=== PATIENT | male | born 1950 | race Caucasian/White ===

== ENCOUNTER 2023-03-28 18:27 | Outpatient (RCR) | payer MEDICARE, SELFPAY | END 2023-04-21 23:59 | disposition home or self-care (01) | LOC: MM 18:27 | PROVIDERS: PCP Internal Medicine; Visit Provider Internal Medicine | DX: Z51.81 Encounter for therapeutic drug level monitoring (principal); Z79.01 Long term (current) use of anticoagulants; I48.91 Unspecified atrial fibrillation | CPT/HCPCS: 85610; G0463 ==

== ENCOUNTER 2023-04-27 10:02 | Outpatient (RCR) | payer MEDICARE, SELFPAY | END 2023-05-22 17:08 | disposition home or self-care (01) | LOC: MM 10:02 | PROVIDERS: PCP Internal Medicine; Visit Provider Internal Medicine | DX: Z51.81 Encounter for therapeutic drug level monitoring (principal); Z79.01 Long term (current) use of anticoagulants; I48.91 Unspecified atrial fibrillation | CPT/HCPCS: 85610; G0463 ==

== ENCOUNTER 2023-05-23 09:38 | Outpatient (RCR) | payer MEDICARE, SELFPAY | END 2023-06-22 17:42 | disposition home or self-care (01) | LOC: MM 09:38 | PROVIDERS: PCP Internal Medicine; Visit Provider Internal Medicine | DX: Z51.81 Encounter for therapeutic drug level monitoring (principal); Z79.01 Long term (current) use of anticoagulants; I48.91 Unspecified atrial fibrillation ==

== ENCOUNTER 2023-06-06 15:46 | Outpatient (OUT) | payer MEDICARE, SELFPAY ==
--- NOTE | 2023-06-06 | XR_ITS ---
The [address] [address] Patient Name: OJAO JULIEN MRN: [id number] date: 1950 Sex: M Assigned Patient Location: [facility] Current Patient Location: [facility] Accession/Order Number: [id number] Exam Date: 06/06/2023 11:19 Report Date: 06/06/2023 15:38 At the request of: ELISE MAS Procedure: XR foot CURT min 3V EXAM: XR foot CURT min 3V 06/06/2023 TECHNIQUE: Frontal, oblique, and lateral views of each foot for a total of 7 images were obtained. HISTORY: BILATERAL FOOT PAIN COMPARISON: None. 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 Similar hallux valgus deformity noted bilaterally with mild/moderate arthritic changes involving first MTP joints bilaterally. Subcentimeter bone island at the base of the right fifth metatarsal is noted. Remote trauma seen about the distal right tibia-fibula syndesmotic region suggested with moderate arthritic changes at the tibiotalar more so than talonavicular articulation noted. There are mild similar arthritic changes at the left talonavicular articulation. Small bilateral calcaneal enthesophytes are noted. No acute fracture or dislocation noted. XR/XR foot CURT min 3V IMPRESSION: 1. Mild hallux valgus deformities bilaterally with moderate arthritic changes at the first MTP articulations bilaterally noted. There are mild symmetric arthritic changes about the talonavicular articulations bilaterally noted. 2. Remote trauma about the distal tibiofibular syndesmosis on the right with moderate arthritic changes involving the right tibiotalar articulation. 3. No acute fracture or dislocation involving either foot. 4. Small bilateral calcaneal enthesophytes are noted. Electronically authenticated by: AMERICO BAL Date: 06/06/2023 15:38
--- NOTE | 2023-06-06 | XR_ITS ---
The [address] [address] Patient Name: JOAO JULIEN MRN: [id number] date: 1950 Sex: M Assigned Patient Location: [facility] Current Patient Location: [facility] Accession/Order Number: [id number] Exam Date: 06/06/2023 11:05 Report Date: 06/06/2023 13:57 At the request of: ELISE MAS Procedure: XR ankle RT min 3V EXAM: XR ankle RT min 3V, 06/06/2023. COMPARISON STUDY: None. TECHNIQUE: Frontal, oblique and lateral views for 3 views were obtained. HISTORY: RIGHT ANKLE PAIN. FINDINGS/IMPRESSION: 1. Old healed fracture deformity associated with the distal fibula. 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 2. 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 3. No acute fracture or dislocation. 4. Small plantar calcaneal enthesophyte is noted. Electronically authenticated by: AMERICO BAL Date: 06/06/2023 13:57
== END 2023-06-06 15:47 | disposition home or self-care (01) ==
LOC: RAD 15:46
PROVIDERS: PCP Internal Medicine; Visit Provider Podiatrist Foot & Ankle Surgery
DX: M25.571 Pain in right ankle and joints of right foot (principal); M79.672 Pain in left foot
CPT/HCPCS: 73610; 73630

== ENCOUNTER 2023-06-23 09:05 | Outpatient (RCR) | payer MEDICARE, SELFPAY | END 2023-07-21 17:01 | disposition home or self-care (01) | LOC: MM 09:05 | PROVIDERS: PCP Internal Medicine; Visit Provider Internal Medicine | DX: Z51.81 Encounter for therapeutic drug level monitoring (principal); Z79.01 Long term (current) use of anticoagulants; I48.91 Unspecified atrial fibrillation | CPT/HCPCS: 85610; G0463 ==

== ENCOUNTER 2023-07-24 02:07 | Outpatient (RCR) | payer MEDICARE, SELFPAY | END 2023-08-22 17:29 | disposition home or self-care (01) | LOC: MM 02:07 | PROVIDERS: PCP Family Medicine; Visit Provider Internal Medicine | DX: Z51.81 Encounter for therapeutic drug level monitoring (principal); Z79.01 Long term (current) use of anticoagulants; I48.91 Unspecified atrial fibrillation | CPT/HCPCS: 85610; G0463 ==

== ENCOUNTER 2023-08-23 00:28 | Outpatient (RCR) | payer MEDICARE, SELFPAY | END 2023-09-21 16:42 | disposition home or self-care (01) | LOC: MM 00:28 | PROVIDERS: PCP Family Medicine; Visit Provider Internal Medicine | DX: Z51.81 Encounter for therapeutic drug level monitoring (principal); Z79.01 Long term (current) use of anticoagulants; I48.91 Unspecified atrial fibrillation | CPT/HCPCS: 85610; G0463 ==

== ENCOUNTER 2023-09-22 09:29 | Outpatient (RCR) | payer MEDICARE, SELFPAY | END 2023-10-20 15:11 | disposition home or self-care (01) | LOC: MM 09:29 | PROVIDERS: PCP Family Medicine; Visit Provider Internal Medicine | DX: Z51.81 Encounter for therapeutic drug level monitoring (principal); Z79.01 Long term (current) use of anticoagulants; I48.91 Unspecified atrial fibrillation ==

== ENCOUNTER 2023-10-23 02:11 | Outpatient (RCR) | payer MEDICARE, SELFPAY | END 2023-11-22 16:57 | disposition home or self-care (01) | LOC: MM 02:11 | PROVIDERS: PCP Family Medicine; Visit Provider Internal Medicine | DX: Z51.81 Encounter for therapeutic drug level monitoring (principal); Z79.01 Long term (current) use of anticoagulants; I48.0 Paroxysmal atrial fibrillation | CPT/HCPCS: 85610; G0463 ==

== ENCOUNTER 2023-11-23 00:49 | Outpatient (RCR) | payer MEDICARE, SELFPAY | END 2023-12-21 17:35 | disposition home or self-care (01) | LOC: MM 00:49 | PROVIDERS: PCP Family Medicine; Visit Provider Internal Medicine | DX: Z51.81 Encounter for therapeutic drug level monitoring (principal); Z79.01 Long term (current) use of anticoagulants; I48.0 Paroxysmal atrial fibrillation | CPT/HCPCS: 85610; G0463 ==

== ENCOUNTER 2023-12-22 01:27 | Outpatient (RCR) | payer MEDICARE, SELFPAY | END 2024-01-19 13:56 | disposition home or self-care (01) | LOC: MM 01:27 | PROVIDERS: PCP Family Medicine; Visit Provider Internal Medicine | DX: Z51.81 Encounter for therapeutic drug level monitoring (principal); Z79.01 Long term (current) use of anticoagulants; I48.0 Paroxysmal atrial fibrillation ==

== ENCOUNTER 2024-01-22 00:14 | Outpatient (RCR) | payer MEDICARE, SELFPAY | END 2024-02-20 17:56 | disposition home or self-care (01) | LOC: MM 00:14 | PROVIDERS: PCP Family Medicine; Visit Provider Internal Medicine | DX: Z51.81 Encounter for therapeutic drug level monitoring (principal); Z79.01 Long term (current) use of anticoagulants; I48.0 Paroxysmal atrial fibrillation | CPT/HCPCS: 85610; G0463 ==

== ENCOUNTER 2024-01-23 08:07 | Outpatient (OUT) | payer MEDICARE, SELFPAY ==
--- OUTSIDE RECORDS SUMMARY | 2024-01-23 08:10 | XMS_ITS | CCD ---
Author Organization [facility] Care Team Providers Care Management Trainer Name Role Phone PHYSICIAN, DEFAULT Unavailable Unavailable PHYSICIAN, DEFAULT Unavailable Unavailable CHRISTI DENT Primary Care Physician Christi Dent Unavailable Unavailable Unavailable MD Tyrone Walters Attending Provider MD Christi Dent Primary Care Provider MD Tyrone Walters Referring Provider [phone] Dr. Ta Silva Attending Mary Dent, Dr. Christi Bird Primary Care Brandyv Christi Leal Primary Care Unavailable Walters, Tyrone Admitting Unavailable Walters, Tyrone Referring Unavailable Walters, Tyrone Attending Unavailable Christi Dent Primary Care Unavailable Walters, Hansen Admitting Unavailable Walters, Tyrone Attending Unavailable Filipe, Dr. Christi Bird Primary Care Unav dilipable Ta Silva Attending Unavailable Ta Silva Referring Unavailable Oc, Ms. Johnna Franco Referring Sarah Renae, Ms. Johnna Franco Attending Sarah Dent, Dr. Christi Bird Primary Care Catrachita Dent, Dr. Christi Bird Primary Care Unav ailTyrone Boyd Attending Unavailable Oc, Ms. Johnna Franco Referring Sarah Renae, Ms. Johnna Franco Attending Sarah Dent, Dr. Christi Bird Primary Care Catrachita Renae, Ms. Johnna Franco Referring Sarah Renae, Ms. Johnna Franco Attending Sarah Dent, Dr. Christi Bird Primary Care Unav ailstacie Dent, Dr. Christi Bird Primary Care Unav ailable Renae, Ms. Johnna Gordonsoledad Franco Referring Sarah Renae, Ms. Johnna Huntd Attending Sarah Dent, Dr. Christi Bird Primary Care Unav ailable Ricardo, Ta Attending Unavailable Ricardo, Ta Referring Unavailable Dent, Dr. Christi Bird Primary Care Unav ailable Ricardo, Ta Attending Unavailable Ricardo, Ta Referring Unavailable FAWWAD, VARGHESE H Attending Unavailable FAWWAD, VARGHESE H Admitting Unavailable DENT, DR CHRISTI Garcia Primary Care Unavailable FAWWAD, VARGHESE H Attending Unavailable FAWWAD, VARGHESE H Admitting Unavailable DENT, DR CHRISTI Garcia Primary Care Unavailable FAWWAD, VARGHESE H Attending Unavailable FAWWAD, VARGHESE H Admitting Unavailable DENT, DR CHRISTI Garcia Primary Care Unavailable FAWWAD, VARGHESE H Attending Unavailable FAWWAD, VARGHESE H Admitting Unavailable DENT, DR CHRISTI Garcia Primary Care Unavailable FAWWAD, VARGHESE H Attending Unavailable FAWWAD, VARGHESE H Admitting Unavailable DENT, DR CHRISTI Garcia Primary Care Unavailable FAWWAD, VARGHESE H Attending Unavailable FAWWAD, VARGHESE H Admitting Unavailable DENT, DR CHRISTI Garcia Primary Care Unavailable FAWWAD, VARGHESE H Attending Unavailable FAWWAD, VARGHESE H Admitting Unavailable DENT, DR CHRISTI Garcia Primary Care Unavailable FAWWAD, VARGHESE H Attending Unavailable FAWWAD, VARGHESE H Admitting Unavailable DENT, DR CHRISTI Garcia Primary Care Unavailable REINIER ., DR WRIGHT Consulting Unavailable RICARDO, DR TA Michel Attending Unavailabl jose DENT, DR CHRISTI Garcia Primary Care Unavailable RICARDO, DR TA Michel Admitting Unavailaudrey e RICARDO, DR TA Michel Consulting Unavailabl e REINIER ., DR WRIGHT Consulting Unavailable FORTE ., DR WRIGHT Attending Unavailable FORTE ., DR WRIGHT Admitting Unavailable DENT, DR CHRISTI Garcia Primary Care Unavailable REQUEST, NONE LISTED Consulting Unavaila ble REQUEST, DR DOE LISTED Attending Unavaila ble FIILPE, DR CHRISTI Garcia Primary Care Unavailable REQUEST, NONE LISTED Admitting Unavaila ble JOSE ., MONSE Attending Unavailable JOSE ., MONSE Admitting Unavailable DENT, CHRSITI E Primary Care Unavailable BRENDON NORIEGA Consulting Unavailaudrey e SHAIKH Joseluis MCNAMARA Attending Unavailable SHAIKH Joseluis MCNAMARA Admitting Unavailable DR CHRISTI DENT Primary Care Unavailable SHAIKH Joseluis MCNAMARA Attending Unavailable SHAIKH MCNAMARA H Admitting Unavailable DR CHRISTI DENT Primary Care Unavailable SHAIKH Joesluis MCNAMARA Attending Unavailable SHAIKH Joseluis MCNAMARA Admitting Unavailable DR CHRISTI DENT Primary Care Unavailable Christi Dent Kyle FORTE Attending Unavailable Kyle FORTE Attending Unavailable Allergies Allergy Classification Reported Allergen(s) Allergy Type Date of Onset Reaction(s) Facility (18 sources) Sulfamethoxazole; Translations: [sulfamethoxazole ] Drug Allergy [facility] (1 source) Sulfonamides (Antibiotic) Drug allergy (disorder) 2 [facility] (1 source) Sulfonamides (Antibiotic) Drug allergy (disorder) 5 [facility] (5 sources) Lisinopril Drug Allergy Unknown [facility] Other (5 sources) Sulfacetamide Drug Allergy pt doesn't remember [facility] Other Medications Current Medications Medication Drug Class(es) Dates Sig (Normalized) Sig (Original) Albuterol (6 sources) beta2-Adrenergic Agonist Start: 08-08-2019 Ventolin Ventolin Start Date: 08/08/19 Status: Ordered bisoprolol fumarate 10 mg / hydroCHLOROthiazide 6.25 mg oral tablet (1 source) Thiazide Diuretic, beta-Adrenergic Finesse Start: 10-26-2015 bisoprolol-hydrochlorothiazi de 10 mg-6.25 mg Tab Oral, Daily, Refill(s) 0 Start Date: 10/26/15 Status: Ordered clobetasol propionate 0.5 mg/ml topical cream (4 sources) Corticosteroid Clobetasol Propi danae 0.05 % 1 application Externally Twice a day for 10 days Active Clobetasol Propi danae 0.05 % 1 application Externally Twice a day for 10 days Active cloNIDine hydrochloride 0.2 mg oral tablet (19 sources) Central alpha-2 Adrenergic Agonist Start: 09-06-2022 take 0.2 mg by mouth twice daily Clonidine Hcl Active 0.2 MG PO Twice daily September 06, 2022 12:00am Start: 10-26-2015 cloNIDine 0.1 mg tab Oral, BID, Refills(s) 0 Start Date: 10/26/15 Status: Ordered diclofenac sodium 0.01 mg/mg topical gel (5 sources) Nonsteroidal Anti-inflammatory Drug GoodSense Arthritis Pain 1 % APPLY 1-2 GRAM TO THE AFFECTED AREA(S) FOUR TIMES DAILY FOR 90 DAYS for 90 Active Voltaren 1 % martínez ly 1-2 grams to affected area Externally up to four times daily for 90 days Active flecainide acetate 50 mg oral tablet (20 sources) Antiarrhythmic Start: 08-25-2022 flecainide 50 mg Tab Refills(s) 0 Start Date: 02/03/23 Status: Ordered hydroCHLOROthiazide 12.5 mg oral tablet (20 sources) Thiazide Diuretic Start: 09-06-2022 take 12.5 mg by mouth once daily Hydrochlorothiazide Active 12.5 MG PO Daily September 06, 2022 12:00am Start: 01-25-2021 take 1 mg by mouth o nce daily hydrochlorothiazide 12.5 mg Cap mg cap(s), Oral, Daily, Refills(s) 0 Start Date: 01/25/21 Status: Ordered latanoprost 0.05 mg/ml ophthalmic solution (12 sources) Prostaglandin Analog Latanoprost 0.005 % 1 drop once at HS Active Latanoprost 0.00 5 % 1 drop once at HS Active Latanoprost SOLN as directed Quantity: 0 Refills: 0 Ordered: 13-Sep-2022 DO Active latanoprost Opth 0.005% Chika (1 source) Start: 10-26-2015 latanoprost Op th 0.005% Chika 1 drop(s), OPTH, Once a day (at bedtime), 2.5 mL, Refill(s) 0 Start Date: 10/26/15 Status: Ordered losartan potassium 50 mg oral tablet (9 sources) Angiotensin 2 Receptor Finesse Start: 08-08-2019 take 50 mg by mouth once daily Losartan Active 50 MG PO Daily September 06, 2022 12:00am Mometasone (20 sources) Corticosteroid Start: 08-08-2019 Asmanex Inhalation Start Date: 08/08/19 Status: Ordered take 2 puff(s) by inhalation twi ce daily Asmanex HFA 100 MCG/ACT 2 puffs Inhalation Twice a day for 90 days Active take 1 puff(s) by in halation once daily in the evening Asmanex (120 Metered Doses) 220 MCG/ACT Inhalation Aerosol Powder Breath Activated INHALE 1 PUFF DAILY IN THE EVENING. Quantity: 0 Refills: 0 Ordered: 11-Aug-2022 DO Active Mometasone (Asmanex Twisthaler) 220 mcg/ actuation (120) Aerosol Powdr Breath Activated (1 source) Start: 09-06-2022 Mometasone (Asmanex Twisthaler) 220 mcg/ actuation (120) Aerosol Powdr Breath Activated Active 1 INH INHALATION Daily September 06, 2022 12:00am IN THE EVENING montelukast 10 mg oral tablet (20 sources) Leukotriene Receptor Antagonist Start: 09-06-2022 take 1 tablet by mouth at bedtime Montelukast (Singulair) 10 mg Tablet Active 10 MG PO Bedtime September 06, 2022 12:00am Start: 08-08-2019 Singulair Edwin y Start Date: 08/08/19 Status: Ordered pantoprazole 20 mg delayed release oral tablet (20 sources) Proton Pump Inhibitor Start: 09-06-2022 take 1 tablet by mouth once daily Pantoprazole (Protonix) 20 mg Tablet,Delayed Release (Dr/Ec) Active 20 MG PO Daily September 06, 2022 12:00am Start: 08-08-2019 Protonix Oral, Daily Start Date: 08/08/19 Status: Ordered polyethylene glycol 3350 87042 mg powder for oral solution (20 sources) Osmotic Laxative Start: 09-06-2022 Polyethylene Glycol 3350 (Miralax) 17 gram/dose Powder Active 17 GM PO Daily September 06, 2022 12:00am MiraLax Active simvastatin 20 mg oral tablet (20 sources) HMG-CoA Reductase Inhibitor Start: 10-26-2015 take 20 mg by mouth at bedtime Simvastatin Active 20 MG PO Bedtime September 06, 2022 12:00am Aldactone (13 sources) Aldosterone Antagonist Start: 02-03-2023 Aldactone Oral, Refills(s) 0 Start Date: 02/03/23 Status: Ordered Start: 09-13-2022 take 1 tablet by dominick th once daily Spironolactone 25 MG Oral Tablet TAKE 1 TABLET DAILY. Quantity: 90 Refills: 3 Ordered: 08-Nov-2022 Johnna Gutierrez Start : 13-Sep-2022 Active Start: 09-13-2022 take 0.5 tablet by m outh once daily Spironolactone 25 MG Oral Tablet TAKE 0.5 TABLET Daily Quantity: 15 Refills: 0 Ordered: 12-Oct-2022 Johnna Gutierrez Start : 13-Sep-2022 Active timolol 2.5 mg/ml ophthalmic solution (14 sources) beta-Adrenergic Finesse Start: 10-26-2015 timolo l hemihydrate ophthalmic 0.25% solution Eye-Both, Daily, Refill(s) 0 Start Date: 10/26/15 Status: Ordered Start: 10-26-2015 timolol hemihy drate ophthalmic 0.25% solution Eye-Both, Daily, Refill(s) 0 Start Date: 10/26/15 Status: Ordered Timolol Maleate SOLN as directed Quantity: 0 Refills: 0 Ordered: 13-Sep-2022 DO Active Warfarin (20 sources) Vitamin K Antagonist Start: 08-19-2019 Coumadin Oral, Daily, Refills(s) 0 Start Date: 08/19/19 Status: Ordered take 1 tablet by mouth two times weekly Coumadin 2.5 2.5 MG 1 tablet Orally Two times a Week Active Coumadin TABS TA KE 1 TABLET DAILY DIRECTED. [facility] monitors coumadin Quantity: 0 Refills: 0 Ordered: 11-Aug-2022 DO Active Completed/Discontinued Medications Medication Drug Class(es) Dates Sig (Normalized) Sig (Original) dilTIAZem hydrochloride 60 mg oral tablet (20 sources) Calcium Channel Finesse Start: 11-28-2022 take 1 tablet by mouth once daily dilTIAZem HCl - 60 MG Oral Tablet Take 1 tablet daily Quantity: 90 Refills: 3 Ordered: 28-Nov-2022 Johnna Gutierrez Start : 28-Nov-2022 Active dose decreased Start: 09-06-2022 take 1 tablet by mouth once da erum Diltiazem Hcl Active 135 MG PO Daily September 06, 2022 12:00am TABLETS 1 1/2 DAILY Start: 08-11-2022 take 1 tablet by mouth once da erum dilTIAZem HCl - 90 MG Oral Tablet Take 1 tablet daily Quantity: 90 Refills: 3 Ordered: 12-Oct-2022 Salvador Renae ESPERANZAJohnna Start : 11-Aug-2022 Active Start: 08-11-2022 take 1.5 tablets by mouth once daily dilTIAZem HCl - 90 MG Oral Tablet TAKE 1.5 TABLET Daily Quantity: 135 Refills: 3 Ordered: 11-Aug-2022 Ta Silva DO Start : 11-Aug-2022 Active Start: 10-26-2015 diltiazem 90 m g Tab Oral, Daily, Refills(s) 0 Start Date: 10/26/15 Status: Ordered valsartan 160 mg oral tablet (13 sources) Angiotensin 2 Receptor Finesse Start: 09-09-2022 take 1 tablet by mouth once daily Valsartan 160 MG Oral Tablet TAKE 1 TABLET DAILY FOR BLOOD PRESSURE. Quantity: 90 Refills: 3 Ordered: 09-Sep-2022 Ta Silva DO Start : 09-Sep-2022 Active new start Problems Active Problems Problem Classification Problem Date Documented Da te Episodic/Chronic Allergic reactions (2 sources) Irritant contact dermatitis due to drugs in contact with skin Episodic Calculus of urinary tract (4 sources) Kidney stone; Translations: [Calculus of kidney] Onset: 2 Episodic Cancer of prostate (2 sources) Carcinoma of prostate 01-28-2022 Chronic Cancer of prostate (9 sources) Personal history of malignant neoplasm of prostate; Translations: [History of malignant neoplasm of prostate] Onset: 2 Episodic Cardiac dysrhythmias (20 sources) Paroxysmal atrial fibrillation; Translations: [Atrial fibrillation] Onset: 2 Chronic Disorders of lipid metabolism (18 sources) Hyperlipidemia; Translations: [Mixed hyperlipidemia] Onset: 2 08-08-2019 Chronic Essential hypertension (20 sources) Hypertensive disorder; Translations: [Essential hypertension] Onset: 2 08-08-2019 Chronic Genitourinary symptoms and ill-defined conditions (6 sources) Microscopic hematuria; Translations: [Other microscopic hematuria] Onset: 2 Episodic Glaucoma (2 sources) Glaucoma 08-08-2019 Chronic Inflammatory conditions of male genital organs (2 sources) Epididymitis 08-08-2019 Episodic Other aftercare (15 sources) Drug therapy finding; Translations: [Long-term (current) use of other medications] Episodic Other aftercare (5 sources) Encounter for therapeutic drug level monitoring; Translations: [ENC THERAPEUTC DRUG LEVL MONITORING] Onset: 3 Episodic Other aftercare (1 source) senior living (current) use of anticoagulants; Translations: [COURT STENOGRAPHER CURRNT USE ANTICOAGULANTS] Onset: 3 Episodic Other and ill-defined heart disease (15 sources) Left ventricular hypertrophy; Translations: [Cardiomegaly] Chronic Other diseases of bladder and urethra (2 sources) Urethral stricture 08-19-2019 Episodic Other endocrine disorders (2 sources) Disorder of adrenal gland; Translations: [Other specified disorders of adrenal gland] Onset: 2 Chronic Other endocrine disorders (2 sources) Mass of right adrenal gland 01-25-2021 Chronic Other gastrointestinal disorders (2 sources) History of gastrointestinal bleed 08-08-2019 Episodic Other nervous system disorders (5 sources) Chronic pain; Translations: [Other chronic pain] Chronic Other non-traumatic joint disorders (1 source) Pain in left ankle and joints of left foot Episodic Other nutritional; endocrine; and metabolic disorders (5 sources) Hypercalcemia; Translations: [Hypercalcemia] Chronic Other nutritional; endocrine; and metabolic disorders (20 sources) Overweight in adulthood with body mass index of 25 or more but less than 30; Translations: [Overweight] Episodic Other screening for suspected conditions (not mental disorders or infectious disease) (18 sources) Raised prostate specific antigen; Translations: [Patient encounter status] Onset: 2 08-08-2019 Episodic Other skin disorders (1 source) Corns and callosities Episodic Unclassified (2 sources) Drug therapy finding 05-25-2020 Unclassified (1 source) Encounter for preprocedural laboratory examination; Translations: [Encounter for preprocedural laboratory examination] Onset: 2 Unclassified (1 source) Asymptomatic microscopic hematuria 02-02-2023 Past or Other Problems Problem Classification Problem Date Documented Da te Episodic/Chronic Other aftercare (1 source) Other prison (current) drug therapy; Translations: [OTH COURT STENOGRAPHER CURRENT DRUG THERAPY] Onset: 09-13-2022 Episodic Residual codes; unclassified (1 source) Acquired absence of other genital organ(s); Translations: [ACQUIRED ABSENCE OTH GENITAL ORGANS] Onset: 09-13-2022 Episodic Screening and history of mental health and substance abuse codes (17 sources) Ex-smoker; Translations: [Personal history of tobacco use] Onset: 09-08-2022 Episodic Results Test Name Value Interpretation Reference Range Facility Reminderson 01-11-2024 Reminders - From: Iris Lu To: RADHA Forte; Sent: 02/03/2023 08:26:24 EDT Show up: 11/23/2023 08:26:00 EST Subject: renal US Due Date/Time: 12/09/2024 08:26:00 EST Reminder Message Please Remember to: Call pt to schedule renal US prior to January 2024 appt, adrenal mass PATIENT RELATED REMINDER:_ ( ) Call Patient ( ) Ask Patient to ( ) Call Relative ( ) Schedule Patient ( ) Follow up on Results ( ) Other: PROVIDER RELATED REMINDER:_ ( ) Historical Records Administrator ( ) Call Pharmacy ( ) Call Lab ( ) Other: Special Instructions:_ Comments:_ LM on VM letting pt know order was faxed to [facility]. They will call pt to schedule. ZIA is scheduled @ [facility] 01/23/24. Follow to review results 02/05/24. [facility] Lab Reportson 02-06-2023 Lab Reports [id number]:[id number] [facility] Ambulatory Visit Summaryon 0 02-03-2023 Ambulatory Visit Summary JOAO BOGGS :1950 Visit Date:02/03/2023 Ambulatory Visit Instructions Your Diagnosis Personal history of prostate cancer Asymptomatic microscopic hematuria Kidney stone Mass of right adrenal gland Tests Performed Urnls Dip Stick Auto w/o Microscopy POC 46115 Your Care Team Attending Physician - REINIER VAUGHAN, Kyle Valadez Primary Care Physician - FILIPE VAUGHAN, CHRISTI This Is Your Medications List Contact prescribing physician if questions or concerns clonidine (cloNIDine 0.1 mg tab) flecainide (flecainide 50 mg Tab) hydrochlorothiazide (hydrochlorothiazide 12.5 mg Cap) pantoprazole (Protonix) spironolactone (Aldactone) timolol ophthalmic (timolol hemihydrate ophthalmic 0.25% solution) Procedures Performed Cystoscopy (09/04/2018), Repair of wound of abdominal wall (11/17/2015), Radical prostatectomy (11/04/2015), Transrectal biopsy of prostate using ultrasound guidance (08/25/2015), Cataracts, Cystourethroscopy with dilation of urethral stricture, EB - External beam radiotherapy, Nasal polyps......, Tonsillectomy. Discharge Vitals Height 167 cm Height 66 in Weight 74.3 kg Weight 163.46 lb BMI 26.64 What to do next Scheduled Follow-Up Appointments Monday 9:15 AM EDT With: REINIER VAUGHAN, Kyle Valadez Where: [facility] Patient Educationon 02-04-20 Patient Education Oncology Prostate Cancer The prostate is a walnut-sized gland that is involved in the production of semen. It is located below a man's bladder, in front of the rectum. Prostate cancer is the abnormal growth of cells in the prostate gland. What are the causes? The exact cause of this condition is not known. What increases the risk? This condition is more likely to develop in men who: ? Are older than age 65. ? Are -[place]is[place]. ? Are obese. ? Have a family history of prostate cancer. ? Have a family history of breast cancer. What are the signs or symptoms? Symptoms of this condition include: ? A need to urinate often. ? Weak or interrupted flow of urine. ? Trouble starting or stopping urination. ? Inability to urinate. ? Pain or burning during urination. ? Painful ejaculation. ? Blood in urine or semen. ? Persistent pain or discomfort in the lower back, lower abdomen, hips, or upper thighs. ? Trouble getting an erection. ? Trouble emptying the bladder all the way. How is this diagnosed? This condition can be diagnosed with: ? A digital rectal exam. For this exam, a health care provider inserts a gloved finger into the rectum to feel the prostate gland. ? A blood test called a prostate-specific antigen (PSA) test. ? An imaging test called transrectal ultrasonography. ? A procedure in which a sample of tissue is taken from the prostate and examined under a microscope (prostate biopsy). Once the condition is diagnosed, tests will be done to determine how far the cancer has spread. This is called staging the cancer. Staging may involve imaging tests, such as: ? A bone scan. ? A CT scan. ? A PET scan. ? An MRI. The stages of prostate cancer are as follows: ? Stage I. At this stage, the cancer is found in the prostate only. The cancer is not visible on imaging tests and it is usually found by accident, such as during a prostate surgery. ? Stage II. At this stage, the cancer is more advanced than it is in stage I, but the cancer has not spread outside the prostate. ? Stage III. At this stage, the cancer has spread beyond the outer layer of the prostate to nearby tissues. The cancer may be found in the seminal vesicles, which are near the bladder and the prostate. ? Stage IV. At this stage, the cancer has spread other parts of the body, such as the lymph nodes, bones, bladder, rectum, liver, or lungs. How is this treated? Treatment for this condition depends on several factors, including the stage of the cancer, your age, personal preferences, and your overall health. Talk with your health care provider about treatment options that are recommended for you. Common treatments include: ? Observation for early stage prostate cancer (active surveillance). This involves having exams, blood tests, and in some cases, more biopsies. For some men, this is the only treatment needed. ? Surgery. Types of surgeries include: ? Open surgery. In this surgery, a larger incision is made to remove the prostate. ? A laparoscopic prostatectomy. This is a surgery to remove the prostate and lymph nodes through several, small incisions. It is often referred to as a minimally invasive surgery. ? A robotic prostatectomy. This is a surgery to remove the prostate and lymph nodes with the help of a robotic arm that is controlled by a computer. ? Orchiectomy. This is a surgery to remove the testicles. ? Cryosurgery. This is a surgery to freeze and destroy cancer cells. ? Radiation treatment. Types of radiation treatment include: ? External beam radiation. This type aims beams of radiation from outside the body at the prostate to destroy cancerous cells. ? Brachytherapy. This type uses radioactive needles, seeds, wires, or tubes that are implanted into the prostate gland. Like external beam radiation, brachytherapy destroys cancerous cells. An advantage is that this type of radiation limits the damage to surrounding tissue and has fewer side effects. ? High-intensity, focused ultrasonography. This treatment destroys cancer cells by delivering high-energy ultrasound waves to the cancerous cells. ? Chemotherapy medicines. This treatment kills cancer cells or stops them from multiplying. ? Hormone treatment. This treatment involves taking medicines that act on one of the male hormones (testosterone): ? By stopping your body from producing testosterone. ? By blocking testosterone from reaching cancer cells. Follow these instructions at home: ? Take [id number] and prescription medicines only as told by your health care provider. ? Maintain a healthy diet. ? Get plenty of sleep. ? Consider joining a support group for men who have prostate cancer. Meeting with a support group may help you learn to cope with the stress of having cancer. ? Keep all follow-up visits as told by your health care provider. This is important. ? If you have to go to the hospital, notify your cancer specialis (more content not included)... [facility] Urology Office/Clinic Noteon 02-03-2023 Urology Office/Clinic Note Chief Complaint 1yr PSA HPI Staff 1yr PSA due to Hx of Prostate Cancer. S/P Prostatectomy done 10/2015 & EBRT 01/2017. Additional DX: Microscopic Hematuria, Kidney Stone & Mass on Rt Adrenal Gland. Pt was to get Renal US done for today's appt, per previous EMR messages, pt has refused Renal US. *No Urology Medications. PSA done 01/27/23- <0.13 Denies flank pain. Denies any urinary complaints. No concerns at this time. History of Present Illness Tests Reviewed: Reviewed UA. I have reviewed and verified the staff HPI to be accurate for this encounter. I have reviewed the previous health record information and history for this patient from Dr. Forte There have been no associated fever, chills, flank pain, or blood in the urine. Denies any urinary infections since last encounter. Review of Systems PHQ Score Initial Depression Screen Score: 0 ROS - Provider Constitutional: denies weight loss, denies hot flashes. Eyes: denies eye problems. Gastrointestinal: denies nausea, denies vomiting. Cardiovascular: denies chest pain or angina. Integumentary: no dryness Musculoskeletal: denies musculoskeletal symptoms. ENMT: denies otolaryngeal symptoms. Respiratory: no shortness of breath. Heme/Lymph: denies easy bleeding tendency, denies easy bruising tendency. Psychiatric: no confusion, no anxiety. Genitourinary: denies dysuria, denies hematuria, denies discharge, denies urinary frequency, denies urinary hesitancy, denies nocturia, denies incontinence, denies genital sores, denies decreased libido, and denies erectile dysfunction. Physical Exam Vitals & Measurements HT: 66 in HT: 167 cm WT: 74.3 kg WT: 163.46 lb BMI: 26.64 General Appearance: alert, no distress, well nourished, well developed male. Flank Pain: none. Bladder: nonpalpable. Assessment/Plan Patient is here today for appointment with his . 1. Personal history of prostate cancer (Z85.46: Personal history of malignant neoplasm of prostate) S/P Prostatectomy done 10/2015 & EBRT 01/2017. PSA done 01/27/23- <0.13. Previous PSA was done 02/24/22 0.05. Patient is voiding well, denies any leaking. Will continue to monitor. 2. Asymptomatic microscopic hematuria (R31.21: Asymptomatic microscopic hematuria) UA done today shows Small blood. Chronic. Last Cystoscopy was done 09/04/2018. 3. Kidney stone (N20.0: Calculus of kidney) Patient denies any stone issues at this time. Will continue to monitor. No recent imaging. 4. Mass of right adrenal gland (E27.8: Other specified disorders of adrenal gland) Patient refused renal US testing prior to this appt. Prior Ct imaging 07/15/21 showed stable right adrenal nodules, 1.6cm and 1.3 cm. Patient states the adrenal masses have not changed in all the years and does not want any further testing for it. Patient also does not want testing due to his age. It was discussed with them, it can change, but will not know without testing. Patient states he will get renal US next year prior to appt. All questions and concerns were discussed with patient and . Patient to call the office if he encounters any issues prior to next appt. Patient acknowledges understanding. I have reviewed the previous health history and record for this patient with Dr. Forte. Follow-up With When Contact Information Kyle FORTE MD, URL In 1 year [facility] [address], [place] [address]- [phone] Additional Instructions: 1 year fu with PSA Patient Education Prostate Cancer I, Iris Lu, personally scribed for Dr. Forte on 02/03/2023 08:23:23. . Documentation recorded by the scribdoris garcia, accurately reflects the services(s) I performed and decisions made by me. Authenticated by Dr. Forte on 02/03/2023 08:26:58. Problem List/Past Medical History Ongoing Anticoagulated Asymptomatic microscopic hematuria Kidney stone Mass of right adrenal gland Microscopic hematuria Nocturia Personal history of prostate cancer Urethral stricture Historical Elevated PSA Epididymitis Glaucoma H/O: GIT bleed Hyperlipidemia Hypertension Prostate cancer Procedure/Surgical History Cystoscopy (09/04/2018), Repair of wound of abdominal wall (11/17/2015), Radical prostatectomy (11/04/2015), Transrectal biopsy of prostate using ultrasound guidance (08/25/2015), Cataracts, Cystourethroscopy with dilation of urethral stricture, EB - External beam radiotherapy, Nasal polyps......, Tonsillectomy. Medications Aldactone, Oral cloNIDine 0.1 mg tab, Oral, BID flecainide 50 mg Tab hydrochlorothiazide 12.5 mg Cap, Oral, Daily Protonix, Oral, Daily timolol hemihydrate ophthalmic 0.25% solution, Eye-Both, Daily Allergies sulfamethoxazole Social History Alcohol - No Risk, 10/22/2015 Tobacco - Denies Tobacco Use, 10/22/2015 Former smoker, quit more than 30 days ago Tobacco Use:. Cigarettes, 02/03/2023 Family History (more content not included)... Normal [facility] Comment on above: Result Comment: Elec tronically Signed By: Kyle FORTE MD\.br\Date and Time Signed: 02/03/23 08:27 EDT\.br\Electronically Co-Signed By: Iris Lu\.br\Date and Time Co-Signed: 02/03/23 08:23 EDT Office Visit (Cardiology)on 01-04-2023 Follow-up visit Diagnoses/Problems Assessed Essential hypertension (401.9) (I10) Paroxysmal atrial fibrillation (427.31) (I48.0) Overweight with body mass index (BMI) of 25 to 25.9 in adult (278.02,V85.21) (E66.3,Z68.25) Orders Overweight with body mass index (BMI) of 25 to 25.9 in adult Healthy Weight Tips; Status:Complete; Done: 04Jan2023 Patient Instructions Please bring all medicines, vitamins, and herbal supplements with you when you come to the office. Prescriptions will not be filled unless you are compliant with your follow up appointments or have a follow up appointment scheduled as per instruction of your physician. Refills should be requested at the time of your visit. PLAN: Through informed decision making process incorporating patients unique circumstances, the following treatment plan will be initiated: 1. Prescription drug management of cardiovascular medication for efficacy, adherence to treatment, side effect assessment and polypharmacy. Current treatment clinically warranted and to continue without modifications. 2. Return for follow-up; in the interim, contact the office if new symptoms arise. Dr. Silva as scheduled Chief Complaint 1 month f/u: 'doing fine' JOAO BOGGS is being seen for a 6-8 week follow-up of atrial fibrillation and hypertension. Patient presents to the office ambulatory with steady gait. Is accompanied by his . Last evaluated in clinic by myself October 2022. At that time we simply adjusted timing of antihypertensives. With dosing of valsartan at 11 AM he has noted significant improvement in his blood pressure throughout the day. Home recordings have been reviewed and remains optimal. Heart rates continue in the 40s but he is asymptomatic without dizziness, lightheadedness or fatigability. Declines need for Holter monitor at this time. Otherwise he continues to exercise on a daily basis without any type of complaints. There have been no recurrent palpitations, EKG in office sinus bradycardia. Tolerating anticoagulation without reported bleeding diatheses. Overall patient is pleased with current state of cardiovascular health. At this time there are no indications for additional cardiovascular testing or need for medication changes. History of Present Illness The patient states he has been generally doing well since the last visit. Comorbid Illnesses: hypertension and hyperlipidemia. Symptoms: denies chest pain at rest, denies exertional chest pain, denies dyspnea, denies fatigue, denies exercise intolerance, denies palpitations, denies edema, denies dizziness and denies orthostatic dizziness. Associated symptoms: no syncope. His symptoms do not limit his activities. Disease Monitoring: Surgical History Problems History of Cardiac catheterization History of Cataract surgery History of Colonoscopy History of Esophagogastroduodenoscopy History of Prostate surgery Current Meds Medication NameInstruction Asmanex (120 Metered Doses) 220 MCG/ACT Inhalation Aerosol Powder Breath ActivatedINHALE 1 PUFF DAILY IN THE EVENING. cloNIDine HCl - 0.2 MG Oral TabletTAKE 1 TABLET TWICE DAILY. Coumadin TABSTAKE 1 TABLET DAILY DIRECTED. [facility] monitors coumadin dilTIAZem HCl - 60 MG Oral TabletTake 1 tablet daily Flecainide Acetate 50 MG Oral TabletTAKE 1 TABLET TWICE DAILY. hydroCHLOROthiazide 12.5 MG Oral TabletTAKE 1 TABLET DAILY. Latanoprost SOLNas directed MiraLax 17 GM Oral Packet Protonix 20 MG Oral Tablet Delayed ReleaseTAKE 1 TABLET DAILY. Simvastatin 20 MG Oral TabletTAKE 1 TABLET AT BEDTIME. Singulair 10 MG Oral TabletTAKE 1 TABLET AT BEDTIME. Spironolactone 25 MG Oral TabletTAKE 1 TABLET DAILY. Timolol Maleate SOLNas directed Valsartan 160 MG Oral TabletTAKE 1 TABLET DAILY FOR BLOOD PRESSURE. Allergies Medication sulfa Recorded By: Heydi Blas; 12/14/2021 2:52:41 PM intolerance Social History Problems Caffeine use (V49.89) (Z78.9) Former smoker (V15.82) (Z87.891) No illicit drug use Social alcohol use (V49.89) (Z78.9) Review of Systems Constitutional: not feeling tired. Cardiovascular: no chest pain, no palpitations and no lower extremity edema. Respiratory: no shortness of breath during exertion, no orthopnea and no PND. Vitals Vital Signs Printed in Appendix #1 below. EKG done in office today Physical Exam Constitutional: alert and in no acute distress. Neck: neck is supple, symmetric, trachea midline, no masses . Pulmonary: no increased work of breathing or signs of respiratory distress and lungs clear to auscultation. Cardiovascular: JVP was normal, regular rhythm, normal S1 and S2, no murmurs and no edema . Abdomen: abdomen non-tender, no masses . Skin: skin warm and dry, normal skin turgor . Psychiatric oriented to person, place and time and normal mood and affect . Signatures Johnna Renae MSN, RECORDS TECHNICIAN-LABORATORY TECHNICAL SPECIALIST, PMHNP-BC [facility] [place] Please excuse any errors in grammar or trans (more content not included)... Normal [facility] Tobacco Screening.on 023 Fall risk assessment a) No falls within the last year -[facility] gray 250 DO Work Phone: Tobacco use status CP b) No -[facility] 250 DO Work Phone: Office Visit (Cardiology)on 11-08-2022 Follow-up visit Diagnoses/Problems Assessed Essential hypertension (401.9) (I10) Overweight with body mass index (BMI) of 25 to 25.9 in adult (278.02,V85.21) (E66.3,Z68.25) Orders Essential hypertension Renew: Spironolactone 25 MG Oral Tablet; TAKE 1 TABLET DAILY Overweight with body mass index (BMI) of 25 to 25.9 in adult Healthy Weight Tips; Status:Complete; Done: 08Nov2022 Paroxysmal atrial fibrillation Renew: Flecainide Acetate 50 MG Oral Tablet; TAKE 1 TABLET TWICE DAILY Patient Instructions Please bring all medicines, vitamins, and herbal supplements with you when you come to the office. Prescriptions will not be filled unless you are compliant with your follow up appointments or have a follow up appointment scheduled as per instruction of your physician. Refills should be requested at the time of your visit. PLAN: Through informed decision making process incorporating patients unique circumstances, the following treatment plan will be initiated: 1. Prescription drug management of cardiovascular medication for efficacy, adherence to treatment, side effect assessment and polypharmacy. Current treatment clinically warranted and to continue with following modifications: - Increase spironolactone 25g daily - Please take Valsartan at noon 2. Check BP in afternoon and call me next week with results. 3. Return for follow-up; in the interim, contact the office if new symptoms arise. 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 Patient presents to the office ambulatory with steady gait, is accompanied by his . Last evaluated in clinic by myself September 2022. At that time, he had asymptomatic hypotension after morning medication. continued to report elevated blood pressures around 3 PM, presents today to evaluate afternoon blood pressure. This morning's medication included clonidine, spironolactone, hydrochlorothiazide and valsartan. Blood pressure in the office is consistent with home machine. Patient is asymptomatic with elevated blood pressure. No caffeine, alcohol, energy drinks, hizn-eyd-gqycbct medications. At this time, patient does not exhibit adequate 24-hour blood pressure control. He has baseline bradycardia. Will try to dose valsartan at noon. will follow blood pressure at 4 PM over the next week and update me. History of Present Illness The patient presents for follow-up of essential hypertension. The patient states he has been doing well with his blood pressure control since the last visit. Symptoms: denies impaired vision, denies dyspnea, denies chest pain, denies intermittent leg claudication and denies lower extremity edema. Associated symptoms include no headache. Home monitoring: The patient checks his blood pressure regularly. Blood pressure control has been poor. Medications: the patient is adherent with his medication regimen. He denies medication side effects. Surgical History Problems History of Cardiac catheterization History of Cataract surgery History of Colonoscopy History of Esophagogastroduodenoscopy History of Prostate surgery Current Meds Medication NameInstruction Asmanex (120 Metered Doses) 220 MCG/ACT Inhalation Aerosol Powder Breath ActivatedINHALE 1 PUFF DAILY IN THE EVENING. cloNIDine HCl - 0.2 MG Oral TabletTAKE 1 TABLET TWICE DAILY. Coumadin TABSTAKE 1 TABLET DAILY DIRECTED. [facility] monitors coumadin dilTIAZem HCl - 90 MG Oral TabletTake 1 tablet daily Flecainide Acetate 50 MG Oral TabletTAKE 1 TABLET TWICE DAILY. hydroCHLOROthiazide 12.5 MG Oral TabletTAKE 1 TABLET DAILY. Latanoprost SOLNas directed MiraLax 17 GM Oral Packet Protonix 20 MG Oral Tablet Delayed ReleaseTAKE 1 TABLET DAILY. Simvastatin 20 MG Oral TabletTAKE 1 TABLET AT BEDTIME. Singulair 10 MG Oral TabletTAKE 1 TABLET AT BEDTIME. Spironolactone 25 MG Oral TabletTAKE 0.5 TABLET Daily Timolol Maleate SOLNas directed Valsartan 160 MG Oral TabletTAKE 1 TABLET DAILY FOR BLOOD PRESSURE. Allergies Medication sulfa Recorded By: Heydi Blas; 12/14/2021 2:52:41 PM intolerance Social History Problems Caffeine use (V49.89) (Z78.9) Former smoker (V15.82) (Z87.891) No illicit drug use Social alcohol use (V49.89) (Z78.9) Review of Systems Constitutional: not feeling tired. Cardiovascular: no chest pain, no palpitations and no lower extremity edema. Respiratory: no shortness of breath during exertion, no orthopnea and no PND. Vitals Vital Signs Recorded: 08Nov2022 02:34PM Heart Rate48, L Radial Fjhrgdry642, LUE, Sitting Wbhtfiauf273, LUE, Sitting Height5 ft 7 in Xuvxoj613 lb BMI Nrjvqfigkq04.06 kg/m2 BSA Calculated1.84 Tobacco Useb) No PHQ-2 #1. Over the last 2 weeks have you felt down, depressed or hopeless? (If yes, answer PHQ-9 below)No PHQ-2 #2. Over the last 2 weeks have you felt little interest or pleasu (more content not included)... Normal [place] Tobacco Screening.on 023 Adult depression screening assessment No for; [facility] DO Work Phone: Fall risk assessment a) No falls within the last year [facility] 250 DO Work Phone: Tobacco use status CP b) [facility] 250 DO Work Phone: Office Visit (Cardiology)on 10-12-2022 Follow-up visit Diagnoses/Problems Assessed Essential hypertension (401.9) (I10) Overweight with body mass index (BMI) of 25 to 25.9 in adult (278.02,V85.21) (E66.3,Z68.25) Orders Essential hypertension Changed: From Spironolactone 25 MG Oral Tablet TAKE 1 TABLET DAILY To Spironolactone 25 MG Oral Tablet TAKE 0.5 TABLET Daily Overweight with body mass index (BMI) of 25 to 25.9 in adult Healthy Weight Tips; Status:Complete; Done: 12Oct2022 Paroxysmal atrial fibrillation Changed: From dilTIAZem HCl - 90 MG Oral Tablet TAKE 1.5 TABLET Daily To dilTIAZem HCl - 90 MG Oral Tablet Take 1 tablet daily Patient Instructions Please bring all medicines, vitamins, and herbal supplements with you when you come to the office. Prescriptions will not be filled unless you are compliant with your follow up appointments or have a follow up appointment scheduled as per instruction of your physician. Refills should be requested at the time of your visit. PLAN: Through informed decision making process incorporating patients unique circumstances, the following treatment plan will be initiated: 1. Prescription drug management of cardiovascular medication for efficacy, adherence to treatment, side effect assessment and polypharmacy. Current treatment clinically warranted and to continue with following modifications: - Reduce diltiazem 90 mg once daily - Reduce spironolactone 1/2 tablet daily 2. Return for follow-up; in the interim, contact the office if new symptoms arise. 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 Chief Complaint Blood pressure f/u and medication change JOAO BOGGS is being seen for a 2-3 week week follow-up of hypertension. Patient presents to the office today ambulatory with steady gait, is accompanied by his . Last evaluated by myself 4 weeks ago. At that time spironolactone was added to medical regimen. He completed lab work at [place] and will need to obtain. Has been compliant without voiced side effects. He had morning medications at 6 AM. Morning meds include spironolactone, clonidine, hydrochlorothiazide and valsartan. Bilateral blood pressures on my check 96/50. Patient is completely asymptomatic denied any type of dizziness lightheadedness, no postural orthostatic hypotension. Their home recordings continue to show labile blood pressures. Mostly becomes elevated in the early afternoon. He is utilizing a wrist cuff, occasionally will check with a manual cuff. Diltiazem increased August 11, 2022 due to PAF. Since that time home heart rates are recorded 47-60. EKG in office today sinus bradycardia at 40. reports that prior to increase of diltiazem heart rates were always 50-70. Reports being on clonidine 0.2 mg twice daily for very long time . He denies any dizziness lightheadedness, no dyspnea on exertion. They have obtained a [employer] mobile device with no documented atrial fibrillation. Overall, he reports feeling really good and is actually pleased with response to spironolactone. Remain concerned regarding accuracy of home blood pressure cuff. He was last in the office with blood pressure 184/110 at 12:37 PM (this is consistent with her concerns of elevated afternoon blood pressure). For now: Will decrease diltiazem to 90 mg daily due to bradycardia Will reduce spironolactone 12.5 mg daily I will have him come back to the office with appointment scheduled at 3 PM and they will bring their wrist machine so that I can verify accuracy. Will obtain labs from [facility] History of Present Illness The patient presents for follow-up of essential hypertension. The patient states he has been doing well with his blood pressure control since the last visit. Symptoms: denies impaired vision, denies dyspnea, denies chest pain, denies intermittent leg claudication and denies lower extremity edema. Associated symptoms include no headache. Home monitoring: The patient checks his blood pressure regularly. Blood pressure control has been poor. Medications: the patient is adherent with his medication regimen. He denies medication side effects. Surgical History Problems History of Cardiac catheterization History of Cataract surgery History of Colonoscopy History of Esophagogastroduodenoscopy History of Prostate surgery Current Meds Medication NameInstruction Asmanex (120 Metered Doses) 220 MCG/ACT Inhalation Aerosol Powder Breath ActivatedINHALE 1 PUFF DAILY IN THE EVENING. cloNIDine HCl - 0.2 MG Oral TabletTAKE 1 TABLET TWICE DAILY. Coumadin TABSTAKE 1 TABLET DAILY DIRECTED. [facility] monitors coumadin dilTIAZem HCl - 90 MG Oral TabletTAKE 1.5 TABLET Daily Flecainide Acetate 50 MG Oral TabletTAKE 1 TABLET TWICE DAILY. hydroCHLOROthiazide 12.5 MG Oral TabletTAKE 1 TABLET DAILY. Latanoprost SOLNas directed MiraLax 17 GM Oral Packet Protonix 20 MG Oral Tablet Delayed ReleaseTAKE 1 TABLET DAILY. Simvastatin 20 MG Oral TabletTAKE 1 TABLET AT BEDTIME. Sin (more content not included)... Normal [place] Tobacco Screening.on 022 Fall risk assessment a) No falls within the last year [facility] 250 DO Work Phone: Tobacco use status CP b) No [facility] 250 DO Work Phone: DOUGLAS - TSHon 10-04-2022 TSH 2.003 uIU/mL Normal 0.358-3.74 0 [facility] Comment on above: Performed By: #### D ATTSH #### [facility] [address] [place] [address] Dr. Farida Braun TSH RANGE SEE BELOW Normal [facility] Comment on above: Result Comment: <0.3 4 UIU/ml HYPERTHYROID 0.34-5.60 UIU/ml EUTHYROID >5.60 UIU/ml HYPOTHYROID Performed By: #### D ATTSH #### [facility] [address] [place] [address] Dr. Farida Braun PROF CHEM 8 (BAS METB)on Anion gap [Moles/Vol] 7.5 mmol/L Normal [facility] Comment on above: Performed By: #### B MP #### [facility] [address] [place] [address] Dr. Farida Braun Calcium [Mass/Vol] 9.3 mg/dL Normal 8.5-10.1 [facility] Comment on above: Performed By: #### B MP #### [facility] [address] [place] [address] Dr. Farida Braun Chloride [Moles/Vol] 101 mmol/L Normal 98-107 [facility] Comment on above: Performed By: #### B MP #### [facility] [address] [place] [address] Dr. Farida Braun CO2 [Moles/Vol] 35.1 mmol/L Critically high 21.0-32.0 [facility] Comment on above: Performed By: #### B MP #### [facility] [address] [place] [address] Dr. Farida Braun Creatinine [Mass/Vol] 1.13 mg/dL Normal 0.70-1.30 [facility] Comment on above: Performed By: #### B MP #### [facility] [address] [place] [address] Dr. Farida Braun EGFR-AF TAIWANESE >60 Normal >=60 [facility] Comment on above: Performed By: #### B MP #### [facility] [address] [place] [address] Dr. Farida Braun EGFR-NON AF TAIWANESE >60 Normal >=60 [facility] Comment on above: Performed By: #### B MP #### [facility] [address] [address] [address] Farida Braun Glucose [Mass/Vol] 111 mg/dL Critically high 74-106 T [facility] Comment on above: Performed By: #### B MP #### [facility] [address] [address] [address] Farida Braun Potassium [Moles/Vol] 4.6 mmol/L Normal 3.5-5.1 [facility] Comment on above: Performed By: #### B MP #### [facility] [address] [address] [address] Farida Braun Sodium [Moles/Vol] 139 mmol/L Normal 136-145 [facility] Comment on above: Performed By: #### B MP #### [facility] [address] [address] [address] Farida Braun Urea nitrogen [Mass/Vol] 24.0 mg/dL Critically high 7.0-18.0 [facility] Comment on above: Performed By: #### B MP #### [facility] [address] [address] [address] Farida Braun Urea nitrogen/Creatinine [Mass ratio] 21.2 mg/mg Normal [facility] Comment on above: Performed By: #### B MP #### [facility] [address] [address] [address] Farida Braun Office Visit (Cardiology)on 09-13-2022 Follow-up visit Diagnoses/Problems Assessed Essential hypertension (401.9) (I10) Overweight with body mass index (BMI) of 26 to 26.9 in adult (278.02,V85.22) (E66.3,Z68.26) Orders Essential hypertension Start: Spironolactone 25 MG Oral Tablet; TAKE 1 TABLET DAILY Basic Metabolic Panel; Status:Active; Requested for:20Sep2022; Overweight with body mass index (BMI) of 26 to 26.9 in adult Healthy Weight Tips; Status:Complete; Done: 13Sep2022 Patient Instructions Please bring all medicines, vitamins, and herbal supplements with you when you come to the office. Prescriptions will not be filled unless you are compliant with your follow up appointments or have a follow up appointment scheduled as per instruction of your physician. Refills should be requested at the time of your visit. PLAN: Through informed decision making process incorporating patients unique circumstances, the following treatment plan will be initiated: 1. Prescription drug management of cardiovascular medication for efficacy, adherence to treatment, side effect assessment and polypharmacy. Current treatment clinically warranted and to continue with following modifications: - Add spironolactone 25mg daily 2. If top number of blood pressure is > 180 then take an extra clonidine 3. Chem6 in one week 4. Return for follow-up; in the interim, contact the office if new symptoms arise. PHLEBOTOMY INSTRUCTOR in one week [facility] plus pharmacy Chief Complaint HTN management: 'blood pressure has been high' JOAO BOGGS is being seen for a 1 month follow-up of hypertension. Patient presents to the office ambulatory with steady gait, is accompanied by . Last evaluated in clinic Dr. Silva July 2022. At that time, patient was noted to have atrial fibrillation and dose of diltiazem was increased. August 2022 initiated on flecainide 50 mg twice daily with uneventful September 06, 2022 cardioversion with pentecostal of normal sinus rhythm. Patient had called into the office reporting elevated blood pressure. In the afternoon systolic blood pressure greater than 180s. Was seen in local emergency department on September 08, 2022 Cozaar was changed to valsartan at that time. He has been compliant with changes for 4 days. Morning medications: Clonidine, hydrochlorothiazide, valsartan Bedtime medications: Clonidine, diltiazem By 2 PM systolic blood pressure consistently 160-180. They have both the wrist and manual cuff. 2 cups of caffeine daily, no alcohol intake. No jdsj-yrb-bqmyegk medications. No prior sleep apnea testing. EKG in office today is maintaining normal sinus rhythm and he reportedly feels better with pentecostal of normal sinus rhythm. Has a little more energy. He does not have prescription coverage. Most recent potassium 3.9. Otherwise, there is no evidence of unstable angina or decompensated heart failure. History of Present Illness The patient presents for follow-up of essential hypertension. The patient states he has been doing poorly with his blood pressure control since the last visit. Symptoms: denies impaired vision, denies dyspnea, denies chest pain, denies intermittent leg claudication and denies lower extremity edema. Associated symptoms include no headache. Home monitoring: The patient checks his blood pressure regularly. Blood pressure control has been poor. Medications: the patient is adherent with his medication regimen. He denies medication side effects. Surgical History Problems History of Cardiac catheterization History of Cataract surgery History of Colonoscopy History of Esophagogastroduodenoscopy History of Prostate surgery Current Meds Medication NameInstruction Asmanex (120 Metered Doses) 220 MCG/ACT Inhalation Aerosol Powder Breath ActivatedINHALE 1 PUFF DAILY IN THE EVENING. cloNIDine HCl - 0.2 MG Oral TabletTAKE 1 TABLET TWICE DAILY. Coumadin TABSTAKE 1 TABLET DAILY DIRECTED. [facility] monitors coumadin dilTIAZem HCl - 90 MG Oral TabletTAKE 1.5 TABLET Daily Flecainide Acetate 50 MG Oral TabletTAKE 1 TABLET TWICE DAILY. hydroCHLOROthiazide 12.5 MG Oral TabletTAKE 1 TABLET DAILY. Latanoprost SOLNas directed MiraLax 17 GM Oral Packet Protonix 20 MG Oral Tablet Delayed ReleaseTAKE 1 TABLET DAILY. Simvastatin 20 MG Oral TabletTAKE 1 TABLET AT BEDTIME. Singulair 10 MG Oral TabletTAKE 1 TABLET AT BEDTIME. Timolol Maleate SOLNas directed Valsartan 160 MG Oral TabletTAKE 1 TABLET DAILY FOR BLOOD PRESSURE. Allergies Medication sulfa Recorded By: Heydi Blas; 12/14/2021 2:52:41 PM intolerance Social History Problems Caffeine use (V49.89) (Z78.9) Former smoker (V15.82) (Z87.891) No illicit drug use Social alcohol use (V49.89) (Z78.9) Review of Systems Constitutional: not feeling tired. Cardiovascular: no chest pain, no palpitations and no lower extremity edema. Respiratory: no shortness of breath during exertion, no orthopnea and no PND. Vitals Vital Signs Recorded: 13Sep2022 12:37PM (more content not included)... Normal [facility] Tobacco Screening.on 022 Fall risk assessment a) No falls within the last year [facility] 250 DO Work Phone: Tobacco use status CP b) No [facility] 250 DO Work Phone: Tobacco Screening. Yes [facility] 250 DO Work Phone: CBC AUTO DIFFon 09-09-2022 BASO # 0.1 103/ul Normal 0.0-0.1 [facility] Comment on above: Performed By: #### C BC #### [facility] [address] [address] [address] Farida Braun Basophils/100 WBC (Bld) 0.7 % Normal 0.2-2.0 [facility] Comment on above: Performed By: #### C BC #### [facility] [address] [place] [address] Dr. Farida Braun EO # 0.0 103/ul Normal 0.0-0.7 [facility] Comment on above: Performed By: #### C BC #### [facility] [address] [place] [address] Dr. Farida Braun Eosinophils/100 WBC (Bld) 0.1 % Critically low 0.9-7.0 [facility] Comment on above: Performed By: #### C BC #### [facility] [address] [place] [address] Dr. Farida Braun Erythrocyte distribution width (RBC) [Ratio] 14.5 % Normal 11.0-15.0 [facility] Comment on above: Performed By: #### C BC #### [facility] [address] [place] [address] Dr. Farida Braun Hematocrit (Bld) [Volume fraction] 42.5 % Normal 42.0-54.0 [facility] Comment on above: Performed By: #### C BC #### [facility] [address] [place] [address] Dr. Farida Braun Hemoglobin (Bld) [Mass/Vol] 13.9 g/dL Critically low 14.0-18.0 [facility] Comment on above: Performed By: #### C BC #### [facility] [address] [place] [address] Dr. Farida Braun IG # 0.01 10e3/ul Normal 0.00-0.03 [facility] Comment on above: Performed By: #### C BC #### [facility] [address] [place] [address] Dr. Farida Braun IG % 0.1 % Normal 0.0-0.5 [facility] Comment on above: Performed By: #### C BC #### [facility] [address] [place] [address] Dr. Farida Braun LYMPH # 1.3 103/ul Normal 1.2-3.8 [facility] Comment on above: Performed By: #### C BC #### [facility] [address] [place] [address] Dr. Farida Braun Lymphocytes/100 WBC (Bld) 18.0 % Critically low 20.5-60.0 [facility] Comment on above: Performed By: #### C BC #### [facility] [address] [place] [address] Dr. Farida Braun MANUAL DIFF REQ NO Normal [facility] Comment on above: Performed By: #### C BC #### [facility] [address] [place] [address] Dr. Farida Braun MCH (RBC) [Entitic mass] 29.0 pg Normal 25.9-34.0 [facility] Comment on above: Performed By: #### C BC #### [facility] [address] [place] [address] Dr. Farida Braun MCHC (RBC) [Mass/Vol] 32.7 g/dL Normal 29.9-35.2 [facility] Comment on above: Performed By: #### C BC #### [facility] [address] [place] [address] Dr. Farida Braun MCV (RBC) [Entitic vol] 88.5 fL Normal 80.0-94.0 [facility] Comment on above: Performed By: #### C BC #### [facility] [address] [place] [address] Dr. Farida Braun MONO # 0.9 103/ul Critically high 0.3-0.8 [facility] Comment on above: Performed By: #### C BC #### [facility] [address] [place] [address] Dr. Farida Braun Monocytes/100 WBC (Bld) 12.1 % Critically high 1.7-12.0 [facility] Comment on above: Performed By: #### C BC #### [facility] [address] [place] [address] Dr. Farida Braun NEUT # 5.0 103/ul Normal 1.4-6.5 [facility] Comment on above: Performed By: #### C BC #### [facility] [address] [place] [address] Dr. Farida Braun Neutrophils/100 WBC (Bld) 69.0 % Normal 43.0-75.0 [facility] Comment on above: Performed By: #### C BC #### [facility] [address] [place] [address] Dr. Farida Braun Platelet mean volume (Bld) [Entitic vol] 11.7 fL Normal 9.5-13.5 [facility] Comment on above: Performed By: #### C BC #### [facility] [address] [place] [address] Dr. Farida Braun PLT 206 103/ul Normal 150-450 [facility] Comment on above: Performed By: #### C BC #### [facility] [address] [place] [address] Dr. Farida Braun RBC 4.80 106/ul Normal 4.70-6.10 [facility] Comment on above: Performed By: #### C BC #### [facility] [address] [place] [address] Dr. Farida Braun WBC 7.2 103/ul Normal 4.0-11.0 [facility] Comment on above: Performed By: #### C BC #### [facility] [address] [place] [address] Dr. Farida Braun PROF CHEM 8 (BAS METB)on Anion gap [Moles/Vol] 5.2 mmol/L Normal [facility] Comment on above: Performed By: #### B MP #### [facility] [address] [place] [address] Dr. Farida Braun Calcium [Mass/Vol] 9.6 mg/dL Normal 8.5-10.1 [facility] Comment on above: Performed By: #### B MP #### [facility] [address] [place] [address] Dr. Farida Braun Chloride [Moles/Vol] 101 mmol/L Normal 98-107 [facility] Comment on above: Performed By: #### B MP #### [facility] [address] [place] [address] Dr. Farida Braun CO2 [Moles/Vol] 34.6 mmol/L Critically high 21.0-32.0 [facility] Comment on above: Performed By: #### B MP #### [facility] [address] [place] [address] Dr. Farida Braun Creatinine [Mass/Vol] 0.98 mg/dL Normal 0.70-1.30 [facility] Comment on above: Performed By: #### B MP #### [facility] [address] [place] [address] Dr. Farida Braun EGFR-AF TAIWANESE >60 Normal >=60 [facility] Comment on above: Performed By: #### B MP #### [facility] [address] [place] [address] Dr. Farida Braun EGFR-NON AF TAIWANESE >60 Normal >=60 [facility] Comment on above: Performed By: #### B MP #### [facility] [address] [place] [address] Dr. Farida Braun Glucose [Mass/Vol] 90 mg/dL Normal 74-106 [facility] Comment on above: Performed By: #### B MP #### [facility] [address] [place] [address] Dr. Farida Braun Potassium [Moles/Vol] 3.8 mmol/L Normal 3.5-5.1 [facility] Comment on above: Performed By: #### B MP #### [facility] [address] [place] [address] Dr. Farida Braun Sodium [Moles/Vol] 137 mmol/L Normal 136-145 [facility] Comment on above: Performed By: #### B MP #### [facility] [address] [place], [place] [address] Dr. Farida Braun Urea nitrogen [Mass/Vol] 17.0 mg/dL Normal 7.0-18.0 [facility] Comment on above: Performed By: #### B MP #### [facility] [address] [place], [place] [address] Dr. Farida Braun Urea nitrogen/Creatinine [Mass ratio] 17.3 mg/mg Normal [facility] Comment on above: Performed By: #### B MP #### [facility] [address] [place], [place] [address] Dr. Farida Braun Falls Screening (Age 18+)on 09-08-2022 Fall risk assessment a) No falls within the last year [facility] gray 250 DO Work Phone: Fall risk assessment a) No falls within the last year [facility] gray 250 DO Work Phone: VASC LAB Abdominal Aorta/Rasheeda ac/IVC Ultraon 09-08-2022 [facility] Abdominal Aorta/Iliac/IVC Ultra [address], [address] [place] [address] Vascular Lab Report Abdominal Aorta Iliac Ultrasound/IVC Ultrasound Patient Name: JOAO Cote Physician: [id number] Tyrone Walters MD, [facility] Study Date: 09/08/2022 Referring Physician: TA SILVA MRN/PID: [id number] PCP: Christi Dent Accession/Order#: [id number] CC Report to: Date of : 1950 Technologist: Vilma Cottrell RD, [facility] Gender: M Technologist 2: Admission Status: Outpatient Location Performed: [facility] Diagnosis/ICD: O04-Rikauxhnd primary hypertension; Z13.6-Encounter for screening for cardiovascular disorders (AAA) Indication: Former Smoker, Overweight, Paroxysmal Atrial Fibrillation-s/p Cardioversion 09/06/2022 Procedure/CPT: 05102 Duplex Aorta/IVC/Iliac/Bypass Graft-04151 CONCLUSIONS: Aorta/Common Iliac Arteries/IVC: No evidence of abdominal aortic aneurysm. Imaging AND Doppler Findings: AORTA AP Lateral PSV Proximal 2.15 cm 2.33 cm 158.0 cm/s Mid 2.13 cm 2.07 cm 47.0 cm/s Distal 2.27 cm 1.86 cm 52.0 cm/s RIGHT AP Lateral PSV NELIA Proximal 1.02 cm 1.20 cm 73.00 cm/s LEFT AP Lateral PSV NELIA Proximal 1.24 cm 1.10 cm 108.00 cm/s [id number] Tyrone Walters MD, [facility] Final Normal [facility] VAS LAB Abdominal Aorta/Rasheeda ac/IVC Ultrasoundon 09-08-2022 VAS LAB Abdominal Aorta/Iliac/IVC Ultrasound Please click on the link to view the study images Normal [facility] 250 DO Work Phone: [facility] Abdominal Aorta[facility]Iliac/[facility]C [facility] Work Phone: ECG 12 lead ECGon 09-06-2022 ECG 12 lead ECG [facility] [place] [address] Electrocardiograph Report Signed Patient: Joao Boggs MR#: [id number] : 1950 Acct:[id number] Age/Sex: 72 / M ADM Date: 09/06/22 Loc: Room: Type: [facility] Attending Dr: Tyrone Walters MD Ordering Provider: Tyrone Walters MD, [facility] Date of Service: 09/06/22 ECG/ECG 12 lead ECG: Pre-cardioversion rhythm assessment Copies to: Test Reason : Blood Pressure : 198/119 mmHG Vent. Rate : 085 BPM Atrial Rate : 085 BPM P-R Int : 220 ms QRS Dur : 138 ms QT Int : 400 ms P-R-T Axes : 055 074 268 degrees QTc Int : 476 ms Sinus rhythm with 1st degree AV block with premature atrial complexes Possible Left atrial enlargement Right bundle branch block Marked T wave abnormality, consider inferolateral ischemia Abnormal ECG When compared with ECG of 06-SEP-2022 14:59, (Unconfirmed) premature atrial complexes are now present Confirmed by THIAGO BROWN DO ([id number]) on 09/09/2022 12:48:45 PM Referred By: Tyrone Walters Electronically Signed By:THIAGO BROWN DO Transcribed By: JEROD Signed By Thiago Brown DO 09/09 1248 [facility] ECG post procedureon 022 ECG post procedure [facility] [place] [address] Electrocardiograph Report Signed Patient: Joao Boggs MR#: [id number] : 1950 Acct:[id number] Age/Sex: 72 / M ADM Date: 09/06/22 Loc: Room: Type: [facility] Attending Dr: Tyrone Walters MD Ordering Provider: Tyrone Walters MD, [facility] Date of Service: 09/06/22/ ECG/ECG post procedure: Rhythm change post cardioversion Copies to: Test Reason : Blood Pressure : / mmHG Vent. Rate : 078 BPM Atrial Rate : 069 BPM P-R Int : 000 ms QRS Dur : 142 ms QT Int : 438 ms P-R-T Axes : 000 075 264 degrees QTc Int : 499 ms Atrial fibrillation Right bundle branch block Marked T wave abnormality, consider inferolateral ischemia Abnormal ECG When compared with ECG of 06-SEP-2022 12:48, (Unconfirmed) No significant change was found Confirmed by THIAGO BROWN DO ([id number]) on 09/08/2022 2:34:57 PM Referred By: Tyrone Walters Electronically Signed By:THIAGO BROWN DO Transcribed By: JEROD Signed By Thiago Brown DO 09/08 1435 [facility] Laboratory - Coagulationon 1 11-06-2021 INR Coag (Bld) [Relative time] 2.4 {INR} [facility] 250 DO Work Phone: No Panel Informationon 09-06 2.4\S\2.4 Normal [facility] 250 DO Work Phone: Comment on above: INR Therapeutic Rang e A) Pre- and Peroperative OAT started two weeks before surgery. NOT HIP SURGERY: 1.5 - 2.5 HIP SURGERY: 2 - 3 B) Primary and secondary prevention of venous THROMBOSIS: 2 - 3 C) Active venous thrombosis, pulmonary embolism and prevention of recurrent venous thrombosis: 2 - 3 D) Prevention of arterial thromboembolism including patients with mechanical heart valves: 3 - 4.5PERFORMED BY:[address] [place], [place] [id number] MEDICAL DIRECTORRODOLFO SCHWARTZ M.D. 27.1\S\27.1 above high threshold 9.0-12.9 -[facility] gray 250 DO Work Phone: 16.1\S\16.1 above high threshold 6.0-15.0 [facility] 250 DO Work Phone: Comment on above: PERFORMED BY:[address] [address] [place], [place] [id number] MEDICAL DIRECTORRODOLFO SCHWARTZ M.D. 29.8\S\29.8 Normal 22.0-30.0 [facility] Work Phone: 97\S\97 Normal 95-114 [facility] Work Phone: 3.9\S\3.9 Normal 3.5-5.1 [facility] gray 250 DO Work Phone: 139\S\139 Normal 136-146 [facility] Work Phone: Platelet poor plasma interna tional normalized ratio (INR) by coagulation assay (relatOrdered By: Tyrone Walters on 09-06-2022 INR Coag (PPP) [Relative time] 2.4 {INR} Normal [facility] Comment on above: INR Therapeutic Rang e A) Pre- and Peroperative OAT started two weeks before surgery. NOT HIP SURGERY: 1.5 - 2.5 HIP SURGERY: 2 - 3B) Primary and secondary prevention of venous THROMBOSIS: 2 - 3C) Active venous thrombosis, pulmonary embolismand prevention of recurrent venous thrombosis: 2 - 3D) Prevention of arterial thromboembolismincluding patients with mechanical heart valves: 3 - 4.5 Result Comment: INR Therapeutic Range A) Pre- and Peroperative OAT started two weeks before surgery. NOT HIP SURGERY: 1.5 - 2.5 HIP SURGERY: 2 - 3 B) Primary and secondary prevention of venous THROMBOSIS: 2 - 3 C) Active venous thrombosis, pulmonary embolism and prevention of recurrent venous thrombosis: 2 - 3 D) Prevention of arterial thromboembolism including patients with mechanical heart valves: 3 - 4.5 PERFORMED BY: [place] [address] PATHOLOGIST SHOELACE TIPPING MACHINE OPERATOR RODOLFO SCHWARTZ M.D. Performed By: #### P TLESLI #### [facility] [address] [place] [address] Prothrombin Time INROrdered By: Tyrone Walters on 09-06-2022 PT Coag (PPP) [Time] 27.1 s High 9.0-12.9 [facility] Comment on above: Performed By: #### P TLESLI #### [facility] [address] [place] [address] Serum or plasma anion gap de terminationOrdered By: Tyrone Walters on 09-06-2022 Anion gap [Moles/Vol] 16.1 mmol/L High 6.0-15.0 [facility] Comment on above: Result Comment: PERF ORMED BY: [place] [address] PATHOLOGIST SHOELACE TIPPING MACHINE OPERATOR RODOLFO SCHWARTZ M.D. Performed By: #### P T, LYTES #### [facility] [address] [place] [address] Serum or plasma chloride michelle surement (moles/volume)Ordered By: Tyrone Walters on 09-06-2022 Chloride [Moles/Vol] 97 mmol/L Normal 95-114 [facility] Comment on above: Performed By: #### P T, LYTES #### [facility] [address] Serum or plasma potassium me asurement (moles/volume)Ordered By: Tyrone Walters on 09-06-2022 Potassium [Moles/Vol] 3.9 mmol/L Normal 3.5-5.1 [facility] Comment on above: Performed By: #### P T, LESLI #### [facility] [address] [place] [address] Serum or plasma sodium measu rement (moles/volume)Ordered By: Tyrone Walters on 09-06-2022 Sodium [Moles/Vol] 139 mmol/L Normal 136-146 [facility] Comment on above: Performed By: #### P T, LESLI #### [address] Serum or plasma total carbon dioxide measurement (moles/volume)Ordered By: Tyrone Walters on 09-06-2022 CO2 [Moles/Vol] 29.8 mmol/L Normal 22.0-30.0 [facility] Comment on above: Performed By: #### P T, LESLI #### [address] COVID-19 Antigenon 2 COVID-19 Antigen Healthcare Worker?: N Reference Range: Negative Negative results, from patients with symptom onset beyond five days, should be treated as presumptive and confirmation with a molecular assay, if necessary, for patient management, may be performed. Negative results do not rule out COVID-19 and should not be used as the sole basis for treatment or patient management decisions, including infection control decisions. Negative results should be considered in the context of a patient's recent exposures, history and the presence of clinical signs and symptoms consistent with COVID-19. The Juliet SARS Antigen COLT does not differentiate between SARS-CoV and SARS-CoV-2. This test was developed and its performance characteristic determined by [employer] and validated at [facility]. This test has not been FDA cleared or approved. This test has been authorized by FDA under an Emergency Use Authorization (EUA). This test has been validated in accordance with the FDA's Guidance Document (Policy for Diagnostics Testing in Laboratories Certified to Perform High Complexity Testing under CLIA prior to Emergency Use Authorization for Coronavirus Disease-2019 during the Public Health Emergency) issued on January 23, 2020. This test is only authorized for the duration of time the declaration that circumstances exist justifying the authorization of the emergency use of in vitro diagnostic tests for detection of SARS-CoV-2 virus and/or diagnosis of COVID-19 infection under section 564(b)(1) of the Act, 21 U.S.C. 360bbb-3(b)(1), unless the authorization is terminated or revoked sooner. SARS-CoV+SARS-CoV-2 (COVID-19) Ag [Presence] in Respiratory specimen by Rapid immunoassay Negative for SARS Antigen by COLT PERFORMED BY: [facility] [address] [id number] PATHOLOGIST SHOELACE TIPPING MACHINE OPERATOR RODOLFO SCHWARTZ M.D. Normal [facility] Comment on above: Performed By: #### C OVID-19 JULIET, SOFIANEG #### [address] COVID-19 SOFIAOrdered By: Gilson Walters on 09-02-2022 SARS-CoV+SARS-CoV-2 (COVID-19) Ag IA.rapid Ql (Resp) Negative Negative [facility] Comment on above: This is a duplicate Juliet SARS Antigen (COLT) result to be used for statistical tracking purpose only. Laboratory - Microbiology an d Antimicrobial susceptibilityon 09-02-2022 SARS-CoV-2 (COVID-19) RNA ROBB+probe Ql (Unsp spec) -[facility] 250 DO Work Phone: No Panel Informationon 09-02 Negative Normal Negative [facility] 250 DO Work Phone: Comment on above: This is a duplicate Juliet SARS Antigen (COLT) result to be used for statistical tracking purpose only.PERFORMED BY:[facility] [place], [place] [id number] MEDICAL DIRECTORRODOLFO SCHWARTZ M.D. No Panel InformationOrdered By: Tyrone Walters on 09-02-2022 SARS Antigen (LFIA) [facility] Juliet Ag Negativeon 09-02-20 Juliet Ag Negative Negative Normal Negative [facility] Comment on above: Result Comment: This is a duplicate Juliet SARS Antigen (COLT) result to be used for statistical tracking purpose only. PERFORMED BY: [facility] [address] [place] [address] PATHOLOGIST SHOELACE TIPPING MACHINE OPERATOR RODOLFO SCHWARTZ M.D. Performed By: #### C OVID-19 JULIET, SOFIANEG #### [facility] [address] Office Visit (Cardiology)on 08-11-2022 Follow-up visit Diagnoses/Problems Assessed Paroxysmal atrial fibrillation (427.31) (I48.0) Essential hypertension (401.9) (I10) High risk medication use (V58.69) (Z79.899) Former smoker (V15.82) (Z87.891) Overweight with body mass index (BMI) of 26 to 26.9 in adult (278.02,V85.22) (E66.3,Z68.26) Screening for AAA (abdominal aortic aneurysm) (V81.2) (Z13.6) Orders Essential hypertension, SocHx: Former smoker, Overweight with body mass index (BMI) of 26 to 26.9 in adult, Screening for AAA (abdominal aortic aneurysm) [facility] Abdominal Aorta/Iliac/IVC Ultrasound; Status:Hold For - Scheduling,Retrospective Authorization; Requested for:11Aug2022; Overweight with body mass index (BMI) of 26 to 26.9 in adult Healthy Weight Tips; Status:Complete - Retrospective Authorization; Done: 11Aug2022 Paroxysmal atrial fibrillation Start: dilTIAZem HCl - 90 MG Oral Tablet; TAKE 1.5 TABLET Daily SocHx: Former smoker Tobacco Use Screening; Status:Complete; Done: 11Aug2022 Tobacco Use Screening; Status:Complete; Done: 11Aug2022 Unlinked Stop: dilTIAZem HCl - 90 MG Oral Tablet Patient Instructions Please bring all medicines, vitamins, and herbal supplements with you when you come to the office. Prescriptions will not be filled unless you are compliant with your follow up appointments or have a follow up appointment scheduled as per instruction of your physician. Refills should be requested at the time of your visit. Nurse Practitioner follow up in 1 year will prep pt for DCC- Instructed to have INR completed weekly Chief Complaint JOAO BOGGS is being seen for an annual follow-up of. 72-year-old gentleman returns for follow-up and doing very well. He is treated for paroxysmal atrial fibrillation, hypertension and remains on warfarin therapy with no bleeding or thromboembolic events. Heart rate is irregular today and ECG confirms atrial fibrillation at a rate of 87 with right bundle branch configuration and T wave inversions in the inferolateral leads. Patient has a history of paroxysmal A. fib dating back to 2019 as noted on Holter monitoring, with the initiation of warfarin at that time. Previous heart catheterization performed at outside hospital by another chemical economist revealed more minimal coronary disease in 2016 Risk benefits alternatives and informed decision-making process performed with the patient and his extensively this morning in regards to treatment for atrial fibrillation including options of rate control, rhythm control with antiarrhythmic therapy versus atrial fibrillation. At this juncture his left atrial size is recently measured at 3.3 cm. He is not on no antiarrhythmic at this juncture. We will increase his diltiazem, schedule him for elective cardioversion with Dr. Walters at which point he can recommend whether he proceed with antiarrhythmic therapy or consideration for ablative therapy. Surgical History Problems History of Cardiac catheterization History of Cataract surgery History of Colonoscopy History of Esophagogastroduodenoscopy History of Prostate surgery Current Meds Medication NameInstruction Asmanex (120 Metered Doses) 220 MCG/ACT Inhalation Aerosol Powder Breath ActivatedINHALE 1 PUFF DAILY IN THE EVENING. cloNIDine HCl - 0.2 MG Oral TabletTAKE 1 TABLET TWICE DAILY. Coumadin TABSTAKE 1 TABLET DAILY DIRECTED. [facility] monitors coumadin dilTIAZem HCl - 90 MG Oral Tablet1 daily at bedtime hydroCHLOROthiazide 12.5 MG Oral TabletTAKE 1 TABLET DAILY. Losartan Potassium 50 MG Oral TabletTAKE 1 TABLET BY MOUTH EVERY DAY MiraLax 17 GM Oral Packet Protonix 20 MG Oral Tablet Delayed ReleaseTAKE 1 TABLET DAILY. Simvastatin 20 MG Oral TabletTAKE 1 TABLET AT BEDTIME. Singulair 10 MG Oral TabletTAKE 1 TABLET AT BEDTIME. Allergies Medication sulfa Recorded By: Heydi Blas; 12/14/2021 2:52:41 PM intolerance Social History Problems Caffeine use (V49.89) (Z78.9) Former smoker (V15.82) (Z87.891) No illicit drug use Social alcohol use (V49.89) (Z78.9) Vitals Vital Signs Recorded: 11Aug2022 10:00AM Heart Rate87, Apical Osjtkasd228, LUE, Sitting Jzkvqjvxj31, LUE, Sitting Height5 ft 6 in Sdyhjz583 lb 6 oz BMI Xndrwcfurz78.05 kg/m2 BSA Calculated1.83 Tobacco Useb) No PHQ-2 #1. Over the last 2 weeks have you felt down, depressed or hopeless? (If yes, answer PHQ-9 below)No PHQ-2 #2. Over the last 2 weeks have you felt little interest or pleasure in doing things? (If yes, answer PHQ-9 below)No Falls Screening (Age 18+)a) No falls within the last year EKG done in office today. Physical Exam Constitutional: alert and in no acute distress. Neck: neck is supple, symmetric, trachea midline, no masses and no thyromegaly . Pulmonary: no increased work of breathing or signs of respiratory distress and lungs clear to auscultation. Cardiovascular: carotid pulses 2+ bilaterally with no bruit , JVP was normal, no thrills , regular rhythm, normal S1 and S2, n (more content not included)... Normal [place] Tobacco Screening.on 022 Adult depression screening assessment No [facility] 250 DO Work Phone: Fall risk assessment a) No falls within the last year [facility] 250 DO Work Phone: Tobacco use status [facility] b) No [facility] 250 DO Work Phone: Vital Signs Date Time Vital Sign Value Performing Clinician Facility 08-04-2023 09:30-0400 Body height 162.56 cm Christi Dent Other [facility] Other 08-04-2023 09:30-0400 Body mass index (BMI) [Ratio] 26.91 kg/m2 Christi Dent Other [facility] Other 08-04-2023 09:30-0400 Body weight 71.12 kg Christi Dent Other [facility] Other 08-04-2023 09:30-0400 Diastolic blood pressure 93 mm[Hg] Christi Dent Other [facility] Other 08-04-2023 09:30-0400 Systolic blood pressure 147 mm[Hg] Christi Dent Other [facility] Other 01-04-2023 09:15-0400 Diastolic blood pressure 72 mm[Hg] Christi Dent Work Phone: [facility] [employer] 250 DO Work Phone: 01-04-2023 09:15-0400 Systolic blood pressure 124 mm[Hg] Christi Dent Work Phone: for; [place] [facility] [employer] 250 DO Work Phone: 01-04-2023 09:10-0400 Heart rate 39 /min Christi Dent Work Phone: for; [place] [employer] 250 DO Work Phone: 01-04-2023 09:06-0400 Body height 170.18 cm Christi Dent Work Phone: for; [place] [employer] 250 DO Work Phone: 01-04-2023 09:06-0400 Body mass index (BMI) [Ratio] 25.22 kg/m2 Christi Dent Work Phone: for; [place] [employer] 250 DO Work Phone: 01-04-2023 09:06-0400 Body surface area Derived from formula 1.84 m2 Christi Dent Work Phone[facility] [employer] 250 DO Work Phone: 01-04-2023 09:06-0400 Body weight 73.03 kg Christi Dent Work Phone: [facility] 250 DO Work Phone: 11-08-2022 14:34-0500 Body height 170.18 cm Christi Dent Work Phone: [facility] 250 DO Work Phone: 11-08-2022 14:34-0500 Body mass index (BMI) [Ratio] 25.06 kg/m2 Christi Dent Work Phone: [facility] 250 DO Work Phone: 11-08-2022 14:34-0500 Body surface area Derived from formula 1.84 m2 Christi Dent Work Phone: [facility] 250 DO Work Phone: 11-08-2022 14:34-0500 Body weight 72.58 kg Christi Dent Work Phone: [facility] 250 DO Work Phone: 11-08-2022 14:34-0500 Diastolic blood pressure 100 mm[Hg] Christi Dent Work Phone: [facility] 250 DO Work Phone: 11-08-2022 14:34-0500 Heart rate 48 /min Christi Dent Work Phone: [facility] 250 DO Work Phone: 11-08-2022 14:34-0500 Systolic blood pressure 170 mm[Hg] Christi Dent Work Phone: [facility] 250 DO Work Phone: 10-12-2022 08:08-0500 Body height 170.18 cm Christi Dent Work Phone: [facility] 250 DO Work Phone: 10-12-2022 08:08-0500 Body mass index (BMI) [Ratio] 25.06 kg/m2 Christi Dent Work Phone: [facility] 250 DO Work Phone: 10-12-2022 08:08-0500 Body surface area Derived from formula 1.84 m2 Christi Dent Work Phone: [facility] 250 DO Work Phone: 10-12-2022 08:08-0500 Body weight 72.58 kg Christi Dent Work Phone: [facility] 250 DO Work Phone: 10-12-2022 08:08-0500 Diastolic blood pressure 70 mm[Hg] Christi Dent Work Phone: [facility] 250 DO Work Phone: 10-12-2022 08:08-0500 Heart rate 40 /min Christi Dent Work Phone: [facility] 250 DO Work Phone: 10-12-2022 08:08-0500 Systolic blood pressure 98 mm[Hg] Christi Dent Work Phone: [facility] 250 DO Work Phone: 09-13-2022 12:37-0500 Body height 167.64 cm Christi Dent Work Phone: [facility] 250 DO Work Phone: 09-13-2022 12:37-0500 Body mass index (BMI) [Ratio] 26.47 kg/m2 Christi Dent Work Phone: [facility] 250 DO Work Phone: 09-13-2022 12:37-0500 Body surface area Derived from formula 1.84 m2 Christi Dent Work Phone: [facility] 250 DO Work Phone: 09-13-2022 12:37-0500 Body weight 74.39 kg Christi Dent Work Phone: [facility] 250 DO Work Phone: 09-13-2022 12:37-0500 Diastolic blood pressure 110 mm[Hg] Christi Dent Work Phone: [facility] 250 DO Work Phone: 09-13-2022 12:37-0500 Heart rate 63 /min Christi Dent Work Phone: [facility] 250 DO Work Phone: 09-13-2022 12:37-0500 Systolic blood pressure 184 mm[Hg] Christi Dent Work Phone: [facility] 250 DO Work Phone: 09-08-2022 13:12-0500 Body height 167.64 cm Christi Dent Work Phone: [facility] 250 DO Work Phone: 09-08-2022 13:12-0500 Body mass index (BMI) [Ratio] 25.82 kg/m2 Christi Dent Work Phone: [facility] 250 DO Work Phone: 09-08-2022 13:12-0500 Body surface area Derived from formula 1.82 m2 Christi Dent Work Phone: [facility] 250 DO Work Phone: 09-08-2022 13:12-0500 Body weight 72.58 kg Christi Dent Work Phone: [facility] 250 DO Work Phone: 09-08-2022 13:12-0500 Diastolic blood pressure 102 mm[Hg] Christi Dent Work Phone: [facility] 250 DO Work Phone: 09-08-2022 13:12-0500 Heart rate 53 /min Christi Dent Work Phone: [facility] 250 DO Work Phone: 09-08-2022 13:12-0500 Systolic blood pressure 160 mm[Hg] Christi Dent Work Phone: [facility] 250 DO Work Phone: 09-08-2022 08:14-0500 Body height 167.64 cm Christi Dent Work Phone: [facility] 250 DO Work Phone: 09-08-2022 08:14-0500 Body mass index (BMI) [Ratio] 25.82 kg/m2 Christi Dent Work Phone: [facility] 250 DO Work Phone: 09-08-2022 08:14-0500 Body surface area Derived from formula 1.82 m2 Christi Dent Work Phone: [facility] 250 DO Work Phone: 09-08-2022 08:14-0500 Body weight 72.58 kg Christi Dent Work Phone: [facility] 250 DO Work Phone: 09-08-2022 08:14-0500 Diastolic blood pressure 102 mm[Hg] Christi Dent Work Phone: [facility] 250 DO Work Phone: 09-08-2022 08:14-0500 Heart rate 53 /min Christi Dent Work Phone: [facility] 250 DO Work Phone: 09-08-2022 08:14-0500 Systolic blood pressure 160 mm[Hg] Christi Dent Work Phone: [facility] 250 DO Work Phone: 09-08-2022 08:13-0500 Body height 167.64 cm Christi Dent Work Phone: [facility] 250 DO Work Phone: 09-08-2022 08:13-0500 Body mass index (BMI) [Ratio] 25.82 kg/m2 Christi Dent Work Phone: [facility] 250 DO Work Phone: 09-08-2022 08:13-0500 Body surface area Derived from formula 1.82 m2 Christi Dent Work Phone: [facility] 250 DO Work Phone: 09-08-2022 08:13-0500 Body weight 72.58 kg Christi Dent Work Phone: [facility] 250 DO Work Phone: 09-08-2022 08:13-0500 Diastolic blood pressure 100 mm[Hg] Christi Dent Work Phone: [facility] 250 DO Work Phone: 09-08-2022 08:13-0500 Heart rate 53 /min Christi Dent Work Phone: [facility] 250 DO Work Phone: 09-08-2022 08:13-0500 Systolic blood pressure 146 mm[Hg] Christi Dent Work Phone: [facility] 250 DO Work Phone: 09-06-2022 16:40-0500 Inhaled oxygen concentration 100 % MD Christi Dent Work Phone: [facility] 09-06-2022 16:40-0500 Inhaled oxygen flow rate 2 L/min MD Christi Dent Work Phone: [facility] 09-06-2022 16:40-0500 SaO2% (BldA) [Mass fraction] 99 % MD Christi Dent Work Phone: [facility] 09-06-2022 11:52-0500 Body height 167.64 cm MD Christi Dent Work Phone: [facility] 09-06-2022 11:52-0500 Body weight 72 kg MD Christi Dent Work Phone: [facility] 08-11-2022 10:00-0400 Body height 167.64 cm Christi Dent Work Phone: [facility] 250 DO Work Phone: 08-11-2022 10:00-0400 Body mass index (BMI) [Ratio] 26.05 kg/m2 Christi Dent Work Phone: [facility] 250 DO Work Phone: 08-11-2022 10:00-0400 Body surface area Derived from formula 1.83 m2 Christi Dent Work Phone: [facility] 250 DO Work Phone: 08-11-2022 10:00-0400 Body weight 73.2 kg Christi Dent Work Phone: [facility] 250 DO Work Phone: 08-11-2022 10:00-0400 Diastolic blood pressure 90 mm[Hg] Christi Dent Work Phone: [facility] 250 DO Work Phone: 08-11-2022 10:00-0400 Heart rate 87 /min Christi Dent Work Phone: [facility] 250 DO Work Phone: 08-11-2022 10:00-0400 Systolic blood pressure 138 mm[Hg] Christi Dent Work Phone: [facility] 250 DO Work Phone: 01-28-2022 08:04-0400 Blood Pressure Location Kyle FORTE [facility] 01-28-2022 08:04-0400 Diastolic blood pressure 103 mm[Hg] Kyle FORTE [facility] 01-28-2022 08:04-0400 Heart rate 73 /min Kyle FORTE [facility] 01-28-2022 08:04-0400 Respiratory rate 16 /min Kyle FORTE [facility] 01-28-2022 08:04-0400 Systolic blood pressure 146 mm[Hg] Kyle FORTE [facility] Encounters Encounter Date Encounter Type Care Provider Facility Start: 02-05-2024 ambulatory Kyle Loftoni ty:RADHA Samaniego Start: 10-27-2023 End: 10-27-2023 ambulatory Christi Dent Other [facility] [employer] Other Start: 10-27-2023 Telephone encounter Christi Dent [facility] Start: 10-11-2023 End: 10-11-2023 ambulatory Christi Dent Other [facility] [employer] Other Start: 10-11-2023 Telephone encounter Christi Dent [facility] Start: 08-14-2023 End: 08-14-2023 ambulatory Christi Dent Other [facility] Other Start: 08-14-2023 Telephone encounter Christi Filipe [facility] Start: 08-04-2023 End: 08-04-2023 ambulatory Christi Filipe Other [facility] Other Start: 08-04-2023 Office outpatient visit 15 minutes Christi Filipe [facility] Start: 07-04-2023 End: 07-04-2023 ambulatory Christi Filipe Other [facility] Other Start: 07-04-2023 Telephone encounter Christi Filipe [facility] Start: 02-20-2023 End: 03-22-2023 ambulatory SHAIKH Joseluis MCNAMARA Facility: Start: 02-03-2023 End: 02-04-2023 ambulatory Kyle FORTE Facility:[facility] Start: 02-03-2023 End: 02-03-2023 Patient encounter procedure Kyle FORTE [facility] Start: 01-27-2023 End: 01-28-[address] KYLE FORTE . Facility: Start: 01-23-2023 End: 02-17-2023 ambulatory SHAIKH Joseluis JUNIORD Facility: Start: 01-04-2023 Office outpatient visit 15 minutes Christi Dent Work Phone: [facility] 250 DO Work Phone: Start: 01-04-2023 Patient encounter procedure Christi Dent Work Phone: [facility] 250 DO Work Phone: Start: 01-04-2023 ambulatory Ms. Johnna Renae Facility: Start: 12-21-2022 End: 01-20-2023 ambulatory VARGHESE H FAWWAD Facility:[facility] Start: 11-28-2022 Patient encounter procedure Christi Dent Work Phone: [facility] 250 DO Work Phone: Start: 11-23-2022 End: 12-21-2022 ambulatory SHAIKH Joseluis MCNAMARA Facility:[facility] Start: 11-08-2022 Office outpatient visit 10 minutes Christi Dent Work Phone: [facility] 600 DO Work Phone: Start: 11-08-2022 Patient encounter procedure Christi Dent Work Phone: [facility] 250 DO Work Phone: Start: 11-08-2022 ambulatory Ms. Johnna Mabry Franco Oc Facility: Start: 10-24-2022 End: 11-23-2022 ambulatory VARGHESEJoseluis JUNIORChino Facility:[facility]1 Start: 10-12-2022 Office outpatient visit 10 minutes Christi Dent Work Phone: [facility] 250 DO Work Phone: Start: 10-12-2022 ambulatory Ms. Johnna Renae Facility: Start: 10-04-2022 End: 10-05-[address] NADER COBOS Facility: Start: 09-22-2022 End: 10-23-2022 ambulatory VARGHESE H ASHLEIGHSoFLAVIA Facility:[facility]1 Start: 09-20-2022 End: 09-21-[address] KYLE FORTE . Facility:[facility] Start: 09-13-2022 FU, Provider: Johnna Gomes, Status: Pen, Time: 12:30 PM Christi Dent Work Phone: [facility] 250 DO Work Phone: Start: 09-13-2022 Office outpatient visit 15 minutes Christi Dent Work Phone: [facility] 250 DO Work Phone: Start: 09-13-[address] Christi Dent Facility: Start: 09-12-2022 Chart Update Christi Dent Work Phone: [facility] 250 DO Work Phone: Start: 09-09-2022 End: 09-09-2022 ambulatory MONSE GARCIA . Facility:[facility] Start: 09-08-2022 Office outpatient visit 5 minutes Christi Dent Work Phone: [facility] 250 DO Work Phone: Start: 09-08-2022 AORTA, Provider: IOANA [facility] ULTRASOUND 01,[id number], Status: Pen, Time: 7:45 AM Christi Dent Work Phone: [facility] 250 DO Work Phone: Start: 09-08-[address] Ta bustos Ricardo Facility:[id number] Start: 09-07-2022 Chart Update Christi Dent Work Phone: [facility] 250 DO Work Phone: Start: 09-06-[address] Christi Dent Facility:[id number] Start: 09-06-2022 End: 09-07-2022 ambulatory Christi Dent Facility:[facility] Start: 09-06-2022 End: 09-06-2022 Admission to same day surgery center MD Christi Dent Work Phone: [facility] Start: 09-06-2022 End: 09-06-2022 ambulatory MD Christi Dent Work Phone: [facility] Work Phone: Start: 09-02-2022 Chart Update Christi Dent Work Phone: [facility] 250 DO Work Phone: Start: 09-02-2022 End: 09-02-2022 ambulatory Christi Dent Facility:[facility] Start: 09-02-2022 End: 09-02-2022 ambulatory MD Christi Dent Work Phone: [facility] Work Phone: Start: 09-02-2022 End: 09-02-2022 Patient encounter procedure MD Christi Dent Work Phone: [facility] Start: 08-25-2022 Telephone encounter Christi barajas Work Phone: [facility] 600 DO Work Phone: Start: 08-23-2022 End: 09-21-2022 ambulatory VARGHESE H FAWWAD Facility:[facility]1 Start: 08-11-2022 Office outpatient visit 25 minutes Christi Dent Work Phone: [facility] 250 DO Work Phone: Start: 08-11-[address] Christi Dent Facility:[id number] Start: 07-24-2022 End: 08-22-2022 ambulatory VARGHESE H FAWWAD Facility:[facility]1 Start: 06-23-2022 End: 07-23-2022 ambulatory VARGHESE H FAWWAD Facility:[facility]1 Start: 05-23-2022 End: 06-22-2022 ambulatory VARGHESE H FAWWAD Facility:[facility]1 Start: 04-22-2022 End: 05-20-2022 ambulatory VARGHESE H FAWWAD Facility:[facility]1 Start: 01-28-2022 End: 01-28-2022 Patient encounter procedure Kyle FORTE [facility] Start: 07-13-2017 End: 07-14-2017 Ambulatory DEFAULT PHYSICIAN Facility:[facility] Procedures Date Procedure Procedure Detail Performing Clinician Start: 01-27-2023 PSA screening SHAIKH NAIMA Comment on above: Performed By: #### PSAD #### [facility] [address] [place] [address] Dr. Farida Braun Start: 09-04-2018 Cystoscopy Kyle FORTE Start: 11-17-2015 Repair of wound of abdominal wall René FORTE Start: 11-04-2015 Radical prostatectomy Kyle FORTE Start: 08-25-2015 Transrectal biopsy of prostate using ultrasound guidance Kyle FORTE Bilateral cataracts (disorder) Kyle FORTE Cardiac catheterization Jered Dent Work Phone: Cataract surgery Christi mann Work Phone: Colonoscopy Christi Dent Work Phone: Cystourethroscopy wi dilation of urethral stricture Kyle FORTE Comment on above: 02/04/2016, 04/20/2016, 01/25/2017 Esophagogastroduodenoscopy M shay Dent Work Phone: Nasal polyp (disorder) Susana FORTE Procedure on prostate Christi Dent Work Phone: SARS Antigen (LFIA) MD Rosy Dent Work Phone: Teleradiotherapy procedure P lucía FORTE Comment on above: 01/2017 Tonsillectomy Kyle FORTE Plan of Treatment Date Care Activity Detail Author Start: 07-25-2023 FUV, Provider: Ta Silva, Status: Pen, Time: 9:50 AM FUV, Provider: Ta Silva, Status: Pen, [facility]: [facility] [facility] Work [facility]: Start: 01-04-2023 FUV, Provider: Johnna Gomes, Status: Pen, Time: 9:00 AM FUV, Provider: Johnna Gomes, Status: Pen, Time: 9:[address] [facility] Work Phone: Start: 11-08-2022 FUV, Provider: Johnna Gomes, Status: Pen, Time: 2:30 PM FUV, Provider: Johnna Gomes, Status: Pen, Time: 2:30 PM [facility] 250 DO Work Phone: Start: 10-12-2022 FUV, Provider: Johnna Gomes, Status: Pen, Time: 8:00 AM FUV, Provider: Johnna Gomes, Status: Pen, Time: 8:[address] [facility] Work Phone: Start: 09-08-2022 AORTA, Provider: [facility] ULTRASOUND 01,[id number], Status: Pen, Time: 7:45 AM AORTA, Provider: [facility]TRAS[facility] 01,[id number], Status: Pen, Time: 7:45 AM [facility] 250 DO Work Phone: Start: 09-06-2022 [facility] Start: 09-06-2022 SURGNONUH, Provider: Tyrone Walters, Status: Pen, Time: 2:00 PM SURGNONUH, Provider: Tyrone Walters, Status: Pen, Time: 2:[address] [facility] Work Phone: [facility] referral [facility] Work Phone: Immunizations Immunization Date Immunization Notes Care Provider Ashleigh bro 08-04-2023 influenza, high dose seasonal, preservative-free Christi Dent Other [facility] [employer] Other 08-23-2022 Pfizer COVID-19 Vac Bivalent 30 MCG/0.3ML Intramuscular Suspension Christi E Dent Work Phone: [facility] 250 DO Work Phone: 07-31-2022 influenza, injectabl e, quadrivalent, preservative free Christi E Filipe Work Phone: [facility] 250 DO Work Phone: 07-15-2022 influenza, seasonal, injectable Christi E Dent Work Phone: [facility] 250 DO Work Phone: Comment on above: Series: 03-04-2022 Comirnaty 30 MCG/0.3 ML Intramuscular Suspension Christi Dent Work Phone: [facility] 250 DO Work Phone: 08-09-2021 Pfizer-BioNTech COVID-19 Vacc 30 MCG/0.3ML Intramuscular Suspension Christi Dent Work Phone: [facility] 250 DO Work Phone: 08-04-2021 influenza, injectabl e, quadrivalent, preservative free Christi Dent Work Phone: [place] [address] DO Work Phone: 12-15-2020 Pfizer-BioNTech COVID-19 Vacc 30 MCG/0.3ML Intramuscular Suspension Christi Dent Work Phone: [place] [address] DO Work Phone: 12-13-2020 SARS-CoV-2 (COVID-19 ) mRNA-1273 vaccine Kyle FORTE [facility] 11-24-2020 Pfizer-BioNTech COVID-19 Vacc 30 MCG/0.3ML Intramuscular Suspension Christi Dent Work Phone: [place] [address] DO Work Phone: 06-23-2020 influenza, high dose seasonal, preservative-free Christi Dent Work Phone: [place] [address] DO Work Phone: 06-19-2020 influenza virus vaccine, unspecified formulation Kyle FORTE [facility] 07-23-2019 influenza virus vaccine, unspecified formulation Christi Garcia Filipe Work Phone: [place] [address] DO Work Phone: 08-11-2018 influenza, high dose seasonal, preservative-free Christi Garcia Dent Work Phone: [place] [address] DO Work Phone: 07-23-2018 pneumococcal polysaccharide vaccine, 23 valent Christi Dent Work Phone: [place] [address] DO Work Phone: 04-08-2015 pneumococcal polysaccharide vaccine, 23 valent Christi Dent Work Phone: [place] [address] DO Work Phone: 10-23-2014 tetanus immune globulin Jered Garcia Filipe Work Phone: [place] [address] DO Work Phone: 10-23-2013 pneumococcal conjuga te vaccine, 13 valent Christi Dent Work Phone: [place] [address] DO Work Phone: Payers Date Payer Category Payer Medicare [id number] 1960 Medicare [id number] 1960 Self-pay 1950 Unknown [id number] 1949 Unknown [id number] . [id number] 1950 Unknown [id number] . [id number] 1949 Unknown [id number] 2. [id number] 1949 Unknown [id number] 2.16. [id number] 1949 Unknown [id number] 2.16. [id number] 1949 Unknown [id number] 2.16. [id number] 1950 Unknown [id number] 2.16. 840.1.420878.3.579.2.356 1950 Unknown [id number] 2.16. 840.1.422897.3.579.2.356 1950 Unknown [id number] 2.16.84 0.1.513105.3.579.2.593 1950 Unknown [id number] 2.16.84 0.1.020125.3.579.2.593 1949 Unknown [id number] 2.16.84 0.1.407459.3.579.2.593 1949 Unknown [id number] 2.16.84 0.1.548009.3.579.2.593 1949 Unknown [id number] 2.16.84 0.1.711046.3.579.2.593 1949 Unknown [id number] 2.16.84 0.1.157052.3.579.2.593 1949 Unknown [id number] 2.16.84 0.1.914501.3.579.2.593 1949 Unknown [id number] 2.16.84 0.1.280900.3.579.2.593 1949 Unknown [id number] 2.16.84 0.1.800610.3.579.2.593 1949 Unknown [id number] 2.16.84 0.1.023698.3.579.2.593 1949 Unknown [id number] 2.16.84 0.1.820514.3.579.2.593 1949 Unknown [id number] 2.16.84 0.1.888954.3.579.2.593 1949 Unknown [id number] 2.16.84 0.1.799540.3.579.2.593 1949 Unknown [id number] 2.16.84 0.1.592861.3.579.2.593 1949 Unknown [id number] 2.16.8 40.1.370789.3.579.2.727 1950 Unknown [id number] 2.16.8 40.1.501666.3.579.2.727 Unknown Unknown [id number] 2.16.8 40.1.919888.3.579.2.531 Unknown [id number] 2.16.8 40.1.242800.3.579.2.531 Unknown [id number] 2.16.84 0.1.506299.3.579.2.593 Social History Date Type Detail Facility Start: 01-28-2022 End: 02-03-2023 Tobacco smoking status Ex-smoker (finding) [facility] Sex Assigned At Male [facility] No illicit drug use No illicit drug use [place] [id number] DO Work Phone: Start: 1950 Sex Assigned At Male F [facility] Functional Status Date Assessment Result Facility 02-03-2023 Functional Status N/A [facility] Clinical Notes 01-28-2022 to 10-11-2023 Note Date & Type Note Facility 10-11-2023 Evaluation note Encounter Date Diagnosis Assessment Notes Sep, Irritant contact dermatitis due to drug in contact with skin (ICD-10 - L24.4) [facility] Other 10-13-2023 Evaluation note* Encounter Date Diagnosis Assessment Notes Treatment Notes Treatment Clinical Notes Jul, Foot callus (ICD-10 - L84) Pt allergic to sulfa able to prescribe urea cream. Continue daily moisture cream. Continue careful filing skin. Overall improved since recent antibiotics Jul, Irritant contact dermatitis due to drug in contact with skin (ICD-10 - L24.4) Discussed this may be helpful for itching he is experiencing. We will call patient in 2 weeks for an update on his condition. [facility] Other 09-12-2023 Evaluation note* Encounter Date Diagnosis Assessment Notes Treatment Notes Treatment Clinical Notes Jun, Pain in left ankle and joints of left foot (ICD-10 - M25.572) [facility] Other 04-14-2023 Hospital Discharge instructions Patient Education 02/03/2023 07:51:00 Prostate Cancer Prostate Cancer The prostate is a walnut-sized gland that is involved in the production of semen. It is located below a man's bladder, in front of the rectum. Prostate cancer is the abnormal growth of cells in the prostate gland. What are the causes? The exact cause of this condition is not known. What increases the risk? This condition is more likely to develop in men who: Are older than age 65. Are -Wallisian. Are obese. Have a family history of prostate cancer. Have a family history of breast cancer. What are the signs or symptoms? Symptoms of this condition include: A need to urinate often. Weak or interrupted flow of urine. Trouble starting or stopping urination. Inability to urinate. Pain or burning during urination. Painful ejaculation. Blood in urine or semen. Persistent pain or discomfort in the lower back, lower abdomen, hips, or upper thighs. Trouble getting an erection. Trouble emptying the bladder all the way. How is this diagnosed? This condition can be diagnosed with: A digital rectal exam. For this exam, a health care provider inserts a gloved finger into the rectum to feel the prostate gland. A blood test called a prostate-specific antigen (PSA) test. An imaging test called transrectal ultrasonography. A procedure in which a sample of tissue is taken from the prostate and examined under a microscope (prostate biopsy). Once the condition is diagnosed, tests will be done to determine how far the cancer has spread. This is called staging the cancer. Staging may involve imaging tests, such as: A bone scan. A CT scan. A PET scan. An MRI. The stages of prostate cancer are as follows: Stage I. At this stage, the cancer is found in the prostate only. The cancer is not visible on imaging tests and it is usually found by accident, such as during a prostate surgery. Stage II. At this stage, the cancer is more advanced than it is in stage I, but the cancer has not spread outside the prostate. Stage III. At this stage, the cancer has spread beyond the outer layer of the prostate to nearby tissues. The cancer may be found in the seminal vesicles, which are near the bladder and the prostate. Stage IV. At this stage, the cancer has spread other parts of the body, such as the lymph nodes, bones, bladder, rectum, liver, or lungs. How is this treated? Treatment for this condition depends on several factors, including the stage of the cancer, your age, personal preferences, and your overall health. Talk with your health care provider about treatment options that are recommended for you. Common treatments include: Observation for early stage prostate cancer (active surveillance). This involves having exams, blood tests, and in some cases, more biopsies. For some men, this is the only treatment needed. Surgery. Types of surgeries include: ?Open surgery. In this surgery, a larger incision is made to remove the prostate. ?A laparoscopic prostatectomy. This is a surgery to remove the prostate and lymph nodes through several, small incisions. It is often referred to as a minimally invasive surgery. ?A robotic prostatectomy. This is a surgery to remove the prostate and lymph nodes with the help ofa robotic arm that is controlled by a computer. ?Orchiectomy. This is a surgery to remove the testicles. ?Cryosurgery. This is a surgery to freeze and destroy cancer cells. Radiation treatment. Types of radiation treatment include: ?External beam radiation. This type aims beams of radiation from outside the body at the prostate to destroy cancerous cells. ?Brachytherapy. This type uses radioactive needles, seeds, wires, or tubes that are implanted into the prostate gland. Like external beam radiation, brachytherapy destroys cancerous cells. An advantage is that this type of radiation limits the damage to surrounding tissue and has fewer side effects. High-intensity, focused ultrasonography. This treatment destroys cancer cells by delivering high-energy ultrasound waves to the cancerous cells. Chemotherapy medicines. This treatment kills cancer cells or stops them from multiplying. Hormone treatment. This treatment involves taking medicines that act on one of the male hormones (testosterone): ?By stopping your body from producing testosterone. ?By blocking testosterone from reaching cancer cells. Follow these instructions at home: Take qssl-ffi-juqbdrm and prescription medicines only as told by your health care provider. Maintain a healthy diet. Get plenty of sleep. Consider joining a support group for men who have prostate cancer. Meeting with a support group mayhelp you learn to cope with the stress of having cancer. Keep all follow-up visits as told by your health care provider. This is important. If you have to go to the hospital, notify your cancer specialist (oncologist). Treatment for prostate cancer may affect sexual function. Continue to have intimate moments with your partner. This may include touching, holding, hugging, and caressing. Contact a health care provider if: You have trouble urinating. You have blood in your urine. You have pain in your hips, back, or chest. Get help right away if: You have weakness or numbness in your legs. You cannot control urination or your bowel movements (incontinence). You have trouble breathing. You have sudden chest pain. You have chills or a fever. Summary The prostate is a walnut-sized gland that is involved in the production of semen. It is located below a man's bladder, in front of the rectum. Prostate cancer is the abnormal growth of cells in the prostate gland. Treatment for this condition depends on several factors, including the stage of the cancer, your age, personal preferences, and your overall health. Talk with your health care provider about treatment options that are recommended for you. Consider joining a support group for men who have prostate cancer. Meeting with a support group mayhelp you learn to cope with the stress of having cancer. This information is not intended to replace advice given to you by your health care provider. Make sure you discuss any questions you have with your health care provider. Document Released: 10/09/2006 Document Revised: 09/21/2018 Document Reviewed: 06/19/2017 [employer] Patient Education 2020 [employer]. Follow Up Care 01/28/2022 08:42:30 With:REINIER VAUGHAN, Kyle Valadez, URL Address: [facility] [address], [place] [phone] When:Within 1 Year(s) Comments:1 year fu with PSA [facility] 11-15-2022 Procedure [facility]04-08-2022 Hospital Discharge instructions Patient Education 01/28/2022 08:32:38 Kidney Stones Kidney Stones Kidney stones are solid, rock-like deposits that form inside of the kidneys. The kidneys are a pairof organs that make urine. A kidney stone may form in a kidney and move into other parts of the urinary tract, including the tubes that connect the kidneys to the bladder (ureters), the bladder, and the tube that carries urine out of the body (urethra). As the stone moves through these areas, it can cause intense pain and block the flow of urine. Kidney stones are created when high levels of certain minerals are found in the urine. The stones are usually passed out of the body through urination, but in some cases, medical treatment may be needed to remove them. What are the causes? Kidney stones may be caused by: A condition in which certain glands produce too much parathyroid hormone (primary hyperparathyroidism), which causes too much calcium buildup in the blood. A buildup of uric acid crystals in the bladder (hyperuricosuria). Uric acid is a chemical that the body produces when you eat certain foods. It usually exits the body in the urine. Narrowing (stricture) of one or both of the ureters. A kidney blockage that is present at (congenital obstruction). Past surgery on the kidney or the ureters, such as gastric bypass surgery. What increases the risk? The following factors may make you more likely to develop this condition: Having had a kidney stone in the past. Having a family history of kidney stones. Not drinking enough water. Eating a diet that is high in protein, salt (sodium), or sugar. Being overweight or obese. What are the signs or symptoms? Symptoms of a kidney stone may include: Pain in the side of the abdomen, right below the ribs (flank pain). Pain usually spreads (radiates)to the groin. Needing to urinate frequently or urgently. Painful urination. Blood in the urine (hematuria). Nausea. Vomiting. Fever and chills. How is this diagnosed? This condition may be diagnosed based on: Your symptoms and medical history. A physical exam. Blood tests. Urine tests. These may be done before and after the stone passes out of your body through urination. Imaging tests, such as a CT scan, abdominal X-ray, or ultrasound. A procedure to examine the inside of the bladder (cystoscopy). How is this treated? Treatment for kidney stones depends on the size, location, and makeup of the stones. Kidney stones will often pass out of the body through urination. You may need to: Increase your fluid intake to help pass the stone. In some cases, you may be given fluids through an IV and may need to be monitored at the hospital. Take medicine for pain. Make changes in your diet to help prevent kidney stones from coming back. Sometimes, medical procedures are needed to remove a kidney stone. This may involve: A procedure to break up kidney stones using: ?A focused beam of light (laser therapy). ?Shock waves (extracorporeal shock wave lithotripsy). Surgery to remove kidney stones. This may be needed if you have severe pain or have stones that block your urinary tract. Follow these instructions at home: Medicines Take ndnv-lzj-udzbhdm and prescription medicines only as told by your health care provider. Ask your health care provider if the medicine prescribed to you requires you to avoid driving or using heavy machinery. Eating and drinking Drink enough fluid to keep your urine pale yellow. You may be instructed to drink at least 8 10 glasses of water each day. This will help you pass the kidney stone. If directed, change your diet. This may include: ?Limiting how much sodium you eat. ?Eating more fruits and vegetables. ?Limiting how much animal protein such as red meat, poultry, fish, and eggs you eat. Follow instructions from your health care provider about eating or drinking restrictions. General instructions Collect urine samples as told by your health care provider. You may need to collect a urine sample: ?24 hours after you pass the stone. ?8 12 weeks after passing the kidney stone, and every 6 12 months after that. Strain your urine every time you urinate, for as long as directed. Use the strainer that your health care provider recommends. Do not throw out the kidney stone after passing it. Keep the stone so it can be tested by your health care provider. Testing the makeup of your kidney stone may help prevent you from getting kidney stones in the future. Keep all follow-up visits as told by your health care provider. This is important. You may need follow-up X-rays or ultrasounds to make sure that your stone has passed. How is this prevented? To prevent another kidney stone: Drink enough fluid to keep your urine pale yellow. This is the best way to prevent kidney stones. Eat a healthy diet and follow recommendations from your health care provider about foods to avoid. You may be instructed to eat a low-protein diet. Recommendations vary depending on the type of kidney stone that you have. Maintain a healthy weight. Where to find more information National Kidney Foundation (NKF): www.kidney.org U[employer] Care Foundation (UCF): www.urologyhealth.org Contact a health care provider if: You have pain that gets worse or does not get better with medicine. Get help right away if: You have a fever or chills. You develop severe pain. You develop new abdominal pain. You faint. You are unable to urinate. Summary Kidney stones are solid, rock-like deposits that form inside of the kidneys. Kidney stones can cause nausea, vomiting, blood in the urine, abdominal pain, and the urge to urinate frequently. Treatment for kidney stones depends on the size, location, and makeup of the stones. Kidney stones will often pass out of the body through urination. Kidney stones can be prevented by drinking enough fluids, eating a healthy diet, and maintaining a healthy weight. This information is not intended to replace advice given to you by your health care provider. Make sure you discuss any questions you have with your health care provider. Document Released: 10/09/2006 Document Revised: 02/25/2020 Document Reviewed: 02/25/2020 [employer] Patient Education 2020 [employer]. Follow Up Care 07/30/2021 08:35:42 With:Kyle FORTE MD, URL Address: [address] [place] [id number] [phone] When:01/28/2023 Comments:w/PSA.Will get Renal US in 6m. Our office will call pt with the results. [facility] evaluation + Plan note Future Appointments Appointment Date:02/03/2023 08:00:00 AM Scheduled Provider:Kyle FORTE MD Location:[facility] Appointment Type:URO Office Visit Diagnostic Tests Pending * PSA Total 01/28/22 [facility] evaluation + Plan note Future Appointments Appointment Date:02/05/2024 09:15:00 AM Scheduled Provider:Kyle FORTE MD Location:[facility] Appointment Type:URO Office Visit Diagnostic Tests Pending * PSA Total 02/03/23 [facility] evalfzasit noteNo assessment information available [facility] Work Phone: Evaluation noteNo InformationNort Smalldeals Other History general Narrative - Reported* Type Description Date Medical History HTN Medical History Hyperlipdemia Medical History Hx of GI bleed Medical History Glaucoma Medical History constipation Medical History Asthma Medical History Hx of prostate cancer Medical History Hypercalcemia Medical History Afib Surgical History prostatectomy Surgical History tonsillectomy Surgical History EGD Surgical History Colonoscopy Surgical History Nasal polyps Hospitalization History GI Bleed Hospitalization History See above [facility] Other History of Present illness Narrative* The patient presents for follow-up of essential hypertension. The patient states he has been doing poorly with his blood pressure control since the last visit. * Symptoms: denies impaired vision, denies dyspnea, denies chest pain, denies intermittent leg claudication and denies lower extremity edema. Associated symptoms include no headache. * Home monitoring: The patient checks his blood pressure regularly. Blood pressure control has been poor. * Medications: the patient is adherent with his medication regimen. He denies medication side effects. [facility] 250 DO Work Phone: History of Present illness Narrative* The patient presents for follow-up of essential hypertension. The patient states he has been doing well with his blood pressure control since the last visit. * Symptoms: denies impaired vision, denies dyspnea, denies chest pain, denies intermittent leg claudication and denies lower extremity edema. Associated symptoms include no headache. * Home monitoring: The patient checks his blood pressure regularly. Blood pressure control has been poor. * Medications: the patient is adherent with his medication regimen. He denies medication side effects. [facility] 250 DO Work Phone: History of Present illness Narrative* The patient presents for follow-up of essential hypertension. The patient states he has been doing well with his blood pressure control since the last visit. * Symptoms: denies impaired vision, denies dyspnea, denies chest pain, denies intermittent leg claudication and denies lower extremity edema. Associated symptoms include no headache. * Home monitoring: The patient checks his blood pressure regularly. Blood pressure control has been poor. * Medications: the patient is adherent with his medication regimen. He denies medication side effects. -[facility] 250 DO Work Phone: History of Present illness Narrative* The patient presents for follow-up of essential hypertension. The patient states he has been doing well with his blood pressure control since the last visit. * Symptoms: denies impaired vision, denies dyspnea, denies chest pain, denies intermittent leg claudication and denies lower extremity edema. Associated symptoms include no headache. * Home monitoring: The patient checks his blood pressure regularly. Blood pressure control has been poor. * Medications: the patient is adherent with his medication regimen. He denies medication side effects. [facility] 600 DO Work Phone: History of Present illness Narrative* The patient states he has been generally doing well since the last visit. Comorbid Illnesses: hypertension and hyperlipidemia. * Symptoms: denies chest pain at rest, denies exertional chest pain, denies dyspnea, denies fatigue, denies exercise intolerance, denies palpitations, denies edema, denies dizziness and denies orthostatic dizziness. * Associated symptoms: no syncope. * His symptoms do not limit his activities. * Disease Monitoring: [facility] 250 DO Work Phone: history of Present illness Narrative* The patient states he has been generally doing well since the last visit. Comorbid Illnesses: hypertension and hyperlipidemia. * Symptoms: denies chest pain at rest, denies exertional chest pain, denies dyspnea, denies fatigue, denies exercise intolerance, denies palpitations, denies edema, denies dizziness and denies orthostatic dizziness. * Associated symptoms: no syncope. * His symptoms do not limit his activities. * Disease Monitoring: [facility] 250 DO Work Phone: Hospital course Narrative No data available for this section [facility] progress note No data available for this section [facility] Family History No Family History Records FoundUnknown Family Member Name Dates Details Liver damage: Father Status:Active Unknown Family Member Name Dates Details Liver damage: Father Status:Active Unknown Family Member Name Dates Details Liver damage: Father Status:Active Unknown Family Member Name Dates Details Liver damage: Father Status:Active Unknown Family Member Name Dates Details Liver damage: Father Status:Active Unknown Family Member Name Dates Details Liver damage: Father Status:Active Unknown Family Member Name Dates Details Liver damage: Father Status:Active Unknown Family Member Name Dates Details Liver damage: Father Status:Active Unknown Family Member Name Dates Details Liver damage: Father Status:Active Unknown Family Member Name Dates Details Liver damage: Father Status:Active Unknown Family Member Name Dates Details Liver damage: Father Status:Active Unknown Family Member Name Dates Details Liver damage: Father Status:Active Unknown Family Member Name Dates Details Liver damage: Father Status:Active Unknown Family Member Name Dates Details Liver damage: Father Status:Active Unknown Family Member Name Dates Details Liver damage: Father Status:Active Advance Directives No Advanced Directives Records Found Advance Directive Response Recorded Date/ Time Advance Directives No August 31, 2022 3:58pm Chief Complaint * JOAO BOGGS is being seen for an annual follow-up of. * 72-year-old gentleman returns for follow-up and doing very well. He is treated for paroxysmal atrial fibrillation, hypertension and remains on warfarin therapy with no bleeding or thromboembolic events. * Heart rate is irregular today and ECG confirms atrial fibrillation at a rate of 87 with right bundle branch configuration and T wave inversions in the inferolateral leads. Patient has a history of paroxysmal A. fib dating back to 2019 as noted on Holter monitoring, with the initiation of warfarin at that time. Previous heart catheterization performed at outside hospital by another chemical economist revealed more minimal coronary disease in 2016 * Risk benefits alternatives and informed decision-making process performed with the patient and his extensively this morning in regards to treatment for atrial fibrillation including options of rate control, rhythm control with antiarrhythmic therapy versus atrial fibrillation. * At this juncture his left atrial size is recently measured at 3.3 cm. He is not on no antiarrhythmic at this juncture. We will increase his diltiazem, schedule him for elective cardioversion with at which point he can recommend whether he proceed with antiarrhythmic therapy or consideration for ablative therapy. * JOAO BOGGS is being seen for an annual follow-up of. * 72-year-old gentleman returns for follow-up and doing very well. He is treated for paroxysmal atrial fibrillation, hypertension and remains on warfarin therapy with no bleeding or thromboembolic events. * Heart rate is irregular today and ECG confirms atrial fibrillation at a rate of 87 with right bundle branch configuration and T wave inversions in the inferolateral leads. Patient has a history of paroxysmal A. fib dating back to 2019 as noted on Holter monitoring, with the initiation of warfarin at that time. Previous heart catheterization performed at outside hospital by another chemical economist revealed more minimal coronary disease in 2016 * Risk benefits alternatives and informed decision-making process performed with the patient and his extensively this morning in regards to treatment for atrial fibrillation including options of rate control, rhythm control with antiarrhythmic therapy versus atrial fibrillation. * At this juncture his left atrial size is recently measured at 3.3 cm. He is not on no antiarrhythmic at this juncture. We will increase his diltiazem, schedule him for elective cardioversion with at which point he can recommend whether he proceed with antiarrhythmic therapy or consideration for ablative therapy. * Patient was in echo lab for an US of aortic. Vilma said that patient has complaints of high bloodpressure. said that after cardioversion on last afternoon during hospital stary BP ws quite high 187/108 average. When taken at home a couple hours after AM or PM pills it's 109-69, HR58 to 142-88 HR 71. On 09/07/22 at 1500 hrs BP 180/102 HR 62 regular. His medicine isn't covering te length of time between when he takes pills at 0700 and 1900. She wants to know what can be changed? Or, taken more frequently? Even PRN. She can do BP whenever you suggest. Losartan and HCTZ taken in AM Clonidine and Diltiazem taken in PM. * Patient has no complaints of shortness of breath, dizziness, JENNINGS, CP, palpitations or fatigue. Patient states he did take his medication this morning before US. Vilma said she believed patient was in A-Fib. Due to pulse being 48 on palpation an EKG was done which was reviewed by Freeman Mitchell RN prior to patient discharge. * To Dr. Ta Silva, DO * JOAO BOGGS is being seen for an annual follow-up of. * 72-year-old gentleman returns for follow-up and doing very well. He is treated for paroxysmal atrial fibrillation, hypertension and remains on warfarin therapy with no bleeding or thromboembolic events. * Heart rate is irregular today and ECG confirms atrial fibrillation at a rate of 87 with right bundle branch configuration and T wave inversions in the inferolateral leads. Patient has a history of paroxysmal A. fib dating back to 2019 as noted on Holter monitoring, with the initiation of warfarin at that time. Previous heart catheterization performed at outside hospital by another chemical economist revealed more minimal coronary disease in 2016 * Risk benefits alternatives and informed decision-making process performed with the patient and his extensively this morning in regards to treatment for atrial fibrillation including options of rate control, rhythm control with antiarrhythmic therapy versus atrial fibrillation. * At this juncture his left atrial size is recently measured at 3.3 cm. He is not on no antiarrhythmic at this juncture. We will increase his diltiazem, schedule him for elective cardioversion with at which point he can recommend whether he proceed with antiarrhythmic therapy or consideration for ablative therapy. * HTN management: 'blood pressure has been high' * JOAO BOGGS is being seen for a 1 month follow-up of hypertension. * Patient presents to the office ambulatory with steady gait, is accompanied by . * Last evaluated in clinic Dr. Silva July 2022. At that time, patient was noted to have atrial fibrillation and dose of diltiazem was increased. August 2022 initiated on flecainide 50 mg twice daily with uneventful September 06, 2022 cardioversion with pentecostal of normal sinus rhythm. * Patient had called into the office reporting elevated blood pressure. In the afternoon systolic blood pressure greater than 180s. Was seen in local emergency department on September 08, 2022 Cozaar was changed to valsartan at that time. He has been compliant with changes for 4 days. * Morning medications: Clonidine, hydrochlorothiazide, valsartan * Bedtime medications: Clonidine, diltiazem * By 2 PM systolic blood pressure consistently 160-180. They have both the wrist and manual cuff. * 2 cups of caffeine daily, no alcohol intake. No [id number] medications. No prior sleep apnea testing. * EKG in office today is maintaining normal sinus rhythm and he reportedly feels better with pentecostal of normal sinus rhythm. Has a little more energy. * He does not have prescription coverage. * Most recent potassium 3.9. * Otherwise, there is no evidence of unstable angina or decompensated heart failure. * Blood pressure f/u and medication change * JOAO BOGGS is being seen for a 2-3 week week follow-up of hypertension. * Patient presents to the office today ambulatory with steady gait, is accompanied by his . * Last evaluated by myself 4 weeks ago. At that time spironolactone was added to medical regimen. He completed lab work at [place] and will need to obtain. Has been compliant without voiced side effects. * He had morning medications at 6 AM. Morning meds include spironolactone, clonidine, hydrochlorothiazide and valsartan. Bilateral blood pressures on my check 96/50. Patient is completely asymptomatic denied any type of dizziness lightheadedness, no postural orthostatic hypotension. * Their home recordings continue to show labile blood pressures. Mostly becomes elevated in the earlyafternoon. He is utilizing a wrist cuff, occasionally will check with a manual cuff. * Diltiazem increased August 11, 2022 due to PAF. Since that time home heart rates are recorded 47-60. EKG in office today sinus bradycardia at 40. reports that prior to increase of diltiazem heart rates were always 50-70. Reports being on clonidine 0.2 mg twice daily for very long time . He denies any dizziness lightheadedness, no dyspnea on exertion. * They have obtained a [employer] mobile device with no documented atrial fibrillation. * Overall, he reports feeling really good and is actually pleased with response to spironolactone. * Remain concerned regarding accuracy of home blood pressure cuff. He was last in the office with blood pressure 184/110 at 12:37 PM (this is consistent with her concerns of elevated afternoon blood pressure). * For now: * Will decrease diltiazem to 90 mg daily due to bradycardia * Will reduce spironolactone 12.5 mg daily * I will have him come back to the office with appointment scheduled at 3 PM and they will bring their wrist machine so that I can verify accuracy. * Will obtain labs from [facility] * Blood pressure management: 'continues to increase in the afternoon' * JOAO BOGGS is being seen for a 3 week follow-up of hypertension. * Blood pressure management: 'continues to increase in the afternoon' * JOAO BOGGS is being seen for a 3 week follow-up of hypertension. * Patient presents to the office ambulatory with steady gait, is accompanied by his . * Last evaluated in clinic by myself September 2022. At that time, he had asymptomatic hypotension after morning medication. continued to report elevated blood pressures around 3 PM, presents todayto evaluate afternoon blood pressure. * This morning's medication included clonidine, spironolactone, hydrochlorothiazide and valsartan. * Blood pressure in the office is consistent with home machine. * Patient is asymptomatic with elevated blood pressure. * No caffeine, alcohol, energy drinks, [id number] medications. * At this time, patient does not exhibit adequate 24-hour blood pressure control. He has baseline bradycardia. * Will try to dose valsartan at noon. will follow blood pressure at 4 PM over the next week and update me. * 1 month f/u: 'doing fine' * JOAO BOGGS is being seen for a 6-8 week follow-up of atrial fibrillation and hypertension. * 1 month f/u: 'doing fine' * JOAO BOGGS is being seen for a 6-8 week follow-up of atrial fibrillation and hypertension. * Patient presents to the office ambulatory with steady gait. Is accompanied by his . Last evaluated in clinic by myself October 2022. At that time we simply adjusted timing of antihypertensives. With dosing of valsartan at 11 AM he has noted significant improvement in his blood pressure throughout the day. Home recordings have been reviewed and remains optimal. Heart rates continue in the 40s but he is asymptomatic without dizziness, lightheadedness or fatigability. Declines need for Holter monitor at this time. Otherwise he continues to exercise on a daily basis without any type of complaints. * There have been no recurrent palpitations, EKG in office sinus bradycardia. Tolerating anticoagulation without reported bleeding diatheses. * Overall patient is pleased with current state of cardiovascular health. At this time there are no indications for additional cardiovascular testing or need for medication changes. Chief Complaint and Reason for Visit Chief Complaint Pre Op Testing for C ardioversion Chief Complaint Pre Op Testing for C ardioversion Afib Additional Source Comments (unrecognized sect ion and content) No Status Records FoundNo Status Records FoundNo Status Records FoundNo Status Records FoundNo Status Records FoundNo Status Records FoundNo Status Records Found INFORMATION SOURCE (unrecogn ized section and content) DATE CREATED AUTHOR 04/18/2018 [facility] DATE CREATED AUTHOR AUTHOR'S ORGANIZ ATION 09/10/2022 [facility] DATE CREATED AUTHOR AUTHOR'S ORGANIZ ATION 11/26/2022 [facility] DATE CREATED AUTHOR AUTHOR'S ORGANIZ ATION 01/05/2023 [facility] DATE CREATED AUTHOR AUTHOR'S ORGANIZ ATION 01/08/2023 [employer] DATE CREATED AUTHOR AUTHOR'S ORGANIZ ATION 03/31/2023 [facility] DATE CREATED AUTHOR AUTHOR'S ORGANIZ ATION 01/12/2024 [facility] Care Teams (unrecognized sec tion and content) Team Status: Inactive Member Role Status Dates Tyrone Walters MD Attending Provider Active Christi Dent MD Primary Care Provider Active Team Status: Active Member Role Status Dates Christi Dent MD Primary Care Provider Active Team Status: Inactive Member Role Status Dates Tyrone Walters MD Attending Provider, Referring Prov ider Active Christi Dent MD Primary Care Provider Active Goals (unrecognized section and content) Goals may be documented in a n alternate section REASON FOR VISIT (unrecogniz ed section and content) foot infectionrefillfollowup FEET ISSUES - SKIN PROBLEMS FOR RECORDS PERTAINING TO PATIENTS WHO ARE OR HAVE BEEN ENROLLED IN A CHEMICAL DEPENDENCY/SUBSTANCEABUSE PROGRAM, SOME INFORMATION MAY BE OMITTED. This clinical summary was aggregated from multiple sources. Caution should be exercised in using it in the provision of clinical care. This summary normalizes information from multiple sources, and as a consequence, information in this document may materially change the coding, format and clinical context of patient data. In addition, data may be omitted in some cases. CLINICAL DECISIONS SHOULD BE BASED ON THE PRIMARY CLINICAL RECORDS. [facility] [employer] [facility]. provides no warranty or guarantee of the accuracy or completeness of information in this document.
[2024-01-23 09:50] LABS: Prostate Specific Antigen Dx <0.13 ng/mL (<=4.00)
== END 2024-01-23 08:08 | disposition home or self-care (01) ==
LOC: LAB 08:07
PROVIDERS: PCP Family Medicine; Visit Provider Urology
DX: N20.0 Calculus of kidney (principal); Z85.46 Personal history of malignant neoplasm of prostate; R31.21 Asymptomatic microscopic hematuria; E27.8 Other specified disorders of adrenal gland
CPT/HCPCS: 36415; 84153

== ENCOUNTER 2024-01-23 08:30 | Outpatient (OUT) | payer MEDICARE, SELFPAY ==
--- NOTE | 2024-01-23 08:35 | US_ITS ---
The [address] [address] Patient Name: JOAO JULIEN MRN: [id number] date: 1950 Sex: M Assigned Patient Location: Current Patient Location: Accession/Order Number: [id number] Exam Date: 01/23/2024 08:36 Report Date: 01/24/2024 07:41 At the request of: KYLE HILLS Procedure: US renal BI EXAMINATION: US renal BI HISTORY: mass of adrenal gland E27.8 ; right adrenal gland mass COMPARISON: CT abdomen pelvis 07/15/2021, ultrasound kidneys 05/11/2020 TECHNIQUE: Ultrasound examination was performed of the kidneys and urinary bladder. FINDINGS: RIGHT KIDNEY: Contain several benign-appearing cysts, largest is 2.4 cm. No evidence of pelvocaliectasis, mass, or calculi. Normal renal cortical parenchymal echogenicity. Color Doppler demonstrates blood flow within the kidney. (Stable small cyst incidentally seen within right lobe of liver.) Kidney: 9.2 x 5.7 x 4.9 cm LEFT KIDNEY: No evidence of pelvocaliectasis, mass, or calculi. Normal renal cortical parenchymal echogenicity. Color Doppler demonstrates blood flow within the kidney. Kidney: 9.3 x 4.5 x 5.3 cm BLADDER: No visible wall thickening, mass, or calculi. US/US renal BI IMPRESSION: 1. Right adrenal gland could not be seen on today's study. Consider following the right adrenal gland nodules via CT abdomen. Alternatively CT abdomen with and without IV contrast using adrenal gland protocol could be performed for further evaluation of the right adrenal gland nodules. 2. Benign-appearing right renal cysts. Otherwise unremarkable kidneys. Electronically authenticated by: KATERIN SCHMID Date: 01/24/2024 07:41
--- OUTSIDE RECORDS SUMMARY | 2024-01-23 08:50 | XMS_ITS | CCD ---
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 Ta Silva Attending Mary Dent, Dr. [...] Dr. Christi Bird Primary Care Unav ailable Rneae, Ms. Johnna Gordonsoledad Franco Referring Sarah Renae, [...] Attending Unavailable FAWWAD, VARGHESE H Admitting Unavailable DNET, DR CHRISTI Garcia Primary Care Unavailable FAWWAD, [...] REQUEST, DR DOE LISTED Attending Unavaila ble FILIPE, DR CHRISTI Garcia Primary Care Unavailable REQUEST, NONE LISTED Admitting Unavaila ble JOSE ., MONSE Attending Unavailable JOSE ., MONSE Admitting Unavailable DENT, CHRISTI E Primary Care Unavailable BRENDON NORIEGA Consulting Unavailaudrey e SHAIKH Joseluis MCNAMARA Attending Unavailable SHAIKH Joseluis MCNAMARA Admitting Unavailable DR CHRISTI DENT Primary Care Unavailable SHAIKH Joseluis MCNAMARA Attending Unavailable SHAIKH MCNAMARA H Admitting Unavailable DR CHRISTI DENT Primary Care Unavailable SHAIKH Joseluis MCNAMARA Attending Unavailable SHAIKH Joseluis MCNAMARA Admitting Unavailable DR CHRISTI DENT Primary Care Unavailable Christi Dent Kyle FORTE Attending Unavailable Kyle FORTE Attending Unavailable Allergies Allergy Classification Reported Allergen(s) Allergy Type Date of Onset Reaction(s) Facility (18 sources) Sulfamethoxazole; Translations: [sulfamethoxazole ] Drug Allergy [facility] (1 source) Sulfonamides (Antibiotic) Drug allergy (disorder) 2 [facility] Repository (1 source) Sulfonamides (Antibiotic) Drug allergy (disorder) 5 [facility] Repository (5 sources) Lisinopril Drug Allergy Unknown [facility] Other (5 sources) Sulfacetamide Drug Allergy pt doesn't remember [facility] Other Medications Current Medications Medication Drug Class(es) [...] Date: 08/08/19 Status: Ordered polyethylene glycol 3350 63009 mg powder for oral solution (20 sources) [...] TABS TA KE 1 TABLET DAILY DIRECTED. [facility] monitors coumadin Quantity: 0 Refills: 0 Ordered: [...] Onset: 3 Episodic Other aftercare (1 source) prison (current) use of anticoagulants; Translations: [WHEEL MOLDER CURRNT USE ANTICOAGULANTS] Onset: 3 Episodic Other [...] te Episodic/Chronic Other aftercare (1 source) Other care home (current) drug therapy; Translations: [OTH WHEEL MOLDER CURRENT DRUG THERAPY] Onset: 09-13-2022 Episodic Residual [...] ) Other: PROVIDER RELATED REMINDER:_ ( ) Environmental Studies Department Chair ( ) Call Pharmacy ( ) Call Lab ( ) Other: Special Instructions:_ Comments:_ LM on VM letting pt know order was faxed to [facility]. They will call pt to schedule. ZIA is scheduled @ [facility] 01/23/24. Follow to review results 02/05/24. Normal [facility] Lab Reportson 02-06-2023 Lab Reports [id number]:127 Normal [facility] [place] [facility] Ambulatory Visit Summaryon 0 02-03-2023 Ambulatory Visit Summary JOAO BOGGS :1950 Visit Date:02/03/2023 Ambulatory Visit Instructions Your Diagnosis Personal history of prostate cancer Asymptomatic microscopic hematuria Kidney stone Mass of right adrenal gland Tests Performed Urnls Dip Stick Auto w/o Microscopy POC 58214 Your Care Team Attending Physician - REINIER [...] VAUGHAN, Kyle Valadez Where: [facility] Patient Educationon 02-04-20 Patient Education Oncology Prostate [...] Are older than age 65. ? Are -Malagasy. ? Are obese. ? Have a family [...] Follow these instructions at home: ? Take kfha-eqa-amhrapd and prescription medicines only as told by [...] cancer specialis (more content not included)... Normal [facility] Urology Office/Clinic Noteon 02-03-2023 Urology [...] Urology [address], [place] [address]- [phone] Additional Instructions: 1 year fu with PSA [...] Family History (more content not included)... Normal [facility] Comment on above: Result Comment: [...] DAILY. Coumadin TABSTAKE 1 TABLET DAILY DIRECTED. [facility] monitors coumadin dilTIAZem HCl - 60 MG [...] and affect . Signatures Johnna Renae MSN, SPINNING MACHINE TENDER-SCHOOL BUS DRIVER/TEACHER ASSISTANT, PMHNP-BC [facility] Support Your App - Ioana Please excuse any errors in grammar or trans (more content not included)... Normal [employer] Tobacco Screening.on 023 Fall risk assessment a) No falls within the last year -[facility] gray 250 DO Work Phone: Tobacco use status CP b) No -[facility] gray 250 DO Work Phone: Office Visit [...] contact the office if new symptoms arise. 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 No caffeine, alcohol, energy drinks, uder-krb-jmavhmm medications. At this time, patient does not [...] DAILY. Coumadin TABSTAKE 1 TABLET DAILY DIRECTED. [facility] monitors coumadin dilTIAZem HCl - 90 MG [...] Recorded: 08Nov2022 02:34PM Heart Rate48, L Radial Lhfyusxn381, LUE, Sitting Dmctipohz195, LUE, Sitting Height5 ft 7 in Jegrol434 lb BMI Hqiatkbnrm08.06 kg/m2 BSA Calculated1.84 Tobacco Useb) No PHQ-2 #1. Over the last 2 weeks have you felt down, depressed or hopeless? (If yes, answer PHQ-9 below)No PHQ-2 #2. Over the last 2 weeks have you felt little interest or pleasu (more content not included)... Normal [employer] Tobacco Screening.on 023 Adult depression screening assessment [facility] 250 DO Work Phone: Fall risk assessment a) No falls within the last year [facility] [employer] 250 DO Work Phone: Tobacco use status CP b) No [facility] [employer] e[employer]aching 250 DO Work Phone: Office Visit (Cardiology)on [...] contact the office if new symptoms arise. 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 He completed lab work at [facility] and will need to obtain. Has been [...] dyspnea on exertion. They have obtained a [employer] mobile device with no documented atrial fibrillation. [...] can verify accuracy. Will obtain labs from [facility] History of Present Illness The patient [...] DAILY. Coumadin TABSTAKE 1 TABLET DAILY DIRECTED. [facility] monitors coumadin dilTIAZem HCl - 90 MG Oral TabletTAKE 1.5 TABLET Daily Flecainide Acetate 50 MG Oral TabletTAKE 1 TABLET TWICE DAILY. hydroCHLOROthiazide 12.5 MG Oral TabletTAKE 1 TABLET DAILY. Latanoprost SOLNas directed MiraLax 17 GM Oral Packet Protonix 20 MG Oral Tablet Delayed ReleaseTAKE 1 TABLET DAILY. Simvastatin 20 MG Oral TabletTAKE 1 TABLET AT BEDTIME. Sin (more content not included)... Normal [employer] Tobacco Screening.on 022 Fall risk assessment a) No falls within the last year [facility] gray 250 DO Work Phone: Tobacco use status CP b) No [facility] gray 250 DO Work Phone: DOUGLAS - TSHon 10-04-2022 TSH 2.003 uIU/mL Normal 0.358-3.74 0 [facility] Comment on above: Performed By: #### D ATTSH #### [facility] [address] [place] [address] Dr. Farida Braun TSH RANGE SEE BELOW Normal [facility] Comment on above: Result Comment: <0.3 4 UIU/ml HYPERTHYROID 0.34-5.60 UIU/ml EUTHYROID >5.60 UIU/ml HYPOTHYROID Performed By: #### D ATTSH #### [facility] [address] [place] [address] Dr. Farida Braun PROF CHEM 8 (BAS METB)on Anion gap [Moles/Vol] 7.5 mmol/L Normal [facility] Comment on above: Performed By: #### B MP #### [facility] [address] [place] [address] Dr. Farida Braun Calcium [Mass/Vol] 9.3 mg/dL Normal 8.5-10.1 [facility] Comment on above: Performed By: #### B MP #### [facility] [address] [place] [address] Dr. Farida Braun Chloride [Moles/Vol] 101 mmol/L Normal 98-107 [facility] Comment on above: Performed By: #### B MP #### [facility] [address] [place] [address] Dr. Farida Braun CO2 [Moles/Vol] 35.1 mmol/L Critically high 21.0-32.0 [facility] Comment on above: Performed By: #### B MP #### [facility] [address] [place] [address] Dr. Farida Braun Creatinine [Mass/Vol] 1.13 mg/dL Normal 0.70-1.30 [facility] Comment on above: Performed By: #### B MP #### [facility] [address] [place] [address] Dr. Farida Braun EGFR-AF MONTENEGRIN >60 Normal >=60 [facility] Comment on above: Performed By: #### B MP #### [facility] [address] [place] [address] Dr. Farida Braun EGFR-NON AF MONTENEGRIN >60 Normal >=60 [facility] Comment on above: Performed By: #### B MP #### [facility] [address] [address] [address] Farida Braun Glucose [Mass/Vol] 111 mg/dL Critically high 74-106 T [facility] Comment on above: Performed By: #### B MP #### [facility] [address] [address] [address] Farida Braun Potassium [Moles/Vol] 4.6 mmol/L Normal 3.5-5.1 [facility] Comment on above: Performed By: #### B MP #### [facility] [address] [address] [address] Farida Braun Sodium [Moles/Vol] 139 mmol/L Normal 136-145 [facility] Comment on above: Performed By: #### B MP #### [facility] [address] [address] [address] Farida Braun Urea nitrogen [Mass/Vol] 24.0 mg/dL Critically high 7.0-18.0 [facility] Comment on above: Performed By: #### B MP #### [facility] [address] [address] [address] Farida Braun Urea nitrogen/Creatinine [Mass ratio] 21.2 mg/mg Normal [facility] Comment on above: Performed By: #### B MP #### [facility] [address] [address] [address] Farida Braun Office Visit (Cardiology)on 09-13-2022 [...] contact the office if new symptoms arise. 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 Patient had called [...] of caffeine daily, no alcohol intake. No mtsq-egd-vhbpckz medications. No prior sleep apnea testing. EKG in office today is maintaining normal sinus rhythm and he reportedly feels better with anabaptist of normal sinus rhythm. Has a little [...] DAILY. Coumadin TABSTAKE 1 TABLET DAILY DIRECTED. [facility] monitors coumadin dilTIAZem HCl - 90 MG [...] 13Sep2022 12:37PM (more content not included)... Normal [employer] Tobacco Screening.on 022 Fall risk assessment a) No falls within the last year [facility] [employer] 250 DO Work Phone: Tobacco use status CP b) No [facility] [employer] 250 DO Work Phone: Tobacco Screening. Yes [facility] [employer] 250 DO Work Phone: CBC AUTO DIFFon 09-09-2022 BASO # 0.1 103/ul Normal 0.0-0.1 [facility] Comment on above: Performed By: #### C BC #### [facility] [address] [address] [address] Farida Braun Basophils/100 WBC (Bld) 0.7 % Normal 0.2-2.0 [facility] Comment on above: Performed By: #### C BC #### [facility] [address] [place] [address] Dr. Farida Braun EO # 0.0 103/ul Normal 0.0-0.7 [facility] Comment on above: Performed By: #### C BC #### [facility] [address] [place] [address] Dr. Farida Braun Eosinophils/100 WBC (Bld) 0.1 % Critically low 0.9-7.0 [facility] Comment on above: Performed By: #### C BC #### [facility] [address] [place] [address] Dr. Farida Braun Erythrocyte distribution width (RBC) [Ratio] 14.5 % Normal 11.0-15.0 [facility] Comment on above: Performed By: #### C BC #### [facility] [address] [place] [address] Dr. Farida Braun Hematocrit (Bld) [Volume fraction] 42.5 % Normal 42.0-54.0 [facility] Comment on above: Performed By: #### C BC #### [facility] [address] [place] [address] Dr. Farida Braun Hemoglobin (Bld) [Mass/Vol] 13.9 g/dL Critically low 14.0-18.0 [facility] Comment on above: Performed By: #### C BC #### [facility] [address] [place] [address] Dr. Farida Braun IG # 0.01 10e3/ul Normal 0.00-0.03 [facility] Comment on above: Performed By: #### C BC #### [facility] [address] [place] [address] Dr. Farida Braun IG % 0.1 % Normal 0.0-0.5 [facility] Comment on above: Performed By: #### C BC #### [facility] [address] [place] [address] Dr. Farida Braun LYMPH # 1.3 103/ul Normal 1.2-3.8 [facility] Comment on above: Performed By: #### C BC #### [facility] [address] [place] [address] Dr. Farida Braun Lymphocytes/100 WBC (Bld) 18.0 % Critically low 20.5-60.0 [facility] Comment on above: Performed By: #### C BC #### [facility] [address] [place] [address] Dr. Farida Braun MANUAL DIFF REQ NO Normal [facility] Comment on above: Performed By: #### C BC #### [facility] [address] [place] [address] Dr. Farida Braun MCH (RBC) [Entitic mass] 29.0 pg Normal 25.9-34.0 [facility] Comment on above: Performed By: #### C BC #### [facility] [address] [place] [address] Dr. Farida Barun MCHC (RBC) [Mass/Vol] 32.7 g/dL Normal 29.9-35.2 [facility] Comment on above: Performed By: #### C BC #### [facility] [address] [place] [address] Dr. Farida Braun MCV (RBC) [Entitic vol] 88.5 fL Normal 80.0-94.0 [facility] Comment on above: Performed By: #### C BC #### [facility] [address] [place] [address] Dr. Farida Braun MONO # 0.9 103/ul Critically high 0.3-0.8 [facility] Comment on above: Performed By: #### C BC #### [facility] [address] [place] [address] Dr. Farida Braun Monocytes/100 WBC (Bld) 12.1 % Critically high 1.7-12.0 [facility] Comment on above: Performed By: #### C BC #### [facility] [address] [place] [address] Dr. Farida Braun NEUT # 5.0 103/ul Normal 1.4-6.5 [facility] Comment on above: Performed By: #### C BC #### [facility] [address] [place] [address] Dr. Farida Braun Neutrophils/100 WBC (Bld) 69.0 % Normal 43.0-75.0 [facility] Comment on above: Performed By: #### C BC #### [facility] [address] [place] [address] Dr. Farida Braun Platelet mean volume (Bld) [Entitic vol] 11.7 fL Normal 9.5-13.5 [facility] Comment on above: Performed By: #### C BC #### [facility] [address] [place] [address] Dr. Farida Braun PLT 206 103/ul Normal 150-450 [facility] Comment on above: Performed By: #### C BC #### [facility] [address] [place] [address] Dr. Farida Braun RBC 4.80 106/ul Normal 4.70-6.10 [facility] Comment on above: Performed By: #### C BC #### [facility] [address] [place] [address] Dr. Farida Braun WBC 7.2 103/ul Normal 4.0-11.0 [facility] Comment on above: Performed By: #### C BC #### [facility] [address] [place] [address] Dr. Farida Braun PROF CHEM 8 (BAS METB)on Anion gap [Moles/Vol] 5.2 mmol/L Normal [facility] Comment on above: Performed By: #### B MP #### [facility] [address] [place] [address] Dr. Farida Braun Calcium [Mass/Vol] 9.6 mg/dL Normal 8.5-10.1 [facility] Comment on above: Performed By: #### B MP #### [facility] [address] [place] [address] Dr. Farida Braun Chloride [Moles/Vol] 101 mmol/L Normal 98-107 [facility] Comment on above: Performed By: #### B MP #### [facility] [address] [place] [address] Dr. Farida Braun CO2 [Moles/Vol] 34.6 mmol/L Critically high 21.0-32.0 [facility] Comment on above: Performed By: #### B MP #### [facility] [address] [place] [address] Dr. Farida Braun Creatinine [Mass/Vol] 0.98 mg/dL Normal 0.70-1.30 [facility] Comment on above: Performed By: #### B MP #### [facility] [address] [place] [address] Dr. Farida Braun EGFR-AF MONTENEGRIN >60 Normal >=60 [facility] Comment on above: Performed By: #### B MP #### [facility] [address] [place] [address] Dr. Farida Braun EGFR-NON AF MONTENEGRIN >60 Normal >=60 [facility] Comment on above: Performed By: #### B MP #### [facility] [address] [place] [address] Dr. Farida Braun Glucose [Mass/Vol] 90 mg/dL Normal 74-106 [facility] Comment on above: Performed By: #### B MP #### [facility] [address] [place] [address] Dr. Farida Braun Potassium [Moles/Vol] 3.8 mmol/L Normal 3.5-5.1 [facility] Comment on above: Performed By: #### B MP #### [facility] [address] [place] [address] Dr. Farida Braun Sodium [Moles/Vol] 137 mmol/L Normal 136-145 [facility] Comment on above: Performed By: #### B MP #### [facility] [address], [place] [address] Dr. Farida Braun Urea nitrogen [Mass/Vol] 17.0 mg/dL Normal 7.0-18.0 [facility] Comment on above: Performed By: #### B MP #### [facility] [address], [place] [address] Dr. Farida Braun Urea nitrogen/Creatinine [Mass ratio] 17.3 mg/mg Normal [facility] Comment on above: Performed By: #### B MP #### [facility] [address], [place] [address] Dr. Farida Braun Falls Screening (Age 18+)on 09-08-2022 Fall risk assessment a) No falls within the last year [facility] gray 250 DO Work Phone: Fall risk assessment a) No falls within the last year [facility] gray 250 DO Work Phone: VASC LAB Abdominal Aorta/Rasheeda ac/IVC Ultraon 09-08-2022 VASC LAB Abdominal Aorta/Iliac/IVC Ultra [address], [address] [place] [address] Vascular Lab Report Abdominal Aorta Iliac Ultrasound/IVC Ultrasound Patient Name: JOAO Cote Physician: [id number] Tyrone Walters MD, [facility] Study Date: 09/08/2022 Referring Physician: TA SILVA MRN/PID: [id number] PCP: Christi Dent Accession/Order#: [id number] CC Report to: Date of : 1950 Technologist: Vilma Cottrell RD, [facility] Gender: M Technologist 2: Admission Status: Outpatient Location Performed: [facility] Diagnosis/ICD: P24-Phcfnalgt primary hypertension; Z13.6-Encounter for screening for cardiovascular disorders (AAA) Indication: Former Smoker, Overweight, Paroxysmal Atrial Fibrillation-s/p Cardioversion 09/06/2022 Procedure/CPT: 70099 Duplex Aorta/IVC/Iliac/Bypass Graft-71633 CONCLUSIONS: Aorta/Common Iliac Arteries/IVC: No evidence of abdominal aortic aneurysm. Imaging AND Doppler Findings: AORTA AP Lateral PSV Proximal 2.15 cm 2.33 cm 158.0 cm/s Mid 2.13 cm 2.07 cm 47.0 cm/s Distal 2.27 cm 1.86 cm 52.0 cm/s RIGHT AP Lateral PSV NELIA Proximal 1.02 cm 1.20 cm 73.00 cm/s LEFT AP Lateral PSV NELIA Proximal 1.24 cm 1.10 cm 108.00 cm/s 19459 Tyrone Walters MD, [facility] Final Normal [facility] VAS LAB Abdominal Aorta/Rasheeda ac/IVC Ultrasoundon 09-08-2022 VAS LAB Abdominal Aorta/Iliac/IVC Ultrasound Please click on the link to view the study images Normal [facility] gray 250 DO Work Phone: [facility] Abdominal Aorta[facility]Iliac/[facility] Work Phone: ECG 12 lead ECGon 09-06-2022 ECG 12 lead ECG [facility] [place] [place] [address] Electrocardiograph Report Signed Patient: Joao Boggs MR#: [id number] : 1950 Acct:[id number] Age/Sex: 72 / M ADM Date: 09/06/22 Loc: Room: Type: [facility] Attending Dr: Tyrone Walters MD Ordering Provider: Tyrone Walters MD, [facility] Date of Service: 09/06/22 ECG/ECG 12 [...] Signed By Thiago Brown DO 09/09 1248 [facility] ECG post procedureon 022 ECG post procedure [facility] [place] [address] Electrocardiograph Report Signed Patient: Joao Boggs MR#: [id number] : 1950 Acct:[id number] Age/Sex: 72 / M ADM Date: 09/06/22 Loc: Room: Type: [facility] Attending Dr: Tyrone Walters MD Ordering Provider: Tyrone Walters MD, [facility] Date of Service: 09/06/22/ ECG/ECG post [...] Signed By Thiago Brown DO 09/08 1435 [facility] Laboratory - Coagulationon 1 11-06-2021 INR Coag (Bld) [Relative time] 2.4 {INR} [facility] [employer] 250 DO Work Phone: No Panel Informationon 09-06 2.4\S\2.4 Normal [facility] [employer] 250 DO Work Phone: Comment on above: [...] with mechanical heart valves: 3 - 4.5PERFORMED BY:[address] [place], [place] [phone] MEDICAL DIRECTORRODOLFO SCHWARTZ M.D. 27.1\S\27.1 above high threshold 9.0-12.9 -[facility] gray 250 DO Work Phone: 16.1\S\16.1 above high threshold 6.0-15.0 [facility] 250 DO Work Phone: Comment on above: PERFORMED BY:[address] [address] [address] [place], [place] [phone] MEDICAL DIRECTORRODOLFO SCHWARTZ M.D. 29.8\S\29.8 Normal 22.0-30.0 [facility] 250 DO Work Phone: [phone] 97\S\97 Normal 95-114 [facility] 250 DO Work Phone: 3.9\S\3.9 Normal 3.5-5.1 [facility] gray 250 DO Work Phone: [phone] 139\S\139 Normal 136-146 [facility] 250 DO Work Phone: Platelet poor plasma interna tional normalized ratio (INR) by coagulation assay (relatOrdered By: Tyrone Walters on 09-06-2022 INR Coag (PPP) [Relative time] 2.4 {INR} Normal [facility] Comment on above: INR Therapeutic Rang e [...] heart valves: 3 - 4.5 PERFORMED BY: [place] [address] PATHOLOGIST PLATE EMBOSSER RODOLFO SCHWARTZ M.D. Performed By: #### P TLESLI #### [facility] [address] [place] [address] Prothrombin Time INROrdered By: Tyrone Walters on 09-06-2022 PT Coag (PPP) [Time] 27.1 s High 9.0-12.9 [facility] Comment on above: Performed By: #### P TLESLI #### [facility] [address] [place] [address] Serum or plasma anion gap de terminationOrdered By: Tyrone Walters on 09-06-2022 Anion gap [Moles/Vol] 16.1 mmol/L High 6.0-15.0 [facility] Comment on above: Result Comment: PERF ORMED BY: [place] [address] PATHOLOGIST PLATE EMBOSSER RODOLFO SCHWARTZ M.D. Performed By: #### P T, LYTES #### [facility] [address] [place] [address] Serum or plasma chloride michelle surement (moles/volume)Ordered By: Tyrone Walters on 09-06-2022 Chloride [Moles/Vol] 97 mmol/L Normal 95-114 [facility] Comment on above: Performed By: #### P T, LYTES #### [facility] [address] Serum or plasma potassium me asurement (moles/volume)Ordered By: Tyrone Walters on 09-06-2022 Potassium [Moles/Vol] 3.9 mmol/L Normal 3.5-5.1 [facility] Comment on above: Performed By: #### P T, LESLI #### [facility] [address] [place] [address] Serum or plasma sodium measu rement (moles/volume)Ordered By: Tyrone Walters on 09-06-2022 Sodium [Moles/Vol] 139 mmol/L Normal 136-146 [facility] Comment on above: Performed By: #### P T, LESLI #### [address] Serum or plasma total carbon dioxide measurement (moles/volume)Ordered By: Tyrone Walters on 09-06-2022 CO2 [Moles/Vol] 29.8 mmol/L Normal 22.0-30.0 [facility] Comment on above: Performed By: #### P T, LESLI #### [address] COVID-19 Antigenon 2 COVID-19 Antigen Healthcare [...] developed and its performance characteristic determined by [employer] and validated at [facility]. This test has not been FDA cleared [...] for SARS Antigen by COLT PERFORMED BY: [facility] [address] [place] [id number] PATHOLOGIST PLATE EMBOSSER RODOLFO SCHWARTZ M.D. Normal [facility] Comment on above: Performed By: #### C OVID-19 JULIET, SOFIANEG #### [address] COVID-19 SOFIAOrdered By: Gilson Walters on 09-02-2022 SARS-CoV+SARS-CoV-2 (COVID-19) Ag IA.rapid Ql (Resp) Negative Negative [facility] Comment on above: This is a duplicate Juliet SARS Antigen (COLT) result to be used for statistical tracking purpose only. Laboratory - Microbiology an d Antimicrobial susceptibilityon 09-02-2022 SARS-CoV-2 (COVID-19) RNA ROBB+probe Ql (Unsp spec) -[facility] 250 DO Work Phone: No Panel Informationon 09-02 Negative Normal Negative [facility] 250 DO Work Phone: Comment on above: This is a duplicate Juliet SARS Antigen (COLT) result to be used for statistical tracking purpose only.PERFORMED BY:[facility] [place], [place] [id number] MEDICAL DIRECTORRODOLFO SCHWARTZ M.D. No Panel InformationOrdered By: Tyrone Walters on 09-02-2022 SARS Antigen (LFIA) [facility] Juliet Ag Negativeon 09-02-20 Juliet Ag Negative Negative Normal Negative [facility] Comment on above: Result Comment: This is a duplicate Juliet SARS Antigen (COLT) result to be used for statistical tracking purpose only. PERFORMED BY: [facility] [address] [place] [address] PATHOLOGIST PLATE EMBOSSER RODOLFO SCHWARTZ M.D. Performed By: #### C OVID-19 JULIET, SOFIANEG #### [facility] [address] Office Visit (Cardiology)on 08-11-2022 Follow-up visit [...] catheterization performed at outside hospital by another personal development coach revealed more minimal coronary disease in 2016 [...] DAILY. Coumadin TABSTAKE 1 TABLET DAILY DIRECTED. [facility] monitors coumadin dilTIAZem HCl - 90 MG [...] Signs Recorded: 11Aug2022 10:00AM Heart Rate87, Apical Wjozfsan270, LUE, Sitting Zzvollcbt89, LUE, Sitting Height5 ft 6 in Urimof660 lb 6 oz BMI Oajqicuvfz88.05 kg/m2 BSA Calculated1.83 Tobacco Useb) No PHQ-2 [...] S2, n (more content not included)... Normal [employer] Tobacco Screening.on 022 Adult depression screening assessment No [facility] [employer] 250 DO Work Phone: Fall risk assessment a) No falls within the last year [facility] Adayanay 250 DO Work Phone: Tobacco use status [facility] b) No [facility] 250 DO Work Phone: Vital Signs Date Time Vital Sign Value Performing Clinician Facility 08-04-2023 09:30-0400 Body height 162.56 cm Christi Dent Other [facility] Other 08-04-2023 09:30-0400 Body mass index (BMI) [Ratio] 26.91 kg/m2 Christi Dent Other [facility] Other 08-04-2023 09:30-0400 Body weight 71.12 kg Christi Dent Other [facility] Other 08-04-2023 09:30-0400 Diastolic blood pressure 93 mm[Hg] Christi Dent Other [facility] Other 08-04-2023 09:30-0400 Systolic blood pressure 147 mm[Hg] Christi Dent Other [facility] Other 01-04-2023 09:15-0400 Diastolic blood pressure 72 mm[Hg] Christi Dent Work Phone: [place] [facility] 250 DO Work Phone: 01-04-2023 09:15-0400 Systolic blood pressure 124 mm[Hg] Christi Dent Work Phone: [facility] [facility] 250 DO Work Phone: 01-04-2023 09:10-0400 Heart rate 39 /min Christi Dent Work Phone: [facility] [facility] 250 DO Work Phone: 01-04-2023 09:06-0400 Body height 170.18 cm Christi Dent Work Phone: [place] [facility] 250 DO Work Phone: 01-04-2023 09:06-0400 Body mass index (BMI) [Ratio] 25.22 kg/m2 Christi Dent Work Phone: [place] [facility] 250 DO Work Phone: 01-04-2023 09:06-0400 Body surface area Derived from formula 1.84 m2 Christi Dent [facility] 250 DO Work Phone: 01-04-2023 09:06-0400 Body weight 73.03 kg Christi Dent Work Phone: [facility] 250 DO Work Phone: 11-08-2022 14:34-0500 Body height 170.18 cm Christi Dent Work Phone: [facility] 250 DO Work Phone: 11-08-2022 14:34-0500 Body mass index (BMI) [Ratio] 25.06 kg/m2 Christi Dent Work Phone: [facility] 250 DO Work Phone: 11-08-2022 14:34-0500 Body surface area Derived from formula 1.84 m2 Christi Dent Work Phone: [facility] 250 DO Work Phone: 11-08-2022 14:34-0500 Body weight 72.58 kg Christi Dent Work Phone: [facility] 250 DO Work Phone: 11-08-2022 14:34-0500 Diastolic blood pressure 100 mm[Hg] Christi Dent Work Phone: [facility] 250 DO Work Phone: 11-08-2022 14:34-0500 Heart rate 48 /min Christi Dent Work Phone: [facility] 250 DO Work Phone: 11-08-2022 14:34-0500 Systolic blood pressure 170 mm[Hg] Christi Dent Work Phone: [facility] 250 DO Work Phone: 10-12-2022 08:08-0500 Body height 170.18 cm Christi Dent Work Phone: [facility] 250 DO Work Phone: 10-12-2022 08:08-0500 Body mass index (BMI) [Ratio] 25.06 kg/m2 Christi Dent Work Phone: [facility] 250 DO Work Phone: 10-12-2022 08:08-0500 Body surface area Derived from formula 1.84 m2 Christi Dent Work Phone: [facility] 250 DO Work Phone: 10-12-2022 08:08-0500 Body weight 72.58 kg Christi Dent Work Phone: [facility] 250 DO Work Phone: 10-12-2022 08:08-0500 Diastolic blood pressure 70 mm[Hg] Christi Dent Work Phone: [facility] 250 DO Work Phone: 10-12-2022 08:08-0500 Heart rate 40 /min Christi Dent Work Phone: [facility] 250 DO Work Phone: 10-12-2022 08:08-0500 Systolic blood pressure 98 mm[Hg] Christi Dent Work Phone: [facility] 250 DO Work Phone: 09-13-2022 12:37-0500 Body height 167.64 cm Christi Dent Work Phone: [facility] 250 DO Work Phone: 09-13-2022 12:37-0500 Body mass index (BMI) [Ratio] 26.47 kg/m2 Christi Dent Work Phone: [facility] 250 DO Work Phone: 09-13-2022 12:37-0500 Body surface area Derived from formula 1.84 m2 Christi Dent Work Phone: [facility] 250 DO Work Phone: 09-13-2022 12:37-0500 Body weight 74.39 kg Christi Dent Work Phone: [facility] 250 DO Work Phone: 09-13-2022 12:37-0500 Diastolic blood pressure 110 mm[Hg] Christi Dent Work Phone: [facility] 250 DO Work Phone: 09-13-2022 12:37-0500 Heart rate 63 /min Christi Dent Work Phone: [facility] 250 DO Work Phone: 09-13-2022 12:37-0500 Systolic blood pressure 184 mm[Hg] Christi Dent Work Phone: [facility] 250 DO Work Phone: 09-08-2022 13:12-0500 Body height 167.64 cm Christi Dent Work Phone: [facility] 250 DO Work Phone: 09-08-2022 13:12-0500 Body mass index (BMI) [Ratio] 25.82 kg/m2 Christi Dent Work Phone: [facility] 250 DO Work Phone: 09-08-2022 13:12-0500 Body surface area Derived from formula 1.82 m2 Christi Dent Work Phone: [facility] 250 DO Work Phone: 09-08-2022 13:12-0500 Body weight 72.58 kg Christi Dent Work Phone: [facility] 250 DO Work Phone: 09-08-2022 13:12-0500 Diastolic blood pressure 102 mm[Hg] Christi Dent Work Phone: [facility] 250 DO Work Phone: 09-08-2022 13:12-0500 Heart rate 53 /min Christi Dent Work Phone: [facility] 250 DO Work Phone: 09-08-2022 13:12-0500 Systolic blood pressure 160 mm[Hg] Christi Dent Work Phone: [facility] 250 DO Work Phone: 09-08-2022 08:14-0500 Body height 167.64 cm Christi Dent Work Phone: [facility] 250 DO Work Phone: 09-08-2022 08:14-0500 Body mass index (BMI) [Ratio] 25.82 kg/m2 Christi Dent Work Phone: [facility] 250 DO Work Phone: 09-08-2022 08:14-0500 Body surface area Derived from formula 1.82 m2 Christi Dent Work Phone: [facility] 250 DO Work Phone: 09-08-2022 08:14-0500 Body weight 72.58 kg Christi Dent Work Phone: [facility] 250 DO Work Phone: 09-08-2022 08:14-0500 Diastolic blood pressure 102 mm[Hg] Christi Dent Work Phone: [facility] 250 DO Work Phone: 09-08-2022 08:14-0500 Heart rate 53 /min Christi Dent Work Phone: [facility] 250 DO Work Phone: 09-08-2022 08:14-0500 Systolic blood pressure 160 mm[Hg] Christi Dent Work Phone: [facility] 250 DO Work Phone: 09-08-2022 08:13-0500 Body height 167.64 cm Christi Dent Work Phone: [facility] 250 DO Work Phone: 09-08-2022 08:13-0500 Body mass index (BMI) [Ratio] 25.82 kg/m2 Christi Dent Work Phone: [facility] 250 DO Work Phone: 09-08-2022 08:13-0500 Body surface area Derived from formula 1.82 m2 Christi Dent Work Phone: [facility] 250 DO Work Phone: 09-08-2022 08:13-0500 Body weight 72.58 kg Christi Dent Work Phone: [facility] 250 DO Work Phone: 09-08-2022 08:13-0500 Diastolic blood pressure 100 mm[Hg] Christi Dent Work Phone: [facility] 250 DO Work Phone: 09-08-2022 08:13-0500 Heart rate 53 /min Christi Dent Work Phone: [facility] 250 DO Work Phone: 09-08-2022 08:13-0500 Systolic blood pressure 146 mm[Hg] Christi Dent Work Phone: [facility] 250 DO Work Phone: 09-06-2022 16:40-0500 Inhaled oxygen concentration 100 % MD Christi Dent Work Phone: [facility] 09-06-2022 16:40-0500 Inhaled oxygen flow rate 2 L/min MD Christi Dent Work Phone: [facility] 09-06-2022 16:40-0500 SaO2% (BldA) [Mass fraction] 99 % MD Christi Dent Work Phone: [facility] 09-06-2022 11:52-0500 Body height 167.64 cm MD Christi Dent Work Phone: [facility] 09-06-2022 11:52-0500 Body weight 72 kg MD Christi Dent Work Phone: [facility] 08-11-2022 10:00-0400 Body height 167.64 cm Christi Dent Work Phone: [facility] 250 DO Work Phone: 08-11-2022 10:00-0400 Body mass index (BMI) [Ratio] 26.05 kg/m2 Christi Dent Work Phone: [facility] 250 DO Work Phone: 08-11-2022 10:00-0400 Body surface area Derived from formula 1.83 m2 Christi Dent Work Phone: [facility] 250 DO Work Phone: 08-11-2022 10:00-0400 Body weight 73.2 kg Christi Dent Work Phone: [facility] 250 DO Work Phone: 08-11-2022 10:00-0400 Diastolic blood pressure 90 mm[Hg] Christi Dent Work Phone: [facility] 250 DO Work Phone: 08-11-2022 10:00-0400 Heart rate 87 /min Christi Dent Work Phone: [facility] 250 DO Work Phone: 08-11-2022 10:00-0400 Systolic blood pressure 138 mm[Hg] Christi Dent Work Phone: [facility] 250 DO Work Phone: 01-28-2022 08:04-0400 Blood Pressure Location [facility] 01-28-2022 08:04-0400 Diastolic blood pressure 103 mm[Hg] Kyle FORTE [facility] 01-28-2022 08:04-0400 Heart rate 73 /min Kyle FORTE [facility] 01-28-2022 08:04-0400 Respiratory rate 16 /min Kyle FORTE [facility] 01-28-2022 08:04-0400 Systolic blood pressure 146 mm[Hg] Kyle FORTE [facility] En[facility] Encounter Date Encounter Type Care Provider Facility Start: 02-05-2024 ambulatory Kyle Loftoni ty:RADHA Samaniego Start: 10-27-2023 End: 10-27-2023 ambulatory Christi Dent Other [facility] [employer] Other Start: 10-27-2023 Telephone encounter Christi Dent [facility] Start: 10-11-2023 End: 10-11-2023 ambulatory Christi Dent Other [facility] [employer] Other Start: 10-11-2023 Telephone encounter Christi Dent [facility] Start: 08-14-2023 End: 08-14-2023 ambulatory Christi Dent Other [facility] Other Start: 08-14-2023 Telephone encounter Christi Filipe [facility] Start: 08-04-2023 End: 08-04-2023 ambulatory Christi Filipe Other [facility] Other Start: 08-04-2023 Office outpatient visit 15 minutes Christi Filipe [facility] Start: 07-04-2023 End: 07-04-2023 ambulatory Christi Filipe Other [facility] Other Start: 07-04-2023 Telephone encounter Christi Filipe [facility] Start: 02-20-2023 End: 03-22-2023 ambulatory SHAIKH Joseluis MCNAMARA Facility: Start: 02-03-2023 End: 02-04-2023 ambulatory Kyle FORTE Facility:[facility] Start: 02-03-2023 End: 02-03-2023 Patient encounter procedure Kyle FORTE [facility] Start: 01-27-2023 End: 01-28-[address] KYLE FORTE . Facility: Start: 01-23-2023 End: 02-17-2023 ambulatory SHAIKH Joseluis JUNIORD Facility: Start: 01-04-2023 Office outpatient visit 15 minutes Christi Dent Work Phone: [facility] 250 DO Work Phone: Start: 01-04-2023 Patient encounter procedure Christi Dent Work Phone: [facility] 250 DO Work Phone: Start: 01-04-2023 ambulatory Ms. Johnna Renae Facility: Start: 12-21-2022 End: 01-20-2023 ambulatory VARGHESE H FAWWAD Facility:H1 Start: 11-28-2022 Patient encounter procedure Christi Dent Work Phone: [facility] 250 DO Work Phone: Start: 11-23-2022 End: 12-21-2022 ambulatory SHAIKH Joseluis MCNAMARA Facility:[facility]1 Start: 11-08-2022 Office outpatient visit 10 minutes Christi Dent Work Phone: [facility] 600 DO Work Phone: Start: 11-08-2022 Patient encounter procedure Christi Dent Work Phone: [facility] 250 DO Work Phone: Start: 11-08-2022 ambulatory Ms. Johnna Mabry Franco Oc Facility: Start: 10-24-2022 End: 11-23-2022 ambulatory VARGHESEJoseluis JUNIORChino Facility:[facility]1 Start: 10-12-2022 Office outpatient visit 10 minutes Christi Dent Work Phone: [facility] 250 DO Work Phone: Start: 10-12-2022 ambulatory Ms. Johnna Renae Facility: Start: 10-04-2022 End: 10-05-[address] NADER COBOS Facility: Start: 09-22-2022 End: 10-23-2022 ambulatory VARGHESE H ASHLEIGHSoFLAVIA Facility:H1 Start: 09-20-2022 End: 09-21-[address] KYLE FORTE . Facility:[facility]1 Start: 09-13-2022 FU, Provider: Johnna Gomes, Status: Pen, Time: 12:30 PM Christi Dent Work Phone: [facility] 250 DO Work Phone: Start: 09-13-2022 Office outpatient visit 15 minutes Christi Dent Work Phone: [facility] 250 DO Work Phone: Start: 09-13-[address] Christi Dent Facility: Start: 09-12-2022 Chart Update Christi Dent Work Phone: [facility] 250 DO Work Phone: Start: 09-09-2022 End: 09-09-2022 ambulatory MONSE GARCIA . Facility:[facility]1 Start: 09-08-2022 Office outpatient visit 5 minutes Christi Dent Work Phone: [facility] 250 DO Work Phone: Start: 09-08-2022 AORTA, Provider[facility],[id number], Status: Pen, Time: 7:45 AM Christi Dent Work Phone: [facility] 250 DO Work Phone: Start: 09-08-[address] Ta bustos Ricardo Facility:[id number] Start: 09-07-2022 Chart Update Christi Dent Work Phone: [facility] 250 DO Work Phone: Start: 09-06-[address] Christi Dent Facility:[id number] Start: 09-06-2022 End: 09-07-2022 ambulatory Christi Dent Facility:[facility] Start: 09-06-2022 End: 09-06-2022 Admission to same day surgery center MD Christi Dent Work Phone: [facility] Start: 09-06-2022 End: 09-06-2022 ambulatory MD Christi Dent Work Phone: [facility] Work Phone: Start: 09-02-2022 Chart Update Christi Dent Work Phone: [facility] 250 DO Work Phone: Start: 09-02-2022 End: 09-02-2022 ambulatory Christi Dent Facility:[facility] Start: 09-02-2022 End: 09-02-2022 ambulatory MD Christi Dent Work Phone: [facility] Work Phone: Start: 09-02-2022 End: 09-02-2022 Patient encounter procedure MD Christi Dent Work Phone: [facility] Start: 08-25-2022 Telephone encounter Christi barajas Work Phone: [facility] 600 DO Work Phone: Start: 08-23-2022 End: 09-21-2022 ambulatory VARGHESE H FAWWAD Facility:H1 Start: 08-11-2022 Office outpatient visit 25 minutes Christi Dent Work Phone: [facility] 250 DO Work Phone: Start: 08-11-[address] Christi Dent Facility:[id number] Start: 07-24-2022 End: 08-22-2022 ambulatory VARGHESE H FAWWAD Facility:H1 Start: 06-23-2022 End: 07-23-2022 ambulatory VARGHESE H FAWWAD Facility:H1 Start: 05-23-2022 End: 06-22-2022 ambulatory VARGHESE H FAWWAD Facility:H1 Start: 04-22-2022 End: 05-20-2022 ambulatory VARGHESE H FAWWAD Facility:H1 Start: 01-28-2022 End: 01-28-2022 Patient encounter procedure Kyle FORTE [facility] Start: 07-13-2017 End: 07-14-2017 Ambulatory DEFAULT PHYSICIAN Facility:[facility] Procedures Date Procedure Procedure Detail Performing Clinician Start: 01-27-2023 PSA screening SHAIKH NAIMA Comment on above: Performed By: #### PSAD #### [facility] [address] [place] [address] Dr. Farida Braun Start: 09-04-2018 Cystoscopy Kyle [...] Ta Silva, Status: Pen, Time: 9:50 [facility]: Start: 01-04-2023 FUV, Provider: Johnna Gomes, Status: Pen, Time: 9:00 AM FUV, Provider: Johnna Gomes, Status: Pen, Time: 9:00 AM [facility] Work [facility]: Start: 11-08-2022 FUV, Provider: Johnna Gomes, Status: Pen, Time: 2:30 PM FUV, Provider: Johnna Gomes, Status: Pen, Time: 2:[address] [facility] 250 DO Work Phone: Start: 10-12-2022 FUV, Provider: Johnna Gomes, Status: Pen, Time: 8:00 AM FUV, Provider: Johnna Gomes, Status: Pen, Time: 8:00 AM [facility] Work [facility]: Start: 09-08-2022 AORTA, Provider: IOANA [facility] ULTRASOUND 01,[id number], Status: Pen, Time: 7:45 AM AORTA, Provider: IOANA [facility] ULTRASOUND 01,[id number], Status: Pen, Time: 7:[address] [facility] 250 DO Work Phone: Start: 09-06-2022 [facility] Start: 09-06-2022 SURGNONUH, Provider: Tyrone Walters, Status: Pen, Time: 2:00 PM SURGNONUH, Provider: Tyrone Walters, Status: Pen, Time: 2:00 PM [facility] Work Phone: Patient referral [facility] Work Phone: Immunizations Immunization Date Immunization Notes Care Provider Ashleigh bro 08-04-2023 influenza, high dose seasonal, preservative-free Christi Dent Other [facility] [employer] Other 08-23-2022 Pfizer COVID-19 Vac Bivalent 30 MCG/0.3ML Intramuscular Suspension Christi E Dent Work Phone: [facility] 250 DO Work Phone: 07-31-2022 influenza, injectabl e, quadrivalent, preservative free Christi E Filipe Work Phone: [facility] 250 DO Work Phone: 07-15-2022 influenza, seasonal, injectable Christi E Dent Work Phone: [facility] 250 DO Work Phone: Comment on above: Series: 03-04-2022 Comirnaty 30 MCG/0.3 ML Intramuscular Suspension Christi Dent Work Phone: [facility] 250 DO Work Phone: 08-09-2021 Pfizer-BioNTech COVID-19 Vacc 30 MCG/0.3ML Intramuscular Suspension Christi Dent Work Phone: [facility] 250 DO Work Phone: 08-04-2021 influenza, injectabl e, quadrivalent, preservative free Christi Dent Work Phone: [place] [address] DO Work Phone: 12-15-2020 Pfizer-BioNTech COVID-19 Vacc 30 MCG/0.3ML Intramuscular Suspension Christi Dent Work Phone: [place] [address] DO Work Phone: 12-13-2020 SARS-CoV-2 (COVID-19 ) mRNA-1273 vaccine Kyle FORTE [facility] 11-24-2020 Pfizer-BioNTech COVID-19 Vacc 30 MCG/0.3ML Intramuscular Suspension Christi Dent Work Phone: [place] [address] DO Work Phone: 06-23-2020 influenza, high dose seasonal, preservative-free Christi Dent Work Phone: [place] [address] DO Work Phone: 06-19-2020 influenza virus vaccine, unspecified formulation Kyle FORTE [facility] 07-23-2019 influenza virus vaccine, unspecified formulation Christi Garcia Filipe Work Phone: [place] [address] DO Work Phone: 08-11-2018 influenza, high dose seasonal, preservative-free Christi Garcia Dent Work Phone: [place] [address] DO Work Phone: 07-23-2018 pneumococcal polysaccharide vaccine, 23 valent Christi Dent Work Phone: [place] [address] DO Work Phone: 04-08-2015 pneumococcal polysaccharide vaccine, 23 valent Christi Dent Work Phone: [place] [address] DO Work Phone: 10-23-2014 tetanus immune globulin Jered Garcia Filipe Work Phone: [place] [address] DO Work Phone: 10-23-2013 pneumococcal conjuga te vaccine, 13 valent Christi Dent Work Phone: [place] [address] DO Work Phone: Payers Date Payer Category Payer Medicare [id number] 1960 Medicare [id number] 1960 Self-pay 1950 Unknown [id number] 1950 Unknown [id number] . 840.1.658526.3.579.2.356 1949 Unknown [id number] . 840.1.095326.3.579.2.356 1949 Unknown [id number] 2. 840.1.586879.3.579.2.356 1949 Unknown [id number] 2.16. 840.1.643566.3.579.2.356 1949 Unknown [id number] 2.16. 840.1.623816.3.579.2.356 1949 Unknown [id number] 2.16. 840.1.249623.3.579.2.356 1949 Unknown [id number] 2.16. 840.1.843418.3.579.2.356 1949 Unknown [id number] 2.16. 840.1.171063.3.579.2.356 1949 Unknown [id number] 2.16.84 0.1.471477.3.579.2.593 1949 Unknown [id number] 2.16.84 0.1.625194.3.579.2.593 1949 Unknown [id number] 2.16.84 0.1.692594.3.579.2.593 1949 Unknown [id number] 2.16.84 0.1.980171.3.579.2.593 1949 Unknown [id number] 2.16.84 0.1.021406.3.579.2.593 1949 Unknown [id number] 2.16.84 0.1.615125.3.579.2.593 1949 Unknown [id number] 2.16.84 0.1.433387.3.579.2.593 1949 Unknown [id number] 2.16.84 0.1.268291.3.579.2.593 1949 Unknown [id number] 2.16.84 0.1.654056.3.579.2.593 1949 Unknown [id number] 2.16.84 0.1.619761.3.579.2.593 1949 Unknown [id number] 2.16.84 0.1.005348.3.579.2.593 1949 Unknown [id number] 2.16.84 0.1.027796.3.579.2.593 1949 Unknown [id number] 2.16.84 0.1.577332.3.579.2.593 1949 Unknown [id number] 2.16.84 0.1.845461.3.579.2.593 1949 Unknown [id number] 2.16.8 40.1.755035.3.579.2.727 1949 Unknown [id number] 2.16.8 40.1.218826.3.579.2.727 Unknown Unknown [id number] 2.16.8 40.1.518437.3.579.2.531 Unknown [id number] 2.16.8 40.1.000735.3.579.2.531 Unknown [id number] 2.16.84 0.1.763162.3.579.2.593 Social History Date Type Detail Facility Start: 01-28-2022 End: 02-03-2023 Tobacco smoking status Ex-smoker (finding) [facility] Sex Assigned At Male [facility] No illicit drug use No illicit drug use [place] [id number] DO Work Phone: Start: 1950 Sex Assigned At Male F [facility] Functional Status Date Assessment Result Facility 02-03-2023 Functional Status N/A [facility] Clinical Notes 01-28-2022 to 10-11-2023 Note Date & Type Note Facility 10-11-2023 Evaluation note Encounter Date Diagnosis Assessment Notes Sep, Irritant contact dermatitis due to drug in contact with skin (ICD-10 - L24.4) [facility] 10-13-2023 Evaluation note* Encounter Date Diagnosis [...] weeks for an update on his condition. [facility] Other 09-12-2023 Evaluation note* Encounter Date Diagnosis Assessment Notes Treatment Notes Treatment Clinical Notes Jun, Pain in left ankle and joints of left foot (ICD-10 - M25.572) [facility] Other 04-14-2023 Hospital Discharge instructions Patient Education [...] who: Are older than age 65. Are -Malagasy. Are obese. Have a family history of [...] cells. Follow these instructions at home: Take zgwu-qun-ilpmpgh and prescription medicines only as told by [...] 10/09/2006 Document Revised: 09/21/2018 Document Reviewed: 06/19/2017 [employer] Patient Education 2020 [employer]. Follow Up Care 01/28/2022 08:42:30 With:REINIER VAUGHAN, Kyle Valadez, URL Address: [facility] [address], [place] [phone]- [phone] When:Within 1 Year(s) Comments:1 year fu with PSA [facility] 11-15-2022 Procedure [facility]04-08-2022 Hospital Discharge instructions Patient Education 01/28/2022 08:32:38 [...] Follow these instructions at home: Medicines Take oyak-jjc-oywdrov and prescription medicines only as told by [...] 10/09/2006 Document Revised: 02/25/2020 Document Reviewed: 02/25/2020 Ever[employer] Patient Education 2020 [employer]. Follow Up Care 07/30/2021 08:35:42 With:Kyle FORTE MD, URL Address: [address] [place] [phone] When:01/28/2023 Comments:w/PSA.Will get Renal US in 6m. Our office will call pt with the results. [facility] evaluation + Plan note Future Appointments Appointment Date:02/03/2023 08:00:00 AM Scheduled Provider:Kyle FORTE MD Location:[facility] Appointment Type:URO Office Visit Diagnostic Tests Pending * PSA Total 01/28/22 [facility] evaluation + Plan note Future Appointments Appointment Date:02/05/2024 09:15:00 AM Scheduled Provider:Kyle FORTE MD Location:[facility] Appointment Type:URO Office Visit Diagnostic Tests Pending * PSA Total 02/03/23 [facility] evalmuowlo noteNo assessment information available [facility] Work Phone: Evaluation noteNo InformationNort [email or web address] Other History general Narrative - Reported* Type [...] History GI Bleed Hospitalization History See above [facility] Other History of Present illness Narrative* The [...] medication regimen. He denies medication side effects. [facility] 250 DO Work Phone: History of Present [...] medication regimen. He denies medication side effects. [facility] [employer] 250 DO Work Phone: History of Present [...] medication regimen. He denies medication side effects. [facility] [employer] 250 DO Work Phone: History of Present [...] medication regimen. He denies medication side effects. [facility] [employer] 600 DO Work Phone: History of Present [...] not limit his activities. * Disease Monitoring: [facility] [employer] 250 DO Work Phone: history of Present [...] not limit his activities. * Disease Monitoring: [facility] 250 DO Work Phone: Hospital course Narrative No data available for this section [facility] progress note No data available for this section [facility] Purpose Family History No Family [...] catheterization performed at outside hospital by another personal development coach revealed more minimal coronary disease in 2016 [...] catheterization performed at outside hospital by another personal development coach revealed more minimal coronary disease in 2016 [...] catheterization performed at outside hospital by another personal development coach revealed more minimal coronary disease in 2016 [...] with uneventful September 06, 2022 cardioversion with anabaptist of normal sinus rhythm. * Patient had [...] of caffeine daily, no alcohol intake. No gcsq-pgm-wpjsdox medications. No prior sleep apnea testing. * EKG in office today is maintaining normal sinus rhythm and he reportedly feels better with anabaptist of normal sinus rhythm. Has a little [...] medical regimen. He completed lab work at [facility] and will need to obtain. Has been [...] on exertion. * They have obtained a [employer] mobile device with no documented atrial fibrillation. [...] verify accuracy. * Will obtain labs from [facility] * Blood pressure management: 'continues to [...] pressure. * No caffeine, alcohol, energy drinks, rmlp-jdk-fyyfqfa medications. * At this time, patient does [...] section and content) DATE CREATED AUTHOR 04/18/2018 [facility] DATE CREATED AUTHOR AUTHOR'S ORGANIZ ATION 09/10/2022 [facility] DATE CREATED AUTHOR AUTHOR'S ORGANIZ ATION 11/26/2022 [facility] DATE CREATED AUTHOR AUTHOR'S ORGANIZ ATION 01/05/2023 [facility] DATE CREATED AUTHOR AUTHOR'S ORGANIZ ATION 01/08/2023 [facility] DATE CREATED AUTHOR AUTHOR'S ORGANIZ ATION 03/31/2023 [facility] DATE CREATED AUTHOR AUTHOR'S ORGANIZ ATION 01/12/2024 [facility] Care Teams (unrecognized sec tion and content) Team Status: Inactive Member Role Status Dates Tyrone Wlaters MD Attending Provider Active Christi Dent MD [...] PRIMARY CLINICAL RECORDS. [facility] [employer] [facility]. provides no warranty or guarantee of the accuracy or completeness of information in this document.
== END 2024-01-23 08:31 | disposition home or self-care (01) ==
LOC: US 08:31
PROVIDERS: PCP Family Medicine; Visit Provider Urology
DX: E27.8 Other specified disorders of adrenal gland (principal); N28.1 Cyst of kidney, acquired
CPT/HCPCS: 76775

== ENCOUNTER 2024-02-21 04:37 | Outpatient (RCR) | payer MEDICARE, SELFPAY | END 2024-03-22 11:53 | disposition home or self-care (01) | LOC: MM 04:37 | PROVIDERS: PCP Family Medicine; Visit Provider Internal Medicine | DX: Z51.81 Encounter for therapeutic drug level monitoring (principal); Z79.01 Long term (current) use of anticoagulants; I48.0 Paroxysmal atrial fibrillation | CPT/HCPCS: 85610; G0463 ==

== ENCOUNTER 2024-03-25 03:29 | Outpatient (RCR) | payer MEDICARE, SELFPAY | END 2024-04-19 11:06 | disposition home or self-care (01) | LOC: MM 03:29 | PROVIDERS: PCP Family Medicine; Visit Provider Internal Medicine | DX: Z51.81 Encounter for therapeutic drug level monitoring (principal); Z79.01 Long term (current) use of anticoagulants; I48.0 Paroxysmal atrial fibrillation ==

== ENCOUNTER 2024-04-22 00:29 | Outpatient (RCR) | payer MEDICARE, SELFPAY | END 2024-05-22 10:08 | disposition home or self-care (01) | LOC: MM 00:29 | PROVIDERS: PCP Family Medicine; Visit Provider Internal Medicine | DX: Z51.81 Encounter for therapeutic drug level monitoring (principal); Z79.01 Long term (current) use of anticoagulants; I48.0 Paroxysmal atrial fibrillation | CPT/HCPCS: 85610; G0463 ==

== ENCOUNTER 2024-05-23 00:24 | Outpatient (RCR) | payer MEDICARE, SELFPAY | END 2024-06-21 10:01 | disposition home or self-care (01) | LOC: MM 00:24 | PROVIDERS: PCP Family Medicine; Visit Provider Internal Medicine | DX: Z51.81 Encounter for therapeutic drug level monitoring (principal); Z79.01 Long term (current) use of anticoagulants; I48.0 Paroxysmal atrial fibrillation | CPT/HCPCS: 85610; G0463 ==

== ENCOUNTER 2024-06-24 01:40 | Outpatient (RCR) | payer MEDICARE, SELFPAY | END 2024-07-22 23:57 | disposition home or self-care (01) | LOC: MM 01:40 | PROVIDERS: PCP Family Medicine; Visit Provider Internal Medicine | DX: Z51.81 Encounter for therapeutic drug level monitoring (principal); Z79.01 Long term (current) use of anticoagulants; I48.0 Paroxysmal atrial fibrillation ==

== ENCOUNTER 2024-07-23 02:44 | Outpatient (RCR) | payer MEDICARE, SELFPAY | END 2024-08-22 23:47 | disposition home or self-care (01) | LOC: MM 02:44 | PROVIDERS: PCP Family Medicine; Visit Provider Internal Medicine | DX: Z51.81 Encounter for therapeutic drug level monitoring (principal); Z79.01 Long term (current) use of anticoagulants; I48.0 Paroxysmal atrial fibrillation | CPT/HCPCS: 85610; G0463 ==

== ENCOUNTER 2024-08-01 07:05 | Outpatient (OUT) | payer MEDICARE, SELFPAY ==
--- OUTSIDE RECORDS SUMMARY | 2024-08-01 07:07 | XMS_ITS | CCD ---
Author Organization [facility] CliniSyga Care Team Providers Care Sales And Service Specialist Name Role Phone PHYSICIAN, DEFAULT Unavailable Unavailable PHYSICIAN, DEFAULT Unavailable Unavailable CHRISTI DENT Primary Care Physician Christi Dent Unavailable Unavailable Unavailable MD Tyrone Walters Attending Provider MD Christi Dent Primary Care Provider [phone] MD Tyrone Walters Referring Provider [phone] Ricardo, Dr. Ta Anderson Attending Mary Dent, Dr. Christi Bird Primary Care Christi Marquez Primary Care Unavailable Walters, Tyrone Admitting Unavailable Walters, Hansen Referring Unavailable Walters, Tyrone Attending Unavailable Christi Dent Primary Care Unavailable Walters, Hansen Admitting Unavailable Walters, Tyrone Attending Unavailable Filipe, Dr. Christi Bird Primary Care Unav ailable Ta Silva Attending Unavailable Ta Silva Referring [...] Gordonsoledad Franco Referring Sarah Renae, Ms. Johnna Gordonsoledad Franco Attending Sarah Dent, Dr. Christi Bird Primary Care Unav ailable Ricardo, Ta Attending Unavailable Ricardo, Ta Referring Unavailable Dent, Dr. Christi Bird Primary Care Unav ailable Ricardo, Ta Attending Unavailable Ricardo, Ta Referring Unavailable FAWWAD, VARGHESE H Attending Unavailable FAWWAD, VARGHESE H Admitting Unavailable DENT, DR CHRISTI Storm Primary Care Unavailable FAWWAD, VARGHESE H Attending Unavailable FAWWAD, VARGHESE H Admitting Unavailable DENT, DR CHRISTI Storm Primary Care Unavailable FAWWAD, VARGHESE H Attending Unavailable FAWWAD, VARGHESE H Admitting Unavailable DENT, DR CHRISTI Storm Primary Care Unavailable FAWWAD, VARGHESE H Attending Unavailable FAWWAD, VARGHESE H Admitting Unavailable DENT, DR CHRISTI Storm Primary Care Unavailable FAWWAD, VARGHESE H Attending Unavailable FAWWAD, VARGHESE H Admitting Unavailable DENT, DR CHRISTI Storm Primary Care Unavailable FAWWAD, VARGHESE H Attending Unavailable FAWWAD, VARGHESE H Admitting Unavailable DENT, DR CHRISTI Storm Primary Care Unavailable FAWWAD, VARGHESE H Attending Unavailable FAWWAD, VARGHESE H Admitting Unavailable DENT, DR CHRISTI Storm Primary Care Unavailable FAWWAD, VARGHESE H Attending Unavailable FAWWAD, VARGHESE H Admitting Unavailable DENT, DR CHRISTI Storm Primary Care Unavailable REINIER ., DR WRIGHT Consulting Unavailable RICARDO, DR TA Michel Attending Unavailabl jose DENT, DR CHRISTI Storm Primary Care Unavailable RICARDO, DR TA Michel Admitting Unavailabl e RICARDO, DR TA Michel Consulting Unavailaudrey FORTE ., DR WRIGHT Consulting Unavailable REINIER ., DR WRIGHT Attending Unavailable FORTE ., DR WRIGHT Admitting Unavailable DENT, DR CHRISTI Storm Primary Care Unavailable REQUEST, NONE LISTED Consulting Unavaila ble REQUEST, NONE LISTED Attending Unavaila ble FILIPE, DR CHRISTI Storm Primary Care Unavailable REQUEST, NONE LISTED Admitting Unavaila ble JOSE ., MONSE Attending Unavailable JOSE ., MONSE Admitting Unavailable DENT, DR CHRISTI Storm Primary Care Unavailable BRENDON NORIEGA Unavailaudrey e PARAG MCNAMARAIKJoseluis Huggins Attending Unavailable PARAG MCNAMARAIKH H Admitting Unavailable DR CHRISTI DENT Primary Care Unavailable SHAIKH Joseluis MCNAMARA Attending Unavailable SHAIKH MCNAMARA H Admitting Unavailable DR CHRISTI DENT Primary Care Unavailable SHAIKH Joseluis MCNAMARA Attending Unavailable SHAIKH Joseluis MCNAMARA Admitting Unavailable DR CHRISTI DENT Primary Care Unavailable Christi Dent Kyle FORTE Attending Unavailable Kyle FORTE Attending Unavailable Allergies Allergy Classification Reported Allergen(s) Allergy Type Date of Onset Reaction(s) Facility (19 sources) Sulfamethoxazole; Translations: [sulfamethoxazole ] Drug Allergy [facility] (1 source) Sulfonamides (Antibiotic) Drug allergy (disorder) 2 [facility] (1 source) Sulfonamides (Antibiotic) Drug allergy (disorder) 5 [facility] (5 sources) Lisinopril Drug Allergy Unknown [facility] Other (5 sources) Sulfacetamide Drug Allergy pt doesn't remember [facility] Other Medications Current Medications Medication Drug Class(es) [...] four times daily for 90 days Active dilTIAZem hydrochloride 60 mg oral tablet (20 sources) Calcium Channel Finesse Start: 02-05-2024 diltiazem 60 mg Tab Refills(s) 0 Start Date: 02/05/24 Status: Ordered Start: 11-28-2022 take 1 tablet by dominick th once daily dilTIAZem HCl - 60 MG Oral Tablet Take 1 tablet daily Quantity: 90 Refills: 3 Ordered: 28-Nov-2022 Johnna Gutierrez Start : 28-Nov-2022 Active dose decreased Start: 09-06-2022 take 1 tablet by dominick th once daily Diltiazem Hcl Active 135 MG PO Daily September 06, 2022 12:00am TABLETS 1 1/2 DAILY Start: 08-11-2022 take 1 tablet by dominick th once daily dilTIAZem HCl - 90 MG Oral Tablet Take 1 tablet daily Quantity: 90 Refills: 3 Ordered: 12-Oct-2022 Johnna Gutierrez Start : 11-Aug-2022 Active Start: 08-11-2022 take 1.5 tablets by mouth once daily dilTIAZem HCl - 90 MG Oral Tablet TAKE 1.5 TABLET Daily Quantity: 135 Refills: 3 Ordered: 11-Aug-2022 Ta Silva DO Start : 11-Aug-2022 Active Start: 10-26-2015 diltiazem 90 m g Tab Oral, Daily, Refills(s) 0 Start Date: 10/26/15 Status: Ordered flecainide acetate 50 mg oral tablet (20 [...] Status: Ordered latanoprost 0.05 mg/ml ophthalmic solution (13 sources) Prostaglandin Analog Start: 02-05-[address] Opth 0.005% Chika Refill(s) 0 Start Date: 02/05/24 Status: Ordered Latanoprost 0.00 5 % 1 drop once [...] Breath Activated (1 source) Start: 09-06-2022 Mometasone (As manex Twisthaler) 220 mcg/ actuation (120) Aerosol Powdr Breath Activated Active 1 INH INHALATION Daily September 06, 2022 12:00am IN THE EVENING montelukast 10 mg oral tablet (20 sources) Leukotriene Receptor Antagonist Start: 02-05-2024 montelukast 10 mg Ta b Refills(s) 0 Start Date: 02/05/24 Status: Ordered Start: 09-06-2022 take 1 tablet by dominick th at bedtime Montelukast (Singulair) 10 mg Tablet [...] Date: 08/08/19 Status: Ordered polyethylene glycol 3350 53063 mg powder for oral solution (20 sources) Osmotic Laxative Start: 09-06-2022 Polyethylene Glycol 3350 (Miralax) 17 gram/dose Powder Active 17 GM PO Daily September 06, 2022 12:00am MiraLax Active simvastatin 20 mg oral tablet (20 sources) HMG-CoA Reductase Inhibitor Start: 02-05-2024 simvastatin 20 mg Ta b Refills(s) 0 Start Date: 02/05/24 Status: Ordered Start: 10-26-2015 take 20 mg by mouth at bedtime Simvastatin Active 20 MG PO Bedtime September 06, 2022 12:00am Aldactone (14 sources) Aldosterone Antagonist Start: 02-03-2023 Aldacto ne Oral, Refills(s) 0 Start Date: 02/03/23 Status: Ordered Start: 09-13-2022 take 1 tablet by dominick th once daily Spironolactone 25 MG Oral Tablet TAKE 1 TABLET DAILY. Quantity: 90 Refills: 3 Ordered: 08-Nov-2022 Johnna Gutierrez Start : 13-Sep-2022 Active Start: 09-13-2022 take 0.5 tablet by m boris once daily Spironolactone 25 MG Oral Tablet TAKE 0.5 TABLET Daily Quantity: 15 Refills: 0 Ordered: 12-Oct-2022 Salvador Renae ESPERANZAJohnna Start : 13-Sep-2022 Active timolol 2.5 mg/ml ophthalmic solution (15 sources) beta-Adrenergic Finesse Start: 10-26-2015 timolo l hemihydrate ophthalmic 0.25% solution Eye-Both, Daily, Refill(s) 0 Start Date: 10/26/15 Status: Ordered Start: 10-26-2015 timolol hemihy drate ophthalmic 0.25% solution Eye-Both, Daily, Refill(s) 0 Start Date: 10/26/15 Status: Ordered Timolol Maleate SOLN as directed Quantity: 0 Refills: 0 Ordered: 13-Sep-2022 DO Active valsartan 160 mg oral tablet (14 sources) Angiotensin 2 Receptor Finesse Start: 02-05-2024 valsartan 160 mg Tab Refills(s) 0 Start Date: 02/05/24 Status: Ordered Start: 09-09-2022 take 1 tablet by dominick th once daily Valsartan 160 MG Oral Tablet TAKE 1 TABLET DAILY FOR BLOOD PRESSURE. Quantity: 90 Refills: 3 Ordered: 09-Sep-2022 Ta Silva DO Start : 09-Sep-2022 Active new start warfarin sodium 2.5 mg oral tablet (20 sources) Vitamin K Antagonist Start: 02-05-2024 warfarin 2.5 mg Tab Refills(s) 0 Start Date: 02/05/24 Status: Ordered Start: 08-19-2019 Coumadin Oral, Daily, Refills(s) 0 Start Date: 08/19/19 Status: Ordered take 1 tablet by dominick th two times weekly Coumadin 2.5 2.5 MG 1 tablet Orally Two times a Week Active Coumadin TABS TA KE 1 TABLET DAILY DIRECTED. [facility] monitors coumadin Quantity: 0 Refills: 0 Ordered: 11-Aug-2022 DO Active Problems Active Problems Problem Classification Problem Date Documented Da te Episodic/Chronic Allergic reactions (2 sources) Irritant contact dermatitis due to drugs in contact with skin Episodic Calculus of urinary tract (7 sources) Kidney stone; Translations: [Calculus of kidney] Onset: 2 Episodic Cancer of prostate (3 sources) Carcinoma of prostate 01-28-2022 Chronic Cancer of prostate (11 sources) Personal history of malignant neoplasm of prostate; Translations: [History of malignant neoplasm of prostate] Onset: 2 Episodic Cardiac dysrhythmias (20 sources) Paroxysmal atrial fibrillation; Translations: [Atrial fibrillation] Onset: 2 Chronic Disorders of lipid metabolism (19 sources) Hyperlipidemia; Translations: [Mixed hyperlipidemia] Onset: 2 08-08-2019 Chronic Essential hypertension (20 sources) Hypertensive disorder; Translations: [Essential hypertension] Onset: 2 08-08-2019 Chronic Genitourinary symptoms and ill-defined conditions (9 sources) Microscopic hematuria; Translations: [Other microscopic hematuria] Onset: 2 Episodic Glaucoma (3 sources) Glaucoma 08-08-2019 Chronic Inflammatory conditions of male genital organs (3 sources) Epididymitis 08-08-2019 Episodic Other aftercare (15 sources) Drug therapy finding; Translations: [Long-term (current) use of other medications] Episodic Other aftercare (5 sources) Encounter for therapeutic drug level monitoring; Translations: [ENC THERAPEUTC DRUG LEVL MONITORING] Onset: 3 Episodic Other aftercare (1 source) group home (current) use of anticoagulants; Translations: [JAIL CURRNT USE ANTICOAGULANTS] Onset: 3 Episodic Other and ill-defined heart disease (15 sources) Left ventricular hypertrophy; Translations: [Cardiomegaly] Chronic Other diseases of bladder and urethra (3 sources) Urethral stricture 08-19-2019 Episodic Other endocrine disorders (3 sources) Disorder of adrenal gland; Translations: [Other specified disorders of adrenal gland] Onset: 2 Chronic Other endocrine disorders (3 sources) Mass of right adrenal gland 01-25-2021 Chronic Other gastrointestinal disorders (3 sources) History of gastrointestinal bleed 08-08-2019 Episodic [...] conditions (not mental disorders or infectious disease) (19 sources) Raised prostate specific antigen; Translations: [Patient encounter status] Onset: 2 08-08-2019 Episodic Other skin disorders (1 source) Corns and callosities Episodic Unclassified (3 sources) Drug therapy finding 05-25-2020 Unclassified (1 source) Encounter for preprocedural laboratory examination; Translations: [Encounter for preprocedural laboratory examination] Onset: 2 Unclassified (2 sources) Asymptomatic microscopic hematuria 02-02-2023 Past or Other Problems Problem Classification Problem Date Documented Da te Episodic/Chronic Other aftercare (1 source) 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; Translations: [OTH JAIL CURRENT DRUG THERAPY] Onset: 09-13-2022 Episodic Residual codes; unclassified (1 source) Acquired absence of other genital organ(s); Translations: [ACQUIRED ABSENCE OTH GENITAL ORGANS] Onset: 09-13-2022 Episodic Screening and history of mental health and substance abuse codes (17 sources) Ex-smoker; Translations: [Personal history of tobacco use] Onset: 09-08-2022 Episodic Results Test Name Value Interpretation Reference Range Facility Ambulatory Visit Summaryon 0 02-05-2024 Ambulatory Visit Summary [facility] [place] :1950 Visit Date:02/05/2024 Ambulatory Visit Instructions Your Diagnosis Personal history of prostate cancer Mass of right adrenal gland History of kidney stones Asymptomatic microscopic hematuria Tests Performed CT Abdomen w/ + w/o Contrast -- Results Pending -- Please visit your patient portal for your results or contact your primary care physician. Your Care Team Attending Physician - Kyle FORTE MD Primary Care Physician - CHRISTI DENT MD This Is Your Medications List Contact prescribing physician if questions or concerns diltiazem (diltiazem 60 mg Tab) flecainide (flecainide 50 mg Tab) hydrochlorothiazide (hydrochlorothiazide 12.5 mg Cap) latanoprost ophthalmic (latanoprost Opth 0.005% Chika) montelukast (montelukast 10 mg Tab) pantoprazole (Protonix) simvastatin (simvastatin 20 mg Tab) spironolactone (Aldactone) timolol ophthalmic (timolol hemihydrate ophthalmic 0.25% solution) valsartan (valsartan 160 mg Tab) warfarin (warfarin 2.5 mg Tab) Procedures Performed Cystoscopy (09/04/2018), Repair of wound of abdominal wall (11/17/2015), Radical prostatectomy (11/04/2015), Transrectal biopsy of prostate using ultrasound guidance (08/25/2015), Cataracts, Cystourethroscopy with dilation of urethral stricture, EB - External beam radiotherapy, Nasal polyps......, Tonsillectomy. Discharge Vitals Temperature (Temporal Artery) 37 ?C Heart Rate (Peripheral) 55 Respiratory Rate 16 Blood Pressure 135/77 Height 167 cm Height 66 in Weight 74 kg Weight 162.8 lb BMI 26.53 What to do next Scheduled Follow-Up Appointments Monday 9:15 AM EDT With: REINIER VAUGHAN, Kyle Valadez Where: [facility] Patient Educationon 02-05-20 Patient Education Oncology Prostate Cancer Screening Prostate cancer screening is testing that is done to check for the presence of prostate cancer in men. The prostate gland is a walnut-sized gland that is located below the bladder and in front of the rectum in males. The function of the prostate is to add fluid to semen during ejaculation. Prostate cancer is one of the most common types of cancer in men. Who should have prostate cancer screening? Screening recommendations vary based on age and other risk factors, as well as between the professional organizations who make the recommendations. In general, screening is recommended if: ? You are age 50 to 70 and have an average risk for prostate cancer. You should talk with your health care provider about your need for screening and how often screening should be done. Because most prostate cancers are slow growing and will not cause , screening in this age group is generally reserved for men who have a 10- to 15-year life expectancy. ? You are younger than age 50, and you have these risk factors: ? Having a father, brother, or uncle who has been diagnosed with prostate cancer. The risk is higher if your family member's cancer occurred at an early age or if you have multiple family members with prostate cancer at an early age. ? Being a male who is Black or is of [place] or sub-Saharan descent. In general, screening is not recommended if: ? You are younger than age 40. ? You are between the ages of 40 and 49 and you have no risk factors. ? You are 70 years of age or older. At this age, the risks that screening can cause are greater than the benefits that it may provide. If you are at high risk for prostate cancer, your health care provider may recommend that you have screenings more often or that you start screening at a younger age. How is screening for prostate cancer done? The recommended prostate cancer screening test is a blood test called the prostate-specific antigen (PSA) test. PSA is a protein that is made in the prostate. As you age, your prostate naturally produces more PSA. Abnormally high PSA levels may be caused by: ? Prostate cancer. ? An enlarged prostate that is not caused by cancer (benign prostatic hyperplasia, or BPH). This condition is very common in older men. ? A prostate gland infection (prostatitis) or urinary tract infection. ? Certain medicines such as male hormones (like testosterone) or other medicines that raise testosterone levels. A rectal exam may be done as part of prostate cancer screening to help provide information about the size of your prostate gland. When a rectal exam is performed, it should be done after the PSA level is drawn to avoid any effect on the results. Depending on the PSA results, you may need more tests, such as: ? A physical exam to check the size of your prostate gland, if not done as part of screening. ? Blood and imaging tests. ? A procedure to remove tissue samples from your prostate gland for testing (biopsy). This is the only way to know for certain if you have prostate cancer. What are the benefits of prostate cancer screening? ? Screening can help to identify cancer at an early stage, before symptoms start and when the cancer can be treated more easily. ? There is a small chance that screening may lower your risk of dying from prostate cancer. The chance is small because prostate cancer is a slow-growing cancer, and most men with prostate cancer from a different cause. What are the risks of prostate cancer screening? The main risk of prostate cancer screening is diagnosing and treating prostate cancer that would never have caused any symptoms or problems. This is called overdiagnosisand overtreatment. PSA screening cannot tell you if your PSA is high due to cancer or a different cause. A prostate biopsy is the only procedure to diagnose prostate cancer. Even the results of a biopsy may not tell you if your cancer needs to be treated. Slow-growing prostate cancer may not need any treatment other than monitoring, so diagnosing and treating it may cause unnecessary stress or other side effects. Questions to ask your health care provider ? When should I start prostate cancer screening? ? What is my risk for prostate cancer? ? How often do I need screening? ? What type of screening tests do I need? ? How do I get my test results? ? What do my results mean? ? Do I need treatment? Where to find more information ? The [employer]: www.cancer.org ? [employer]: www.auanet.org Contact a health care provider if: ? You have difficulty urinating. ? You have pain when you urinate or ejaculate. ? You have blood in your urine or semen. ? You have pain in your back or in the area of your prostate. Summary ? Prostate cancer is a common type of cancer in men. The prostate gland is located below the bladder and in front of the rectum. This gland adds flu (more content not included)... [facility] Reminderson 02-05-2024 Reminders - From: Iris Lu To: RADHA - Recalls Forte; Sent: 02/05/2024 10:12:52 EDT Show up: 12/21/2024 10:12:00 EST Subject: Ct scan Due Date/Time: 01/13/2025 10:12:00 EDT Reminder/Recall Patient needs Sched for Ct scan ABD/Pelvis w/wo sched before 02/03/25 appt PSA order given to pt [facility] Urology Office/Clinic Noteon 02-05-2024 Urology Office/Clinic Note Chief Complaint personal hx of prostate cancer and mass of right adrenal gland HPI Staff 1 yr w/ PSA. Previous dx: personal hx of prostate cancer, asymptomatic microscopic hematuria, kidney stone, mass of right adrenal gland. Prostatectomy 2015 and EBRT 2016. S/p Cysto 09/04/18. ZIA done 01/23/24 at [facility]. PSA 01/23/24 - <0.13. Dysuria: no Incomplete bladder emptying: no Hematuria: no Frequency: no Urgency: no Nocturia: 1-2x Stream: no straining or intermittency pt states good steady strream Leaking: no Post void dripping: no Wearing pads/ Depends: no Urge incontinence: no Stress incontinence: no Incontinence without Sensory Awareness: no Abdominal pain: no Flank pain: no Sexual complaints: no History of Present Illness Tests reviewed: reviewed UA, ZIA, PSA I have reviewed the previous health record information and history for this patient from Dr. Forte. I have reviewed and verified the staff HPI to be accurate for this encounter. Review of Systems PHQ Score Initial Depression Screen Score: 0 SCORE ROS - Provider Constitutional: denies weight loss, denies hot flashes. Eyes: denies eye problems. Gastrointestinal: denies nausea, denies vomiting. Cardiovascular: denies chest pain or angina. Integumentary: no dryness Musculoskeletal: denies musculoskeletal symptoms. ENMT: denies otolaryngeal symptoms. Respiratory: no shortness of breath. Heme/Lymph: denies easy bleeding tendency, denies easy bruising tendency. Psychiatric: no confusion, no anxiety. Genitourinary: See HPI. Physical Exam Vitals & Measurements T: 37 ?C(Temporal Artery) HR: 55(Peripheral) RR: 16 BP: 135/77 HT: 66 in HT: 167 cm WT: 74 kg WT: 162.8 lb BMI: 26.53 General Appearance: alert, no distress, well nourished, well developed male. Genitourinary: normal scrotum, normal testes, normal urethra, normal epididymis, normal vas deferens/spermatic cord. Flank Pain: none. Bladder: nonpalpable. Assessment/Plan 1. Personal history of prostate cancer (Z85.46: Personal history of malignant neoplasm of prostate) PSA 02/24/22 - 0.05 01/27/23 - <0.13 01/23/24 - <0.13 S/p Prostatectomy 10/2015. EBRT 01/2017. PSA remains stable and nearly undetectable. Will continue to monitor. -PSA in 1 year 2. Mass of right adrenal gland (E27.8: Other specified disorders of adrenal gland) CTU 07/15/21 - stable right adrenal nodules, 1.6cm and 1.3 cm. Pt previously refused ZIA prior to 02/03/23 appt. ZIA 01/23/24 [facility] - Right adrenal gland not seen on study. Discussed imaging. Adrenal gland was not visualized. Does have benign nodules. Offered to order CT scan now to determine sizing but pt declines at this time. Pt wishes to wait until next year due to previously having difficulty receiving IV contrast with last CTU. -CT AP in 1 year 3. History of kidney stones (Z87.442: Personal history of urinary calculi) ZIA 01/23/24 [facility] - No stones id'd. Reviewed imaging results. Denies any stone episodes in the past year. Will continue to monitor. -CT AP in 1 year 4. Asymptomatic microscopic hematuria (R31.21: Asymptomatic microscopic hematuria) S/p Cysto 09/04/18. ZIA 01/23/24 [facility] - No bladder wall thickening, mass, or calculi. Chronic. UA today shows small blood (same as prior UA). Denies visible blood or infections. -Cont routine UAs and sx monitoring. Pt knows to notify the office if he were to experience gross hematuria or clots. Follow-up With When Contact Information REINIER VAUGHAN, Kyle Valadez, URL [facility] [address], [place] [address] [phone] Additional Instructions: 1 yr w/ PSA and CT scan Patient Education Prostate Cancer Screening I, Christina Pompa, personally scribed for Dr. Forte on 02/05/2024 10:08:42. . Documentation recorded by the scribe, Christina Pompa, accurately reflects the services(s) I performed and decisions made by me. Authenticated by Dr. Forte on 02/05/2024 10:10:25. Problem List/Past Medical History Ongoing Anticoagulated Asymptomatic microscopic hematuria History of kidney stones Kidney stone Mass of right adrenal gland [...] radiotherapy, Nasal polyps......, Tonsillectomy. Medications Aldactone, Oral diltiazem 60 mg Tab flecainide 50 mg Tab hydrochlorothiazide 12.5 mg Cap, Oral, Daily latanoprost Opth 0.005% Chika montelukast 10 mg Tab Protonix, Oral, Daily simvastatin 20 mg Tab timolol hemihy (more content not included)... [facility] Comment on above: Result Comment: Elec tronically Signed By: Kyle FORTE MD\.br\Date and Time Signed: 02/05/24 10:10 EDT\.br\Electronically Co-Signed By: Christina Pompa\.br\Date and Time Co-Signed: 02/05/24 10:09 EDT Lab Reportson 01-24-2024 Lab Reports [id number] [facility] RAD - Ultrasound Reporton RAD - Ultrasound Report [id number] [facility] Office Visit (Cardiology)on 01-04-2023 Follow-up visit Diagnoses/Problems [...] DAILY. Coumadin TABSTAKE 1 TABLET DAILY DIRECTED. [facility] monitors coumadin dilTIAZem HCl - [...] and affect . Signatures Johnna Renae MSN, TRAINING AND DEVELOPMENT SPECIALIST-FORGEMAN HELPER, PMHNP-BC [facility] [address] [employer] Please excuse any errors in grammar or trans (more content not included)... Normal Workbooks Tobacco Screening.on 023 Fall risk assessment a) No falls within the last year [facility] 250 DO Work Phone: Tobacco use status [facility] b) No [facility] 250 DO Work Phone: Office Visit (Cardiology)on 11-08-2022 Follow-up visit Diagnoses/Problems Assessed Essential hypertension (401.9) (I10) Overweight with body mass index (BMI) of 25 to 25.9 in adult (278.02,V85.21) (E66.3,Z68.25) Orders Essential hypertension Renew: Spironolactone 25 MG Oral Tablet; TAKE 1 TABLET DAILY Overweight with body mass index (BMI) of 25 to 25.9 in adult Healthy Weight Tips; Status:Complete; Done: [id number] Paroxysmal atrial fibrillation Renew: Flecainide Acetate 50 [...] contact the office if new symptoms arise. DIRECTOR OF CLINICAL TRIALS 6 weeks Chief Complaint Blood pressure management: [...] blood pressure. No caffeine, alcohol, energy drinks, lozt-dbv-qrglgde medications. At this time, patient does not [...] DAILY. Coumadin TABSTAKE 1 TABLET DAILY DIRECTED. [facility] monitors coumadin dilTIAZem HCl - [...] Recorded: 08Nov2022 02:34PM Heart Rate48, L Radial Zfkhikzq597, LUE, Sitting Hninucnir790, LUE, Sitting Height5 ft 7 in Mlqqpt660 lb BMI Hepfvwtvif93.06 kg/m2 BSA Calculated1.84 Tobacco Useb) No PHQ-2 #1. Over the last 2 weeks have you felt down, depressed or hopeless? (If yes, answer PHQ-9 below)No PHQ-2 #2. Over the last 2 weeks have you felt little interest or pleasu (more content not included)... Normal Workbooks Tobacco Screening.on 023 Adult depression screening assessment No [facility] 250 DO Work Phone: Fall risk assessment a) No falls within the last year [facility] 250 DO Work Phone: Tobacco use status CP b) No -[facility] [employer] 250 DO Work Phone: Office Visit (Cardiology)on [...] in adult Healthy Weight Tips; Status:Complete; Done: [id number] Paroxysmal atrial fibrillation Changed: From dilTIAZem HCl [...] contact the office if new symptoms arise. DIRECTOR OF CLINICAL TRIALS in 3 weeks after 3 pm - [...] medical regimen. He completed lab work at [place] and will need to obtain. Has been [...] dyspnea on exertion. They have obtained a Unmetric mobile device with no documented atrial fibrillation. [...] can verify accuracy. Will obtain labs from [facility] History of Present Illness The patient [...] DAILY. Coumadin TABSTAKE 1 TABLET DAILY DIRECTED. [facility] monitors coumadin dilTIAZem HCl - [...] BEDTIME. Sin (more content not included)... Normal Workbooks Tobacco Screening.on 022 Fall risk assessment a) No falls within the last year -[facility] 250 DO Work Phone: Tobacco use status [facility] b) No -[facility] 250 DO Work Phone: DOUGLAS - TSHon 10-04-2022 TSH 2.003 uIU/mL Normal 0.358-3.74 0 [facility] Comment on above: Performed By: #### D ATTSH #### [facility] [address] [place] [address] Dr. Farida Braun TSH RANGE SEE BELOW Normal [facility] Comment on above: Result Comment: <0.3 4 UIU/ml HYPERTHYROID 0.34-5.60 UIU/ml EUTHYROID >5.60 UIU/ml HYPOTHYROID Performed By: #### D ATTSH #### [facility] [address] [address] [address] Farida Braun PROF CHEM 8 (BAS METB)on Anion gap [Moles/Vol] 7.5 mmol/L Normal [facility] Comment on above: Performed By: #### B MP #### [facility] [address] [address] [address] Farida Braun Calcium [Mass/Vol] 9.3 mg/dL Normal 8.5-10.1 [facility] Comment on above: Performed By: #### B MP #### [facility] [address] [address] [address] Farida Braun Chloride [Moles/Vol] 101 mmol/L Normal 98-107 [facility] Comment on above: Performed By: #### B MP #### [facility] [address] [address] [address] Farida Braun CO2 [Moles/Vol] 35.1 mmol/L Critically high 21.0-32.0 [facility] Comment on above: Performed By: #### B MP #### [facility] [address] [address] [address] Farida Braun Creatinine [Mass/Vol] 1.13 mg/dL Normal 0.70-1.30 [facility] Comment on above: Performed By: #### B MP #### [facility] [address] [place] [address] Dr. Farida Braun EGFR-AF CUBAN >60 Normal >=60 [facility] Comment on above: Performed By: #### B MP #### [facility] [address] [address] [address] Farida Braun EGFR-NON AF CUBAN >60 Normal >=60 [facility] Comment on above: Performed By: #### B MP #### [facility] [address] [address] [address] Farida Braun Glucose [Mass/Vol] 111 mg/dL Critically high 74-106 [facility] Comment on above: Performed By: #### B MP #### [facility] [address] [address] [address] Farida Braun Potassium [Moles/Vol] 4.6 mmol/L Normal 3.5-5.1 [facility] Comment on above: Performed By: #### B MP #### [facility] [address] [address] [address] Farida Braun Sodium [Moles/Vol] 139 mmol/L Normal 136-145 [facility] Comment on above: Performed By: #### B MP #### [facility] [address] [place] [address] Dr. Farida Braun Urea nitrogen [Mass/Vol] 24.0 mg/dL Critically high 7.0-18.0 [facility] Comment on above: Performed By: #### B MP #### [facility] [address] [place], [place] [address] Dr. Farida Braun Urea nitrogen/Creatinine [Mass ratio] 21.2 mg/mg Normal [facility] Comment on above: Performed By: #### B MP #### [facility] [address] [place], [place] [address] Dr. Farida Braun Office Visit (Cardiology)on 09-13-2022 [...] contact the office if new symptoms arise. 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 Patient had called [...] of caffeine daily, no alcohol intake. No wkfc-ifm-pbqgqoo medications. No prior sleep apnea testing. EKG in office today is maintaining normal sinus rhythm and he reportedly feels better with religious of normal sinus rhythm. Has a little [...] DAILY. Coumadin TABSTAKE 1 TABLET DAILY DIRECTED. [facility] monitors coumadin dilTIAZem HCl - [...] 13Sep2022 12:37PM (more content not included)... Normal Workbooks Tobacco Screening.on 022 Fall risk assessment a) No falls within the last year [facility] 250 DO Work Phone: Tobacco use status CP b) No [facility] 250 DO Work Phone: Tobacco Screening. Yes [facility] gray 250 DO Work Phone: CBC AUTO DIFFon 09-09-2022 BASO # 0.1 103/ul Normal 0.0-0.1 [facility] Comment on above: Performed By: #### C BC #### [facility] [address] [place] [address] Dr. Farida Braun Basophils/100 WBC (Bld) 0.7 % Normal 0.2-2.0 [facility] Comment on above: Performed By: #### C BC #### [facility] [address] [address] [address] Farida Braun EO # 0.0 103/ul Normal 0.0-0.7 [facility] Comment on above: Performed By: #### C BC #### [facility] [address] [place] [address] Dr. Farida Braun Eosinophils/100 WBC (Bld) 0.1 % Critically low 0.9-7.0 [facility] Comment on above: Performed By: #### C BC #### [facility] [address] [place] [address] Dr. Farida Braun Erythrocyte distribution width (RBC) [Ratio] 14.5 % Normal 11.0-15.0 [facility] Comment on above: Performed By: #### C BC #### [facility] [address] [place] [address] Dr. Farida Braun Hematocrit (Bld) [Volume fraction] 42.5 % Normal 42.0-54.0 [facility] Comment on above: Performed By: #### C BC #### [facility] [address] [place] [address] Dr. Farida Braun Hemoglobin (Bld) [Mass/Vol] 13.9 g/dL Critically low 14.0-18.0 [facility] Comment on above: Performed By: #### C BC #### [facility] [address] [place] [address] Dr. Farida Braun IG # 0.01 10e3/ul Normal 0.00-0.03 [facility] Comment on above: Performed By: #### C BC #### [facility] [address] [place] [address] Dr. Farida Braun IG % 0.1 % Normal 0.0-0.5 [facility] Comment on above: Performed By: #### C BC #### [facility] [address] [place] [address] Dr. Farida Braun LYMPH # 1.3 103/ul Normal 1.2-3.8 [facility] Comment on above: Performed By: #### C BC #### [facility] [address] [place] [address] Dr. Farida Braun Lymphocytes/100 WBC (Bld) 18.0 % Critically low 20.5-60.0 [facility] Comment on above: Performed By: #### C BC #### [facility] [address] [place] [address] Dr. Farida Braun MANUAL DIFF REQ NO Normal [facility] Comment on above: Performed By: #### C BC #### [facility] [address] [address] [address] Farida Braun MCH (RBC) [Entitic mass] 29.0 pg Normal 25.9-34.0 [facility] Comment on above: Performed By: #### C BC #### [facility] [address] [place] [address] Dr. Farida Braun MCHC (RBC) [Mass/Vol] 32.7 g/dL Normal 29.9-35.2 [facility] Comment on above: Performed By: #### C BC #### [facility] [address] [place] [address] Dr. Farida Braun MCV (RBC) [Entitic vol] 88.5 fL Normal 80.0-94.0 [facility] Comment on above: Performed By: #### C BC #### [facility] [address] [place] [address] Dr. Farida Braun MONO # 0.9 103/ul Critically high 0.3-0.8 [facility] Comment on above: Performed By: #### C BC #### [facility] [address] [place] [address] Dr. Farida Braun Monocytes/100 WBC (Bld) 12.1 % Critically high 1.7-12.0 [facility] Comment on above: Performed By: #### C BC #### [facility] [address] [place] [address] Dr. Farida Braun NEUT # 5.0 103/ul Normal 1.4-6.5 [facility] Comment on above: Performed By: #### C BC #### [facility] [address] [place] [address] Dr. Farida Braun Neutrophils/100 WBC (Bld) 69.0 % Normal 43.0-75.0 [facility] Comment on above: Performed By: #### C BC #### [facility] [address] [place] [address] Dr. Farida Braun Platelet mean volume (Bld) [Entitic vol] 11.7 fL Normal 9.5-13.5 [facility] Comment on above: Performed By: #### C BC #### [facility] [address] [place] [address] Dr. Farida Braun PLT 206 103/ul Normal 150-450 [facility] Comment on above: Performed By: #### C BC #### [facility] [address] [place] [address] Dr. Farida Braun RBC 4.80 106/ul Normal 4.70-6.10 [facility] Comment on above: Performed By: #### C BC #### [facility] [address] [place] [address] Dr. Farida Braun WBC 7.2 103/ul Normal 4.0-11.0 [facility] Comment on above: Performed By: #### C BC #### [facility] [address] [place] [address] Dr. Farida Braun PROF CHEM 8 (BAS METB)on Anion gap [Moles/Vol] 5.2 mmol/L Normal [facility] Comment on above: Performed By: #### B MP #### [facility] [address] [place] [address] Dr. Farida Braun Calcium [Mass/Vol] 9.6 mg/dL Normal 8.5-10.1 [facility] Comment on above: Performed By: #### B MP #### [facility] [address] [place] [address] Dr. Farida Braun Chloride [Moles/Vol] 101 mmol/L Normal 98-107 [facility] Comment on above: Performed By: #### B MP #### [facility] [address] [place] [address] Dr. Farida Braun CO2 [Moles/Vol] 34.6 mmol/L Critically high 21.0-32.0 [facility] Comment on above: Performed By: #### B MP #### [facility] [address] [place] [address] Dr. Farida Braun Creatinine [Mass/Vol] 0.98 mg/dL Normal 0.70-1.30 [facility] Comment on above: Performed By: #### B MP #### [facility] [address] [place] [address] Dr. Farida Braun EGFR-AF CUBAN >60 Normal >=60 [facility] Comment on above: Performed By: #### B MP #### [facility] [address] [address] [address] Farida Braun EGFR-NON AF CUBAN >60 Normal >=60 [facility] Comment on above: Performed By: #### B MP #### [facility] [address] [address] [address] Farida Braun Glucose [Mass/Vol] 90 mg/dL Normal 74-106 [facility] Comment on above: Performed By: #### B MP #### [facility] [address] [address] [address] Farida Braun Potassium [Moles/Vol] 3.8 mmol/L Normal 3.5-5.1 [facility] Comment on above: Performed By: #### B MP #### [facility] [address] [address] [address] Farida Braun Sodium [Moles/Vol] 137 mmol/L Normal 136-145 [facility] Comment on above: Performed By: #### B MP #### [facility] [address] [address] [address] Farida Braun Urea nitrogen [Mass/Vol] 17.0 mg/dL Normal 7.0-18.0 [facility] Comment on above: Performed By: #### B MP #### [facility] [address] [address] [address] Farida Braun Urea nitrogen/Creatinine [Mass ratio] 17.3 mg/mg Normal [facility] Comment on above: Performed By: #### B MP #### [facility] [id number] Farida Braun Falls Screening (Age 18+)on 09-08-2022 Fall risk assessment a) No falls within the last year [facility] 250 DO Work Phone: Fall risk assessment a) No falls within the last year [facility] gray 250 DO Work Phone: VASC LAB Abdominal Aorta/Rasheeda ac/IVC Ultraon 09-08-2022 VASC LAB Abdominal Aorta/Iliac/IVC Ultra [address], Suite [facility], [place] [address] Vascular Lab Report Abdominal Aorta Iliac Ultrasound/IVC Ultrasound Patient Name: JOAO Cote Physician: [id number] Tyrone Walters MD, WILY [facility] Study Date: 09/08/2022 Referring Physician: TA SILVA MRN/PID: [id number] PCP: Christi Dent Accession/Order#: [id number] CC Report to: Date of : 1950 Technologist: Vilma Cottrell RD, T Gender: M Technologist 2: Admission Status: Outpatient Location Performed: [facility] Diagnosis/ICD: A01-Kojbxshgr primary hypertension; Z13.6-Encounter for screening for cardiovascular disorders (AAA) Indication: Former Smoker, Overweight, Paroxysmal Atrial Fibrillation-s/p Cardioversion 09/06/2022 Procedure/CPT: 11292 Duplex Aorta/IVC/Iliac/Bypass Graft-21552 CONCLUSIONS: Aorta/Common Iliac Arteries/IVC: No evidence of abdominal aortic aneurysm. Imaging AND Doppler Findings: AORTA AP Lateral PSV Proximal 2.15 cm 2.33 cm 158.0 cm/s Mid 2.13 cm 2.07 cm 47.0 cm/s Distal 2.27 cm 1.86 cm 52.0 cm/s RIGHT AP Lateral PSV NELIA Proximal 1.02 cm 1.20 cm 73.00 cm/s LEFT AP Lateral PSV NELIA Proximal 1.24 cm 1.10 cm 108.00 cm/s 60598 Tyrone Walters MD, [facility] Final Normal [facility] VASC LAB Abdominal Aorta/Rasheeda ac/IVC Ultrasoundon 09-08-2022 VASC LAB Abdominal Aorta/Iliac/IVC Ultrasound Please click on the link to view the study images Normal -[facility] gray 250 DO Work Phone: VASC LAB Abdominal Aorta/Iliac/IVC [facility]tras[facility] 250 DO Work Phone: ECG 12 lead ECGon 09-06-2022 ECG 12 lead ECG [facility] Main [place] [id number] Electrocardiograph Report Signed Patient: Joao Boggs MR#: [id number] : 1950 Acct:[id number] Age/Sex: 72 / M ADM Date: 09/06/22 Loc: PO Room: Type: [facility] Attending Dr: Tyrone Walters MD Ordering Provider: Tyrone Walters MD, [facility] Date of Service: 09/06/22 ECG/ECG 12 lead [...] Electronically Signed By:THIAGO BROWN DO Transcribed By: MUS Signed By Thiago Brown DO 09/09 1248 Normal [facility] ECG post procedureon 022 ECG post procedure [facility] Main [address] [address] Electrocardiograph Report Signed Patient: Joao Boggs MR#: [id number] : 1950 Acct:[id number] Age/Sex: 72 / M ADM Date: 09/06/22 Loc: PO Room: Type: [facility] Attending Dr: Tyrone Walters MD Ordering Provider: Tyrone Walters MD, [facility] Date of Service: 09/06/22/ ECG/ECG post procedure: [...] Electronically Signed By:THIAGO BROWN DO Transcribed By: MUS Signed By Thiago Brown DO 09/08 1435 Normal [facility] - Coagulationon 1 11-06-2021 INR Coag (Bld) [Relative time] 2.4 {INR} [facility] 250 DO Work Phone: No Panel Informationon 09-06 2.4\S\2.4 Normal [facility] 250 DO Work Phone: Comment on above: [...] with mechanical heart valves: 3 - 4.5PERFORMED BY:[facility] [place], [place] [phone] MEDICAL DIRECTORRODOLFO SCHWARTZ M.D. 27.1\S\27.1 above high threshold 9.0-12.9 [facility] 250 DO Work Phone: 16.1\S\16.1 above high threshold 6.0-15.0 [facility] Work Phone: Comment on above: PERFORMED BY:[address] [address] [address] [place], [place] [phone] MEDICAL DIRECTORRODOLFO SCHWARTZ M.D. 29.8\S\29.8 Normal 22.0-30.0 [facility] 250 DO Work Phone: 97\S\97 Normal 95-114 [facility] 250 DO Work Phone: 3.9\S\3.9 Normal 3.5-5.1 [facility] 250 DO Work Phone: 139\S\139 Normal 136-146 [facility] 250 DO Work Phone: Platelet poor plasma interna tional normalized ratio (INR) by coagulation assay (relatOrdered By: Tyrone Walters on 09-06-2022 INR Coag (PPP) [Relative time] 2.4 {INR} Normal [facility] Comment on above: INR Therapeutic Rang [...] heart valves: 3 - 4.5 PERFORMED BY: [place] [id number] PATHOLOGIST CHIP FRIER RODOLFO SCHWARTZ M.D. Performed By: #### LESLI Samaniego #### [address] [address] [facility] Prothrombin Time INROrdered By: Tyrone Walters on 09-06-2022 PT Coag (PPP) [Time] 27.1 s High 9.0-12.9 [facility] Comment on above: Performed By: #### P TLESLI #### [address] Serum or plasma anion gap de terminationOrdered By: Tyrone Walters on 09-06-2022 Anion gap [Moles/Vol] 16.1 mmol/L High 6.0-15.0 [facility] Comment on above: Result Comment: PERF ORMED BY: [place] [address] PATHOLOGIST CHIP FRIER RODOLFO SCHWARTZ M.D. Performed By: #### P LESLI Muhammad #### [address] Serum or plasma chloride michelle surement (moles/volume)Ordered By: Tyrone Walters on 09-06-2022 Chloride [Moles/Vol] 97 mmol/L Normal 95-114 [facility] Comment on above: Performed By: #### P TLESLI #### [address] Serum or plasma potassium me asurement (moles/volume)Ordered By: Tyrone Walters on 09-06-2022 Potassium [Moles/Vol] 3.9 mmol/L Normal 3.5-5.1 [facility] Comment on above: Performed By: #### P TLESLI #### [facility] [address] [place] [address] Serum or plasma sodium measu rement (moles/volume)Ordered By: Tyrone Walters on 09-06-2022 Sodium [Moles/Vol] 139 mmol/L Normal 136-146 [facility] Comment on above: Performed By: #### P TLESLI #### [address] Serum or plasma total carbon dioxide measurement (moles/volume)Ordered By: Tyrone Walters on 09-06-2022 CO2 [Moles/Vol] 29.8 mmol/L Normal 22.0-30.0 [facility] Comment on above: Performed By: #### P LESLI Muhammad #### [facility] [address] [place] [address] COVID-19 Antigenon 2 COVID-19 Antigen Healthcare Worker?: [...] developed and its performance characteristic determined by Mar[facility] and validated at [facility]. This test has not been FDA [...] for SARS Antigen by COLT PERFORMED BY: [address] [place] [id number] PATHOLOGIST CHIP FRIER RODOLFO SCHWARTZ M.D. [facility] Comment on above: Performed By: #### C OVID-19 JULIET, SOFIANEG #### [facility] [address] [id number] [place] COVID-19 SOFIAOrdered By: Gilson Walters on 09-02-2022 SARS-CoV+SARS-CoV-2 (COVID-19) Ag IA.rapid Ql (Resp) Negative Negative [facility] Comment on above: This is a duplicate Juliet SARS Antigen (COLT) result to be used for statistical tracking purpose only. Laboratory - Microbiology an d Antimicrobial susceptibilityon 09-02-2022 SARS-CoV-2 (COVID-19) RNA ROBB+probe Ql (Unsp spec) -[facility] gray 250 DO Work Phone: No Panel Informationon 09-02 Negative Normal Negative [facility] 250 DO Work Phone: Comment on above: This is a duplicate Juliet SARS Antigen (COLT) result to be used for statistical tracking purpose only.PERFORMED BY:[facility] [place], [place] [phone] MEDICAL DIRECTORRODOLFO SCHWARTZ M.D. No Panel InformationOrdered By: Tyrone Walters on 09-02-2022 SARS Antigen (LFIA) [facility] Juliet Ag Negativeon 09-02-20 22 Juliet Ag Negative Negative Normal Negative [facility] Comment on above: Result Comment: This is a duplicate Juliet SARS Antigen (COLT) result to be used for statistical tracking purpose only. PERFORMED BY: [place] [id number] PATHOLOGIST CHIP FRIER RODOLFO SCHWARTZ M.D. Performed By: #### C OVID-19 JULIET, SOFIANEG #### [facility] [address] [id number] [facility] Office Visit (Cardiology)on 08-11-2022 Follow-up visit Diagnoses/Problems [...] catheterization performed at outside hospital by another neon installer revealed more minimal coronary disease in 2016 [...] DAILY. Coumadin TABSTAKE 1 TABLET DAILY DIRECTED. [facility] monitors coumadin dilTIAZem HCl - [...] Signs Recorded: 11Aug2022 10:00AM Heart Rate87, Apical Ujrlddof829, LUE, Sitting Fokbggvqi94, LUE, Sitting Height5 ft 6 in Vniypb856 lb 6 oz BMI Qdrqgpxntf63.05 kg/m2 BSA Calculated1.83 Tobacco Useb) No PHQ-2 [...] S2, n (more content not included)... Normal Workbooks Tobacco Screening.on 022 Adult depression screening assessment No [facility] 250 DO Work Phone: Fall risk assessment a) No falls within the last year [facility] 250 DO Work Phone: Tobacco use status CPHS b) No [facility] 250 DO Work Phone: Vital Signs Date Time Vital Sign Value Performing Clinician Facility 02-05-2024 09:12-0400 Blood Pressure Location Kylepamela FORTE [facility] 02-05-2024 09:12-0400 Body temperature 98.6 [degF] Kyle FORTE [facility] 02-05-2024 09:12-0400 Diastolic blood pressure 77 mm[Hg] [facility] [facility] 02-[facility]-2024 09:12-0400 Heart rate 55 /min Kyle FORTE [facility] 02-05-2024 09:12-0400 Respiratory rate 16 /min Kyle FORTE [facility] 02-05-2024 09:12-0400 Systolic blood pressure 135 mm[Hg] Kyle FORTE [facility] 08-04-2023 09:30-0400 Body height 162.56 cm Christi Dent Other [employer] Other 08-04-2023 09:30-0400 Body mass index (BMI) [Ratio] 26.91 kg/m2 Christi Dent Other [facility] [employer] Other 08-04-2023 09:30-0400 Body weight 71.12 kg Christi Dent Other [employer] [employer] Other 08-04-2023 09:30-0400 Diastolic blood pressure 93 mm[Hg] Christi Dent Other [facility] [employer] Other 08-04-2023 09:30-0400 Systolic blood pressure 147 mm[Hg] Christi Dent Other [facility] [employer] Other 01-04-2023 09:15-0400 Diastolic blood pressure 72 mm[Hg] Christi Dent Work Phone: [facility] DO Work Phone: 01-04-2023 09:15-0400 Systolic blood pressure 124 mm[Hg] Christi Dent Work Phone: [facility] DO Work Phone: 01-04-2023 09:10-0400 Heart rate 39 /min Christi Dent Work Phone: [facility] DO Work Phone: 01-04-2023 09:06-0400 Body height 170.18 cm Christi Dent Work Phone: [facility] DO Work Phone: 01-04-2023 09:06-0400 Body mass index (BMI) [Ratio] 25.22 kg/m2 Christi Dent Work Phone: [facility] DO Work Phone: 01-04-2023 09:06-0400 Body surface area Derived from formula 1.84 m2 Christi Dent Work Phone: [facility] DO Work Phone: 01-04-2023 09:06-0400 Body weight 73.03 kg Christi Dent Work Phone: [facility] DO Work Phone: 11-08-2022 14:34-0500 Body height 170.18 cm Christi Dent Work Phone: [facility] DO Work Phone: 11-08-2022 14:34-0500 Body mass index (BMI) [Ratio] 25.06 kg/m2 Christi Dent Work Phone: [facility] DO Work Phone: 11-08-2022 14:34-0500 Body surface area Derived from formula 1.84 m2 Christi Dent Work Phone: [facility] DO Work Phone: 11-08-2022 14:34-0500 Body weight 72.58 kg Christi Dent Work Phone: [facility] DO Work Phone: 11-08-2022 14:34-0500 Diastolic blood pressure 100 mm[Hg] Christi Dent Work Phone: [facility] DO Work Phone: 11-08-2022 14:34-0500 Heart rate 48 /min Christi Dent Work Phone: [facility] DO Work Phone: 11-08-2022 14:34-0500 Systolic blood pressure 170 mm[Hg] Christi Dent Work Phone: [facility] DO Work Phone: 10-12-2022 08:08-0500 Body height 170.18 cm Christi Dent Work Phone: [facility] DO Work Phone: 10-12-2022 08:08-0500 Body mass index (BMI) [Ratio] 25.06 kg/m2 Christi Dent Work Phone: [facility] DO Work Phone: 10-12-2022 08:08-0500 Body surface area Derived from formula 1.84 m2 Christi Dent Work Phone: [facility] DO Work Phone: 10-12-2022 08:08-0500 Body weight 72.58 kg Christi Dent Work Phone: [facility] DO Work Phone: 10-12-2022 08:08-0500 Diastolic blood pressure 70 mm[Hg] Christi Dent Work Phone: [facility] DO Work Phone: 10-12-2022 08:08-0500 Heart rate 40 /min Christi Dent Work Phone: [facility] DO Work Phone: 10-12-2022 08:08-0500 Systolic blood pressure 98 mm[Hg] Christi Dent Work Phone: [facility] DO Work Phone: 09-13-2022 12:37-0500 Body height 167.64 cm Christi Dent Work Phone: [facility] DO Work Phone: 09-13-2022 12:37-0500 Body mass index (BMI) [Ratio] 26.47 kg/m2 Christi Dent Work Phone: [facility] DO Work Phone: 09-13-2022 12:37-0500 Body surface area Derived from formula 1.84 m2 Christi Dent Work Phone: [facility] DO Work Phone: 09-13-2022 12:37-0500 Body weight 74.39 kg Christi Dent Work Phone: [facility] DO Work Phone: 09-13-2022 12:37-0500 Diastolic blood pressure 110 mm[Hg] Christi Dent Work Phone: [facility] DO Work Phone: 09-13-2022 12:37-0500 Heart rate 63 /min Christi Dent Work Phone: [facility] DO Work Phone: 09-13-2022 12:37-0500 Systolic blood pressure 184 mm[Hg] Christi Dent Work Phone: [facility] DO Work Phone: 09-08-2022 13:12-0500 Body height 167.64 cm Christi Dent Work Phone: [facility] DO Work Phone: 09-08-2022 13:12-0500 Body mass index (BMI) [Ratio] 25.82 kg/m2 Christi Dent Work Phone: [facility] DO Work Phone: 09-08-2022 13:12-0500 Body surface area Derived from formula 1.82 m2 Christi Dent Work Phone: [facility] DO Work Phone: 09-08-2022 13:12-0500 Body weight 72.58 kg Christi Dent Work Phone: [facility] DO Work Phone: 09-08-2022 13:12-0500 Diastolic blood pressure 102 mm[Hg] Christi Dent Work Phone: [facility] DO Work Phone: 09-08-2022 13:12-0500 Heart rate 53 /min Christi Dent Work Phone: [facility] DO Work Phone: 09-08-2022 13:12-0500 Systolic blood pressure 160 mm[Hg] Christi Dent Work Phone: [facility] DO Work Phone: 09-08-2022 08:14-0500 Body height 167.64 cm Christi Dent Work Phone: [facility] DO Work Phone: 09-08-2022 08:14-0500 Body mass index (BMI) [Ratio] 25.82 kg/m2 Christi Dent Work Phone: [facility] DO Work Phone: 09-08-2022 08:14-0500 Body surface area Derived from formula 1.82 m2 Christi Dent Work Phone: [facility] DO Work Phone: 09-08-2022 08:14-0500 Body weight 72.58 kg Christi Dent Work Phone: [facility] DO Work Phone: 09-08-2022 08:14-0500 Diastolic blood pressure 102 mm[Hg] Christi Dent Work Phone: [facility] DO Work Phone: 09-08-2022 08:14-0500 Heart rate 53 /min Christi Dent Work Phone: [facility] DO Work Phone: 09-08-2022 08:14-0500 Systolic blood pressure 160 mm[Hg] Christi Dent Work Phone: [facility] DO Work Phone: 09-08-2022 08:13-0500 Body height 167.64 cm Christi Dent Work Phone: [facility] DO Work Phone: 09-08-2022 08:13-0500 Body mass index (BMI) [Ratio] 25.82 kg/m2 Christi Dent Work Phone: [facility] DO Work Phone: 09-08-2022 08:13-0500 Body surface area Derived from formula 1.82 m2 Christi Dent Work Phone: [facility] DO Work Phone: 09-08-2022 08:13-0500 Body weight 72.58 kg Christi Dent Work Phone: [facility] DO Work Phone: 09-08-2022 08:13-0500 Diastolic blood pressure 100 mm[Hg] Christi Dent Work Phone: [facility] DO Work Phone: 09-08-2022 08:13-0500 Heart rate 53 /min Christi Dent Work Phone: [facility] DO Work Phone: 09-08-2022 08:13-0500 Systolic blood pressure 146 mm[Hg] Christi Dent Work Phone: [facility] DO Work Phone: 09-06-2022 16:40-0500 Inhaled oxygen concentration 100 % MD Christi Dent Work Phone: [facility] 09-06-2022 16:40-0500 Inhaled oxygen flow rate 2 L/min MD Christi Dent Work Phone: [facility] 09-06-2022 16:40-0500 SaO2% (BldA) [Mass fraction] 99 % MD Christi Dent Work Phone: [facility] 09-06-2022 11:52-0500 Body height 167.64 cm MD Christi Dent Work Phone: [facility] 09-06-2022 11:52-0500 Body weight 72 kg MD Christi Dent Work Phone: [facility] 08-11-2022 10:00-0400 Body height 167.64 cm Christi Dent Work Phone: [facility] DO Work Phone: 08-11-2022 10:00-0400 Body mass index (BMI) [Ratio] 26.05 kg/m2 Christi Dent Work Phone: [facility] DO Work Phone: 08-11-2022 10:00-0400 Body surface area Derived from formula 1.83 m2 Christi Dent Work Phone: [facility] DO Work Phone: 08-11-2022 10:00-0400 Body weight 73.2 kg Christi Dent Work Phone: [facility] DO Work Phone: 08-11-2022 10:00-0400 Diastolic blood pressure 90 mm[Hg] Christi Dent Work Phone: [facility] DO Work Phone: 08-11-2022 10:00-0400 Heart rate 87 /min Christi Dent Work Phone: [facility] DO Work Phone: 08-11-2022 10:00-0400 Systolic blood pressure 138 mm[Hg] Christi Dent Work Phone: [facility] DO Work Phone: 01-28-2022 08:04-0400 Blood Pressure Location Kyle FORTE [facility] [place] 01-28-2022 08:04-0400 Diastolic blood pressure 103 mm[Hg] Kyle FORTE [facility] [place] 01-28-2022 08:04-0400 Heart rate 73 /min [facility] 01-28-2022 08:04-0400 Respiratory rate 16 /min Kyle FORTE [facility] [place] 01-28-2022 08:04-0400 Systolic blood pressure 146 mm[Hg] Kyle FORTE [facility] [place] Encounters Encounter Date Encounter Type Care Provider Facility Start: 02-03-2025 ambulatory Kyle Loftoni ty:[facility] Start: 02-05-2024 End: 02-06-2024 ambulatory Kyle FORTE Facility:[facility] Start: 02-05-2024 End: 02-05-2024 Patient encounter procedure Kyle FORTE [facility] [place] Start: 10-27-2023 End: 10-27-2023 ambulatory Christi Dent Other [employer] Other Start: 10-27-2023 Telephone encounter Christi Filipe [facility] [place] Start: 10-11-2023 End: 10-11-2023 ambulatory Christi Filipe Other [employer] Other Start: 10-11-2023 Telephone encounter Christi Filipe [facility] [place] Start: 08-14-2023 End: 08-14-2023 ambulatory Christi Filipe Other [employer] Other Start: 08-14-2023 Telephone encounter Christi Filipe [facility] [place] Start: 08-04-2023 End: 08-04-2023 ambulatory Christi Filipe Other [employer] Other Start: 08-04-2023 Office outpatient visit 15 minutes Christi Filipe [facility] [place] Start: 07-04-2023 End: 07-04-2023 ambulatory Christi Filipe Other [employer] Other Start: 07-04-2023 Telephone encounter Christi Dent [facility] [place] Start: 02-20-2023 End: 03-22-2023 ambulatory SHAIKH Joseluis MCNAMARA Facility:[facility] Start: 02-03-2023 End: 02-03-2023 Patient encounter procedure Kyle FORTE [facility] Start: 01-27-2023 End: 01-28-[address] KYLE FORTE . Facility:[facility] Start: 01-23-2023 End: 02-17-2023 ambulatory SHAIKH Joseluis MCNAMARA Facility:[facility] Start: 01-04-2023 Office outpatient visit 15 minutes Christi Dent Work Phone: [facility] 250 DO Work Phone: Start: 01-04-2023 Patient encounter procedure Christi Dent Work Phone: [facility] DO Work Phone: Start: 01-04-2023 ambulatory Ms. Johnna Renae Facility: Start: 12-21-2022 End: 01-20-2023 ambulatory VARGHESEPEDRO MCNAMARA Facility:[facility] Start: 11-28-2022 Patient encounter procedure Christi Storm Dent Work Phone: [facility] DO Work Phone: Start: 11-23-2022 End: 12-21-2022 ambulatory SHAIKH Joseluis JUNIORD Facility:[facility] Start: 11-08-2022 Office outpatient visit 10 minutes Christi Storm Dent Work Phone: [facility] 600 DO Work Phone: Start: 11-08-2022 Patient encounter procedure Chrsiti Storm Dent Work Phone: [facility] DO Work Phone: Start: 11-08-2022 ambulatory Ms. Johnna Renae Facility: Start: 10-24-2022 End: 11-23-2022 ambulatory VARGHESEJoseluis JUNIORChino Facility:[facility]1 Start: 10-12-2022 Office outpatient visit 10 minutes Christi Storm Dent Work Phone: [facility] DO Work Phone: Start: 10-12-2022 ambulatory Ms. Johnna Renae Facility: Start: 10-04-2022 End: 10-05-[address] DOE LISTED REQUEST Facility:[facility]1 Start: 09-22-2022 End: 10-23-2022 ambulatory Joseluis NAIMA Facility:[facility] Start: 09-20-2022 End: 09-21-[address] KYLE FORTE . Facility:[facility] Start: 09-13-2022 FUV, Provider: Johnna Gomes, Status: Pen, Time: 12:30 PM Christi Dent Work Phone: [facility] DO Work Phone: Start: 09-13-2022 Office outpatient visit 15 minutes Christi Dent Work Phone: [facility] DO Work Phone: Start: 09-13-[address] Christi Dent Facility: Start: 09-12-2022 Chart Update Christi Dent Work Phone: [facility] DO Work Phone: Start: 09-09-2022 End: 09-09-2022 ambulatory MONSE GARCIA . Facility:[facility] Start: 09-08-2022 Office outpatient visit 5 minutes Christi Dent Work Phone: [facility] DO Work Phone: Start: 09-08-2022 AORTA, Provider: [facility] 01,[id number], Status: Pen, Time: 7:45 AM Christi Dent Work Phone: [facility] DO Work Phone: Start: 09-08-[address] Ta Silva Facility:[id number] Start: 09-07-2022 Chart Update Christi Dent Work Phone: [facility] DO Work Phone: Start: 09-06-[address] Christi Dent Facility:[id number] Start: 09-06-2022 End: 09-07-2022 ambulatory Christi Dent Facility:[facility] Start: 09-06-2022 End: 09-06-2022 Admission to same day surgery center MD Christi Dent Work Phone: [facility] Start: 09-06-2022 End: 09-06-2022 ambulatory MD Christi Dent Work Phone: [facility] Work Phone: Start: 09-02-2022 Chart Update Christi Dent Work Phone: [facility] DO Work Phone: Start: 09-02-2022 End: 09-02-2022 ambulatory Christi Dent Facility:[facility] Start: 09-02-2022 End: 09-02-2022 ambulatory MD Christi Dent Work Phone: [facility] Work Phone: Start: 09-02-2022 End: 09-02-2022 Patient encounter procedure MD Christi Dent Work Phone: [facility] Start: 08-25-2022 Telephone encounter Christi barajas Work Phone: [facility] DO Work Phone: Start: 08-23-2022 End: 09-21-2022 ambulatory VARGHESE H NAIMA Facility:[facility]1 Start: 08-11-2022 Office outpatient visit 25 minutes Christi Dent Work Phone: [facility] DO Work Phone: Start: 08-11-[address] Christi Dent Facility: Start: 07-24-2022 End: 08-22-2022 ambulatory VARGHESE H FAWWAD Facility:[facility]1 Start: 06-23-2022 End: 07-23-2022 ambulatory VARGHESE H FAWWAD Facility:[facility]1 Start: 05-23-2022 End: 06-22-2022 ambulatory VARGHESE H FAWWAD Facility:[facility]1 Start: 04-22-2022 End: 05-20-2022 ambulatory VARGHESE H FAWWAD Facility:[facility]1 Start: 01-28-2022 End: 01-28-2022 Patient encounter procedure Kyle FORTE [facility] Start: 07-13-2017 End: 07-14-2017 Ambulatory DEFAULT PHYSICIAN Facility:[facility] Procedures Date Procedure Procedure Detail Performing Clinician Start: 01-27-2023 PSA screening VARGHESEPEDRO JUNIORChino Comment on above: Performed By: #### PSAD #### [facility] [address] [place] [address] Dr. Farida Braun Start: 09-04-2018 Cystoscopy Kyle [...] Ta Silva, Status: Pen, Time: 9:50 AM [facility] DO Work Phone: Start: 01-04-2023 FUV, Provider: Johnna Gomes, Status: Pen, Time: 9:00 AM FUV, Provider: Johnna Gomes, Status: Pen, Time: 9:00 AM [facility] 250 DO Work Phone: Start: 11-08-2022 FUV, Provider: Johnna Gomes, Status: Pen, Time: 2:30 PM FUV, Provider: Johnna Gomes, Status: Pen, Time: 2:30 PM [facility] DO Work Phone: Start: 10-12-2022 FUV, Provider: Johnna Gomes, Status: Pen, Time: 8:00 AM FUV, Provider: Johnna Gomes, Status: Pen, Time: 8:00 AM [facility] DO Work Phone: Start: 09-08-2022 AORTA, Provider: [facility]TR[facility] 01,[id number], Status: Pen, Time: 7:45 AM AORTA, Provider: [facility] 01,[id number], Status: Pen, Time: 7:45 AM [facility] Work Phone: Start: 09-06-2022 [facility] Start: 09-06-2022 SURGNONUH, Provider: Tyrone Walters, Status: Pen, Time: 2:00 PM SURGNONUH, Provider: Tyrone Walters, Status: Pen, Time: 2:00 [facility] Work Phone: Patient referral [facility] Work Phone: Immunizations Immunization Date Immunization Notes Care Provider Fa adali 08-04-2023 influenza, high dose seasonal, preservative-free Christi Dnet Other [employer] Other 08-23-2022 Pfizer COVID-19 Vac Bivalent 30 MCG/0.3ML Intramuscular Suspension Christi Dent Work Phone: [facility] 250 DO Work Phone: 07-31-2022 influenza, injectabl e, quadrivalent, preservative free Christi E Dent Work Phone: [facility] 250 DO Work Phone: 07-15-2022 influenza, seasonal, injectable Christi E Dent Work Phone: [facility] 250 DO Work Phone: Comment on above: Series: 03-04-2022 Comirnaty 30 MCG/0.3 ML Intramuscular Suspension Christi E Dent Work Phone: [place] [address] DO Work Phone: 08-09-2021 Pfizer-BioNTech COVID-19 Vacc 30 MCG/0.3ML Intramuscular Suspension Christi E Dent Work Phone: [place] [address] DO Work Phone: 08-04-2021 influenza, injectabl e, quadrivalent, preservative free Christi E Dent Work Phone: [place] [address] DO Work Phone: 12-15-2020 Pfizer-BioNTech COVID-19 Vacc 30 MCG/0.3ML Intramuscular Suspension Christi E Dent Work Phone: [place] [address] DO Work Phone: 12-13-2020 SARS-CoV-2 (COVID-19 ) mRNA-7123 vaccine Kyle FORTE [facility] 11-24-2020 Pfizer-BioNTech COVID-19 Vacc 30 MCG/0.3ML Intramuscular Suspension Christi E Dent Work Phone: [facility] 250 DO Work Phone: 06-23-2020 influenza, high dose seasonal, preservative-free Christi E Dent Work Phone: [facility] 250 DO Work Phone: 06-19-2020 influenza virus vaccine, unspecified formulation Kyle FORTE [facility] [place] 07-23-2019 influenza virus vaccine, unspecified formulation Christi Dent Work Phone: [place] [address] DO Work Phone: 08-11-2018 influenza, high dose seasonal, preservative-free Christi Dent Work Phone: [place] [address] DO Work Phone: 07-23-2018 pneumococcal polysaccharide vaccine, 23 valent Christi Dent Work Phone: [place] [address] DO Work Phone: 04-08-2015 pneumococcal polysaccharide vaccine, 23 valent Christi Dent Work Phone: [place] [address] DO Work Phone: 10-23-2014 tetanus immune globulin Jered Dent Work Phone: [place] [address] DO Work Phone: 10-23-2013 pneumococcal conjuga te vaccine, 13 valent Christi Dent Work Phone: [place] [address] DO Work Phone: Payers Date Payer Category Payer Medicare [id number] 1960 Medicare [id number] 1960 Self-pay 1950 Unknown [id number] 2.16.8 [id number] 1949 Unknown [id number] 2.16. 840.1.755098.3.579.2.356 1949 Unknown [id number] 2.16. 840.1.002727.3.579.2.356 1949 Unknown [id number] 2.16. 840.1.075620.3.579.2.356 1949 Unknown [id number] 2.16. 840.1.692580.3.579.2.356 1949 Unknown [id number] 2.16. 840.1.998336.3.579.2.356 1949 Unknown [id number] 2.16. 840.1.755669.3.579.2.356 1949 Unknown [id number] 2.16. 840.1.879771.3.579.2.356 1949 Unknown [id number] 2.16. 840.1.119053.3.579.2.356 1949 Unknown [id number] 2.16.84 0.1.806012.3.579.2.593 1949 Unknown [id number] 2.16.84 0.1.771524.3.579.2.593 1949 Unknown [id number] 2.16.84 0.1.372474.3.579.2.593 1949 Unknown [id number] 2.16.84 0.1.560123.3.579.2.593 1949 Unknown [id number] 2.16.84 0.1.417773.3.579.2.593 1949 Unknown [id number] 2.16.84 0.1.388800.3.579.2.593 1949 Unknown [id number] 2.16.84 0.1.625370.3.579.2.593 1949 Unknown [id number] 2.16.84 0.1.672486.3.579.2.593 1949 Unknown [id number] 2.16.84 0.1.389894.3.579.2.593 1949 Unknown [id number] 2.16.84 0.1.211194.3.579.2.593 1949 Unknown [id number] 2.16.84 0.1.400870.3.579.2.593 1949 Unknown [id number] 2.16.84 0.1.414746.3.579.2.593 1949 Unknown [id number] 2.16.84 0.1.648518.3.579.2.593 1949 Unknown [id number] 2.16.84 0.1.797997.3.579.2.593 1949 Unknown [id number] 2.16.8 40.1.432712.3.579.2.727 1949 Unknown [id number] 2.16.8 40.1.693228.3.579.2.727 Unknown Unknown [id number] 2.16.8 40.1.310659.3.579.2.531 Unknown [id number] 2.16.8 40.1.480949.3.579.2.531 Unknown [id number] 2.16.84 0.1.444786.3.579.2.593 Social History Date Type Detail Facility Start: 01-28-2022 End: 02-05-2024 Tobacco smoking status Ex-smoker (finding) [facility] Sex Assigned At Male [facility] No illicit drug use No illicit drug use [facility] DO Work Phone: Start: 1950 Sex Assigned At Male [facility] Functional Status Date Assessment Result Facility 02-05-2024 Functional Status N/A [facility] 02-03-2023 Functional Status N/A [facility] Clinical Notes 01-28-2022 to 02-05-2024 Note Date & Type Note Facility 02-05-2024 Hospital Discharge instructions Patient Education 02/05/2024 10:08:29 Prostate Cancer Screening Prostate Cancer Screening Prostate cancer screening is testing that is done to check for the presence of prostate cancer in men. The prostate gland is a walnut-sized gland that is located below the bladder and in front of the rectum in males. The function of the prostate is to add fluid to semen during ejaculation. Prostate cancer is one of the most common types of cancer in men. Who should have prostate cancer screening? Screening recommendations vary based on age and other risk factors, as well as between the professional organizations who make the recommendations. In general, screening is recommended if: You are age 50 to 70 and have an average risk for prostate cancer. You should talk with your health care provider about your need for screening and how often screening should be done. Because most prostate cancers are slow growing and will not cause , screening in this age group is generally reserved for men who have a 10- to 15-year life expectancy. You are younger than age 50, and you have these risk factors: ?Having a father, brother, or uncle who has been diagnosed with prostate cancer. The risk is higher if your family member's cancer occurred at an early age or if you have multiple family members with prostate cancer at an early age. ?Being a male who is Black or is of [place] or sub-Saharan descent. In general, screening is not recommended if: You are younger than age 40. You are between the ages of 40 and 49 and you have no risk factors. You are 70 years of age or older. At this age, the risks that screening can cause are greater than the benefits that it may provide. If you are at high risk for prostate cancer, your health care provider may recommend that you have screenings more often or that you start screening at a younger age. How is screening for prostate cancer done? The recommended prostate cancer screening test is a blood test called the prostate-specific antigen (PSA) test. PSA is a protein that is made in the prostate. As you age, your prostate naturally produces more PSA. Abnormally high PSA levels may be caused by: Prostate cancer. An enlarged prostate that is not caused by cancer (benign prostatic hyperplasia, or BPH). This condition is very common in older men. A prostate gland infection (prostatitis) or urinary tract infection. Certain medicines such as male hormones (like testosterone) or other medicines that raise testosterone levels. A rectal exam may be done as part of prostate cancer screening to help provide information about the size of your prostate gland. When a rectal exam is performed, it should be done after the PSA level is drawn to avoid any effect on the results. Depending on the PSA results, you may need more tests, such as: A physical exam to check the size of your prostate gland, if not done as part of screening. Blood and imaging tests. A procedure to remove tissue samples from your prostate gland for testing (biopsy). This is the only way to know for certain if you have prostate cancer. What are the benefits of prostate cancer screening? Screening can help to identify cancer at an early stage, before symptoms start and when the cancer can be treated more easily. There is a small chance that screening may lower your risk of dying from prostate cancer. The chance is small because prostate cancer is a slow-growing cancer, and most men with prostate cancer from a different cause. What are the risks of prostate cancer screening? The main risk of prostate cancer screening is diagnosing and treating prostate cancer that would never have caused any symptoms or problems. This is called overdiagnosisand overtreatment. PSA screening cannot tell you if your PSA is high due to cancer or a different cause. A prostate biopsy is the only procedure to diagnose prostate cancer. Even the results of a biopsy may not tell you if your cancer needs to be treated. Slow-growing prostate cancer may not need any treatment other than monitoring, so diagnosing and treating it may cause unnecessary stress or other side effects. Questions to ask your health care provider When should I start prostate cancer screening? What is my risk for prostate cancer? How often do I need screening? What type of screening tests do I need? How do I get my test results? What do my results mean? Do I need treatment? Where to find more information The [employer]: www.cancer.org [employer]: www.auanet.org Contact a health care provider if: You have difficulty urinating. You have pain when you urinate or ejaculate. You have blood in your urine or semen. You have pain in your back or in the area of your prostate. Summary Prostate cancer is a common type of cancer in men. The prostate gland is located below the bladder and in front of the rectum. This gland adds fluid to semen during ejaculation. Prostate cancer screening may identify cancer at an early stage, when the cancer can be treated more easily and is less likely to have spread to other areas of the body. The prostate-specific antigen (PSA) test is the recommended screening test for prostate cancer, but it has associated risks. Discuss the risks and benefits of prostate cancer screening with your health care provider. If you are age 70 or older, the risks that screening can cause are greater than the benefits that it may provide. This information is not intended to replace advice given to you by your health care provider. Make sure you discuss any questions you have with your health care provider. Document Revised: 04/04/2022 Document Reviewed: 04/04/2022 [employer] Patient Education 2022 [employer] Follow Up Care 02/03/2023 08:51:43 With:REINIER VAUGHAN, Kyle Valadez, URL Address: [facility] [address] , [place] [address] [phone] When: Unknown Comments:1 yr w/ PSA and CT scan [facility] 10-11-2023 Evaluation note Encounter Date Diagnosis Assessment Notes Sep, Irritant contact dermatitis due to drug in contact with skin (ICD-10 - L24.4) [facility] Other 10-13-2023 Evaluation note* Encounter Date Diagnosis [...] weeks for an update on his condition. [facility] Other 09-12-2023 Evaluation note* Encounter Date Diagnosis Assessment Notes Treatment Notes Treatment Clinical Notes Jun, Pain in left ankle and joints of left foot (ICD-10 - M25.572) [facility] Other 04-14-2023 Hospital Discharge instructions Patient Education [...] who: Are older than age 65. Are -Congolese. Are obese. Have a family history of [...] cells. Follow these instructions at home: Take flgd-ngg-ixzmcqd and prescription medicines only as told by [...] 10/09/2006 Document Revised: 09/21/2018 Document Reviewed: 06/19/2017 [employer] Patient Education 2020 [employer]. Follow Up Care 01/28/2022 08:42:30 With:REINIER VAUGHAN, Kyle Valadez, URL Address: [facility] [address] , [place] [address] [phone] When:Within 1 Year(s) Comments:1 year fu with PSA [facility] [place] 11-15-2022 Procedure [facility]04-08-2022 Hospital Discharge instructions Patient Education 01/28/2022 [...] Follow these instructions at home: Medicines Take oick-soz-cfjzujd and prescription medicines only as told by [...] 10/09/2006 Document Revised: 02/25/2020 Document Reviewed: 02/25/2020 [employer] Patient Education 2019 [employer]. Follow Up Care 07/30/2021 08:35:42 With:Kyle FORTE MD, URL Address: [address] [place] [id number] [phone] When:01/28/2023 Comments:w/PSA.Will get Renal US in 6m. Our office will call pt with the results. [facility] evaluation + Plan note Future Appointments Appointment Date:02/03/2023 08:00:00 AM Scheduled Provider:Kyle FORTE MD Location:[facility] Appointment Type:URO Office Visit Diagnostic Tests Pending * PSA Total 01/28/22 [facility] evaluation + Plan note Future Appointments Appointment Date:02/05/2024 09:15:00 AM Scheduled Provider:Kyle FORTE MD Location:[facility] Appointment Type:URO Office Visit Diagnostic Tests Pending * PSA Total 02/03/23 [facility] evaluation + Plan note Future Appointments Appointment Date:02/03/2025 09:15:00 AM Scheduled Provider:Kyle FORTE MD Location:[facility] Appointment Type:URO Office Visit Diagnostic Tests Pending * PSA Total 02/05/24 [facility] evaluation noteNo assessment information available [facility] Work Phone: Evaluation noteNo InformationNort Deenty Other History general Narrative - Reported* Type [...] History GI Bleed Hospitalization History See above [facility] Other History of Present illness Narrative* The [...] medication regimen. He denies medication side effects. [facility] [employer] Work Phone: History of Present illness Narrative* [...] medication regimen. He denies medication side effects. [facility] [employer] DO Work Phone: History of Present [...] medication regimen. He denies medication side effects. [facility] [employer] Work Phone: History of Present illness Narrative* [...] medication regimen. He denies medication side effects. [facility] [place] DO Work Phone: History of Present [...] not limit his activities. * Disease Monitoring: [facility] [employer] Work Phone: History of Present illness Narrative* [...] not limit his activities. * Disease Monitoring: [facility] [employer] DO Work Phone: Hospital course Narrative No data available for this section [facility] No data available for this section [facility] [place] Summary Purpose Family History No Family History [...] catheterization performed at outside hospital by another neon installer revealed more minimal coronary disease in 2016 [...] catheterization performed at outside hospital by another neon installer revealed more minimal coronary disease in 2016 [...] catheterization performed at outside hospital by another neon installer revealed more minimal coronary disease in 2016 [...] with uneventful September 06, 2022 cardioversion with religious of normal sinus rhythm. * Patient had [...] of caffeine daily, no alcohol intake. No shlh-pbr-wfoneuv medications. No prior sleep apnea testing. * EKG in office today is maintaining normal sinus rhythm and he reportedly feels better with religious of normal sinus rhythm. Has a little [...] medical regimen. He completed lab work at [place] and will need to obtain. Has been [...] on exertion. * They have obtained a [employer] mobile device with no documented atrial fibrillation. [...] verify accuracy. * Will obtain labs from [facility] * Blood pressure management: 'continues to [...] pressure. * No caffeine, alcohol, energy drinks, obxo-fdf-yrhlmeb medications. * At this time, patient does [...] section and content) DATE CREATED AUTHOR 04/18/2018 [facility] DATE CREATED AUTHOR AUTHOR'S ORGANIZ ATION 09/10/2022 [facility] DATE CREATED AUTHOR AUTHOR'S ORGANIZ ATION 11/26/2022 [facility] DATE CREATED AUTHOR AUTHOR'S ORGANIZ ATION 01/05/2023 [facility] DATE CREATED AUTHOR AUTHOR'S ORGANIZ ATION 01/08/2023 [employer] DATE CREATED AUTHOR AUTHOR'S ORGANIZ ATION 03/31/2023 [facility] [place] [facility] DATE CREATED AUTHOR AUTHOR'S ORGANIZ ATION 02/06/2024 [facility] Care Teams (unrecognized sec tion [...] BE BASED ON THE PRIMARY CLINICAL RECORDS. [facility] [employer] [facility]. provides no warranty or guarantee of the accuracy or completeness of information in this document.
[2024-08-01 08:31] LABS: Alanine Aminotransferase 20 U/L (16-63); Anion Gap 11.5; Aspartate Amino Transferase 26 U/L (15-37); BUN Creatinine Ratio 18.4; Calcium 9.8 mg/dL (8.5-10.1); Carbon Dioxide 29.4 mmol/L (21.0-32.0); Chloride 102 mmol/L (98-107); Chol HDL Ratio 2.8; Cholesterol 110 mg/dL (<=200); Estimated GFR (African America >60 (>=60 mL/min/1.73m^2); Estimated GFR (Non-African Ame 56 (>=60 mL/min/1.73m^2); Glucose 99 mg/dL (74-106); HDL Cholesterol 39 mg/dL (40-60); Potassium 4.9 mmol/L (3.5-5.1); Sodium 138 mmol/L (136-145); Triglycerides 102 mg/dL (<=150); VLDL CHOLESTEROL 20.4 mg/dL
== END 2024-08-01 07:06 | disposition home or self-care (01) ==
LOC: LAB 07:05
PROVIDERS: PCP Family Medicine; Visit Provider Internal Medicine Cardiovascular Disease
DX: E78.2 Mixed hyperlipidemia (principal); I10 Essential (primary) hypertension
CPT/HCPCS: 36415; 80048; 80061; 84450; 84460

== ENCOUNTER 2024-08-23 13:10 | Outpatient (RCR) | payer MEDICARE, SELFPAY | END 2024-09-21 23:59 | disposition home or self-care (01) | LOC: MM 13:10 | PROVIDERS: PCP Family Medicine; Visit Provider Internal Medicine | DX: Z51.81 Encounter for therapeutic drug level monitoring (principal); Z79.01 Long term (current) use of anticoagulants; I48.0 Paroxysmal atrial fibrillation | CPT/HCPCS: 85610; G0463 ==

== ENCOUNTER 2024-09-23 05:34 | Outpatient (RCR) | payer MEDICARE, SELFPAY | END 2024-10-22 09:16 | disposition home or self-care (01) | LOC: MM 05:34 | PROVIDERS: PCP Family Medicine; Visit Provider Internal Medicine | DX: Z51.81 Encounter for therapeutic drug level monitoring (principal); I48.0 Paroxysmal atrial fibrillation; Z79.01 Long term (current) use of anticoagulants ==

== ENCOUNTER 2024-10-24 01:47 | Outpatient (RCR) | payer MEDICARE, SELFPAY | END 2024-11-22 14:35 | disposition home or self-care (01) | LOC: MM 01:47 | PROVIDERS: PCP Family Medicine; Visit Provider Internal Medicine | DX: Z51.81 Encounter for therapeutic drug level monitoring (principal); Z79.01 Long term (current) use of anticoagulants; I48.0 Paroxysmal atrial fibrillation | CPT/HCPCS: 85610; G0463 ==

== ENCOUNTER 2024-11-25 00:40 | Outpatient (RCR) | payer MEDICARE, SELFPAY | END 2024-12-20 10:24 | disposition home or self-care (01) | LOC: MM 00:40 | PROVIDERS: PCP Family Medicine; Visit Provider Internal Medicine | DX: Z51.81 Encounter for therapeutic drug level monitoring (principal); Z79.01 Long term (current) use of anticoagulants; I48.0 Paroxysmal atrial fibrillation ==

== ENCOUNTER 2024-12-22 07:15 | Outpatient (RCR) | payer MEDICARE, SELFPAY | END 2025-01-17 13:47 | disposition home or self-care (01) | LOC: MM 07:15 | PROVIDERS: PCP Family Medicine; Visit Provider Internal Medicine | DX: Z51.81 Encounter for therapeutic drug level monitoring (principal); Z79.01 Long term (current) use of anticoagulants; I48.0 Paroxysmal atrial fibrillation ==

== ENCOUNTER 2025-01-21 06:08 | Outpatient (RCR) | payer MEDICARE, SELFPAY | END 2025-02-19 14:43 | disposition home or self-care (01) | LOC: MM 06:08 | PROVIDERS: PCP Family Medicine; Visit Provider Internal Medicine | DX: Z51.81 Encounter for therapeutic drug level monitoring (principal); Z79.01 Long term (current) use of anticoagulants; I48.0 Paroxysmal atrial fibrillation ==

== ENCOUNTER 2025-01-28 08:22 | Outpatient (OUT) | payer MEDICARE, SELFPAY ==
--- OUTSIDE RECORDS SUMMARY | 2025-01-28 08:37 | XMS_ITS | CCD ---
Author Organization [facility] Care Team Providers Care 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 Name Role Phone PHYSICIAN, DEFAULT Unavailable Unavailable PHYSICIAN, DEFAULT Unavailable Unavailable CHRISTI DENT Primary Care Physician Christi Dent Unavailable Unavailable Unavailable MD Tyrone Walters Attending Provider MD Christi Dent Primary Care Provider MD Tyrone Walters Referring Provider Ricardo, Dr. Ta Anderson Attending Mary ilstacie Dent, Dr. Christi Bird Primary Care Brandyv danilo Dent, Dr. Christi Bird Primary Care Unav Ta Miles Attending Unavailable Ta Lane Referring Unavailable Oc, Ms. Johnna Franco Referring Unatunde Renae, Ms. Johnna Franco Attending Sarah Dent, Dr. Christi Bird Primary Care Catrachita Dent, Dr. Christi Bird Primary Care Unav Tyrone Brand Attending Unavailable Oc, Ms. Johnna Franco Referring Unavai labmeet Renae, Ms. Johnna Franco Attending Sarah Dent, Dr. Christi Bird Primary Care Catrachita Renae, Ms. Johnna Franco Referring Unaarielai isrrael Renae, Ms. Johnna Franco Attending Sarah Dent, Dr. Christi Bird Primary Care Catrachita Dent, Dr. Christi Bird Primary Care Catrachita Renae, Ms. Johnna Franco Referring Unatunde Renae, Ms. Johnna Franco Attending Sarah Dent, [...] DENT, DR CHRISTI Storm Primary Care Unavailable FORTE ., DR WRIGHT Consulting Unavailable RICARDO, DR TA Michel Attending Unavailabl e FILIPE, DR CHRISTI Storm Primary Care Unavailable RICARDO, DR TA Michel Admitting Unavailabl e RICARDO, DR TA Michel Consulting Unavailabl e FORTE ., DR WRIGHT Consulting Unavailable FORTE ., [...] DENT, DR CHRISTI Storm Primary Care Unavailable JELENA .BRENDON Consulting Unavailabl e FAWWAD, VARGHESE H Attending Unavailable FAWWAD, VARGHESE H Admitting Unavailable DENT, DR CHRISTI Storm Primary Care Unavailable FAWWAD, VARGHESE H Attending Unavailable FAWWAD, VARGHESE H Admitting Unavailable DR CHRISTI DENT Primary Care Unavailable SHAIKH Joseluis MCNAMARA Attending Unavailable SHAIKH Joseluis MCNAMARA Admitting Unavailable DR CHRISTI DENT Primary Care Unavailable Christi Dent Unavailable Christi Dent MD Primary Care Provider TA LANE Attending Unavailable CHRISTI DENT Primary Care Unavailable Christi Dent MD Primary Care Provider [phone] Azul London APRN Attending Provider [phone] Christi Dent Primary Care Unavailable Azul London Attending Unavailable Azul London Admitting Unavailable Kyle FORTE Attending Unavailable Kyle FORTE Attending Unavailable Allergies Allergy Classification Reported Allergen(s) Allergy Type Date of Onset Reaction(s) Facility (20 sources) Sulfamethoxazole; Translations: [sulfamethoxazole ] Drug Allergy 3 Unknown [facility] (1 source) Sulfonamides (Antibiotic) Drug allergy (disorder) 5 [facility] (8 sources) Lisinopril Drug Allergy 5 Unknown, Hives [facility] (8 sources) Sulfacetamide Drug Allergy 5 pt doesn't remember [facility] (4 sources) Sulfonamides (Antibiotic); Translations: [Sulfa (Sulfonamide Antibiotics)] Allergy to substance 5 Unknown Reaction [facility] (1 source) Lisinopril Drug Allergy 5 [facility] (1 source) Sulfacetamide Drug Allergy 5 [facility] Medications Current Medications Medication Drug Class(es) Dates Sig (Normalized) Sig (Original) [id number] 200 actuat albuterol 0.09 mg/actuat metered dose inhaler (11 sources) beta2-Adrenergic Agonist Start: 01-08-2025 take 1 puff(s) by inhalation every four to six hours as needed for wheezing Albuterol Sulfate 90 mcg/actuation HFA aerosol inhaler Active 2 PUFF INHALATION EVERY 4-6 HOURS as needed for shortness of breath or wheezing 8.5 January 08, 2025 12:00am Start: 12-18-2024 End: 12-19-2024 Albuterol Sulfate (Ventolin Hfa) 90 mcg/actuation HFA aerosol inhaler Discontinued 1 INH INHALATION Every 6 hours December 18, 2024 1:00am December 19, 2024 11:57am Start: 08-08-2019 Ventolin Hua joyce Start Date: 08/08/19 Status: Ordered bisoprolol fumarate 10 mg / hydroCHLOROthiazide 6.25 mg oral tablet (1 source) Thiazide Diuretic, beta-Adrenergic Finesse Start: 10-26-2015 bisoprolol-hydrochlorothiazi de 10 mg-6.25 mg Tab Oral, Daily, Refill(s) 0 Start Date: 10/26/15 Status: Ordered diclofenac [...] tablet (20 sources) Calcium Channel Finesse Start: 07-31-2024 take 1 tablet by mouth once daily dilTIAZem (Cardizem) 60 mg immediate release tablet Indications: Paroxysmal atrial fibrillation (Multi) Take 1 tablet (60 mg) by mouth once daily. 90 tablet 3 07/31/2024 Active Start: 11-20-2023 End: 07-31-2024 diltiazem 60 mg Tab Refills( s) 0 Start Date: 02/05/24 Status: Ordered Start: [...] 12:00am TABLETS 1 1/2 DAILY Start: 08-11-2022 End: 12-19-2024 take 1 tablet by mouth once daily Diltiazem Hcl 90 mg Tablet Discontinued 135 MG PO Daily September 06, 2022 1:00am December 19, 2024 11:58am TABLETS 1 1/2 DAILY Start: 08-11-2022 take 1.5 tablets by mouth once daily dilTIAZem HCl - 90 MG Oral Tablet TAKE 1.5 TABLET Daily Quantity: 135 Refills: 3 Ordered: 11-Aug-[address] DO Start : 11-Aug-2022 Active Start: 10-26-2015 diltiazem 90 m g Tab Oral, Daily, Refills(s) 0 Start Date: 10/26/15 Status: Ordered doxycycline hyclate 100 mg oral capsule (2 sources) Tetracycline-class Drug Start: 01-08-2025 take 1 capsule by mouth twice daily Doxycycline Hyclate 100 mg capsule Active 100 MG PO Twice daily 11 08January 08, 2025 12:00am hydroCHLOROthiazide 12.5 mg oral capsule (20 sources) Thiazide Diuretic Start: 12-18-2024 take 1 capsule by mouth once daily Hydrochlorothiazide 12.5 mg capsule Active 12.5 MG PO Daily December 18, 2024 1:00am FreeTextSig: TAKE 1 CAPSULE BY MOUTH DAILY; Note: Source Status: Taking; Refills: 3; Qty: 90 Capsule; Provider: Filipe Dna ( ) Start: 10-14-2024 End: 12-19-2024 take 1 capsule by mouth once daily Hydrochlorothiazide 12.5 mg capsule Discontinued 0 .ROUTE .COMPLEX 90 October 14, 2024 10:33pm December 19, 2024 11:59am TAKE 1 CAPSULE BY MOUTH DAILY Start: 09-06-2022 End: 10-14-2024 take 1 tablet by mouth once daily Hydrochlorothiazide 12.5 mg Tablet Discontinued 12.5 MG PO Daily September 06, 2022 1:00am October 14, 2024 10:33pm Start: 01-25-2021 take 1 mg by mouth o nce daily hydrochlorothiazide 12.5 mg Cap mg cap(s), Oral, Daily, Refills(s) 0 Start Date: 01/25/21 Status: Ordered latanoprost 0.05 mg/ml ophthalmic solution (17 sources) Prostaglandin Analog Start: 12-18-2024 take 1 drop(s) into the eye(s) once daily at bedtime Latanoprost 0.005 % drops Active DROPS OPHTHALMIC Daily December 18, 2024 1:00am FreeTextSi drop once at HS; Note: Source Status: Taking; Provider: Filipe Dan ( ) Start: 02-05-2024 latanoprost Op th 0.005% Chika Refill(s) 0 Start Date: 02/05/24 Status: Ordered latanoprost, PF, 0.005 % drops Administer into affected eye(s). As directed Active Latanoprost 0.00 5 % 1 drop once at HS Active Latanoprost 0.00 5 % 1 drop once at HS Active Latanoprost SOLN as directed Quantity: 0 Refills: 0 Ordered: 13-Sep-2022 DO Active latanoprost Opth 0.005% Chika (1 source) Start: 10-26-2015 latanoprost Op th 0.005% Chika 1 drop(s), OPTH, Once a day (at bedtime), 2.5 mL, Refill(s) 0 Start Date: 10/26/15 Status: Ordered Mometasone (20 sources) Corticosteroid Start: 08-08-2019 Asmanex Inhala tion Start Date: 08/08/19 Status: Ordered take 1 puff(s) by in halation once daily in the evening mometasone (Asmanex Twisthaler) 220 mcg/ actuation (120) aerosol powdr breath activated Inhale 1 puff once daily in the evening. Active take 2 puff(s) by inhalation twi ce daily Asmanex HFA 100 MCG/ACT 2 puffs Inhalation Twice a day for 90 days Active Mometasone (Asmanex Hfa) 100 mcg/actuation HFA aerosol inhaler (3 sources) Start: 11-01-2024 take 1 puff(s) by inhalation twice daily Mometasone (Asmanex Hfa) 100 mcg/actuation HFA aerosol inhaler Active 2 PUFF INHALATION Twice daily November 01, 2024 1:00am Start: 11-01-2024 take 1 puff(s) by in halation twice daily Mometasone (Asmanex Hfa) 100 mcg/actuation HFA aerosol inhaler Active 2 PUFF INHALATION Twice daily November 01, 2024 12:00am montelukast 10 mg oral tablet (20 sources) Leukotriene Receptor Antagonist Start: 12-18-2024 take 1 tablet by mouth once daily Montelukast 10 mg tablet Active 10 MG PO Daily December 18, 2024 1:00am FreeTextSig: TAKE 1 TABLET BY MOUTH ONCE DAILY; Note: Source Status: Taking; Refills: 3; Qty: 90 Tablet; Provider: Filipe Dan ( ) Start: 01-08-2024 End: 12-19-2024 take 1 tablet by mouth once daily Montelukast 10 mg tablet Discontinued 0 .ROUTE .COMPLEX January 08, 2024 10:02am December 19, 2024 11:59am TAKE 1 TABLET BY MOUTH ONCE DAILY Start: 09-06-2022 End: 01-08-2024 take 1 tablet by mouth at bedtime Montelukast (Singulair) 10 mg Tablet Discontinued 10 MG PO Bedtime September 06, 2022 1:00am January 08, 2024 10:02am Start: 08-08-2019 Singulair Edwin y Start Date: 08/08/19 Status: Ordered polyethylene glycol 3350 22501 mg powder for oral solution (20 sources) Osmotic Laxative Start: 09-06-2022 Polyethylene Glycol 3350 (Miralax) 17 gram/dose Powder Active 17 GM PO Daily September 06, 2022 1:00am MiraLax Active predniSONE 20 mg oral tablet (2 sources) Start: 01-08-2025 take 2 tablets by mouth once daily Prednisone 20 mg tablet Active 20 MG PO .COMPLEX January 08, 2025 12:00am Take 2 tabs po daily x 5 days simvastatin 20 mg oral tablet (20 sources) HMG-CoA Reductase Inhibitor Start: 01-24-2024 End: 07-17-2024 take 1 tablet by mouth at bedtime Simvastatin 20 mg tablet Active 0 .ROUTE .COMPLEX July 17, 2024 1:22pm TAKE 1 TABLET BY MOUTH AT BEDTIME Start: 10-26-2015 End: 01-24-2024 take 1 tablet by mouth at bedtime Simvastatin 20 mg Tablet Discontinued 20 MG PO Bedtime September 06, 2022 1:00am January 24, 2024 9:37am spironolactone 25 mg oral tablet (18 sources) Aldosterone Antagonist Start: 12-18-2024 take 1 tablet by mouth once daily Spironolactone (Aldactone) 25 mg tablet Active 25 MG PO Daily December 18, 2024 1:00am FreeTextSi tablet Orally; Note: Source Status: Taking; Provider: Filipe Dan ( ) Start: 11-13-2023 take 1 tablet by dominick th once daily spironolactone (Aldactone) 25 mg tablet Indications: Essential (primary) hypertension TAKE 1 TABLET BY MOUTH DAILY 90 tablet 3 11/13/2023 Active Start: 02-03-2023 Aldactone Oral , Refills(s) 0 Start Date: 02/03/23 Status: Ordered Start: 09-13-2022 take 1 tablet by dominick th once daily Spironolactone 25 MG Oral Tablet TAKE 1 TABLET DAILY. Quantity: 90 Refills: 3 Ordered: 08-Nov-2022 Johnna Gutierrez Start : 13-Sep-2022 Active Start: 09-13-2022 take 0.5 tablet by [facility] once daily Spironolactone 25 MG Oral Tablet TAKE 0.5 TABLET Daily Quantity: 15 Refills: 0 Ordered: 12-Oct-2022 Johnna Gutierrez Start : 13-Sep-2022 Active Timolol Maleate (19 sources) beta-Adrenergic Finesse Start: 12-18-2024 take 1 drop(s) i nto the eye(s) twice daily Start: 12-18-2024 take 1 drop(s) into the eye(s) twice daily Start: 10-26-2015 timolol hemihy drate ophthalmic 0.25% solution Eye-Both, Daily, Refill(s) 0 Start Date: 10/26/15 Status: Ordered Start: 10-26-2015 timolol hemihy drate ophthalmic 0.25% solution Eye-Both, Daily, Refill(s) 0 Start Date: 10/26/15 Status: Ordered timolol (Timopti c) 0.5 % ophthalmic solution Administer into affected eye(s). As directed Active Timolol Maleate SOLN as directed Quantity: 0 Refills: 0 Ordered: 13-Sep-2022 DO Active valsartan 80 mg oral tablet (20 sources) Angiotensin 2 Receptor Finesse Start: 12-19-2024 take 1 tablet by mouth once daily Valsartan 80 mg tablet Active 80 MG PO Daily December 19, 2024 1:00am Start: 12-18-2024 End: 12-19-2024 take 1 tablet by mouth once daily Valsartan 160 mg tablet Discontinued 160 MG PO Daily December 18, 2024 1:00am December 19, 2024 12:02pm FreeTextSi tablet Orally Once a day; Note: Source Status: Taking; Provider: Filipe Dan ( ) Start: 07-31-2024 take 1 tablet by dominick th once daily valsartan (Diovan) 160 mg tablet Indications: Essential hypertension Take 1 tablet (160 mg) by mouth once daily. For blood pressure 90 tablet 3 07/31/2024 Active Start: 09-09-2022 End: 07-31-2024 valsartan 160 mg Tab Refills (s) 0 Start Date: 02/05/24 Status: Ordered warfarin sodium 2.5 mg oral tablet (20 sources) Vitamin K Antagonist Start: 12-18-2024 take 1 tablet by mouth two times weekly Warfarin 2.5 mg tablet Active 2.5 MG PO December 18, 2024 1:00am FreeTextSi tablet Orally Two times a Week; Note: Source Status: Taking; Provider: Filipe Dan ( ) Start: 02-05-2024 warfarin 2.5 m g Tab Refills(s) 0 Start Date: 02/05/24 Status: Ordered Start: 08-19-2019 Coumadin Oral, Daily, Refills(s) 0 Start Date: 08/19/19 Status: Ordered warfarin (Coumad in) 6 mg tablet Take 1 tablet (6 mg) by mouth. Active take 1 tablet by dominick th two times weekly Coumadin 2.5 2.5 MG 1 tablet Orally Two times a Week Active Coumadin TABS TA KE 1 TABLET DAILY DIRECTED. [facility] monitors coumadin Quantity: 0 Refills: 0 Ordered: 11-Aug-2022 DO Active Completed/Discontinued Medications Medication Drug Class(es) Dates Sig (Normalized) Sig (Original) clobetasol propionate 0.5 mg/ml topical cream (7 sources) Corticosteroid Start: 12-18-2024 End: 12-19-2024 Clobetasol 0.05 % cream Discontinued 1 APPLIC TOPICAL Twice daily December 18, 2024 1:00am December 19, 2024 11:57am FreeTextSi application Externally Twice a day; Note: Source Status: Taking; Provider: Filipe Storm Clobetasol Propi danae 0.05 % 1 application Externally Twice a day for 10 days Active Clobetasol Propi danae 0.05 % 1 application Externally Twice a day for 10 days Active cloNIDine hydrochloride 0.2 mg oral tablet (20 sources) Central alpha-2 Adrenergic Agonist Start: 09-06-2022 End: 12-19-2024 take 1 tablet by mouth twice daily Clonidine Hcl 0.2 mg Tablet Discontinued 0.2 MG PO Twice daily September 06, 2022 1:00am December 19, 2024 11:58am Start: 10-26-2015 cloNIDine 0.1 mg tab Oral, BID, Refills(s) 0 Start Date: 10/26/15 Status: Ordered flecainide acetate 50 mg oral tablet (20 sources) Antiarrhythmic Start: 08-25-2022 End: 12-19-2024 Flecainide 50 mg tablet Discontinued 50 MG PO As Directed December 18, 2024 1:00am December 19, 2024 11:58am FreeTextSig: as directed Orally; Note: Source Status: Taking; Provider: Filipe Dan ( ) losartan potassium 50 mg oral tablet (12 sources) Angiotensin 2 Receptor Finesse Start: 08-08-2019 End: 12-19-2024 take 1 tablet by mouth once daily Losartan 50 mg Tablet Discontinued 50 MG PO Daily September 06, 2022 1:00am December 19, 2024 11:59am Mometasone (Asmanex Twisthaler) 220 mcg/ actuation (120) Aerosol Powdr Breath Activated (4 sources) Start: 09-06-2022 End: 03-13-2024 Mometasone (Asmanex Twisthaler) 220 mcg/ actuation (120) Aerosol Powdr Breath Activated Discontinued 1 INH INHALATION Daily September 06, 2022 1:00am March 13, 2024 1:17pm IN THE EVENING Start: 09-06-2022 End: 03-13-2024 Mometasone (Asmanex Twisthal er) 220 mcg/ actuation (120) Aerosol Powdr Breath Activated Discontinued 1 INH INHALATION Daily September 06, 2022 12:00am March 13, 2024 12:17pm IN THE EVENING Start: 09-06-2022 Mometasone (As manex Twisthaler) 220 mcg/ actuation (120) Aerosol Powdr Breath Activated Active 1 INH INHALATION Daily September 06, 2022 12:00am IN THE EVENING Mometasone (Asmanex Twisthal er) 220 mcg/ actuation (120) aerosol powdr breath activated (6 sources) Start: 10-21-2024 End: 11-01-2024 Mometasone (Asmanex Twisthal er) 220 mcg/ actuation (120) aerosol powdr breath activated Discontinued 2 INH INHALATION Twice daily October 21, 2024 11:23am November 01, 2024 3:04pm IN THE EVENING Start: 10-21-2024 End: 11-01-2024 Mometasone (Asmanex Twisthal er) 220 mcg/ actuation (120) aerosol powdr breath activated Discontinued 2 INH INHALATION Twice daily October 21, 2024 10:23am November 01, 2024 2:04pm IN THE EVENING Start: 03-13-2024 End: 10-21-2024 Mometasone (Asmanex Twisthal er) 220 mcg/ actuation (120) aerosol powdr breath activated Discontinued 1 INH INHALATION Daily March 13, 2024 1:16pm October 21, 2024 11:23am IN THE EVENING Start: 03-13-2024 End: 10-21-2024 Mometasone (Asmanex Twisthal er) 220 mcg/ actuation (120) aerosol powdr breath activated Discontinued 1 INH INHALATION Daily March 13, 2024 12:16pm October 21, 2024 10:23am IN THE EVENING pantoprazole 20 mg delayed release oral tablet (20 sources) Proton Pump Inhibitor Start: 12-27-2023 End: 12-12-2024 take 1 tablet by mouth once daily Pantoprazole 20 mg tablet,delayed release (DR/EC) Discontinued 0 .ROUTE .COMPLEX 90 December 27, 2023 3:06pm December 12, 2024 10:20am TAKE 1 TABLET BY MOUTH DAILY Start: 09-06-2022 End: 12-27-2023 take 1 tablet by mouth once daily Pantoprazole (Protonix) 20 mg Tablet,Delayed Release (Dr/Ec) Discontinued 20 MG PO Daily September 06, 2022 1:00am December 27, 2023 3:06pm Start: 08-08-2019 Protonix Oral, Daily Start Date: 08/08/19 Status: Ordered Pantoprazole 20 mg tablet,delayed release (DR/EC) (3 sources) Start: 12-12-2024 End: 12-19-2024 take 1 tablet by mouth once daily Pantoprazole 20 mg tablet,delayed release (DR/EC) Discontinued 0 .ROUTE .COMPLEX 90 December 12, 2024 10:20am December 19, 2024 12:20pm TAKE 1 TABLET BY MOUTH DAILY Start: 12-12-2024 End: 12-19-2024 take 1 tablet by mouth once daily Pantoprazole 20 mg tablet,delayed release (DR/EC) Discontinued 0 .ROUTE .COMPLEX 90 December 12, 2024 9:20am December 19, 2024 11:20am TAKE 1 TABLET BY MOUTH DAILY terbinafine 250 mg oral tablet (3 sources) Allylamine Antifungal Start: 12-18-2024 End: 12-19-2024 take 1 tablet by mouth once daily Terbinafine Hcl 250 mg tablet Discontinued 250 MG PO Daily December 18, 2024 1:00am December 19, 2024 12:01pm FreeTextSi tablet Orally Once a day; Note: Source Status: Start; Qty: 14 Tablet; Provider: Filipe Steen Active Problems Problem Classification Problem Date Documented Da te Episodic/Chronic Allergic reactions (2 sources) Irritant contact dermatitis due to drugs in contact with skin Episodic Asthma (2 sources) Exacerbation of asthma; Translations: [Unspecified asthma with (acute) exacerbation] 01-08-2025 Chronic Calculus of urinary tract (7 sources) Kidney stone; Translations: [Calculus of kidney] Onset: 2 Episodic Cancer of prostate (3 sources) Carcinoma of prostate 01-28-2022 Chronic Cancer of prostate (11 sources) Personal history of malignant neoplasm of prostate; Translations: [History of malignant neoplasm of prostate] Onset: 2 Episodic Cardiac dysrhythmias (20 sources) Paroxysmal atrial fibrillation; Translations: [Atrial fibrillation] Onset: 3 Chronic Cardiac dysrhythmias (4 sources) Bradycardia; Translations: [Bradycardia, unspecified] Onset: 3 07-31-2024 Episodic Disorders of lipid metabolism (20 sources) Hyperlipidemia; Translations: [Mixed hyperlipidemia] Onset: 2 08-08-2019 Chronic Esophageal disorders (4 sources) Gastroesophageal reflux disease; Translations: [Gastro-esophageal reflux disease without esophagitis] 12-19-2024 Chronic Essential hypertension (20 sources) Hypertensive disorder; Translations: [Essential hypertension] Onset: 2 08-08-2019 Chronic Genitourinary symptoms and ill-defined conditions (9 sources) Microscopic hematuria; Translations: [Other microscopic hematuria] Onset: 2 Episodic Glaucoma (3 sources) Glaucoma 08-08-2019 Chronic Immunizations and screening for infectious disease (3 sources) Patient encounter status; Translations: [Encounter for immunization] 08-02-2024 Episodic Inflammatory conditions of male genital organs (3 sources) Epididymitis 08-08-2019 Episodic Other aftercare (15 sources) Drug therapy finding; Translations: [Long-term (current) use of other medications] Episodic Other aftercare (5 sources) Encounter for therapeutic drug level monitoring; Translations: [ENC THERAPEUTC DRUG LEVL MONITORING] Onset: 3 Episodic Other aftercare (1 source) FDC (current) use of anticoagulants; Translations: [RETIREMENT CURRNT USE ANTICOAGULANTS] Onset: 3 Episodic Other aftercare (3 sources) Other senior care (current) drug therapy; Translations: [OTH LEAD CARPENTER CURRENT DRUG THERAPY] Onset: 2 Episodic Other aftercare (2 sources) Taking high risk medication; Translations: [Other senior care (current) drug therapy] Onset: 3 07-31-2024 Episodic Other and ill-defined heart disease (16 sources) Left ventricular hypertrophy; Translations: [Cardiomegaly] Onset: 3 06-15-2023 Chronic Other diseases of bladder and urethra (3 sources) Urethral stricture 08-19-2019 Episodic Other endocrine disorders (3 sources) Disorder of adrenal gland; Translations: [Other specified disorders of adrenal gland] Onset: 2 Chronic Other endocrine disorders (3 sources) Mass of right adrenal gland 01-25-2021 Chronic Other gastrointestinal disorders (3 sources) History of gastrointestinal bleed 08-08-2019 Episodic Other lower respiratory disease (2 sources) Cough; Translations: [Cough] 01-08-2025 Episodic Other nervous system disorders (5 sources) [...] more but less than 30; Translations: [Overweight] Onset: 4 07-31-2024 Episodic Other nutritional; endocrine; and metabolic disorders (2 sources) Body mass index (BMI) 26.0-26.9, adult; Translations: [Body mass index (BMI) 26.0-26.9, adult] Onset: 4 Episodic Other screening for suspected conditions (not mental disorders or infectious disease) (20 sources) Raised prostate specific antigen; Translations: [Patient encounter status] Onset: 2 08-08-2019 Episodic Other skin disorders (1 source) Corns and callosities Episodic Screening and history of mental health and substance abuse codes (20 sources) Ex-smoker; Translations: [Personal history of tobacco use] Onset: 2 07-31-2024 Episodic Unclassified (3 sources) Drug therapy finding 05-25-2020 Unclassified (2 sources) Asymptomatic microscopic hematuria 02-02-2023 Unclassified (1 source) Cough, unspecified; Translations: [Cough, unspecified] Onset: 5 Past or Other Problems Problem Classification Problem Date Documented Da te Episodic/Chronic Other nutritional; endocrine; and metabolic disorders (1 source) Overweight; Translations: [Overweight] Onset: 06-15-2023 Resolved: 07-31-2024 07-31-2024 Episodic Residual codes; unclassified (1 source) Acquired absence of other genital organ(s); Translations: [ACQUIRED ABSENCE OTH GENITAL ORGANS] Onset: 09-13-2022 Episodic Unclassified (1 source) Onset: 07-31-2024 07-31-2024 Results Test Name Value Interpretation Reference Range Facility Reminderson 01-16-2025 Reminders Reminders From: Iris Lu To: EU - Recalllenny Forte; Sent: 02/05/2024 10:12:52 EDT Show up: 12/21/2024 10:12:00 EST Subject: Ct scan Due Date/Time: 01/13/2025 10:12:00 EDT Reminder/Recall Patient needs Sched for Ct scan ABD/Pelvis w/wo sched before 02/03/25 appt PSA order given to pt Order for CT faxed to [facility]. Will monitor for scheduling. Normal [facility] X-ray reportOrdered By: Giovanny Quinones on 01-08-2025 Study report [facility] [place] [address] XRay Report Signed Patient: Joao Boggs MR#: [id number] : 1950 Acct:[id number] Age/Sex: 74 / M ADM Date: 5 Loc: XDUC Room: Type: [facility] Attending Dr: Azul London APRN Copies to: Azul London APRN~ Ordering Provider: Azul London APRN Date of Service: 01/08/25 XR/XR chest 2V*: R05.9 - Cough, unspecified Chest 2 views CLINICAL HISTORY: Preproductive cough chest congestion and wheezing shortness ofbreath for 8 days. COMPARISON: None FINDINGS: Heart normal in size. Bibasilar atelectasis with elevation the right hemidiaphragm. No consolidation pneumothorax pleural effusion or free air. XR/XR chest 2V* IMPRESSION: BIBASILAR ATELECTASIS WITH ELEVATION OF THE RIGHT HEMIDIAPHRAGM. NO CONSOLIDATION TO SUGGEST PNEUMONIA. Impression dictated by: Arthur Quinones Jr., D.O.01/08/2025 11:25 AM Dictation Location: [place] [address] Transcribed By: [facility] 01/08/25 1125 Dictated By: Arthur Quinones Jr, DO 01/08/25 1124 Signed By: 01/08/25 1125 [facility] XR chest 2V*on 01-08-2025 XR chest 2V* [facility] [place] [address] [place] [address] XRay Report Signed Patient: Joao Boggs MR#: [id number] : 1950 Acct:[id number] Age/Sex: 74 / M ADM Date: 01/08/25 Loc: XDUCLY Room: Type: [facility] Attending Dr: Azul London STRAPPER Copies to: Azul London APRN Ordering Provider: Azul London APRN Date of Service: 01/08/25 XR/XR chest 2V*: R05.9 - Cough, unspecified Chest 2 views CLINICAL HISTORY: Preproductive cough chest congestion and wheezing shortness of breath for 8 days. COMPARISON: None FINDINGS: Heart normal in size. Bibasilar atelectasis with elevation the right hemidiaphragm. No consolidation pneumothorax pleural effusion or free air. XR/XR chest 2V* IMPRESSION: BIBASILAR ATELECTASIS WITH ELEVATION OF THE RIGHT HEMIDIAPHRAGM. NO CONSOLIDATION TO SUGGEST PNEUMONIA. Impression dictated by: Arthur Quinones Jr., D.O.01/08/2025 11:25 AM Dictation Location: [place] [address] Transcribed By: [facility] 01/08/25 1125 Dictated By: Arthur Quinones Jr, DO 01/08/25 1124 Signed By: 01/08/25 1125 Normal [facility] ECG 12 Leadon 07-31-2024 Sinus bradycardia, r ight bundle branch block, persistent inferolateral T wave abnormality, voltage criteria for left ventricular hypertrophy [facility] Work Phone: [facility] Work Phone: Ambulatory Visit Summaryon 0 02-05-2024 Ambulatory Visit Summary JOAO BOGGS :1950 Visit Date:02/05/2024 Ambulatory Visit Instructions Your [...] VAUGHAN, Kyle Valadez Where: [facility] Patient Educationon 02-05-20 24 Patient Education Oncology Prostate Cancer Screening Prostate [...] Where to find more information ? The [employer]: www.cancer.org ? [employer]: www.auanet.org Contact a health care [...] adds flu (more content not included)... Normal [facility] Urology Office/Clinic Noteon 02-05-2024 Urology Office/Clinic Note Chief Complaint personal hx of prostate cancer and mass of right adrenal gland HPI Staff 1 yr w/ PSA. Previous dx: personal hx of prostate cancer, asymptomatic microscopic hematuria, kidney stone, mass of right adrenal gland. Prostatectomy 2015 and EBRT 2016. S/p Cysto 09/04/18. ZIA done 01/23/24 at [facility]. PSA 01/23/24 - <0.13. Dysuria: no [...] [facility] [address], [place] [address]- [phone] Additional Instructions: 1 yr w/ PSA and CT scan Patient Education Prostate Cancer Screening IChristina, personally scribed for Dr. Forte on 02/05/2024 [...] timolol hemihy (more content not included)... Normal [facility] Comment on above: Result Comment: Elec tronically Signed By: Kyle FORTE MD\.br\Date and Time Signed: 02/05/24 10:10 EDT\.br\Electronically Co-Signed By: Christina Pompa\.br\Date and Time Co-Signed: 02/05/24 10:09 EDT Lab Reportson 01-24-2024 Lab Reports [id number] [facility] RAD - Ultrasound Reporton RAD - Ultrasound Report [id number] [facility] Office Visit (Cardiology)on 01-04-2023 Follow-up visit Diagnoses/Problems [...] the office if new symptoms arise. Dr. Lane as scheduled Chief Complaint 1 month f/u: [...] DAILY. Coumadin TABSTAKE 1 TABLET DAILY DIRECTED. [facility] monitors coumadin dilTIAZem HCl - 60 [...] and affect . Signatures Johnna Renae MSN, STRAPPER-YARD PERSON, PMHNP-BC [facility] OnAir3Gy Please excuse any errors in grammar or trans (more content not included)... Normal [place] Tobacco Screening.on 023 Fall risk assessment a) No falls within the last year [facility] XM Radio 250 DO Work Phone: Tobacco use status CP b) No [facility] Receptosy 250 DO Work Phone: Office Visit (Cardiology)on 11-08-2022 Follow-up visit Diagnoses/Problems Assessed Essential hypertension (401.9) (I10) Overweight with body mass index (BMI) of 25 to 25.9 in adult (278.02,V85.21) (E66.3,Z68.25) Orders Essential hypertension Renew: Spironolactone 25 MG Oral Tablet; TAKE 1 TABLET DAILY Overweight with body mass index (BMI) of 25 to 25.9 in adult Healthy Weight Tips; Status:Complete; Done: [id number] Paroxysmal atrial fibrillation Renew: Flecainide Acetate 50 [...] contact the office if new symptoms arise. 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 No caffeine, alcohol, energy drinks, cgdu-thz-dirvvuv medications. At this time, patient does not [...] DAILY. Coumadin TABSTAKE 1 TABLET DAILY DIRECTED. [facility] monitors coumadin dilTIAZem HCl - 90 [...] Recorded: 08Nov2022 02:34PM Heart Rate48, L Radial Juajvuac971, LUE, Sitting Ztpnqrwgm570, LUE, Sitting Height5 ft 7 in Prtilb460 lb BMI Ahnmhnqfvz76.06 kg/m2 BSA Calculated1.84 Tobacco Useb) No PHQ-2 #1. Over the last 2 weeks have you felt down, depressed or hopeless? (If yes, answer PHQ-9 below)No PHQ-2 #2. Over the last 2 weeks have you felt little interest or pleasu (more content not included)... Normal [place] Tobacco Screening.on 023 Adult depression screening assessment No [facility] Magnetic Software-[employer] 250 DO Work Phone: Fall risk assessment a) No falls within the last year [facility] XM Radio 250 DO Work Phone: Tobacco use status CPHS b) No [facility] [employer] 250 DO Work Phone: Office Visit (Cardiology)on [...] in adult Healthy Weight Tips; Status:Complete; Done: [id number] Paroxysmal atrial fibrillation Changed: From dilTIAZem HCl [...] contact the office if new symptoms arise. 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 He completed lab work at [place] and will need to obtain. Has [...] dyspnea on exertion. They have obtained a [employer] mobile device with no documented atrial fibrillation. [...] can verify accuracy. Will obtain labs from [facility] History of Present Illness The patient [...] DAILY. Coumadin TABSTAKE 1 TABLET DAILY DIRECTED. [facility] monitors coumadin dilTIAZem HCl - 90 [...] BEDTIME. Sin (more content not included)... Normal [place] Tobacco Screening.on 022 Fall risk assessment a) No falls within the last year [facility] X[employer] Radio 250 DO Work Phone: Tobacco use status CPHS b) No [facility] [employer] 250 DO Work Phone: DOUGLAS - TSHon 10-04-2022 TSH 2.003 uIU/mL Normal 0.358-3.74 0 [facility] Comment on above: Performed By: #### D ATTSH #### [facility] [address] [place] [address] [address] Farida Braun TSH RANGE SEE BELOW Normal [facility] Comment on above: Result Comment: <0.3 4 UIU/ml HYPERTHYROID 0.34-5.60 UIU/ml EUTHYROID >5.60 UIU/ml HYPOTHYROID Performed By: #### D ATTSH #### [facility] [address] [place] [address] [address] Farida Braun PROF CHEM 8 (BAS METB)on Anion gap [Moles/Vol] 7.5 mmol/L Normal [facility] Comment on above: Performed By: #### B MP #### [facility] [address] [place] [address] Dr. Farida Braun Calcium [Mass/Vol] 9.3 mg/dL Normal 8.5-10.1 [facility] Comment on above: Performed By: #### B MP #### [facility] [address] [place] [address] [address] Farida Braun Chloride [Moles/Vol] 101 mmol/L Normal 98-107 [facility] Comment on above: Performed By: #### B MP #### [facility] [address] [place] [address] [address] Farida Braun CO2 [Moles/Vol] 35.1 mmol/L Critically high 21.0-32.0 [facility] Comment on above: Performed By: #### B MP #### [facility] [address] [place] [address] [address] Farida Braun Creatinine [Mass/Vol] 1.13 mg/dL Normal 0.70-1.30 [facility] Comment on above: Performed By: #### B MP #### [facility] [address] [place] [address] Dr. Farida Braun EGFR-AF ALGERIAN >60 Normal >=60 [facility] Comment on above: Performed By: #### B MP #### [facility] [address] [place] [address] Dr. Farida Braun EGFR-NON AF ALGERIAN >60 Normal >=60 [facility] Comment on above: Performed By: #### B MP #### [facility] [address] [place] [address] Dr. Farida Braun Glucose [Mass/Vol] 111 mg/dL Critically high 74-106 [facility] Comment on above: Performed By: #### B MP #### [facility] [address] [place] [address] [address] Farida Braun Potassium [Moles/Vol] 4.6 mmol/L Normal 3.5-5.1 [facility] Comment on above: Performed By: #### B MP #### [facility] [address] [place] [address] Dr. Farida Braun Sodium [Moles/Vol] 139 mmol/L Normal 136-145 [facility] Comment on above: Performed By: #### B MP #### [facility] [address] [place] [address] Dr. Farida Braun Urea nitrogen [Mass/Vol] 24.0 mg/dL Critically high 7.0-18.0 [facility] Comment on above: Performed By: #### B MP #### [facility] [address] [place], [place] [address] Dr. Farida Braun Urea nitrogen/Creatinine [Mass ratio] 21.2 mg/mg Normal [facility] Comment on above: Performed By: #### B MP #### [facility] [address] [place], [place] [address] Dr. Farida Braun Office Visit (Cardiology)on 09-13-2022 [...] contact the office if new symptoms arise. 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 Patient presents to the office ambulatory with steady gait, is accompanied by . Last evaluated in clinic Dr. Lane July 2022. At that time, patient was noted to have atrial fibrillation and dose of diltiazem was increased. August 2022 initiated on flecainide 50 mg twice daily with uneventful September 06, 2022 cardioversion with episcopalian of normal sinus rhythm. Patient had called [...] of caffeine daily, no alcohol intake. No qvcq-zvw-owrphml medications. No prior sleep apnea testing. EKG in office today is maintaining normal sinus rhythm and he reportedly feels better with episcopalian of normal sinus rhythm. Has a little [...] DAILY. Coumadin TABSTAKE 1 TABLET DAILY DIRECTED. [facility] monitors coumadin dilTIAZem HCl - 90 MG Oral TabletTAKE 1.5 TABLET Daily Flecainide Acetate 50 MG Oral TabletTAKE 1 TABLET TWICE DAILY. hydroCHLOROthiazide 12.5 MG Oral TabletTAKE 1 TABLET DAILY. Latanoprost SOLNas directed MiraLax 17 GM Oral Packet Protonix 20 MG Oral Tablet Delayed ReleaseTAKE 1 TABLET DAILY. Simvastatin 20 MG Oral TabletTAKE 1 TABLET AT BEDTIME. Donir 10 MG Oral TabletTAKE 1 TABLET AT [...] 13Sep2022 12:37PM (more content not included)... Normal [place] Tobacco Screening.on 022 Fall risk assessment a) No falls within the last year [facility] Heart-Sandu gray 250 DO Work Phone: Tobacco use status [facility] b) No -[facility] Heart-Sandu gray 250 DO Work Phone: Tobacco Screening. Yes [facility] Heart-Sandu gray 250 DO Work Phone: CBC AUTO DIFFon 09-09-2022 BASO # 0.1 103/ul Normal 0.0-0.1 [facility] Comment on above: Performed By: #### C BC #### [facility] [address] [place] [address] [address] Farida Braun Basophils/100 WBC (Bld) 0.7 % Normal 0.2-2.0 [facility] Comment on above: Performed By: #### C BC #### [facility] [address] [place] [address] [address] Farida Braun EO # 0.0 103/ul Normal 0.0-0.7 [facility] Comment on above: Performed By: #### C BC #### [facility] [address] [place] [address] [address] Farida Braun Eosinophils/100 WBC (Bld) 0.1 % Critically low 0.9-7.0 [facility] [place] [facility] Comment on above: Performed By: #### C BC #### [facility] [address] [place] [address] Dr. Farida Braun Erythrocyte distribution width (RBC) [Ratio] 14.5 % Normal 11.0-15.0 [facility] Comment on above: Performed By: #### C BC #### [facility] [address] [place] [address] Dr. Farida Braun Hematocrit (Bld) [Volume fraction] 42.5 % Normal 42.0-54.0 [facility] Comment on above: Performed By: #### C BC #### [facility] [address] [place] [address] Dr. Farida Braun Hemoglobin (Bld) [Mass/Vol] 13.9 g/dL Critically low 14.0-18.0 [facility] Comment on above: Performed By: #### C BC #### [facility] [address] [place] [address] Dr. Farida Braun IG # 0.01 10e3/ul Normal 0.00-0.03 [facility] Comment on above: Performed By: #### C BC #### [facility] [address] [place] [address] Dr. Farida Braun IG % 0.1 % Normal 0.0-0.5 [facility] Comment on above: Performed By: #### C BC #### [facility] [address] [place] [address] Dr. Farida Braun LYMPH # 1.3 103/ul Normal 1.2-3.8 [facility] Comment on above: Performed By: #### C BC #### [facility] [address] [place] [address] Dr. Farida Braun Lymphocytes/100 WBC (Bld) 18.0 % Critically low 20.5-60.0 [facility] Comment on above: Performed By: #### C BC #### [facility] [address] [place] [address] Dr. Farida Braun MANUAL DIFF REQ NO Normal [facility] Comment on above: Performed By: #### C BC #### [facility] [address] [place] [address] [address] Farida Braun MCH (RBC) [Entitic mass] 29.0 pg Normal 25.9-34.0 [facility] Comment on above: Performed By: #### C BC #### [facility] [address] [place] [address] Dr. Farida Braun MCHC (RBC) [Mass/Vol] 32.7 g/dL Normal 29.9-35.2 [facility] Comment on above: Performed By: #### C BC #### [facility] [address] [place] [address] Dr. Farida Braun MCV (RBC) [Entitic vol] 88.5 fL Normal 80.0-94.0 [facility] Comment on above: Performed By: #### C BC #### [facility] [address] [place] [address] Dr. Farida Braun MONO # 0.9 103/ul Critically high 0.3-0.8 [facility] Comment on above: Performed By: #### C BC #### [facility] [address] [place] [address] Dr. Farida Braun Monocytes/100 WBC (Bld) 12.1 % Critically high 1.7-12.0 [facility] Comment on above: Performed By: #### C BC #### [facility] [address] [place] [address] Dr. Farida Braun NEUT # 5.0 103/ul Normal 1.4-6.5 [facility] Comment on above: Performed By: #### C BC #### [facility] [address] [place] [address] Dr. Farida Braun Neutrophils/100 WBC (Bld) 69.0 % Normal 43.0-75.0 [facility] Comment on above: Performed By: #### C BC #### [facility] [address] [place] [address] Dr. Farida Braun Platelet mean volume (Bld) [Entitic vol] 11.7 fL Normal 9.5-13.5 [facility] Comment on above: Performed By: #### C BC #### [facility] [address] [address] [address] Farida Braun PLT 206 103/ul Normal 150-450 [facility] Comment on above: Performed By: #### C BC #### [facility] [address] [place] [address] Dr. Farida Braun RBC 4.80 106/ul Normal 4.70-6.10 [facility] Comment on above: Performed By: #### C BC #### [facility] [address] [place] [address] Dr. Farida Braun WBC 7.2 103/ul Normal 4.0-11.0 [facility] Comment on above: Performed By: #### C BC #### [facility] [address] [place] [address] Dr. Farida Braun PROF CHEM 8 (BAS METB)on Anion gap [Moles/Vol] 5.2 mmol/L Normal [facility] Comment on above: Performed By: #### B MP #### [facility] [address] [place] [address] Dr. Farida Braun Calcium [Mass/Vol] 9.6 mg/dL Normal 8.5-10.1 [facility] Comment on above: Performed By: #### B MP #### [facility] [address] [place] [address] Dr. Farida Braun Chloride [Moles/Vol] 101 mmol/L Normal 98-107 [facility] Comment on above: Performed By: #### B MP #### [facility] [address] [place] [address] Dr. Farida Braun CO2 [Moles/Vol] 34.6 mmol/L Critically high 21.0-32.0 [facility] Comment on above: Performed By: #### B MP #### [facility] [address] [place] [address] Dr. Farida Braun Creatinine [Mass/Vol] 0.98 mg/dL Normal 0.70-1.30 [facility] Comment on above: Performed By: #### B MP #### [facility] [address] [address] [address] Farida Braun EGFR-AF ALGERIAN >60 Normal >=60 [facility] Comment on above: Performed By: #### B MP #### [facility] [address] [address] [address] Farida Braun EGFR-NON AF ALGERIAN >60 Normal >=60 [facility] Comment on above: Performed By: #### B MP #### [facility] [address] [address] [address] Farida Braun Glucose [Mass/Vol] 90 mg/dL Normal 74-106 [facility] Comment on above: Performed By: #### B MP #### [facility] [address] [address] [address] Farida Braun Potassium [Moles/Vol] 3.8 mmol/L Normal 3.5-5.1 [facility] Comment on above: Performed By: #### B MP #### [facility] [address] [address] [address] Farida Braun Sodium [Moles/Vol] 137 mmol/L Normal 136-145 [facility] Comment on above: Performed By: #### B MP #### [facility] [address] [address] [address] Farida Braun Urea nitrogen [Mass/Vol] 17.0 mg/dL Normal 7.0-18.0 [facility] Comment on above: Performed By: #### B MP #### [facility] [address] [address] [address] Farida Braun Urea nitrogen/Creatinine [Mass ratio] 17.3 mg/mg Normal [facility] Comment on above: Performed By: #### B MP #### [facility] [address] [place] [address] Dr. Farida Braun Falls Screening (Age 18+)on 09-08-2022 Fall risk assessment a) No falls [facility] the [facility] 250 DO Work Phone: Fall risk assessment a) [facility] the [facility] Work Phone: V[facility] LAB Abdominal Aorta/Rasheeda ac/IVC Ultraon 09-08-2022 VASC LAB Abdominal Aorta/Iliac/IVC Ultra [address], [address] [place] [address] Vascular Lab Report Abdominal Aorta Iliac Ultrasound/IVC Ultrasound Patient Name: JOAO Cote Physician: [id number] Tyrone Walters MD, [facility] Study Date: 09/08/2022 Referring Physician: TA LANE MRN/PID: [id number] PCP: Christi Dent Accession/Order#: [id number] Report to: Date of : 1950 Technologist: Vilma Cottrell RD, [facility] Gender: M Technologist 2: Admission Status: Outpatient Location Performed: [facility] Diagnosis/ICD: Z25-Ffydmpxpe primary hypertension; Z13.6-Encounter for screening for cardiovascular disorders (AAA) Indication: Former Smoker, Overweight, Paroxysmal Atrial Fibrillation-s/p Cardioversion 09/06/2022 Procedure/CPT: 73225 Duplex Aorta/IVC/Iliac/Bypass Graft-[id number] CONCLUSIONS: Aorta/Common Iliac Arteries/IVC: No evidence of abdominal aortic aneurysm. Imaging AND Doppler Findings: AORTA AP Lateral PSV Proximal 2.15 cm 2.33 cm 158.0 cm/s Mid 2.13 cm 2.07 cm 47.0 cm/s Distal 2.27 cm 1.86 cm 52.0 cm/s RIGHT AP Lateral PSV NELIA Proximal 1.02 cm 1.20 cm 73.00 cm/s LEFT AP Lateral PSV NELIA Proximal 1.24 cm 1.10 cm 108.00 cm/s [id number] Tyrone Walters MD, FACC Final Normal [facility] VASC LAB Abdominal Aorta/Rasheeda ac/IVC Ultrasoundon 09-08-2022 VASC LAB Abdominal Aorta/Iliac/IVC Ultrasound Please click on the link to view the study images Normal [facility] 250 DO Work Phone: VASC LAB Abdominal Aorta/Iliac/IVC Ultrasound [facility] 250 DO Work Phone: Laboratory - CoagulationOrde red By: Tyrone Walters on 09-06-2022 PT Coag (PPP) [Time] 27.1 s 9.0-12.9 [facility] Laboratory - Coagulationon 1 11-06-2021 INR Coag (Bld) [Relative time] 2.4 {INR} [facility] 250 DO Work Phone: No Panel Informationon 09-06 2.4\S\2.4 Normal [place] [address] DO Work Phone: Comment on above: INR [...] with mechanical heart valves: 3 - 4.5PERFORMED BY:[facility] [place], [place] [id number] MEDICAL DIRECTORRODOLFO SCHWARTZ M.D. 27.1\S\27.1 above high threshold 9.0-12.9 [place] [address] DO Work Phone: 16.1\S\16.1 above high threshold 6.0-15.0 [facility] 250 DO Work Phone: Comment on above: PERFORMED BY:[facility] [place] [phone] MEDICAL DIRECTORRODOLFO SCHWARTZ M.D. 29.8\S\29.8 Normal 22.0-30.0 [facility] 250 DO Work Phone: 97\S\97 Normal 95-114 [facility] 250 DO Work Phone: 3.9\S\3.9 Normal 3.5-5.1 -[facility] Heart-Sandu gray 250 DO Work Phone: 139\S\139 Normal 136-146 [facility] gray 250 DO Work Phone: Platelet poor plasma interna tional normalized ratio (INR) by coagulation assay (relatOrdered By: Tyrone Walters on 09-06-2022 INR Coag (PPP) [Relative time] 2.4 {INR} [facility] Comment on above: INR Therapeutic Rang [...] with mechanical heart valves: 3 - 4.5 Serum or plasma anion gap de terminationOrdered By: Tyrone Walters on 09-06-2022 Anion gap [Moles/Vol] 16.1 mmol/L 6.0-15.0 [facility] Serum or plasma chloride michelle surement (moles/volume)Ordered By: Tyrone Walters on 09-06-2022 Chloride [Moles/Vol] 97 mmol/L 95-114 [facility] Serum or plasma potassium me asurement (moles/volume)Ordered By: Tyrone Walters on 09-06-2022 Potassium [Moles/Vol] 3.9 mmol/L 3.5-5.1 [facility] Serum or plasma sodium measu rement (moles/volume)Ordered By: Tyrone Walters on 09-06-2022 Sodium [Moles/Vol] 139 mmol/L 136-146 [facility] Serum or plasma total carbon dioxide measurement (moles/volume)Ordered By: Tyrone Walters on 09-06-2022 CO2 [Moles/Vol] 29.8 mmol/L 22.0-30.0 [facility] COVID-19 SOFIAOrdered By: Gilson Walters on 09-02-2022 SARS-CoV+SARS-CoV-2 (COVID-19) Ag IA.rapid Ql (Resp) Negative Negative [facility] Comment on above: This is a duplicate [place] SARS Antigen (COLT) result to be used for statistical tracking purpose only. Laboratory - Microbiology an d Antimicrobial susceptibilityon 09-02-2022 SARS-CoV-2 (COVID-19) RNA ROBB+probe Ql (Unsp spec) -[facility] gray 250 DO Work Phone: No Panel Informationon 09-02 Negative Normal Negative [facility] gray 250 DO Work Phone: Comment on above: This is a duplicate [place] SARS Antigen (COLT) result to be used for statistical tracking purpose only.PERFORMED BY:[place] [address] [address] [place], [place] [id number] MEDICAL DIRECTORRODOLFO SCHWARTZ M.D. No Panel InformationOrdered By: Tyrone Walters on 09-02-2022 SARS Antigen (LFIA) [facility] Office Visit (Cardiology)on 08-11-2022 Follow-up visit Diagnoses/Problems [...] Former smoker Tobacco Use Screening; Status:Complete; Done: [id number] Tobacco Use Screening; Status:Complete; Done: [id number] Unlinked Stop: dilTIAZem HCl - 90 MG [...] catheterization performed at outside hospital by another elevator service mechanic revealed more minimal coronary disease in 2016 [...] DAILY. Coumadin TABSTAKE 1 TABLET DAILY DIRECTED. [facility] monitors coumadin dilTIAZem HCl - 90 [...] Signs Recorded: 11Aug2022 10:00AM Heart Rate87, Apical Antanlhb728, LUE, Sitting Ploiyolfj59, LUE, Sitting Height5 ft 6 in Tgzcub027 lb 6 oz BMI Mpsbdbkcqv61.05 kg/m2 BSA Calculated1.83 Tobacco Useb) No PHQ-2 [...] S2, n (more content not included)... Normal Somoto Tobacco Screening.on 022 Adult depression screening assessment No [facility] [employer] 250 DO Work Phone: Fall risk assessment a) No falls within the last year [facility] [employer] 250 DO Work Phone: Tobacco use status CP b) No [facility] [employer] 250 DO Work Phone: Vital Signs Date Time Vital Sign Value Performing Clinician Facility 01-08-2025 12:47-0400 SaO2% (BldA) [Mass fraction] 95 % Christi Dent MD Work Phone: [facility] 01-08-2025 10:32-0400 Body height 167.64 cm Christi Dent MD Work Phone: [facility] 01-08-2025 10:32-0400 Body mass index (BMI) [Ratio] 27.1 kg/m2 Christi Dent MD Work Phone: [facility] 01-08-2025 10:32-0400 Body temperature 98 [degF] Christi Dent MD Work Phone: [facility] 01-08-2025 10:32-0400 Body weight 76.2 kg Christi Dent MD Work Phone: [facility] 01-08-2025 10:32-0400 Diastolic blood pressure 91 mm[Hg] Christi Dent MD Work Phone: [facility] 01-08-2025 10:32-0400 Heart rate 73 /min Christi Dent MD Work Phone: [facility] 01-08-2025 10:32-0400 Respiratory rate 18 /min Christi Dent MD Work Phone: [facility] 01-08-2025 10:32-0400 SaO2% (BldA) [Mass fraction] 91 % Chirsti Dent MD Work Phone: [facility] 01-08-2025 10:32-0400 Systolic blood pressure 141 mm[Hg] Christi Dent MD Work Phone: [facility] 12-19-2024 10:55-0500 Body height 170.[address] [facility] 12-19-2024 10:55-0500 Body mass index (BMI) [Ratio] 25.9 kg/m2 [facility] 12-19-2024 10:55-0500 Body weight 75.[address] [facility] 12-19-2024 10:55-0500 Diastolic blood pressure 72 mm[Hg] [facility] 12-19-2024 10:55-0500 Heart rate 68 /min [facility] 12-19-2024 10:55-0500 Systolic blood pressure 122 mm[Hg] [facility] 07-31-2024 09:32-0400 Body height 167.[address] DO Work Phone: [facility] 07-31-2024 09:32-0400 Body mass index (BMI) [Ratio] 26.37 kg/m2 Ta Lane DO Work Phone: [facility] 07-31-2024 09:32-0400 Body weight 74.[address] DO Work Phone: [facility] 07-31-2024 09:32-0400 Diastolic blood pressure 74 mm[Hg] Ta Lane DO Work Phone: [facility] 07-31-2024 09:32-0400 Heart rate 46 /min Ta Lane DO Work Phone: [facility] 07-31-2024 09:32-0400 Systolic blood pressure 138 mm[Hg] Ta Lane DO Work Phone: [facility] 02-05-2024 09:12-0400 Blood Pressure Location Kyle FORTE [facility] 02-05-2024 09:12-0400 Body temperature 98.6 [degF] Kyle FORTE [facility] 02-05-2024 09:12-0400 Diastolic blood pressure 77 mm[Hg] Kyle FORTE [facility] 02-05-2024 09:12-0400 Heart rate 55 /min Kyle FORTE [facility] 02-05-2024 09:12-0400 Respiratory rate 16 /min Kyle FORTE [facility] 02-05-2024 09:12-0400 Systolic blood pressure 135 mm[Hg] Kyle FORTE [facility] 08-04-2023 09:30-0400 Body height 162.56 cm Christi Dent Other [employer] [facility] [employer] Other 08-04-2023 09:30-0400 Body mass index (BMI) [Ratio] 26.91 kg/m2 Christi Dent Other [employer] Other 08-04-2023 09:30-0400 Body weight 71.12 kg Christi Dent Other [employer] Other 08-04-2023 09:30-0400 Diastolic blood pressure 93 mm[Hg] Christi Dent Other [employer] Other 08-04-2023 09:30-0400 Systolic blood pressure 147 mm[Hg] Christi Dent Other [employer] Other 01-04-2023 09:15-0400 Diastolic blood pressure 72 mm[Hg] Christi Dent Work Phone: [facility] 250 DO Work Phone: 01-04-2023 09:15-0400 Systolic blood pressure 124 mm[Hg] Christi Dent Work Phone: [facility] 250 DO Work Phone: 01-04-2023 09:10-0400 Heart rate 39 /min Christi Dent Work Phone: [facility] 250 DO Work Phone: 01-04-2023 09:06-0400 Body height 170.18 cm Christi Dent Work Phone: [facility] 250 DO Work Phone: 01-04-2023 09:06-0400 Body mass index (BMI) [Ratio] 25.22 kg/m2 Christi Dent Work Phone: [facility] 250 DO Work Phone: 01-04-2023 09:06-0400 Body surface area Derived from formula 1.84 m2 Christi Dent Work Phone: [facility] 250 DO Work Phone: 01-04-2023 09:06-0400 Body weight 73.03 kg Christi Dent Work Phone: [facility] 250 DO Work Phone: 11-08-2022 14:34-0500 Body height 170.18 cm Christi Dent Work Phone: [facility] 250 DO Work Phone: 11-08-2022 14:34-0500 Body mass index (BMI) [Ratio] 25.06 kg/m2 Christi Dent Work Phone: [facility] 250 DO Work Phone: 11-08-2022 14:34-0500 Body surface area Derived from formula 1.84 m2 Christi Dent Work Phone: [facility] 250 DO Work Phone: 11-08-2022 14:34-0500 Body weight 72.58 kg Christi Dent Work Phone: [facility] 250 DO Work Phone: 11-08-2022 14:34-0500 Diastolic blood pressure 100 mm[Hg] Christi Dent Work Phone: [facility] 250 DO Work Phone: 11-08-2022 14:34-0500 Heart rate 48 /min Christi Dent Work Phone: [facility] 250 DO Work Phone: 11-08-2022 14:34-0500 Systolic blood pressure 170 mm[Hg] Christi Dent Work Phone: [facility] 250 DO Work Phone: 10-12-2022 08:08-0500 Body height 170.18 cm Christi Dent Work Phone: [facility] 250 DO Work Phone: 10-12-2022 08:08-0500 Body mass index (BMI) [Ratio] 25.06 kg/m2 Christi Dent Work Phone: [facility] 250 DO Work Phone: 10-12-2022 08:08-0500 Body surface area Derived from formula 1.84 m2 Christi Dent Work Phone: [facility] 250 DO Work Phone: 10-12-2022 08:08-0500 Body weight 72.58 kg Christi Dent Work Phone: [facility] 250 DO Work Phone: 10-12-2022 08:08-0500 Diastolic blood pressure 70 mm[Hg] Christi Dent Work Phone: [facility] 250 DO Work Phone: 10-12-2022 08:08-0500 Heart rate 40 /min Christi Dent Work Phone: [facility] 250 DO Work Phone: 10-12-2022 08:08-0500 Systolic blood pressure 98 mm[Hg] Christi Dent Work Phone: [facility] 250 DO Work Phone: 09-13-2022 12:37-0500 Body height 167.64 cm Christi Dent Work Phone: [facility] 250 DO Work Phone: 09-13-2022 12:37-0500 Body mass index (BMI) [Ratio] 26.47 kg/m2 Christi Dent Work Phone: [facility] 250 DO Work Phone: 09-13-2022 12:37-0500 Body surface area Derived from formula 1.84 m2 Christi Dent Work Phone: [facility] 250 DO Work Phone: 09-13-2022 12:37-0500 Body weight 74.39 kg Christi Dent Work Phone: [facility] 250 DO Work Phone: 09-13-2022 12:37-0500 Diastolic blood pressure 110 mm[Hg] Christi Dent Work Phone: [facility] 250 DO Work Phone: 09-13-2022 12:37-0500 Heart rate 63 /min Christi Dent Work Phone: [facility] 250 DO Work Phone: 09-13-2022 12:37-0500 Systolic blood pressure 184 mm[Hg] Christi Dent Work Phone: [facility] 250 DO Work Phone: 09-08-2022 13:12-0500 Body height 167.64 cm Christi Dent Work Phone: [facility] 250 DO Work Phone: 09-08-2022 13:12-0500 Body mass index (BMI) [Ratio] 25.82 kg/m2 Christi Dent Work Phone: [facility] 250 DO Work Phone: 09-08-2022 13:12-0500 Body surface area Derived from formula 1.82 m2 Christi Dent Work Phone: [facility] 250 DO Work Phone: 09-08-2022 13:12-0500 Body weight 72.58 kg Christi Dent Work Phone: [facility] 250 DO Work Phone: 09-08-2022 13:12-0500 Diastolic blood pressure 102 mm[Hg] Christi Dent Work Phone: [facility] 250 DO Work Phone: 09-08-2022 13:12-0500 Heart rate 53 /min Christi Dent Work Phone: [facility] 250 DO Work Phone: 09-08-2022 13:12-0500 Systolic blood pressure 160 mm[Hg] Christi Dent Work Phone: [facility] 250 DO Work Phone: 09-08-2022 08:14-0500 Body height 167.64 cm Christi Dent Work Phone: [facility] 250 DO Work Phone: 09-08-2022 08:14-0500 Body mass index (BMI) [Ratio] 25.82 kg/m2 Christi Dent Work Phone: [facility] 250 DO Work Phone: 09-08-2022 08:14-0500 Body surface area Derived from formula 1.82 m2 Christi Dent Work Phone: [facility] 250 DO Work Phone: 09-08-2022 08:14-0500 Body weight 72.58 kg Christi Dent Work Phone: [facility] 250 DO Work Phone: 09-08-2022 08:14-0500 Diastolic blood pressure 102 mm[Hg] Christi Dent Work Phone: [facility] 250 DO Work Phone: 09-08-2022 08:14-0500 Heart rate 53 /min Christi Dent Work Phone: [facility] 250 DO Work Phone: 09-08-2022 08:14-0500 Systolic blood pressure 160 mm[Hg] Christi Dent Work Phone: [facility] 250 DO Work Phone: 09-08-2022 08:13-0500 Body height 167.64 cm Christi Dent Work Phone: [facility] 250 DO Work Phone: 09-08-2022 08:13-0500 Body mass index (BMI) [Ratio] 25.82 kg/m2 Christi Dent Work Phone: [facility] 250 DO Work Phone: 09-08-2022 08:13-0500 Body surface area Derived from formula 1.82 m2 Christi Dent Work Phone: [facility] 250 DO Work Phone: 09-08-2022 08:13-0500 Body weight 72.58 kg Christi Dent Work Phone: [facility] 250 DO Work Phone: 09-08-2022 08:13-0500 Diastolic blood pressure 100 mm[Hg] Christi Dent Work Phone: [facility] 250 DO Work Phone: 09-08-2022 08:13-0500 Heart rate 53 /min Christi Dent Work Phone: [facility] 250 DO Work Phone: 09-08-2022 08:13-0500 Systolic blood pressure 146 mm[Hg] Christi Dent Work Phone: [facility] 250 DO Work Phone: 09-06-2022 16:40-0500 Inhaled oxygen concentration 100 % MD Christi Dent Work Phone: [facility] 09-06-2022 16:40-0500 Inhaled oxygen flow rate 2 L/min MD Christi Dent Work Phone: [facility] 09-06-2022 16:40-0500 SaO2% (BldA) [Mass fraction] 99 % MD Christi Dent Work Phone: [facility] 09-06-2022 11:52-0500 Body height 167.64 cm MD Christi Dent Work Phone: [facility] 09-06-2022 11:52-0500 Body weight 72 kg MD Christi Dent Work Phone: [facility] 08-11-2022 10:00-0400 Body height 167.64 cm Christi Dent Work Phone: [facility] 250 DO Work Phone: 08-11-2022 10:00-0400 Body mass index (BMI) [Ratio] 26.05 kg/m2 Christi Dent Work Phone: [facility] 250 DO Work Phone: 08-11-2022 10:00-0400 Body surface area Derived from formula 1.83 m2 Christi Dent Work Phone: [facility] 250 DO Work Phone: 08-11-2022 10:00-0400 Body weight 73.2 kg Christi Dent Work Phone: [facility] 250 DO Work Phone: 08-11-2022 10:00-0400 Diastolic blood pressure 90 mm[Hg] Christi Dent Work Phone: [facility] 250 DO Work Phone: 08-11-2022 10:00-0400 Heart rate 87 /min Christi Dent Work Phone: [facility] 250 DO Work Phone: 08-11-2022 10:00-0400 Systolic blood pressure 138 mm[Hg] Christi Dent Work Phone: [facility] 250 DO Work Phone: 01-28-2022 08:04-0400 Blood Pressure Location Kyle FORTE [facility] 01-28-2022 08:04-0400 Diastolic blood pressure 103 mm[Hg] [facility] FORTE [facility] 01-28-2022 08:04-0400 Heart rate 73 /min Kyle FORTE [facility] 01-28-2022 08:04-0400 Respiratory rate 16 /min Kyle FORTE [facility] 01-28-2022 08:04-0400 Systolic blood pressure 146 mm[Hg] Kyle FORTE [facility] Encounters Encounter Date Encounter Type Care Provider Facility Start: 02-03-2025 ambulatory Kyle FORTE Facili ty:[facility] [place] Start: 01-08-2025 End: 01-08-2025 ambulatory Christi Dent MD Work Phone: [facility] Work Phone: Start: 01-08-2025 End: 01-08-2025 Patient encounter procedure Christi Dent MD Work Phone: [facility] Work Phone: Start: 12-19-2024 End: 12-19-2024 ambulatory [facility] Work Phone: Start: 12-19-2024 End: 12-19-2024 Patient encounter procedure [facility] Work Phone: Start: 07-31-2024 End: 07-31-2024 Office outpatient visit 25 minutes [facility] Work Phone: [facility] Comment on above: Paroxysmal atrial fi brillation (Multi); Bradycardia; Abnormal EKG; Essential hypertension; Mixed hyperlipidemia; High risk medication use; BMI 26.0-26.9,adult; Former smoker Start: 07-31-2024 End: 07-31-2024 ambulatory [facility] Start: 02-05-2024 End: 02-05-2024 ambulatory Kyle FORTE Facility:[facility] [place] Start: 02-05-2024 End: 02-05-2024 Patient encounter procedure Kyle FORTE [facility] Start: 10-27-2023 End: 10-27-2023 ambulatory Christi Dent Other [employer] Other Start: 10-27-2023 Telephone encounter Christi AMADO [facility] Start: 10-11-2023 End: 10-11-2023 ambulatory Christi Dent Other [employer] Other Start: 10-11-2023 Telephone encounter Christi Filipe [facility] Start: 08-14-2023 End: 08-14-2023 ambulatory Christi Filipe Other [employer] Other Start: 08-14-2023 Telephone encounter Christi Filipe [facility] Start: 08-04-2023 End: 08-04-2023 ambulatory Christi Dent Other [employer] Other Start: 08-04-2023 Office outpatient vi sit 15 minutes Christi Filipe [facility] Start: 07-04-2023 End: 07-04-2023 ambulatory Christi Filipe Other [employer] Other Start: 07-04-2023 Telephone encounter Christi Filipe [facility] Start: 02-20-2023 End: 03-22-2023 ambulatory SHAIKH Joseluis MCNAMARA Facility:[facility] Start: 02-03-2023 End: 02-03-2023 Patient encounter procedure Kyle FORTE [facility] Start: 01-27-2023 End: 01-28-[address] KYLE FORTE . Facility:[facility] Start: 01-23-2023 End: 02-17-2023 ambulatory SHAIKH Joseluis MCNAMARA Facility:[facility] Start: 01-04-2023 Office outpatient vi sit 15 minutes Christi Dent Work Phone: [facility] 250 DO Work Phone: Start: 01-04-2023 Patient encounter [facility] Work [facility]: Start: 01-04-2023 ambulatory Ms. Johnna Renae Facility:[id number] Start: 12-21-2022 End: 01-20-2023 ambulatory SHAIKH Joseluis MCNAMARA Facility:[facility] Start: 11-28-2022 Patient encounter procedure Christi Dent Work Phone: [facility] 250 DO Work Phone: Start: 11-23-2022 End: 12-21-2022 ambulatory SHAIKH Joseluis MCNAMARA Facility:[facility] Start: 11-08-2022 Office outpatient vi sit 10 minutes Christi Dent Work Phone: [facility] 600 DO Work Phone: Start: 11-08-2022 Patient encounter procedure Christi Dent Work Phone: [facility] 250 DO Work Phone: Start: 11-08-2022 ambulatory Ms. Johnna Renae Facility: Start: 10-24-2022 End: 11-23-2022 ambulatory Joseluis MARTINEZFLAVIA Facility:[facility] Start: 10-12-2022 Office outpatient vi sit 10 minutes Christi Dent Work Phone: [facility] 250 DO Work Phone: Start: 10-12-2022 ambulatory Ms. Johnna Renae Facility: Start: 10-04-2022 End: 10-05-[address] NADER COBOS Facility: Start: 09-22-2022 End: 10-23-2022 ambulatory Joseluis NAIMA Facility:[facility] Start: 09-20-2022 End: 09-21-[address] KYLE FORTE . Facility:[facility] Start: 09-13-2022 FUV, Provider: Johnna Gomes, Status: Pen, Time: 12:30 PM Christi Dent Work Phone: [facility] 250 DO Work Phone: Start: 09-13-2022 Office outpatient vi sit 15 minutes Christi Dent Work Phone: [facility] 250 DO Work Phone: Start: 09-13-[address] Christi Dent Facility: Start: 09-12-2022 Chart Update Christi Dent Work Phone: [facility] 250 DO Work Phone: Start: 09-09-2022 End: 09-09-2022 ambulatory MONSE GARCIA . Facility:[facility] Start: 09-08-2022 Office outpatient vi sit 5 minutes Christi Dent Work Phone: [facility] 250 DO Work Phone: Start: 09-08-2022 AORTA, Provider: IOANA LEWISI ULTRASOUND 01,[id number], Status: Pen, Time: 7:45 AM Christi Dent Work Phone: [facility] 250 DO Work Phone: Start: 09-08-[address] Facility:[id number] Start: 09-07-2022 Chart Update Christi Dent Work Phone: [facility] 250 DO Work Phone: Start: 09-06-[address] Christi Dent Facility:[id number] Start: 09-06-2022 End: 09-06-2022 Admission to same day surgery center MD Christi Dent Work Phone: [facility]Pro[facility] Outpatient Start: 09-06-2022 End: 09-06-2022 ambulatory MD Christi Dent Work Phone: [facility] Work Phone: Start: 09-02-2022 Chart Update Christi Dent Work Phone: [facility] 250 DO Work Phone: Start: 09-02-2022 End: 09-02-2022 ambulatory MD Christi Dent Work Phone: [facility] Work Phone: Start: 09-02-2022 End: 09-02-2022 Patient encounter procedure MD Christi Dent Work Phone: [facility] Start: 08-25-2022 Telephone encounter Christi barajas Work Phone: [facility] 600 DO Work Phone: Start: 08-23-2022 End: 09-21-2022 ambulatory VARGHESE H FAWWAD Facility:[facility]1 Start: 08-11-2022 Office outpatient vi sit 25 minutes Christi Dent Work Phone: [facility] 250 DO Work Phone: Start: 08-11-[address] Christi Dent Facility: Start: 07-24-2022 End: 08-22-2022 ambulatory VARGHESE H FAWWAD Facility:[facility]1 Start: 06-23-2022 End: 07-23-2022 ambulatory VARGHESE H FAWWAD Facility:[facility]1 Start: 05-23-2022 End: 06-22-2022 ambulatory VARGHESE H FAWWAD Facility:[facility]1 Start: 04-22-2022 End: 05-20-2022 ambulatory VARGHESE H FAWWAD Facility:[facility]1 Start: 01-28-2022 End: 01-28-2022 Patient encounter procedure Kyle FORTE [facility] Start: 07-13-2017 End: 07-14-2017 Ambulatory DEFAULT PHYSICIAN Facility:[facility] Procedures Date Procedure Procedure Detail Performing Clinician Start: 01-08-2025 Plain chest X-ray Christi Dent MD Work Phone: Start: 07-31-2024 Ecg routine ecg w/least 12 lds w/i&r Ta Lane DO Work Phone: Start: 01-27-2023 PSA screening SHAIKH NAIMA Comment on above: Performed By: #### PSAD #### [facility] [address] [place] [address] Dr. Farida Braun Start: 09-04-2018 Cystoscopy Kyle [...] MD Rosy Dent Work Phone: [facility]eler[facility] procedure Pattie FORTE Comment on above: 01/2017 Tonsillectomy Kyle FORTE Plan of Treatment Date Care Activity Detail Author Start: 07-31-2025 End: 07-31-2025 Patient encounter procedure 07/31/2025 9:30 AM EDT Office Visit [facility] [address] [facility] [address] [place] [address] DO [address] [facility] [address] [place] [address] [facility] Start: 07-31-2024 End: 07-31-2025 Alanine aminotransferase [Enzymatic activity/volume] in Serum or Plasma by With P-5'-P Alanine Aminotransferase Lab Routine Mixed hyperlipidemia Expected: 07/31/2024 (Approximate), Expires: 07/31/2025 [facility] Work Phone: Comment on above: Expected: 07/31/2024 (Approximate), Expi res: 07/31/2025 Start: 07-31-2024 End: 07-31-2025 Aspartate aminotransferase [Enzymatic activity/volume] in Serum or Plasma by With P-5'-P Aspartate Aminotransferase Lab Routine Mixed hyperlipidemia Expected: 07/31/2024 (Approximate), Expires: 07/31/2025 [facility] Work Phone: Comment on above: Expected: 07/31/2024 (Approximate), Expi res: 07/31/2025 Start: 07-31-2024 End: 07-31-2025 Basic metabolic 2000 panel - Serum or Plasma Basic Metabolic Panel Lab Routine Essential hypertension Expected: 07/31/2024 (Approximate), Expires: 07/31/2025 [facility] Work Phone: Comment on above: Expected: 07/31/2024 (Approximate), Expi res: 07/31/2025 Start: 07-31-2024 End: 07-31-2025 Lipid 1996 panel - Serum or Plasma Lipid Panel Lab Routine Mixed hyperlipidemia Expected: 07/31/2024 (Approximate), Expires: 07/31/2025 [facility] Work Phone: Comment on above: Expected: 07/31/2024 (Approximate), Expi res: 07/31/2025 Start: 07-31-2024 End: 07-31-2025 MR Heart WO and W contrast IV MR cardiac morphology and function w and wo IV contrast Imaging Routine Bradycardia Abnormal EKG Expected: 07/31/2024 (Approximate), Expires: 07/31/2025 [facility] Work Phone: Comment on above: Expected: 07/31/2024 (Approximate), Expi res: 07/31/2025 Start: 06-23-2024 COVID-19 Vaccine () COVID-19 Vaccine () [facility] Start: 06-23-2024 Influenza vaccination Influenza Vaccine (#1) [facility] Start: 07-25-2023 FUV, Provider: Ta Lane, Status: Pen, Time: 9:50 AM FUV, Provider: Ta Lane, Status: Pen, Time: 9:50 AM -[facility] 250 DO Work Phone: Start: 01-04-2023 FUV, Provider: Johnna Gomes, Status: Pen, Time: 9:00 AM FUV, Provider: Johnna Gomes, Status: Pen, Time: 9:00 AM -[facility] 250 DO Work Phone: Start: 11-08-2022 FUV, Provider: Johnna Gomes, Status: Pen, Time: 2:30 PM FUV, Provider: Johnna Gomes, Status: Pen, Time: 2:30 PM -[facility] 250 DO Work Phone: Start: 10-12-2022 FUV, Provider: Johnna Gomes, Status: Pen, Time: 8:00 AM FUV, Provider: Johnna Gomes, Status: Pen, Time: 8:00 AM -[facility] [facility] DO Work Phone: Start: 09-08-2022 AORTA, Provider: IOANA [facility] ULTRASOUND 01,[id number], Status: Pen, Time: 7:45 AM AORTA, Provider: IOANA [facility] ULTRASOUND 01,[id number], Status: Pen, Time: 7:45 AM -[facility] 250 DO Work Phone: Start: 09-06-2022 [facility] Start: 09-06-2022 SURGNONUH, Provider: Tyrone Walters, Status: Pen, Time: 2:00 PM SURGNONUH, Provider: Tyrone Walters, Status: Pen, Time: 2:00 PM -[facility] 600 DO Work Phone: Start: 2009 RSV patients and/or patients aged 60+ years (1 - 1-dose 60+ series) RSV patients and/or patients aged 60+ years (1 - 1-dose 60+ series) [facility] Start: 1999 Zoster Vaccines (1 of 2) Zoster Vaccines (1 of 2) [facility] Start: 1971 DTaP/Tdap/Td Vaccines (1 - Tdap) DTaP/Tdap/Td Vaccines (1 - Tdap) [facility] Start: 1967 Diabetes mellitus screening Diabetes Screening [facility] Start: 1967 Hepatitis C screening Hepatitis C Screening [facility] Start: 1949 Lipid panel Lipid Panel [facility] Start: 1949 Medicare Annual Wellness Visit Medicare Annual Wellness Visit (AWV) [facility] Start: 1949 Screening for malignant neoplasm of colon [facility] Patient referral [facility] Work Phone: Immunizations Immunization Date Immunization Notes Care Provider Gordon bro 08-02-2024 influenza, high dose seasonal, preservative-free [facility] 08-04-2023 influenza, high dose seasonal, preservative-free Christi Dent Other [employer] Other 08-04-2023 influenza virus vaccine, unspecified formulation Ta Lane DO Work Phone: [facility] 08-23-2022 Pfizer COVID-19 Vac Bivalent 30 MCG/0.3ML Intramuscular Suspension [facility]i [facility] Work Phone: 07-31-2022 influenza, injectabl e, quadrivalent, preservative free [facility] Dent [facility] DO Work Phone: 07-15-2022 influenza, seasonal, injectable Christi Dent Work Phone: [facility] DO Work Phone: Comment on above: Series: 03-04-2022 Comirnaty 30 MCG/0.3 ML Intramuscular Suspension Christi E Dent Work Phone: [facility] Work Phone: 08-09-2021 PfizerBioNTech COVID-19 Vacc 30 MCG/0.3ML Intramuscular Suspension Christi E Dent Work Phone: [facility] DO Work Phone: 08-04-2021 influenza, injectabl e, quadrivalent, preservative free Christi E Dent Work Phone: [facility] Work Phone: 12-15-2020 PfizerBioNTech COVID-19 Vacc 30 MCG/0.3ML Intramuscular Suspension Christi E Dent Work Phone: [facility] Work Phone: 12-13-2020 SARS-CoV-2 (COVID-19 ) mRNA-1273 vaccine Kyle FORTE [facility] 11-24-2020 [facility] COVID-19 Vacc 30 MCG/0.3ML Intramuscular Suspension Christi E Dent Work Phone: [facility] 250 DO Work Phone: 06-23-2020 influenza, high dose seasonal, preservative-free Christi E Dent Work Phone: [facility] Work Phone: 06-19-2020 influenza virus vaccine, unspecified formulation Kyle FORTE [facility] 07-23-2019 influenza virus vaccine, unspecified formulation Christi E Dent Work Phone: [facility] 250 DO Work Phone: 07-23-2019 influenza, seasonal, injectable Ta Lane DO Work Phone: [facility] Work Phone: 08-11-2018 influenza, high dose seasonal, preservative-free Christi Dent Work Phone: [facility] 250 DO Work Phone: 07-23-2018 pneumococcal polysaccharide vaccine, 23 valent Christi Dent Work Phone: [facility] 250 DO Work Phone: 04-08-2015 pneumococcal polysaccharide vaccine, 23 valent Christi Dent Work Phone: [facility] 250 DO Work Phone: 10-23-2014 tetanus immune globulin Jered Dent Work Phone: [facility] 250 DO Work Phone: 10-23-2013 pneumococcal conjuga te vaccine, 13 valrylan Christi Dotty Dent Work Phone: [facility] 250 DO Work Phone: Payers Date Payer Category Payer Medicare [id number] 2013 Medicare MEDICARE MEDICAR E PART A AND B [id number] 2013-Present [address] [place] [address] [id number] 1959 Medicare [id number] 1959 Self-pay 1949 Unknown [id number] 2.16.840.1.459380.3.579.2.1068 1949 Unknown [id number] 2.16.840.1.529317.3.579.2.356 1949 Unknown [id number] 2.16.840.1.654136.3.579.2.356 1949 Unknown [id number] 2.16.840.1.167701.3.579.2.356 1949 Unknown [id number] 2.16.840.1.377653.3.579.2.356 1949 Unknown [id number] 2.16.840.1.636702.3.579.2.356 1949 Unknown [id number] 2.16.840.1.893108.3.579.2.356 1949 Unknown [id number] 2.16.840.1.336151.3.579.2.356 1949 Unknown [id number] 2.16.840.1.480896.3.579.2.356 1949 Unknown [id number] 2.16.840.1.427961.3.579.2.593 1949 Unknown [id number] 2.16.840.1.393443.3.579.2.593 1949 Unknown [id number] 2.16.840.1.947747.3.579.2.593 1949 Unknown [id number] 2.16.840.1.610881.3.579.2.593 1949 Unknown [id number] 2.16.840.1.516224.3.579.2.593 1949 Unknown [id number] 2.16.840.1.418226.3.579.2.593 1949 Unknown [id number] 2.16.840.1.471761.3.579.2.593 1949 Unknown [id number] 2.16.840.1.010533.3.579.2.593 1949 Unknown [id number] 2.16.840.1.988996.3.579.2.593 1949 Unknown [id number] 2.16.840.1.872917.3.579.2.593 1949 Unknown [id number] 2.16.840.1.348570.3.579.2.593 1949 Unknown [id number] 2.16.840.1.352777.3.579.2.593 1949 Unknown [id number] 2.16.840.1.069691.3.579.2.593 1949 Unknown [id number] 2.16.840.1.914638.3.579.2.593 1949 Unknown [id number] 2.16.840.1.251587.3.579.2.1244 1949 Unknown [id number] 2.16.840.1.512546.3.579.2.727 1949 Unknown [id number] 2.16.840.1.290075.3.579.2.727 Unknown Unknown [id number] 2.16.840.1.372793.3.579.2.593 Unknown [id number] 2.16.840.1.648972.3.579.2.531 Social History Date Type Detail Facility Start: 01-28-2022 End: 11-14-2023 Tobacco smoking status Ex-smoker (finding) [facility] Start: 07-25-2023 Sex Assigned At Male [facility] Start: 07-25-2023 End: 07-31-2024 No illicit drug use No illicit drug use -[facility] 250 DO Work Phone: Start: 1950 Sex Assigned At Male F [facility] History of tobacco use Current smoker [facility] Work Phone: History of tobacco use Cigarette Smoker [facility] Work Phone: Start: 07-25-2023 Tobacco use and exposure Smokeless tobacco non-user [facility] Work Phone: Start: 07-31-2024 Alcoholic beverage intake Current drinker of alcohol (finding) [facility] Work Phone: Start: 1950 Sex assigned at Not on file [facility] Work Phone: Start: 07-21-2024 End: 07-31-2024 Exposure to SARS-CoV-2 (event) Not sure [facility] Start: 12-19-2024 End: 01-09-2025 Sex Male (finding) [facility] Functional Status Date Assessment Result Facility 02-05-2024 Functional Status N/A [facility] 02-03-2023 Functional Status N/A [facility] Clinical Notes 01-28-2022 to 12-19-2024 Note Date & Type Note Facility 12-19-2024 Evaluation note Diagnosis Onset Date Resolution GERD (gastroesophageal reflux disease) acute December 19, 025 10:53am Paroxysmal A-fib acute December 19, 2024 10:53am [facility] Work Phone: 1(353) 770-292802-27-2025 Evaluation note* Diagnosis Onset Date Resolution Status Admit Date GERD (gastroesophageal reflu x disease) acute December 19, 025 10:53am Paroxysmal A-fib acute December 19, 2024 10:53am Asthma exacerbation acute January 08, 2025 10:26am [facility] Work Phone: 1(720) 313-101610-09-2024 History of Present illness Narrative* Ta Lane, - 07/31/2024 9:30 AM EDT Subjective Joao Boggs is a 74 y.o. male Chief Complaint Annual Exam 74-year-old gentleman returns for follow-up he is doing well he has no cardiovascular complaints, recurrent arrhythmias, shortness of breath, syncope or hospitalizations. He was discovered to have new onset paroxysmal atrial fibrillation last year, appropriate therapies were initiated, and cardioverted back to sinus rhythm and maintaining sinus rhythm objectively by follow-up ECGs as reviewed. Today's ECG reveals sinus bradycardia at 46 with continued prominent inferolateral deep T wave inversions and evidence of right bundle branch block, and voltage criteria for left ventricular hypertrophy. Patient has minimal coronary disease as noted per remote heart catheterization Patient has normal left and right ventricular functions with no reported evidence of significant left ventricular hypertrophy or valvular abnormalities. Recommendations: Continue current therapies, clonidine has already been discontinued for his hypertension, routine follow-up within the next year, will obtain cardiac MRI to rule out cardiomyopathy with preserved left ventricular function given his significantly abnormal ECG and evidence of paroxysmal A-fib Review of Systems All other systems reviewed and are negative. Vitals: 07/31/24 0932 BP: 138/74 BP Location: Left arm Patient Position: Sitting Pulse: (!) 46 Weight: 74.1 kg (163 lb 6.4 oz) Height: 1.676 m (5' 6 ) EKG done in office today Objective Physical Exam Constitutional: Appearance: Normal appearance. HENT: Nose: Nose normal. Neck: Vascular: No carotid bruit. Cardiovascular: Rate and Rhythm: Bradycardia present. Pulses: Normal pulses. Heart sounds: Normal heart sounds. Pulmonary: Effort: Pulmonary effort is normal. Abdominal: General: Bowel sounds are normal. Palpations: Abdomen is soft. Musculoskeletal: General: Normal range of motion. Cervical back: Normal range of motion. Right lower leg: No edema. Left lower leg: No edema. Skin: General: Skin is warm and dry. Neurological: General: No focal deficit present. Mental Status: He is alert. Psychiatric: Mood and Affect: Mood normal. Behavior: Behavior normal. Thought Content: Thought content normal. Judgment: Judgment normal. Allergies Sulfamethoxazole Current Medications Current Outpatient Medications: flecainide (Tambocor) 50 mg tablet, TAKE 1 TABLET BY MOUTH TWICE DAILY, Disp: 180 tablet, Rfl: 3 hydroCHLOROthiazide (HYDRODiuril) 12.5 mg tablet, Take 1 tablet (12.5 mg) by mouth once daily., Disp: , Rfl: latanoprost, PF, 0.005 % drops, Administer into affected eye(s). As directed, Disp: , Rfl: mometasone (Asmanex Twisthaler) 220 mcg/ actuation (120) aerosol powdr breath activated, Inhale 1 puff once daily in the evening., Disp: , Rfl: montelukast (Singulair) 10 mg tablet, Take 1 tablet (10 mg) by mouth once daily at bedtime., Disp: , Rfl: pantoprazole (Protonix) 20 mg EC tablet, Take 1 tablet (20 mg) by mouth once daily., Disp: , Rfl: polyethylene glycol (Miralax) 17 gram/dose powder, Mix 17 g of powder and drink., Disp: , Rfl: simvastatin (Zocor) 20 mg tablet, Take 1 tablet (20 mg) by mouth once daily at bedtime., Disp: , Rfl: spironolactone (Aldactone) 25 mg tablet, TAKE 1 TABLET BY MOUTH DAILY, Disp: 90 tablet, Rfl: 3 timolol (Timoptic) 0.5 % ophthalmic solution, Administer into affected eye(s). As directed, Disp: ,Rfl: valsartan (Diovan) 160 mg tablet, Take 1 tablet (160 mg) by mouth once daily. For blood pressure, Disp: 90 tablet, Rfl: 3 warfarin (Coumadin) 6 mg tablet, Take 1 tablet (6 mg) by mouth., Disp: , Rfl: Assessment/Plan 1. Paroxysmal atrial fibrillation (Multi) 2. Bradycardia 3. Abnormal EKG 4. Essential hypertension 5. Mixed hyperlipidemia 6. High risk medication use 7. BMI 26.0-26.9,adult 8. Former smoker Scribe Attestation By signing my name below, I, Terence Parra LPN attest that this documentation has been prepared under the direction and in the presence of Raymundo Lane DO. Provider Attestation - Scribe documentation All medical record entries made by the Scribe were at my direction and personally dictated by me. Ihave reviewed the chart and agree that the record accurately reflects my personal performance of the history, physical exam, discussion and plan. [facility] Work Phone: 1(152) 636-738110-09-2024 Instructions* Patient Instructions* Aggie Montiel LPN - 07/31/2024 9:30 AM EDT Please bring all medicines, vitamins, and herbal supplements with you when you come to the office. Prescriptions will not be filled unless you are compliant with your follow up appointments or have a follow up appointment scheduled as per instruction of your physician. Refills should be requested at the time of your visit. BMI was above normal measurement. Current weight: 74.1 kg (163 lb 6.4 oz) Weight change since last visit (-) denotes wt loss 4.8 lbs Weight loss needed to achieve BMI 25: 8.8 Lbs Weight loss needed to achieve BMI 30: -22.1 Lbs Provided instructions on dietary changes Provided instructions on exercise. * Attachments The following attachments cannot be sent through Care Everywhere. * DASH Diet (Indonesian) documented in this [facility] Work Phone: 1(580) 997-957004-15-2024 Hospital Discharge instructions Patient Education 02/05/2024 10:08:29 Prostate Cancer Screening Prostate Cancer Screening Prostate cancer screening is testing that is done to check for the presence of prostate cancer in men. The prostate gland is a walnut-sized gland that is located below the bladder and in front of therectum in males. The function of the prostate is to add fluid to semen during ejaculation. Prostatecancer is one of the most common types of cancer in men. Who should have prostate cancer screening? Screening recommendations vary based on age and other risk factors, as well as between the professional organizations who make the recommendations. In general, screening is recommended if: You are age 50 to 70 and have an average risk for prostate cancer. You should talk with your healthcare provider about your need for screening and [...] diagnosed with prostate cancer. The risk is higherif your family member's cancer occurred at an early age or if you have multiple family members withprostate cancer at an early age. ?Being a [...] is a blood test called the prostate-specific antigen(PSA) test. PSA is a protein that is [...] treatment? Where to find more information The [employer]: www.cancer.org [employer]: www.auanet.org Contact a health care [...] the recommended screening test for prostate cancer, butit has associated risks. Discuss the risks and [...] provider. Document Revised: 04/04/2022 Document Reviewed: 04/04/2022 [employer] Books Patient Education 2022 [employer]. Follow Up Care 02/03/2023 08:51:43 With:REINIER VAUGHAN, Kyle Valadez, URL Address: [facility] [address] , [place] [phone] When: Unknown Comments:1 yr w/ PSA and CT scan [facility] 12-20-2023 Evaluation note* Encounter Date Diagnosis Assessment Notes Treatment Notes Treatment Clinical Notes Sep, Irritant contact dermatitis due to drug in contact with skin (ICD-10 - L24.4) [employer] Other 10-13-2023 Evaluation note* Encounter Date Diagnosis [...] weeks for an update on his condition. [employer] Other 09-12-2023 Evaluation note* Encounter Date Diagnosis Assessment Notes Treatment Notes Treatment Clinical Notes Jun, Pain in left ankle and joints of left foot (ICD-10 - M25.572) [employer] Other 04-14-2023 Hospital Discharge instructions Patient Education [...] who: Are older than age 65. Are -Vincentian. Are obese. Have a family history of [...] cells. Follow these instructions at home: Take kdfb-ohz-vyjsdjf and prescription medicines only as told by [...] 10/09/2006 Document Revised: 09/21/2018 Document Reviewed: 06/19/2017 [employer] Books Patient Education 2020 [employer]. Follow Up Care 01/28/2022 08:42:30 With:REINIER VAUGHAN, ZANE Fish Address: [facility] [address], [place] [phone] When:Within 1 Year(s) Comments:1 year fu with PSA [facility] [place] 11-15-2022 Procedure [facility]04-08-2022 Hospital Discharge instructions Patient Education 01/28/2022 08:32:38 [...] Follow these instructions at home: Medicines Take rzhv-apb-pfjzise and prescription medicines only as told by [...] 10/09/2006 Document Revised: 02/25/2020 Document Reviewed: 02/25/2020 [employer] Books Patient Education 2019 [employer] Follow Up Care 07/30/2021 08:35:42 With:REINIER VAUGHAN, Kyle Valadez, URL Address: [address] [place] [id number] [phone] When:01/28/2023 Comments:w/PSA.Will get Renal US in 6m. Our office will call pt with the results. [facility] evaluation + Plan note Future Appointments Appointment Date:02/03/2023 08:00:00 AM Scheduled Provider:Kyle FORTE MD Location:[facility] Appointment Type:URO Office Visit Diagnostic Tests Pending * PSA Total 01/28/22 [facility] evaluation + Plan note Future Appointments Appointment Date:02/05/2024 09:15:00 AM Scheduled Provider:Kyle FORTE MD Location:[facility] Appointment Type:URO Office Visit Diagnostic Tests Pending * PSA Total 02/03/23 [facility] evaluation + Plan note Future Appointments Appointment Date:02/03/2025 09:15:00 AM Scheduled Provider:Kyle FORTE MD Location:[facility] Appointment Type:URO Office Visit Diagnostic Tests Pending * PSA Total 02/05/24 [facility] evaluation noteNo assessment information available [facility] Work Phone: Evaluation noteNo InformationNort [email or web address] Other Evaluation note* Diagnosis Paroxysmal atrial fibrillation (Multi) Atrial fibrillation Bradycardia Other specified cardiac dysrhythmias Abnormal EKG Nonspecific abnormal electrocardiogram (ECG) (EKG) Essential hypertension Unspecified essential hypertension Mixed hyperlipidemia High risk medication use BMI 26.0-26.9,adult Former smoker Personal history of tobacco use, presenting hazards to health documented in this encounter [facility] Work Phone: Hisplyi general Narrative - Reported* Type Description Date [...] History GI Bleed Hospitalization History See above [employer] Other History of Present illness Narrative* The [...] medication regimen. He denies medication side effects. [facility] [employer] 250 DO Work Phone: History of Present [...] medication regimen. He denies medication side effects. -[facility] [employer] 250 DO Work Phone: History of Present [...] medication regimen. He denies medication side effects. -[facility] [employer] 250 DO Work Phone: History of Present [...] medication regimen. He denies medication side effects. -[facility] [employer] 600 DO Work Phone: History of Present [...] not limit his activities. * Disease Monitoring: [facility] [employer] DO Work Phone: History of Present illness [...] not limit his activities. * Disease Monitoring: [facility] [employer] DO Work Phone: Hospital course Narrative No data available for this section [facility] [employer] progress note No data available for this section [email or web address] Summary Purpose Family History No Family History [...] Name Dates Details Liver damage: Father Status:Active Relationship Condition Age at Onset Recorded Date/T paris brother Malignant neoplasm Unknown father Unknown mother Unknown sister Malignant neoplasm Unknown Advance Directives No Advanced Directives Records Found Advance Directive Response Recorded Date/ Time Advance Directives No August 31, 2022 3:58pm Advance Directive Response Recorded Date/ Time Advance Directives No August 31, 2022 4:58pm Chief Complaint * JOAO BOGGS is being [...] of paroxysmal A. fib dating back to 2018 as noted on Holter monitoring, with the initiation of warfarin at that time. Previous heart catheterization performed at outside hospital by another elevator service mechanic revealed more minimal coronary disease in 2015 * Risk benefits alternatives and informed decision-making [...] of paroxysmal A. fib dating back to 2018 as noted on Holter monitoring, with the initiation of warfarin at that time. Previous heart catheterization performed at outside hospital by another elevator service mechanic revealed more minimal coronary disease in 2015 * Risk benefits alternatives and informed decision-making [...] to patient discharge. * To Dr. Ta Lane, DO * JOAO BOGGS is being seen [...] catheterization performed at outside hospital by another elevator service mechanic revealed more minimal coronary disease in 2016 [...] . * Last evaluated in clinic Dr. Lane July 2022. At that time, patient was noted to have atrial fibrillation and dose of diltiazem was increased. August 2022 initiated on flecainide 50 mg twice daily with uneventful September 06, 2022 cardioversion with episcopalian of normal sinus rhythm. * Patient had [...] of caffeine daily, no alcohol intake. No apoh-lyh-qkszeja medications. No prior sleep apnea testing. * EKG in office today is maintaining normal sinus rhythm and he reportedly feels better with episcopalian of normal sinus rhythm. Has a little [...] medical regimen. He completed lab work at [place] and will need to obtain. Has [...] on exertion. * They have obtained a [employer] mobile device with no documented atrial fibrillation. [...] verify accuracy. * Will obtain labs from [facility] * Blood pressure management: 'continues to [...] pressure. * No caffeine, alcohol, energy drinks, txay-udn-opihqed medications. * At this time, patient does [...] Pre Op Testing for C ardioversion Afib Chief Complaint Admit Date Medical Concerns December 19, 2024 10:53am Chief Complaint Admit Date Medical Concerns December 19, 2024 10:53am Sob, congestion January 08, 2025 10: 26am R05.9 - Cough, unspecified January 08 025 11:00am Reason for Visit Admit Date GERD (gastroesophageal reflux disease) F [facility] 2024 10:53am Paroxysmal A-fib December 19, 2024 10:53am Reason for Visit Admit Date GERD (gastroesophageal reflux disease) F [facility] 2024 10:53am Paroxysmal A-fib December 19, 2024 10:53am Asthma exacerbation January 08, 2025 10: 26am Reason for Referral Specialty Diagnoses / Procedures Referred By Contac t Referred To Contact Radiology Diagnoses Bradycardia Abnormal EKG Procedures MR cardiac morphology and function w and wo IV contrast Ta Lane, DO [facility] [facility] [address], [address] [address] Referral ID Status Reason Start Date Expiration Date Visits Requested Visits Authorized [id number] Authorized Perform Procedure 07/31/2024 07/31/2025 1 1 Specialty Diagnoses / Procedures Referred By Contac t Referred To Contact Diagnoses Bradycardia Procedures ECG [address], DO [address] [place] [address] 2, [place] [id number] Referral ID Status Reason Start Date Expiration Date V isits Requested Visits Authorized [id number] Authorized 07/31/2024 07/31/2025 1 1 Specialty Diagnoses / Procedures Referred By Contac t Referred To Contact Cardiology Diagnoses Bradycardia Procedures Follow Up In Cardiology Ta Lane, [address] [place] [address] 2, [place] [id number] Ta Lane, DO [facility] [facility] [address], [address] [address] Referral ID Status Reason Start Date Expiration Date V isits Requested Visits Authorized [id number] Authorized 07/31/2024 07/31/2025 1 1 Additional Source Comments (unrecognized sect ion and content) No Status Records FoundNo Status Records FoundNo Status Records FoundNo Status Records FoundNo Status Records FoundNo Status Records FoundNo Status Records FoundNo Status Records Found INFORMATION SOURCE (unrecogn ized section and content) DATE CREATED AUTHOR 04/18/2018 [facility] DATE CREATED AUTHOR AUTHOR'S ORGANIZ ATION 09/10/2022 [facility] DATE CREATED AUTHOR AUTHOR'S ORGANIZ ATION 01/05/2023 [facility] DATE CREATED AUTHOR AUTHOR'S ORGANIZ ATION 01/08/2023 [facility] DATE CREATED AUTHOR AUTHOR'S ORGANIZ ATION 03/31/2023 [facility] DATE CREATED AUTHOR AUTHOR'S ORGANIZ ATION 09/10/2024 [facility] DATE CREATED AUTHOR AUTHOR'S ORGANIZ ATION 2025 [facility] DATE CREATED AUTHOR AUTHOR'S ORGANIZ ATION 01/18/[address] [facility] Care Teams (unrecognized sec tion and [...] Christi Dent MD Primary Care Provider Active 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 Relationship Specialty Start Date End Date Christi Dent MD [address] [place] [address] PCP - General 04/30/19 Team Status: Inactive Member Role Status Dates Christi Dent MD Primary Care Provide r, Attending Provider Active Start: December 19, 2024 End: December 19, 2024 Team Status: Inactive Member Role Status Dates Christi Dent MD Primary Care Provider Active Start: January 08, 2025 End: January 08, 2025 Azul London APRN Attending Provider Active Start: January 08, 2025 End: January 08, 2025 Team Status: Active Member Role Status Dates Christi Dent MD Primary Care Provider Active Start: January 08, 2025 Azul London APRN Attending Provider Active Start: January 08, 2025 Goals (unrecognized section and content) Goals may be documented in a n alternate section REASON FOR VISIT (unrecogniz ed section and content) Reason Comments Annual Exam 1yr foot infectionrefillfollowupFEET ISSUES - SKIN PROBLEMS FOR RECORDS PERTAINING [...] BE BASED ON THE PRIMARY CLINICAL RECORDS. [facility]. provides no warranty or guarantee of the accuracy or completeness of information in this document.
[2025-01-28 10:53] LABS: Prostate Specific Antigen Dx 0.14 ng/mL (<=4.00)
== END 2025-01-28 08:23 | disposition home or self-care (01) ==
LOC: LAB 08:22
PROVIDERS: PCP Family Medicine; Visit Provider Urology
DX: Z85.46 Personal history of malignant neoplasm of prostate (principal)
CPT/HCPCS: 36415; 84153

== ENCOUNTER 2025-02-20 04:49 | Outpatient (RCR) | payer MEDICARE, SELFPAY | END 2025-03-21 15:05 | disposition home or self-care (01) | LOC: MM 04:49 | PROVIDERS: PCP Family Medicine; Visit Provider Internal Medicine | DX: Z51.81 Encounter for therapeutic drug level monitoring (principal); Z79.01 Long term (current) use of anticoagulants; I48.0 Paroxysmal atrial fibrillation | CPT/HCPCS: 85610; G0463 ==

== ENCOUNTER 2025-03-23 07:14 | Outpatient (RCR) | payer MEDICARE, SELFPAY | END 2025-04-17 14:19 | disposition home health service (06) | LOC: MM 07:14 | PROVIDERS: PCP Family Medicine; Visit Provider Internal Medicine | DX: Z51.81 Encounter for therapeutic drug level monitoring (principal); Z79.01 Long term (current) use of anticoagulants; I48.0 Paroxysmal atrial fibrillation ==

== ENCOUNTER 2025-04-22 02:34 | Outpatient (RCR) | payer MEDICARE, SELFPAY | END 2025-05-22 16:46 | disposition home or self-care (01) | LOC: MM 02:34 | PROVIDERS: PCP Family Medicine; Visit Provider Internal Medicine | DX: Z51.81 Encounter for therapeutic drug level monitoring (principal); Z79.01 Long term (current) use of anticoagulants; I48.0 Paroxysmal atrial fibrillation ==

== ENCOUNTER 2025-05-23 00:27 | Outpatient (RCR) | payer MEDICARE, SELFPAY | END 2025-06-19 12:41 | disposition home or self-care (01) | LOC: MM 00:27 | PROVIDERS: PCP Family Medicine; Visit Provider Internal Medicine | DX: Z51.81 Encounter for therapeutic drug level monitoring (principal); Z79.01 Long term (current) use of anticoagulants | CPT/HCPCS: 85610; G0463 ==

== ENCOUNTER 2025-06-23 03:01 | Outpatient (RCR) | payer MEDICARE, SELFPAY | END 2025-07-22 15:33 | disposition home or self-care (01) | LOC: MM 03:01 | PROVIDERS: PCP Family Medicine; Visit Provider Internal Medicine | DX: Z51.81 Encounter for therapeutic drug level monitoring (principal); Z79.01 Long term (current) use of anticoagulants; I48.0 Paroxysmal atrial fibrillation | CPT/HCPCS: 85610; G0463 ==

== ENCOUNTER 2025-07-23 05:16 | Outpatient (RCR) | payer MEDICARE, SELFPAY | END 2025-08-22 23:59 | disposition home or self-care (01) | LOC: MM 05:16 | PROVIDERS: Visit Provider Internal Medicine | DX: Z51.81 Encounter for therapeutic drug level monitoring (principal); Z79.01 Long term (current) use of anticoagulants ==

== ENCOUNTER 2025-08-23 | Outpatient (RCR) | payer MEDICARE, SELFPAY | END 2025-09-21 23:59 | disposition home or self-care (01) | LOC: MM | PROVIDERS: Visit Provider Internal Medicine | DX: Z51.81 Encounter for therapeutic drug level monitoring (principal); Z79.01 Long term (current) use of anticoagulants ==

== ENCOUNTER 2025-09-04 08:00 | Outpatient (OUT) | payer MEDICARE, SELFPAY ==
--- OUTSIDE RECORDS SUMMARY | 2025-09-04 08:01 | XMS_ITS | Clinical Summary ---
Author Organization [facility] Healthcare Address [address] [place] [address] Care Team Providers Care Sheet Hanger Name Role Phone Unavailable Primary Care Provider Unavailabl e Social History Tobacco UseTypesPacks/DayYears UsedDateSmoking Tobacco: Never AssessedSex and Gender InformationValueDate RecordedSex Assigned at BirthNot on fileLegal Sex Male01/04/2023 7:36 PM EDTGender IdentityNot on fileSexual OrientationNot on file Plan of Treatment Not on file
--- OUTSIDE RECORDS SUMMARY | 2025-09-04 08:02 | XMS_ITS | Clinical Summary ---
Author Organization [facility] Address [address] [place] [id number] Care Team Providers Care Family And Divorce Legal Assistant Name Role Phone Mahesh Forte MD Unavailable [phone] Mahesh Forte MD Unavailable [phone] Ni Coates MD Primary Care Provider [phone] Allergies Active AllergyReactionsCriticalityNoted DateCommentsSulfa (Sulfonamide Antibiotics)Cfxzyuq2710/21/2015 Medications MedicationSigDispense QuantityRefillsLast FilledStart DateEnd DateStatus bisoprolol-hydrochlorothiazide (ZIAC) 10-6.25 mg per tablet Take 1 tablet by mouth once daily.09/14/2015ctive cloNIDine HCl (CATAPRES) 0.1 mg tablet Take 0.1 mg by mouth twice daily.08/28/2015ctive diltiazem (CARDIZEM) 90 mg tablet Take 90 mg by mouth once daily.08/20/2015ctive latanoprost (XALATAN) 0.005 % ophthalmic solution Use 1 Drop in both eyes once daily.09/25/2015ctive simvastatin (ZOCOR) 20 mg tablet Take 40 mg by mouth daily at bedtime.08/18/2015ctive timolol hemihydrate (BETIMOL) 0.25 % ophthalmic solution Use 1 Drop in both eyes once daily.Active aspirin, enteric coated (ASPIRIN, ENTERIC COATED) 81 mg EC tablet Take 81 mg by mouth once daily.Active ALBUTEROL SULFATE (VENTOLIN HFA INHALATION) Inhale as instructed.Active tamsulosin ER (FLOMAX) 0.4 mg cp24 Take 0.4 mg by mouth.Active montelukast (SINGULAIR) 10 mg tablet Take 10 mg by mouth daily at bedtime.Active Active Problems ProblemNoted DateDiagnosed DateProstate gaamtq7411/29/2016 Social History Tobacco UseTypesPacks/DayYears UsedDateSmoking Tobacco: FormerCigarettesQuit: 10/23/2006lcohol UseStandard Drinks/WeekCommentsYes0 (1 standard drink = 0.6 oz pure alcohol)occassionalSex and Gender InformationValueDate RecordedSex Assigned at BirthNot on fileLegal QyfNhir51/28/2015 1:41 PM ESTGender IdentityNot on file Sexual OrientationNot on file Last Filed Vital Signs Vital SignReadingTime TakenCommentsBlood Mnyllfvb120/8004 11:48 AM EDT Ndwyz096710/22/2015 10:14 AM GXKKsiuwyeyozr71.4 ??C (97.6 ??F)10/22/2015 10:14 AM ESTRespiratory Bjgf1316 10:14 AM ESTOxygen Zykamlyppu20%10/22/2015 10:14 AM ESTInhaled Oxygen Concentration--Zmjpta44.8 kg (176 lb)01/30/2017 8:28 AM EDT Hyntti360.1 cm (5' 5 )01/02/2017 12:17 PM EDTBody Mass Index29.2903 12:17 PM EDT Plan of Treatment Health MaintenanceDue DateLast DoneCommentsAnxiety Hrbyvelah54/21/1967Depression Xiqomexgw96/21/1967Hepatitis C Wkticpovg91/21/1967DTaP,Tdap,Td Vaccine (1 - Tdap)01/11/1968Diabetes Poheahalv52/21/1994Pneumococcal Vaccine: 50+ (1 of 1 - PCV)1999Shingrix Vaccine (1 of 2)1999RSV Vaccine (1 - 1-dose 75+ series)01/11/2024dvance Directive Zaazgfogaz16/01/2025ovid-19 Vaccine (1 - 2024-26 season)2025Influenza Vaccine (#1)2025 Insurance Care Teams Team MemberRelationshipSpecialtyStart [place] [address] [place] [id number] PCP - GeneralFamily Medicine11/18/16 Mahesh Forte MD Specialty HpoygoodhkRxolqvh22/28/15 Mahesh Forte MD ZthbqtsjyKrnksex30/31/15
--- OUTSIDE RECORDS SUMMARY | 2025-09-04 08:02 | XMS_ITS | Encounter Summary ---
Author Organization [facility] Address [address] [place] [address] Phone Care Team Providers Care Union Steward Name Role Phone Ni Coates MD Primary Care Provider [phone] Reason for Visit * ReasonOnset DateCommentsMed Puupxx3509/01/2025 Encounter Details DateTypeDepartmentCare Team (Latest Contact Info)Ovbapvhmweu26/10/2025Refill [address] [address] Sabina Cabezas CMA Essential hypertension Social History Tobacco UseTypesPacks/DayYears UsedDateSmoking Tobacco: FormerCigarettes Smokeless Tobacco: NeverAlcohol UseStandard Drinks/WeekCommentsYes1 (1 standard drink = 0.6 oz pure alcohol)PHQ-2AnswerDate RecordedPatient Health Questionnaire-2 Dtvtn354Sex and Gender InformationValueDate RecordedSex Assigned at BirthNot on fileLegal IqbJpsb57/26/2022 8:09 PM ESTGender Identity Not on fileSexual OrientationNot on filedocumented as of this encounter Plan of Treatment DateTypeDepartmentCare Team (Latest Contact Info)Yepsceijnhs66/12/2026 9:00 AM EDTOffice Visit [address] [place] [address] Johnna Renae, NEIGHBORHOOD CONSERVATION OFFICER-ACTIVITY LEADER [address] [facility] [place] [address] documented as of this encounter Visit Diagnoses Diagnosis Essential hypertension Unspecified essential hypertension documented in this encounter Additional Health Concerns AssessmentNoted TimeA fall risk assessment has been completed for the patient 07/31/2025 9:19 AM EDTdocumented as of this encounter Care Teams Team MemberRelationshipSpecialtyStart DateEnd Date Ni Coates MD [address] [place] [address] PCP - General04/30/19documented as of this encounter
--- OUTSIDE RECORDS SUMMARY | 2025-09-04 08:02 | XMS_ITS | Clinical Summary ---
Author Organization [facility] Address [address] [place] [address] Phone Care Team Providers Care Crude Unit Operator Name Role Phone Ni Coates MD Primary Care Provider [phone] Allergies Active AllergyReactionsCriticalityNoted DateCommentsSulfamethoxazoleUnknownLow 06/15/2023 Medications MedicationSigDispense QuantityRefillsLast FilledStart DateEnd DateStatus hydroCHLOROthiazide (HYDRODiuril) 12.5 mg tablet Take 1 tablet (12.5 mg) by mouth once daily.Active latanoprost, PF, 0.005 % drops Administer into affected eye(s). As directedActive mometasone (Asmanex Twisthaler) 220 mcg/ actuation (120) aerosol powdr breath activated Inhale 1 puff once daily in the evening.Active montelukast (Singulair) 10 mg tablet Take 1 tablet (10 mg) by mouth once daily at bedtime.Active polyethylene glycol (Miralax) 17 gram/dose powder Mix 17 g of powder and drink.Active simvastatin (Zocor) 20 mg tablet Take 1 tablet (20 mg) by mouth once daily at bedtime.Active timolol (Timoptic) 0.5 % ophthalmic solution Administer into affected eye(s). As directedActive warfarin (Coumadin) 6 mg tablet Take 1 tablet (6 mg) by mouth.Active spironolactone (Aldactone) 25 mg tablet Indications:Essential (primary) hypertensionTake 1 tablet (25 mg) by mouth once daily. 90 tablet 5010/29/2025ctive flecainide (Tambocor) 50 mg tablet Indications:Paroxysmal atrial fibrillation (Multi)Take 1 tablet (50 mg) by mouth 2 times a day. 180 tablet 301506Active valsartan (Diovan) 80 mg tablet Indications:Essential hypertensionTake 1 tablet (80 mg) by mouth once daily. 90 tablet 516Active valsartan (Diovan) 80 mg tablet Indications:Essential hypertensionTake 1 tablet (80 mg) by mouth once daily. 90 tablet 9:51 AM EDT1Discontinued(Reorder) Active Problems ProblemNoted DateDiagnosed DateHistory of GI bleed07/31/20253027Vvdldy21/09/2025MI 26.0-26.9,adult07/31/2024High risk medication use07/25/2023bnormal EKG 07/25/20235899Hogwagnbjou01/03/2023Essential bjswmepscmkf51/24/2023LVH (left ventricular hypertrophy)06/15/2023Mixed hxljarkjqwijfc81/24/2023aroxysmal atrial nmpwqnuoqcuw95/24/2023Former afrdfh7806/15/2023 Resolved Problems ProblemNoted DateDiagnosed DateResolved DfvvQiiqfysvtg05 Encounters DateTypeDepartmentCare AaspXeoseupjpfd2025Refill [address] [place] [address] Sabina Cabezas CMA Essential ysezhalbsbbn76/17/2025 8:30 AM EDT - 08/08/2025 11:59 PM EDTHospital Encounter [facility] [address] [place] [address] [facility] [address] [place] [address] Bradycardia; LVH (left ventricular hypertrophy); Paroxysmal atrial fibrillation (Multi); Essential hypertension Discharge Disposition: Home08/08/20250153Pubrou19/09/2025 9:30 AM EDTOffice Visit [address] [place] [address] DO Bradycardia; LVH (left ventricular hypertrophy); Paroxysmal atrial fibrillation (Multi); High risk medication use; Essential hypertension; Mixed hyperlipidemia; Anemia, unspecified type; BMI 26.0-26.9,adult; Former smoker Discharge Disposition: Home07/31/2025Travelfrom Last 3 Months Immunizations ImmunizationAdministration DatesNext DueCOVID-19, mRNA, LNP-S, PF, 30 mcg/0.3 mL dose12/15/2020Flu vaccine (IIV4), preservative free *Check age/dose*07/31/2022, 08/04/2021Flu vaccine, trivalent, preservative free, HIGH-DOSE, age 65y+ (Fluzone)07/29/2025,08/02/2024,08/04/2023,06/23/2020,08/11/2018Influenza, Eleisbeylgo06/28/2020,07/23/2019Influenza, seasonal, oagdcnarzk71/23/2022, 07/23/2019Moderna SARS-CoV-2 Kkbngtlwimo62/21/2021Pfizer COVID-19 vaccine, bivalent, age 12 years and older (30 mcg/0.3 mL)2Pfizer Chaney Cap GFSY-PiR-263/13/2022Pneumococcal conjugate vaccine, 13-valent (PREVNAR 13) 10/23/2013Pneumococcal polysaccharide vaccine, 23-valent, age 2 years and older (PNEUMOVAX 23)08/17/2018,07/23/2018,04/08/2015Tetanus Immune Gqtjwosp67/01/2015 Family History Medical HistoryRelationNameCommentsliver damageFatherRelationNameStatusComments Father Social History Tobacco UseTypesPacks/DayYears UsedDateSmoking Tobacco: FormerCigarettes Smokeless Tobacco: Never Tobacco Cessation:Counseling Given: Not Answered Alcohol UseStandard Drinks/WeekCommentsYes1 (1 standard drink = 0.6 oz pure alcohol)PHQ-2AnswerDate RecordedPatient Health Questionnaire-2 Zvgfm626 Sex and Gender InformationValueDate RecordedSex Assigned at BirthNot on file Legal ZriRixk33/26/2022 8:09 PM ESTGender IdentityNot on fileSexual Orientation Not on file Last Filed Vital Signs Vital SignReadingTime TakenCommentsBlood Ernqesgo931/8310/ 8:43 AM EDT Ikkmr514007/31/2025 9:20 AM EDTTemperature--Respiratory Rate--Oxygen Saturation-- Inhaled Oxygen Concentration--Kkrapv13.8 kg (165 lb)08/08/2025 8:43 AM EDTHeight 167.6 cm (5' 6 )08/08/2025 8:43 AM EDTBody Mass Index26.6308/08/2025 8:43 AM EDT Plan of Treatment DateTypeDepartmentCare Team (Latest Contact Info)Jfllwwrlfql37/12/2026 9:00 AM EDTOffice Visit [facility] [address] [facility] [address] [place] [address] oJhnna Renae, SCRIPT DEVELOPER-ADMINISTRATIVE SUPPORT MANAGER [address] [facility] [address] [place] [address] Health MaintenanceDue DateLast DoneCommentsLipid Panel1949Diabetes Chshtwruz87/21/1967Hepatitis C Cxrcfwfid29/21/1967Zoster Vaccines (1 of 2) 1999DTaP/Tdap/Td Vaccines (1 - Tdap)Medicare Annual Wellness Visit (AWV)/, 04/05/2018RSV High Risk: (Elderly (60+) or Population) (1 - 1-dose 75+ series)4COVID-19 Vaccine ( season)5111/13/2023, 08/22/2023, 08/23/2022, Additional history existsPneumococcal ThwdrboTlgysvsum78/26/2018, 07/23/2018, 04/08/2015, Additional history existsInfluenza JsiduweKpyzrmjaq39/07/2025, 08/02/2024, 08/04/2023, Additional history existsHIB VaccinesAged OutNo longer eligible based on patient's age to complete this topicHPV VaccinesAged OutNo longer eligible based on patient's age to complete this topicHepatitis A VaccinesAged OutNo longer eligible based on patient's age to complete this topicHepatitis B VaccinesAged OutNo longer eligible based on patient's age to complete this topic IPV VaccinesAged OutNo longer eligible based on patient's age to complete this topicMeningococcal VaccineAged OutNo longer eligible based on patient's age to complete this topicRotavirus VaccinesAged OutNo longer eligible based on patient's age to complete this topic Procedures Procedure NamePriorityDate/TimeAssociated DiagnosisCommentsTRANSTHORACIC ECHO (TTE) SKOHLDTBThopnjv59/17/2025 9:48 AM EDT Bradycardia LVH (left ventricular hypertrophy) Paroxysmal atrial fibrillation (Multi) Essential hypertension ECG 12-ERCPGzlgswn82/09/2025 9:30 AM EDT Paroxysmal atrial fibrillation (Multi) from Last 3 Months Results * TRANSTHORACIC ECHO (TTE) COMPLETE (08/08/2025 9:48 AM EDT)ComponentValueRef RangeTest MethodAnalysis TimePerformed AtPathologist SignatureAV mn gnfp1zqQk SYNGOAV pk vel1.14m/sSYNGOLV Biplane EF54%SYNGOLVOT diam2.10cmSYNGOMV E/A ratio1.77SYNGOLV EF58%XIZSDRJZX70ylFtHBSLVLTKIf3.21cmSYNGOAortic Valve Area by Continuity of Peak Velocity2.78rn3HJLLUFU pk bkms4mmTnIYTWJRizjux Valve Area by Continuity of VTI2.48ke9EDHULHG A4C EF58.6SYNGOSpecimen (Source)Anatomical Location / LateralityCollection Method / VolumeCollection TimeReceived Time 08/08/2025 8:54 AM EDT Impressions SYNGO - 08/11/2025 10:17 AM EDT CONCLUSIONS: 1. The left ventricular systolic function is normal with a visually estimated ejection fraction of 55-60%. 2. Mild LVH. 3. There is normal right ventricular global systolic function. 4. Trace to mild mitral valve regurgitation. 5. The Doppler estimated RVSP is within normal limits at 23 mmHg. 6. No significant changes noted when compared to previous study. Narrative SYNGO - 08/11/2025 10:17 AM EDT ?[facility] [address] [facility], [address] [facility], [place], [place] [address] ? TRANSTHORACIC ECHOCARDIOGRAM REPORT Patient Name: ? JOAO JULIEN ? Reading Physician: ?[id number] Mourhaf ?Darion VAUGHAN Study Date: ? 08/08/2025 ?Ordering Provider: ?[id number] TA S ?DOMINGO MRN/PID: ?[id number] ?Fellow: Accession#: ? [id number] ?Nurse: Date of /Age: ??1950 / 75 ?Engineering Lecturer: ?Amrita Peña RD ?years Gender Assigned at ??M ? Additional Staff: : Height: ? 167.64 cm ? Admit Date: Weight: ? 74.84 kg ?Admission Status: ? Outpatient BSA / BMI: ?1.84 m2 / 26.63 ? Department Location: ??[facility] Heart ?kg/m2 ? [place] Blood Pressure: 158 /83 mmHg Study Type: ?TRANSTHORACIC ECHO (TTE) COMPLETE Diagnosis/ICD: Bradycardia, unspecified-R00.1; Ventricular hypertrophy or ? dilatation-I51.7; Paroxysmal atrial fibrillation-I48.0; Essential ? (primary) hypertension-I10 Indication: ?HLD, Prostate Cancer, HRM, Former Smoker CPT Codes: ? Echo Complete w Full Doppler-69835 Study Detail: The following Echo studies were performed: 2D, M-Mode, Doppler and ?color flow. PHYSICIAN INTERPRETATION: Left Ventricle: The left ventricular systolic function is normal with a visually estimated ejectionfraction of 55-60%. There are no regional wall motion abnormalities. The left ventricular cavity size is normal. There is mild increased septal and mildly increased posterior left ventricular wall thickness. There is left ventricular concentric remodeling. Spectral Doppler shows a normal pattern ofleft ventricular diastolic filling. Mild LVH. Left Atrium: The left atrial size is normal. Right Ventricle: The right ventricle is normal in size. There is normal right ventricular global systolic function. Right Atrium: The right atrial size is normal. Aortic Valve: The aortic valve is trileaflet. The aortic valve area by VTI is 2.58 cm? with a peak velocity of 1.14 m/s. The peak and mean gradients are 5 mmHg and 3 mmHg, respectively, with a dimensionless index of 0.74. There is minimal aortic valve cusp calcification. There is no evidence of aortic valve regurgitation. Mitral Valve: The mitral valve is normal in structure. The doppler estimated peak and mean diastolic gradients are 3 mmHg and 1 mmHg, respectively. There is mild mitral annular calcification. There is trace to mild mitral valve regurgitation. The E Vmax is 0.76 m/s. Tricuspid Valve: The tricuspid valve is structurally normal. There is trace tricuspid regurgitation. The Doppler estimated right ventricular systolic pressure (RVSP) is within normal limits at 23 mmHg. Pulmonic Valve: The pulmonic valve is structurally normal. There is no indication of pulmonic valveregurgitation. Pericardium: No pericardial effusion noted. Aorta: The aortic root is normal. CONCLUSIONS: 1. The left ventricular systolic function is normal with a visually estimated ejection fraction of 55-60%. 2. Mild LVH. 3. There is normal right ventricular global systolic function. 4. Trace to mild mitral valve regurgitation. 5. The Doppler estimated RVSP is within normal limits at 23 mmHg. 6. No significant changes noted when compared to previous study. QUANTITATIVE DATA SUMMARY: 2D MEASUREMENTS: ? Normal Ranges: Ao Root d: ? 3.50 cm ? (2.0-3.7cm) LAs: ? 3.50 cm ? (2.7-4.0cm) RVIDd: ? 3.47 cm ? (0.9-3.6cm) IVSd: ?1.09 cm ? (0.6-1.1cm) LVPWd: ? 1.10 cm ? (0.6-1.1cm) LVIDd: ? 4.21 cm ? (3.9-5.9cm) LVIDs: ? 2.58 cm LV Mass Index: ?? 85.0 g/m2 LVEDV Index: ? 53.40 ml/m2 LV % FS ?38.7 % AORTA MEASUREMENTS: ? Normal Ranges: Asc Ao, d: ?3.80 cm (2.1-3.4cm) LV SYSTOLIC FUNCTION: ? Normal Ranges: EF-A4C View: 59 % (>=55%) EF-A2C View: ?48 % EF-Biplane: ? 54 % EF-Visual: ?58 % LV EF Reported: 58 % LV DIASTOLIC FUNCTION: ?Normal Ranges: MV Peak E: ? 0.76 m/s (0.7-1.2 m/s) MV Peak A: ? 0.43 m/s (0.42-0.7 m/s) E/A Ratio: ? 1.77 ? (1.0-2.2) MITRAL VALVE: ?Normal Ranges: MV Vmax: 0.81 m/s (<=1.3m/s) MV peak P.6 mmHg (<5mmHg) MV mean P.0 mmHg (<48mmHg) AORTIC VALVE: ? Normal Ranges: AoV Vmax: 1.14 m/s (<=1.7m/s) AoV Peak P.2 mmHg (<20mmHg) AoV Mean PG: ? 3.0 mmHg (1.7-11.5mmHg) LVOT Max Marek: 0.92 m/s (<=1.1m/s) AoV VTI: ? 24.60 cm (18-25cm) LVOT VTI: ?18.30 cm LVOT Diameter: ? 2.10 cm ??(1.8-2.4cm) AoV Area, VTI: ? 2.58 cm2 (2.5-5.5cm2) AoV Area,Vmax: ? 2.78 cm2 (2.5-4.5cm2) AoV Dimensionless Index: 0.74 TRICUSPID VALVE/RVSP: ?Normal Ranges: Peak TR Velocity: ? 2.26 m/s Est. RA Pressure: ? 3 mmHg RV Syst Pressure: 23 mmHg (< 30mmHg) IVC Diam: ? 2.00 cm PULMONIC VALVE: ?Normal Ranges: RVOT Vmax: ?0.68 m/s (0.6-0.9m/s) [id number] Becky Orlando MD Electronically signed on 08/11/2025 at 10:17:57 AM Final Procedure Note Becky Orlando MD - 08/11/[address], [address] [address] TRANSTHORACIC ECHOCARDIOGRAM REPORT Patient Name: JOAO Cote Physician: [id number] Encarnacion Study Date: 08/08/2025 Ordering Provider: [id number] LANE MRN/PID: [id number] Fellow: Nurse: Date of /Age: 2 1950 Engineering Lecturer: Amrita bryan Gender Assigned at M Additional Staff: : Height: 167.64 cm Admit Date: Weight: 74.84 kg Admission Status: Outpatient BSA / BMI: 1.84 m2 / 26.63 Department Location: [facility] kg/m2 [place] Blood Pressure: 158 /83 mmHg Study Type: TRANSTHORACIC ECHO (TTE) COMPLETE Diagnosis/ICD: Bradycardia, unspecified-R00.1; Ventricular hypertrophyor dilatation-I51.7; Paroxysmal atrial fibrillation-I48.0;Essential (primary) hypertension-I10 Indication: HLD, Prostate Cancer, HRM, Former Smoker CPT Codes: Echo Complete w Full Doppler-[id number] Study Detail: The following Echo studies were performed: 2D, M-Mode,Doppler and color flow. PHYSICIAN INTERPRETATION: Left Ventricle: The left ventricular systolic function is normal with avisually estimated ejection fraction of 55-60%. There are no regional wallmotion abnormalities. The left ventricular cavity size is normal. There ismild increased septal and mildly increased posterior left ventricular wallthickness. There is left ventricular concentric remodeling. SpectralDoppler shows a normal pattern of left ventricular diastolic filling. MildLVH. Left Atrium: The left atrial size is normal. Right Ventricle: The right ventricle is normal in size. There is normalright ventricular global systolic function. Right Atrium: The right atrial size is normal. Aortic Valve: The aortic valve is trileaflet. The aortic valve area by VTIis 2.58 cm? with a peak velocity of 1.14 m/s. The peak and mean gradientsare 5 mmHg and 3 mmHg, respectively, with a dimensionless index of 0.74.There is minimal aortic valve cusp calcification. There is no evidence ofaortic valve regurgitation. Mitral Valve: The mitral valve is normal in structure. The dopplerestimated peak and mean diastolic gradients are 3 mmHg and 1 mmHg,respectively. There is mild mitral annular calcification. There is traceto mild mitral valve regurgitation. The E Vmax is 0.76 m/s. Tricuspid Valve: The tricuspid valve is structurally normal. There istrace tricuspid regurgitation. The Doppler estimated right ventricularsystolic pressure (RVSP) is within normal limits at 23 mmHg. Pulmonic Valve: The pulmonic valve is structurally normal. There is noindication of pulmonic valve regurgitation. Pericardium: No pericardial effusion noted. Aorta: The aortic root is normal. CONCLUSIONS: 1. The left ventricular systolic function is normal with a visuallyestimated ejection fraction of 55-60%. 2. Mild LVH. 3. There is normal right ventricular global systolic function. 4. Trace to mild mitral valve regurgitation. 5. The Doppler estimated RVSP is within normal limits at 23 mmHg. 6. No significant changes noted when compared to previous study. QUANTITATIVE DATA SUMMARY: 2D MEASUREMENTS: Normal Ranges: Ao Root d: 3.50 cm (2.0-3.7cm) LAs: 3.50 cm (2.7-4.0cm) RVIDd: 3.47 cm (0.9-3.6cm) IVSd: 1.09 cm (0.6-1.1cm) LVPWd: 1.10 cm (0.6-1.1cm) LVIDd: 4.21 cm (3.9-5.9cm) LVIDs: 2.58 cm LV Mass Index: 85.0 g/m2 LVEDV Index: 53.40 ml/m2 LV % FS 38.7 % AORTA MEASUREMENTS: Normal Ranges: Asc Ao, d: 3.80 cm (2.1-3.4cm) LV SYSTOLIC FUNCTION: Normal Ranges: EF-A4C View: 59 % (>=55%) EF-A2C View: 48 % EF-Biplane: 54 % EF-Visual: 58 % LV EF Reported: 58 % LV DIASTOLIC FUNCTION: Normal Ranges: MV Peak E: 0.76 m/s (0.7-1.2 m/s) MV Peak A: 0.43 m/s (0.42-0.7 m/s) E/A Ratio: 1.77 (1.0-2.2) MITRAL VALVE: Normal Ranges: MV Vmax: 0.81 m/s (<=1.3m/s) MV peak P.6 mmHg (<5mmHg) MV mean P.0 mmHg (<48mmHg) AORTIC VALVE: Normal Ranges: AoV Vmax: 1.14 m/s (<=1.7m/s) AoV Peak P.2 mmHg (<20mmHg) AoV Mean P.0 mmHg (1.7-11.5mmHg) LVOT Max Marek: 0.92 m/s (<=1.1m/s) AoV VTI: 24.60 cm (18-25cm) LVOT VTI: 18.30 cm LVOT Diameter: 2.10 cm (1.8-2.4cm) AoV Area, VTI: 2.58 cm2 (2.5-5.5cm2) AoV Area,Vmax: 2.78 cm2 (2.5-4.5cm2) AoV Dimensionless Index: 0.74 TRICUSPID VALVE/RVSP: Normal Ranges: Peak TR Velocity: 2.26 m/s Est. RA Pressure: 3 mmHg RV Syst Pressure: 23 mmHg (< 30mmHg) IVC Diam: 2.00 cm PULMONIC VALVE: Normal Ranges: RVOT Vmax: 0.68 m/s (0.6-0.9m/s) [id number] Becky Orlando MD Electronically signed on 08/11/2025 at 10:17:57 AM Final IMPRESSION: CONCLUSIONS: 1. The left ventricular systolic function is normal with a visuallyestimated ejection fraction of 55-60%. 2. Mild LVH. 3. There is normal right ventricular global systolic function. 4. Trace to mild mitral valve regurgitation. 5. The Doppler estimated RVSP is within normal limits at 23 mmHg. 6. No significant changes noted when compared to previous study. Authorizing ProviderResult TypeResult Gemma Lane DOCV ECHO PROCEDURESFinal ResultPerforming OrganizationAddressCity/State/ZIP CodePhone Number SYNGO * ECG 12 Lead (07/31/2025 9:30 AM EDT)Specimen (Source)Anatomical Location / LateralityCollection Method / VolumeCollection TimeReceived Time Narrative CPACS - 07/31/2025 10:03 AM EDT Sinus bradycardia, T wave inversions throughout the anterolateral and inferior leads unchanged from the past, abnormal ECG Authorizing ProviderResult TypeResult Gemma Lane DOECG ORDERABLES Final ResultPerforming OrganizationAddressCity/State/ZIP CodePhone Number CPACS from Last 3 Months Insurance Care Teams Team MemberRelationshipSpecialtyStart DateEnd Date Ni Coates MD [address] [place] [address] [address] [place] [address] [facility]04/30/19
--- OUTSIDE RECORDS SUMMARY | 2025-09-04 08:02 | XMS_ITS | Clinical Summary ---
Author Organization [employer] [facility] tem Address [id number] [address] [place] [address] Care Team Providers Care Hepatologist Name Role Phone Ni Coates MD Primary Care Provider [phone] Allergies No known active allergies Medications No known medications Active Problems ProblemNoted DateDiagnosed DateAcute foreign body of left ear canal05/06/2019 Social History Tobacco UseTypesPacks/DayYears UsedDateSmoking Tobacco: Never AssessedChildcare AnswerDate RofmpvstLcdsjmswsNforlpg19/15/2019EmploymentAnswerDate Recorded JyfovjgoqgUhkgydr12/15/2019Purpose - LifeAnswerDate RecordedPurpose and direction in lnnlSdeskta35/11/2021ex and Gender InformationValueDate Recorded Sex Assigned at BirthNot on fileLegal OhhKnak5505/06/2019 12:04 PM EDTGender IdentityNot on fileSexual OrientationNot on file Last Filed Vital Signs Vital SignReadingTime TakenCommentsBlood Pressure--Pulse--Temperature-- Respiratory Rate--Oxygen Saturation--Inhaled Oxygen Concentration--Yjzrph39 kg (152 lb 3.2 oz)05/06/2019 3:30 PM EDTHeight--Body Mass Index-- Plan of Treatment Health MaintenanceDue DateLast DoneCommentsDepression Zqvengkfk57/21/1961Tobacco Hdtavwzsh15/21/1961TaP,Tdap and Td Vaccines (1 - Tdap)01/11/1968Zoster (Shingles) Vaccine (1 of 2)1999Fall Risk Pkluxxufs30/21/2014RSV ( or age 60+ yrs) (1 - 1-dose 75+ series)01/11/2024Influenza Spzbndu8906/23/2025 Medical Devices Not on file Insurance * Guarantor: Dillon Boggs TypeRelation to PatientDate of BirthPhone Billing AddressPersonal/LigaghNmao1950 [address] [address] Care Teams Team MemberRelationshipSpecialtyStart DateEnd Ni Coates MD [address] [place] [address] PCP - GeneralFamily Medicine05/06/19
--- OUTSIDE RECORDS SUMMARY | 2025-09-04 08:05 | XMS_ITS | CCD ---
Author Organization [facility] CliniSyil Care Team Providers Care Toggler Name Role Phone PHYSICIAN, DEFAULT Unavailable Unavailable PHYSICIAN, DEFAULT Unavailable Unavailable CHRISTI DENT Primary Care Physician Christi Dent Unavailable Unavailable Unavailable MD Tyrone Walters Attending Provider MD Christi Dent Primary Care Provider [phone] MD Tyrone Walters Referring Provider [phone] Ricardo, Dr. Ta Anderson Attending Mary ilstacie Dent, Dr. Christi Bird Primary Care Brandyv danilo Dent, Dr. Christi Bird Primary Care Unav Ta Miles Attending Unavailable Ta Lane Referring Unavailable Oc, Ms. Johnna Franco Referring Unautnde Renae, Ms. Johnna Franco Attending Sarah Dent, Dr. Christi Bird Primary Care Catrachita Dent, Dr. Christi Bird Primary Care Unav Tyrone Brand Attending Unavailable Oc, Ms. Johnna Franco Referring Unavai isrrael Renae, Ms. Johnna Franco Attending Sarah [...] Care Unavailable REQUEST, NONE LISTED Admitting Unavaila stephan GARCIA ., MONSE Attending Unavailable JOSE ., MONSE [...] Unavailable Christi Dent MD Primary Care Provider Christi Dent MD Primary Care Provider Azul London APRN Attending Provider Christi Dent Primary Care Unavailable Azul London Attending Unavailable Azul London Admitting Unavailable Christi Dent MD Primary Care Provider Christi Dent MD Attending Provider TA LANE Attending Unavailable TA LANE Referring Unavailable CHRISTI DENT Primary Care Unavailable Christi Dent MD Primary Care Provider TA LANE Referring Unavailable CHRISTI DENT Primary Care Unavailable Kyle FORTE Attending Unavailable Kyle FORTE Attending Unavailable CHRISTI DENT Referring Unavailable Hardik MOSES Attending Unavailable Allergies Allergy ClassificationReported Allergen(s)Allergy TypeDate of OnsetReaction(s) Facility (20 sources)Sulfamethoxazole; Translations: [sulfamethoxazole]Drug Allergy 82-95-4392EcdsvoeMnrokbact [facility] (1 source)Sulfonamides (Antibiotic)Drug allergy (disorder)49-66-8463Jnw [facility] (11 sources)Lisinopril; Translations: [lisinopril]Drug Lyvrwhl59-93-2762Igtc (disorder)[facility] (9 sources)SulfacetamideDrug Xmvbxee40-33-6269ka doesn't rememberMccullough-Hyde Memorial Hospital (5 sources)Sulfonamides (Antibiotic); Translations: [Sulfa (Sulfonamide Antibiotics)]Allergy to grijuxqjz55-42-2949Fauvrwc ReactionMccullough-Hyde Memorial Hospital (1 source)LisinoprilDrug Vwkekfz61-60-4771EwwzsqxtzMccullough-[facility] (1 source)SulfacetamideDrug Txrwoiz44-10-8520XmmvfuvvfMccullough-Hyde Memorial Hospital Repository Medications Current Medications MedicationDrug Class(es)DatesSig (Normalized)Sig (Original)Albuterol (14 sources)beta2-Adrenergic AgonistStart: 75-09-5693yxip 2 puff(s) by inhalation every six hoursAlbuterol (Eqv-ProAir HFA) 2 puff(s), Inhalation, q6hr Shortness of breath or wheezing, Refill(s) 0Start Date: 08/18/25 Status: Ordered Medication Dispense Status: Completed Total Allowed Fills: 1 Fills Dispensed: 0 Start: 74-24-0108itkf 1 puff(s) by inhalation every four to six hours as needed for wheezingAlbuterol Sulfate 90 mcg/actuation HFA aerosol inhaler Active 2 PUFF INHALATION EVERY 4-6 HOURS as needed for shortness of breath or wheezing 8.5 January 08, 2025 12:00am Complies with drug therapyStart: 12-18-2024 End: 93-21-2901Drsabjmov Sulfate (Ventolin Hfa) 90 mcg/actuation HFA aerosol inhaler Discontinued 1 INH INHALATIONEvery 6 hours December 18, 2024 1:00am December 19, 2024 11:57amStart: 89-67-7304Nwdsdcgd Ventolin Start Date: 08/08/19 Status: Orderedbisoprolol fumarate 10 mg / hydroCHLOROthiazide 6.25 mg oral tablet (1 source)Thiazide Diuretic, beta-Adrenergic BlockerStart: 45-98-3609tmeqntbydh- hydrochlorothiazide 10 mg-6.25 mg Tab Oral, Daily, Refill(s) 0 Start Date: 10/26/15 Status: Ordereddiclofenac sodium 0.01 mg/mg topical gel (5 sources)Nonsteroidal Anti-inflammatory DrugGoodSense Arthritis Pain 1 % APPLY 1-2 GRAM TO THE AFFECTED AREA(S) FOUR TIMES DAILY FOR 90 DAYS for 90 Active Voltaren 1 % apply 1-2 grams to affected area Externally up to four times daily for 90 days ActivedilTIAZem hydrochloride 60 mg oral tablet (20 sources)Calcium Channel BlockerStart: 07-31-2024 End: 92-68-8026asfl 1 tablet by mouth once dailydilTIAZem (Cardizem) 60 mg immediate release tablet Indications: Paroxysmal atrial fibrillation (Multi) Take 1 tablet (60 mg) by mouth once daily. 90 tablet 3 07/31/2024 07/31/2025 Discontinued (Therapy completed)Start: 11-20-2023 End: 39-61-5393hiceahhcv 60 mg Tab Refills(s) 0 Start Date: 02/05/24 Status: OrderedStart: 79-87-7904azao 1 tablet by mouth once dailydilTIAZem HCl - 60 MG Oral Tablet Take 1 tablet daily Quantity: 90 Refills: 3 Ordered: 28-Nov-2022 Salvador MATA Johnna Start : 28-Nov-2022 Active dose decreasedStart: 09-06-2022 take 1 tablet by mouth once dailyDiltiazem Hcl Active 135 MG PO Daily September 06, 2022 12:00am TABLETS 1 1/2 DAILYStart: 08-11-2022 End: 14-21-0991dsjx 1 tablet by mouth once dailyDiltiazem Hcl 90 mg Tablet Discontinued 135 MG PO Daily September 06, 2022 1:00am December 19, 2024 11:58am TABLETS 1 1/2 DAILYStart: 95-93-7973rbvh 1.5 tablets by mouth once daily dilTIAZem HCl - 90 MG Oral Tablet TAKE 1.5 TABLET Daily Quantity: 135 Refills: 3 Ordered: 11-Aug-[address] DO Start : 11-Aug-2022 ActiveStart: 61-01-9144tmghaehem 90 mg Tab Oral, Daily, Refills(s) 0 Start Date: 10/26/15 Status: Orderedflecainide acetate 50 mg oral tablet (20 sources)AntiarrhythmicStart: 93-43-5113fwxh 1 tablet by mouth every twelve hoursflecainide 50 mg Tab 50 mg = 1 tab(s), Oral, q12hr, Refills(s) 0 Start Date: 02/03/23 Status: Ordered Medication Dispense Status: Completed Total Allowed Fills: 1 Fills Dispensed: 0Start: 08-25-2022 End: 23-23-5295sfjz 1 tablet by mouth twice dailyflecainide (Tambocor) 50 mg tablet Indications: Paroxysmal atrial fibrillation (Multi) Take 1 tablet (50 mg) by mouth 2 times a day. 180 tablet 3 10/29/2024 10/29/2025 Active hydroCHLOROthiazide 12.5 mg oral capsule (20 sources)Thiazide DiureticStart: 10-14-2024 End: 94-85-6655poaj 1 capsule by mouth once dailyHydrochlorothiazide 12.5 mg capsule Discontinued 0 .ROUTE .COMPLEX 90 October 14, 2024 10:33pm December 19, 2024 11:59am TAKE 1 CAPSULE BY MOUTH DAILYStart: 09-06-2022 End: 67-74-9834prak 1 tablet by mouth once dailyHydrochlorothiazide 12.5 mg Tablet Discontinued 12.5 MG PO Daily September 06, 2022 1:00am October 14, 2024 10:33pmStart: 01-25-2021 End: 00-92-0280nesw 1 capsule by mouth once dailyHydrochlorothiazide 12.5 mg capsule Active 12.5 MG PO Daily January 21, 2025 8:29am Complies withdrug therapylatanoprost 0.05 mg/ml ophthalmic solution (20 sources)Prostaglandin AnalogStart: 17-49-5352shti 1 drop(s) into the eye(s) once daily at bedtimeLatanoprost 0.005 % drops Active DROPS OPHTHALMIC Daily December 18, 2024 1:00am FreeTextSi drop once at HS; Note: Source Status: Taking; Provider: Filipe Dan ( ) Complies withdrug therapy Start: 09-01-0332rvetbaciylu Opth 0.005% Chika 1 drop(s), Eye-Both, Once a day (at bedtime), Refill(s) 0 Start Date: 02/05/24 Status: Ordered Medication Dispense Status: Completed Total Allowed Fills: 1 Fills Dispensed:0Start: 02-05-2024 latanoprost Opth 0.005% Chika Refill(s) 0 Start Date: 02/05/24 Status: Ordered latanoprost, PF, 0.005 % drops Administer into affected eye(s). As directed ActiveLatanoprost 0.005 % 1 drop once at HS ActiveLatanoprost 0.005 % 1 drop once at HS ActiveLatanoprost SOLN as directed Quantity: 0 Refills: 0 Ordered: 13-Sep-2022 DO Activelatanoprost Opth 0.005% Chika (1 source)Start: 40-01-3084xlkidteflit Opth 0.005% Chika 1 drop(s), OPTH, Once a day (at bedtime), 2.5 mL, Refill(s) 0 Start Date: 10/26/15 Status: Xqtttxq353 actuat mometasone furoate 0.05 mg/actuat metered dose inhaler (20 sources)CorticosteroidStart: 10-14-3049ljcd 2 doses by inhalation twice dailyAsmanex HFA 50 mcg/inh inhalation aerosol = 2 inh, Inhalation, BID Start Date: 02/03/25 Status: Ordered Medication Dispense Status: Completed Total Allowed Fills: 1 Fills Dispensed: 0Start: 11-01-2024 End: 67-23-1508ympr 1 puff(s) by inhalation twice dailyMometasone (Asmanex Hfa) 100 mcg/actuation HFA aerosol inhaler Active 2 PUFF INHALATION Twice daily13 April 21, 2025 12:11pm Complies with drug therapyStart: 10-21-2024 End: 11-07-4699Rjeyoqgtkx (Asmanex Twisthaler) 220 mcg/ actuation (120) aerosol powdr breath activated Discontinued 2 INH INHALATION Twice daily 3 October 21, 2024 11:23am November 01, 2024 3:04pm IN THE EVENINGStart: 09-06-2022 End: 86-86-8974Nwhtrlyhav (Asmanex Twisthaler) 220 mcg/ actuation (120) aerosol powdr breath activated Discontinued 1 INH INHALATION Daily March 13, 2024 1:16pm October 21, 2024 11:23am IN THE EVENINGStart: 94-91-0695Juygduu Inhalation Start Date: 08/08/19 Status: Orderedtake 1 puff(s) by inhalation once daily in the eveningmometasone (Asmanex Twisthaler) 220 mcg/ actuation (120) aerosol powdr breath activated Inhale 1 puff once daily in the evening. Active take 2 puff(s) by inhalation twice dailyAsmanex HFA 100 MCG/ACT 2 puffs Inhalation Twice a day for 90 days ActiveMometasone (Asmanex Hfa) 100 mcg/actuation HFA aerosol inhaler (3 sources)Start: 07-34-2268bwlp 1 puff(s) by inhalation twice dailyMometasone (Asmanex Hfa) 100 mcg/actuation HFA aerosol inhaler Active 2 PUFF INHALATION Twice daily13 November 01, 2024 1:00amStart: 32-20-1506zuke 1 puff(s) by inhalation twice dailyMometasone (Asmanex Hfa) 100 mcg/actuation HFA aerosol inhaler Active 2 PUFF INHALATION Twice daily13 November 01, 2024 12:00am montelukast 10 mg oral tablet (20 sources)Leukotriene Receptor AntagonistStart: 02-05-2024 End: 43-79-5743tkze 1 tablet by mouth once dailyMontelukast 10 mg tablet Active 10 MG PO Daily January 13, 2025 9:12am FreeTextSig: TAKE 1 TABLET BY MOUTH ONCE DAILY; Note: Source Status: Taking; Refills: 3; Qty: 90 Tablet; Provider: Filipe Dan ( ) Complies with drug therapyStart: 01-08-2024 End: 72-90-9969bgbt 1 tablet by mouth once dailyMontelukast 10 mg tablet Discontinued 0 .ROUTE .COMPLEX 90 January 08, 2024 10:02am December 19, 2024 11:59am TAKE 1 TABLET BY MOUTH ONCE DAILYStart: 09-06-2022 End: 63-37-7257fvsl 1 tablet by mouth at bedtimeMontelukast (Singulair) 10 mg Tablet Discontinued 10 MG PO Bedtime September 06, 2022 1:00am 2023 10:02amStart: 23-47-4535Jhpvkulho Daily Start Date: 08/08/19 Status: Ordered pantoprazole 20 mg delayed release oral tablet (20 sources)Proton Pump InhibitorStart: 01-67-4859nrbq 1 tablet by mouth once dailyProtonix 20 mg Tab-DR 20 mg = 1 tab(s), Oral, Daily, Refills(s) 0 Start Date: 08/27/25 Status: Ordered Medication Dispense Status: Completed Total Allowed Fills: 1 Fills Dispensed: 0Start: 12-27-2023 End: 56-85-8368izrr 1 tablet by mouth once dailyPantoprazole 20 mg tablet,delayed release (DR/EC) Discontinued 0 .ROUTE .COMPLEX 90 December 12, 2024 10:20am December 19, 2024 12:20pm TAKE 1 TABLET BY MOUTH DAILYStart: 09-06-2022 End: 70-89-1859epww 1 tablet by mouth once dailyPantoprazole (Protonix) 20 mg Tablet,Delayed Release (Dr/Ec) Discontinued 20 MG PO Daily September 06, 2022 1:00am December 27, 2023 3:06pmStart: 02-51-4580Jfoxrjci Oral, Daily Start Date: 08/08/19 Status: OrderedMiralax (20 sources)Osmotic LaxativeStart: 27-86-6973cwxp 17 g by mouth once daily MiraLax 17 gm, Oral, Daily, Refill(s) 0 Start Date: 08/27/25 Status: Ordered Medication Dispense Status: Completed Total Allowed Fills: 1 Fills Dispensed: 0 Start: 81-02-9655Qmokgnxkxqla Glycol 3350 (Miralax) 17 gram/dose Powder Active 17 GM PO Daily September 06, 2022 1:00am Complies with drug therapyMiraLax Activesimvastatin 20 mg oral tablet (20 sources)HMG-CoA Reductase InhibitorStart: 20-21-9119ihlb 1 tablet by mouth once daily in the eveningsimvastatin 20 mg Tab 20 mg = 1 tab(s), Oral, qPM, Refills(s) 0 Start Date: 02/05/24 Status: OrderedMedication Dispense Status: Completed Total Allowed Fills: 1 Fills Dispensed: 0Start: 01-24-2024 End: 00-42-2570rxeo 1 tablet by mouth at bedtimeSimvastatin 20 mg tablet Active 0 .ROUTE .COMPLEX 90 February 03, 2025 2:30pm TAKE 1 TABLET BY MOUTHAT BEDTIME Complies with drug therapyStart: 10-26-2015 End: 76-05-5954arpw 1 tablet by mouth at bedtimeSimvastatin 20 mg Tablet Discontinued 20 MG PO Bedtime September 06, 2022 1:00am January 24, 2024 9:37am spironolactone 25 mg oral tablet (20 sources)Aldosterone AntagonistStart: 10-29-2024 End: 73-23-4820ycnd 1 tablet by mouth once dailyspironolactone (Aldactone) 25 mg tablet Indications: Essential (primary) hypertension Take 1 tablet(25 mg) by mouth once daily. 90 tablet 3 10/29/2024 10/29/2025 ActiveStart: 02-03-2023 Aldactone Oral, Refills(s) 0 Start Date: 02/03/23 Status: OrderedStart: 56-17-0265zsjo 1 tablet by mouth once dailyspironolactone (Aldactone) 25 mg tablet Indications: Essential (primary) hypertension TAKE 1 TABLETBY MOUTH DAILY 90 tablet 3 11/13/2023 ActiveStart: 61-78-6163guab 0.5 tablet by mouth once dailySpironolactone 25 MG Oral Tablet TAKE 0.5 TABLET Daily Quantity: 15 Refills: 0 Ordered: 56-Hnq-8015FjexJohnna Carreno Start : 13-Sep-2022 ActiveTimolol Maleate (20 sources)beta-Adrenergic BlockerStart: 51-93-0260hrvl 1 drop(s) into the eye(s) twice dailyStart: 28-71-4087wssz 1 drop(s) into the eye(s) twice daily Start: 06-05-3835cfoq 1 drop(s) into the eye(s) twice dailyStart: 00-38-6716bwfh 1 drop(s) into the eye(s) twice dailytimolol hemihydrate ophthalmic 0.25% solution 1 drop(s), Eye-Both, BID, Refill(s) 0 Start Date: 10/26/15 Status: Ordered Medication Dispense Status: Completed Total Allowed Fills: 1 Fills Dispensed: 0Start: 64-65-9066whovgnn hemihydrate ophthalmic 0.25% solution Eye- Both, Daily, Refill(s) 0 Start Date: 10/26/15 Status: OrderedStart: 10-26-2015 timolol hemihydrate ophthalmic 0.25% solution Eye-Both, Daily, Refill(s) 0 Start Date: 10/26/15 Status: Orderedtimolol (Timoptic) 0.5 % ophthalmic solution Administer into affected eye(s). As directed ActiveTimolol Maleate SOLN as directed Quantity: 0 Refills: 0 Ordered: 13-Sep-2022 DO Activetriamcinolone acetonide 5 mg/ml topical cream (1 source)CorticosteroidStart: 79-93-3467Ngvdcdpnpwqyb Acetonide 0.5 % cream Active 1 APPLIC TOPICAL Twice daily July 29, 2025 12:00am Complies with drug therapyvalsartan 80 mg oral tablet (20 sources)Angiotensin 2 Receptor BlockerStart: 12-18-2024 End: 70-53-2520qzza 1 tablet by mouth once dailyValsartan 160 mg tablet Discontinued 160 MG PO Daily December 18, 2024 1:00am December 19, 2024 12:02pm FreeTextSi tablet Orally Once a day; Note: Source Status: Taking; Provider: Filipe Dan ( )Start: 09-09-2024 End: 15-92-7027oobu 1 tablet by mouth once dailyvalsartan 80 mg Tab 80 mg = 1 tab(s), Oral, Daily Start Date: 02/03/25 Status: Ordered Medication Dispense Status: Completed Total Allowed Fills: 1 Fills Dispensed: 0Start: 88-83-5362voth 1 tablet by mouth once dailyvalsartan (Diovan) 160 mg tablet Indications: Essential hypertension Take 1 tablet (160 mg) by mouth once daily. For blood pressure 90 tablet 3 07/31/2024 ActiveStart: 09-09-2022 End: 53-31-4441fthofwlgo 160 mg Tab Refills(s) 0 Start Date: 02/05/24 Status: Orderedwarfarin sodium 2.5 mg oral tablet (20 sources)Vitamin K AntagonistStart: 87-87-8553kxoq 1 tablet by mouth two times weeklyWarfarin 2.5 mg tablet Active 2.5 MG PO December 18, 2024 1:00am FreeTextSi tablet Orally Twotimes a Week; Note: Source Status: Taking; Provider: Filipe Dan ( ) Complies with drug therapyStart: 19-22-5322Mjdixddc Oral, Daily, Refills(s) 0 Start Date: 08/19/19 Status: Orderedwarfarin (Coumadin) 6 mg tablet Take 1 tablet (6 mg) by mouth. Activetake 1 tablet by mouth two times weeklyCoumadin 2.5 2.5 MG 1 tablet Orally Two times a Week ActiveCoumadin TABS TAKE 1 TABLET DAILY DIRECTED. [facility] monitors coumadin Quantity: 0 Refills: 0 Ordered: 11-Aug-2022 DO Active Completed/Discontinued Medications MedicationDrug Class(es)DatesSig (Normalized)Sig (Original)clobetasol propionate 0.5 mg/ml topical cream (8 sources)CorticosteroidStart: 12-18-2024 End: 38-83-0121Mnhclxjmar 0.05 % cream Discontinued 1 APPLIC TOPICAL Twice daily December 18, 2024 1:00am December 19, 2024 11:57am FreeTextSi application Externally Twice a day; Note: Source Status: Taking; Provider: Filipe Dan EClobetasol Propionate 0.05 % 1 application Externally Twice a day for 10 days ActiveClobetasol Propionate 0.05 % 1 application Externally Twice a day for 10 days ActivecloNIDine hydrochloride 0.2 mg oral tablet (20 sources)Central alpha-2 Adrenergic AgonistStart: 09-06-2022 End: 50-69-0583pftr 1 tablet by mouth twice dailyClonidine Hcl 0.2 mg Tablet Discontinued 0.2 MG PO Twice daily September 06, 2022 1:00am December 19, 2024 11:58amStart: 00-77-9447ppuCNPlbi 0.1 mg tab Oral, BID, Refills(s) 0 Start Date: 10/26/15 Status: Ordereddoxycycline hyclate 100 mg oral capsule (3 sources)Tetracycline-class DrugStart: 01-08-2025 End: 26-58-6877cjpz 1 capsule by mouth twice dailyDoxycycline Hyclate 100 mg capsule Discontinued 100 MG PO Twice daily 11 08January 08, 2025 12:00am July 29, 2025 11:01amlosartan potassium 50 mg oral tablet (13 sources)Angiotensin 2 Receptor BlockerStart: 08-08-2019 End: 58-82-8491hsfo 1 tablet by mouth once dailyLosartan 50 mg Tablet Discontinued 50 MG PO Daily September 06, 2022 1:00am December 19, 2024 11: 59amMometasone (Asmanex Twisthaler) 220 mcg/ actuation (120) Aerosol Powdr Breath Activated (4 sources)Start: 09-06-2022 End: 11-11-9812Nsvmbconxc (Asmanex Twisthaler) 220 mcg/ actuation (120) Aerosol Powdr Breath Activated Discontinued 1 INH INHALATION Daily September 06, 2022 1:00am March 13, 2024 1:17pm IN THE EVENINGStart: 09-06-2022 End: 27-39-5799Dhbxwlqwqo (Asmanex Twisthaler) 220 mcg/ actuation (120) Aerosol Powdr Breath Activated Discontinued 1 INH INHALATION Daily September 06, 2022 12:00am March 13, 2024 12:17pm IN THE EVENINGStart: 76-70-0065Khpbuoibdd (Asmanex Twisthaler) 220 mcg/ actuation (120) Aerosol Powdr Breath Activated Active 1 INH INHALATION Daily September 06, 2022 12:00am IN THE EVENING Mometasone (Asmanex Twisthaler) 220 mcg/ actuation (120) aerosol powdr breath activated (6 sources)Start: 10-21-2024 End: 28-50-3543Xpxmxktcbe (Asmanex Twisthaler) 220 mcg/ actuation (120) aerosol powdr breath activated Discontinued 2 INH INHALATION Twice daily October 21, 2024 11:23am November 01, 2024 3:04pm IN THE EVENINGStart: 10-21-2024 End: 56-54-2485Ljdurjegav (Asmanex Twisthaler) 220 mcg/ actuation (120) aerosol powdr breath activated Discontinued 2 INH INHALATION Twice daily October 21, 2024 10:23am November 01, 2024 2:04pm IN THE EVENINGStart: 03-13-2024 End: 93-34-8719Xvdmkzaeda (Asmanex Twisthaler) 220 mcg/ actuation (120) aerosol powdr breath activated Discontinued 1 INH INHALATION Daily March 13, 2024 1:16pm October 21, 2024 11:23am IN THE EVENINGStart: 03-13-2024 End: 64-80-1305Nslclssnmb (Asmanex Twisthaler) 220 mcg/ actuation (120) aerosol powdr breath activated Discontinued 1 INH INHALATION Daily March 13, 2024 12:16pm October 21, 2024 10:23am IN THE EVENINGPantoprazole 20 mg tablet,delayed release (DR/EC) (3 sources)Start: 12-12-2024 End: 68-32-5137dapb 1 tablet by mouth once dailyPantoprazole 20 mg tablet,delayed release (DR/EC) Discontinued 0 .ROUTE .COMPLEX December 12, 2024 10:20am December 19, 2024 12:20pm TAKE 1 TABLET BY MOUTH DAILYStart: 12-12-2024 End: 00-60-4862agqa 1 tablet by mouth once dailyPantoprazole 20 mg tablet,delayed release (DR/EC) Discontinued 0 .ROUTE .COMPLEX 90 December 12, 2024 9:20am December 19, 2024 11:20am TAKE 1 TABLET BY MOUTH DAILYpredniSONE 20 mg oral tablet (3 sources)Start: 01-08-2025 End: 10-23-2405wbtk 2 tablets by mouth once dailyPrednisone 20 mg tablet Discontinued 20 MG PO .COMPLEX January 08, 2025 12:00am July 29, 2025 8:53am Take 2 tabs po daily x 5 daysterbinafine 250 mg oral tablet (4 sources)Allylamine AntifungalStart: 12-18-2024 End: 12-27-3487zedp 1 tablet by mouth once dailyTerbinafine Hcl 250 mg tablet Discontinued 250 MG PO Daily December 18, 2024 1:00am December 19, 2024 12:01pm FreeTextSi tablet Orally Once a day; Note: Source Status: Start; Qty: 14 Tablet; Provider: Filipe Steen Active Problems Problem ClassificationProblemDateDocumented DateEpisodic/ChronicAllergic reactions (2 sources)Irritant contact dermatitis due to drugs in contact with skinEpisodic Asthma (4 sources)Exacerbation of asthma; Translations: [Unspecified asthma with (acute) exacerbation]23-74-6324SdqutdoJrnrfiqa of urinary tract (8 sources)Kidney stone; Translations: [Calculus of kidney]Onset: 01-28-2022 EpisodicCancer of prostate (4 sources)Carcinoma of ldldebrn94-09-9780TexqwphJduxnm of prostate (12 sources)Personal history of malignant neoplasm of prostate; Translations: [History of malignant neoplasm ofprostate]Onset: 94-97-8623TvcjxesfAfnrkid dysrhythmias (20 sources)Paroxysmal atrial fibrillation; Translations: [Atrial fibrillation] Onset: 77-88-2411QahcuhlCafufaf dysrhythmias (12 sources)Bradycardia; Translations: [Bradycardia, unspecified]Onset: 491644-32-5860OarozdpgGbijrptznw and other anemia (4 sources)Anemia; Translations: [Anemia, unspecified]Onset: 07-31-2025 31-82-1378JllrppylKjvazsgnmc and other anemia (3 sources)Anemia, unspecified; Translations: [Anemia, unspecified]Onset: 46-28-8845ClvcmdgmYxzisjesw of lipid metabolism (20 sources)Hyperlipidemia; Translations: [Mixed hyperlipidemia]Onset: 835309-99-0751BgbskkzGnxwrqzuvk disorders (5 sources)Gastroesophageal reflux disease; Translations: [Gastro-esophageal reflux disease without esophagitis]55-87-6925JiidlzyEshcuesdk hypertension (20 sources)Hypertensive disorder; Translations: [Essential hypertension]Onset: 178583-80-0163HexxyrvPzclkqkmjjoto symptoms and ill-defined conditions (10 sources)Microscopic hematuria; Translations: [Other microscopic hematuria] Onset: 01-72-9507UktexnmuBncnakba (4 sources)Djgtzczn70-80-8869RcbsqbjSznulqdgdaxir and screening for infectious disease (4 sources)Patient encounter status; Translations: [Encounter for immunization] 55-80-0425YthygcvnAeffraqsiuxj conditions of male genital organs (4 sources)Hhedkdsijuuz08-95-4693PkojbqnwQvvzo aftercare (15 sources)Drug therapy finding; Translations: [Long-term (current) use of other medications]EpisodicOther aftercare (5 sources)Encounter for therapeutic drug level monitoring; Translations: [ENC THERAPEUTC DRUG LEVL MONITORING]Onset: 68-99-3610BbgbklkzQdckf aftercare (1 source)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; Translations: [MODEL AND MOLD MAKER PLASTER CURRNT USE ANTICOAGULANTS]Onset: 02-81-4061KbtdanzfOnnav aftercare (3 sources)Other correction (current) drug therapy; Translations: [OTH MODEL AND MOLD MAKER PLASTER CURRENT DRUG THERAPY]Onset: 47-00-8989JryastrkXtegp and ill-defined heart disease (20 sources)Left ventricular hypertrophy; Translations: [Cardiomegaly]Onset: 765252-70-2780DignlpkUrxpr and ill-defined heart disease (4 sources)Cardiomegaly; Translations: [Cardiomegaly]Onset: 01-18-9738Ndydkou Other diseases of bladder and urethra (4 sources)Urethral bksgsjxok17-75-0729RlvcmjpnTnxnu endocrine disorders (3 sources)Disorder of adrenal gland; Translations: [Other specified disorders of adrenal gland]Onset: 67-99-8588ArgzlzeCtiif endocrine disorders (4 sources)Mass of right adrenal -20-8025GrvdeabYnvxr gastrointestinal disorders (6 sources)History of gastrointestinal bleed; Translations: [Personal history of other diseases of the digestive system]Onset: 302654-74-8341NowsxqrxJmdbw lower respiratory disease (3 sources)Cough; Translations: [Cough]38-86-2985XjddvudvEivzm nervous system disorders (5 sources)Chronic pain; Translations: [Other chronic pain]ChronicOther non- traumatic joint disorders (1 source)Pain in left ankle and joints of left footEpisodicOther nutritional; endocrine; and metabolic disorders (5 sources)Hypercalcemia; Translations: [Hypercalcemia]ChronicOther nutritional; endocrine; and metabolic disorders (20 sources)Overweight in adulthood with body mass index of 25 or more but less than 30; Translations: [Overweight]Onset: 912396-49-0154GionoseeGewee nutritional; endocrine; and metabolic disorders (4 sources)Overweight; Translations: [Overweight]Onset: 06-15-2023 Resolved: [id number] nutritional; endocrine; and metabolic disorders (2 sources)Body mass index (BMI) 26.0-26.9, adult; Translations: [Body mass index (BMI) 26.0-26.9, adult]Onset: 32-75-0252KhtygrfzBsxgd screening for suspected conditions (not mental disorders or infectious disease) (20 sources)Raised prostate specific antigen; Translations: [Patient encounter status]Onset: [id number] skin disorders (1 source)Corns and callositiesEpisodicUnclassified (4 sources)Drug therapy werbxid84-75-3637Frdyfkwgonob (3 sources)Asymptomatic microscopic wegtqmvyg51-66-3584Dcmkjjpxhjva (1 source)Cough, unspecified; Translations: [Cough, unspecified]Onset: 01-08-2025 Past or Other Problems Problem ClassificationProblemDateDocumented DateEpisodic/ChronicOther aftercare (5 sources)Taking high risk medication; Translations: [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]Onset: [id number] codes; unclassified (1 source)Acquired absence of other genital organ(s); Translations: [ACQUIRED ABSENCE OTH GENITAL ORGANS]Onset: 93-41-1646BlqaqtzdLoebcbpvn and history of mental health and substance abuse codes (20 sources)Ex-smoker; Translations: [Personal history of tobacco use]Onset: [id number] (3 sources)Onset: 07-31-2024 Resolved: Results Test NameValueInterpretationReference RangeFacilityAmbulatory Visit Summaryon 16-81-8055Uulrgywrue Visit SummaryAmbulatory Visit Summary JOAO BOGGS :1950 Visit Date:08/27/2025 Ambulatory Visit Instructions Your Care Team Attending Physician - JOSUÉ VAUGHAN, Hardik Valadez Primary Care Physician - FILIPE VAUGHAN, CHRISTI Referring Physician - CHRISTI DNET MD This Is Your Medications List Contact prescribing physician if questions or concerns albuterol (Albuterol (Eqv-ProAir HFA)) flecainide (flecainide 50 mg Tab) hydrochlorothiazide (hydrochlorothiazide 12.5 mg Cap) latanoprost ophthalmic (latanoprost Opth 0.005% Chika) mometasone (Asmanex HFA 50 mcg/inh inhalation aerosol) montelukast (montelukast 10 mg Tab) pantoprazole (Protonix 20 mg Tab-DR) polyethylene glycol 3350 (MiraLax) simvastatin (simvastatin 20 mg Tab) spironolactone (Aldactone) timolol ophthalmic (timolol hemihydrate ophthalmic 0.25% solution) valsartan (valsartan 80 mg Tab) warfarin (warfarin 2.5 mg Tab) Procedures Performed Cystoscopy (09/04/2018), EGD - esophagogastroduodenoscopy (07/07/2017), Colonoscopy (07/06/2017), EGD - esophagogastroduodenoscopy (07/06/2017), Radical prostatectomy (11/04/2015), Transrectal biopsyof prostate using ultrasound guidance (08/25/2015), Cataracts, Cystourethroscopy with dilation of urethral stricture, EB - External beam radiotherapy, Nasal polyps......, Tonsillectomy. Discharge Vitals Heart Rate (Peripheral) 72 Respiratory Rate 16 Blood Pressure 134/96 Height 167.6 cm Height 66 in Weight 76.9 kg Weight 169.535 lb BMI 27.38 What to do next Scheduled Follow-Up Appointments Monday2025 8:45 AM EDT With: REINIER VAUGHAN, Kyle Valadez Where: [facility] [address] [address]- Medications What How Much When Instructions Unchanged albuterol (Albuterol (Eqv-ProAir HFA)) 2 Puffs Inhalation Every 6 hours as needed for Shortness of breath or wheezing Contact prescribing physician if questions or concerns Unchanged flecainide (flecainide 50 mg Tab) 1 Tablets By Mouth Every 12 hours Contact prescribing physician if questions or concerns Unchanged hydrochlorothiazide (hydrochlorothiazide 12.5 mg Cap) 1 Capsules By Mouth Every day Contact prescribing physician if questions or concerns Unchanged latanoprost ophthalmic (latanoprost Opth 0.005% Chika) 1 Drops Both eyes Once a day (at bedtime) Contact prescribing physician if questions or concerns Unchanged mometasone (Asmanex HFA 50 mcg/ inh inhalation aerosol) 2 Inhalation Inhalation 2 times aday Contact prescribing physician if questions or concerns Unchanged montelukast (montelukast 10 mg Tab) 1 Tablets By Mouth Every day Contact prescribing physician if questions or concerns Unchanged pantoprazole (Protonix 20 mg Tab-DR) 1 Tablets By Mouth Every day Contact prescribing physician if questions or concerns Unchanged polyethylene glycol 3350 (MiraLax) 17 Gram By Mouth Every day Contact prescribing physician if questions or concerns Unchanged simvastatin (simvastatin 20 mg Tab) 1 Tablets By Mouth Once a day (in the evening) Contact prescribing physician if questions or concerns Unchanged spironolactone (Aldactone) 25 Milligram By Mouth Every day Contact prescribing physician if questions or concerns Unchanged timolol ophthalmic (timolol hemihydrate ophthalmic 0.25% solution) 1 Drops Both eyes 2 times a day Contact prescribing physician if questions or concerns Unchanged valsartan (valsartan 80 mg Tab) 1 Tablets By Mouth Every day Contact prescribing physician if questions or concerns Unchanged warfarin (warfarin 2.5 mg Tab) as directed By Mouth Contact prescribing physician if questions or concerns Allergies lisinopril (Hives) sulfamethoxazole (unknown) Problems Ongoing - Any problem that you are currently receiving treatment for. Anticoagulated Asthma Asymptomatic microscopic hematuria Atrial fibrillation BMI 27.0-27.9,adult History of kidney stones Hypertension Left ventricular hypertrophy Mass of right adrenal gland Nocturia Overweight Personal history of prostate cancer Urethral stricture Historical - Any problem that you are no longer receiving treatment for. Elevated PSA Epididymitis Glaucoma H/O: GIT bleed Hyperlipidemia Prostate cancer Patient Survey You may receive a survey via text or e-mail asking about your office visit. Please share your experience with us by completing your survey. We appreciate your feedback and thank you for choosing us for your care. Patient Portal You may access all of your results and other medical record information on our secure patient portal. If you are not signed up for this yet, please contact [facility] at [phone] to get signed up today. Language Information Language assistance services are available as needed. [facility] HospitalTRANSTHORACIC ECHO (TTE) COMPLETEon [id number] ECHO (TTE) [address], [address] [place] [address] TRANSTHORACIC ECHOCARDIOGRAM REPORT Patient Name: JOAO BOGGS Kera Physician: [id number] Becky Orlando MD Study Date: 08/08/2025 Ordering Provider: [id number] MRN/PID: [id number] Fellow: Nurse: Date of /Age: 3 1950 Statistical Methods Professor: Amrita Peña RDCS years Gender Assigned at Additional Staff: : Height: 167.64 cm Admit Date: Weight: 74.84 kg Admission Status: Outpatient BSA / BMI: 1.84 m2 / 26.63 Department Location: [facility] kg/m2 Ioana Blood Pressure: 158 /83 mmHg Study Type: TRANSTHORACIC ECHO (TTE) COMPLETE Diagnosis/ICD: Bradycardia, unspecified-R00.1; Ventricular hypertrophy or dilatation-I51.7; Paroxysmal atrial fibrillation-I48.0; Essential (primary) hypertension-I10 Indication: HLD, Prostate Cancer, HRM, Former Smoker CPT Codes: Echo Complete w Full Doppler-15432 Study Detail: The following Echo studies were performed: 2D, M-Mode, Doppler and color flow. PHYSICIAN INTERPRETATION: Left Ventricle: [...] aortic valve area by VTI is 2.58 cm?? with a peakvelocity of 1.14 m/s. The peak and mean [...] Normal Ranges: RVOT Vmax: 0.68 m/s (0.6-0.9m/s) [id number] Becky Orlando MD Electronically signed on 08/11/2025 at 10:17:57 AM Final CONCLUSIONS: 1. The left ventricular systolic function is normal with a visually estimated ejection fraction of 55-60%. 2. Mild LVH. 3. There is normal right ventricular global systolic function. 4. Trace to mild mitral valve regurgitation. 5. The Doppler estimated RVSP is within no (more content not included)...Normal [facility] CampusECG 12 [place] 49-71-9876Scjlf bradycardia, T wave inversions throughout the anterolateral and inferior leads unchanged from the past, abnormal ECGCPACSSelect Medical [facility] Work Phone: ambulatory Visit Summaryon 83-20-9932Dllqcprlcf Visit SummaryAmbulatory Visit Summary JOAO BOGGS :1950 Visit Date:02/03/2025 Ambulatory Visit Instructions Your Diagnosis Personal history of prostate cancer Mass of right adrenal gland Asymptomatic microscopic hematuria History of kidney stones Tests Performed US Renal -- Results Pending -- Please visit your patient portal for your results or contact your primary care physician. Your Care Team Attending Physician - REINIER VAUGHAN, Kyle Valadez Primary Care Physician - CHRISTI DENT MD This Is Your Medications List Contact prescribing physician if questions or concerns flecainide (flecainide 50 mg Tab) hydrochlorothiazide (hydrochlorothiazide 12.5 mg Cap) latanoprost ophthalmic (latanoprost Opth 0.005% Chika) mometasone (Asmanex HFA 50 mcg/inh inhalation aerosol) montelukast (montelukast 10 mg Tab) simvastatin (simvastatin 20 mg Tab) spironolactone (Aldactone) timolol ophthalmic (timolol hemihydrate ophthalmic 0.25% solution) valsartan (valsartan 80 mg Tab) warfarin (warfarin 2.5 mg Tab) Procedures Performed Cystoscopy (09/04/2018), Repair of wound of abdominal wall (11/17/2015), Radical prostatectomy (11/04/2015), Transrectal biopsy of prostate using ultrasound guidance (08/25/2015), Cataracts, Cystourethroscopy with dilation of urethral stricture, EB - External beam radiotherapy, Nasal polyps......, Tonsillectomy. Discharge Vitals Heart Rate (Peripheral) 56 Respiratory Rate 16 Blood Pressure 140/82 Height 66 in Height 167 cm Weight 163.362 lb Weight 74.1 kg BMI 26.57 What to do next Scheduled Follow-Up Appointments Monday2025 8:45 AM EDT With: Kyle FORTE MD Where: [facility] [address] [place], [place] [id number]- You Need to Schedule the Following Appointments Follow Up with Kyle FORTE MD, URL When: Where: [facility] [address], [place] [address] [phone] Medications What How Much When Instructions Unchanged flecainide (flecainide 50 mg Tab) Contact prescribing physician if questions or concerns Unchanged hydrochlorothiazide (hydrochlorothiazide 12.5 mg Cap) By Mouth Every day Contact prescribing physician if questions or concerns Unchanged latanoprost ophthalmic (latanoprost Opth 0.005% Chika) Contact prescribing physician if questions or concerns Unchanged mometasone (Asmanex HFA 50 mcg/ inh inhalation aerosol) 50 Microgram Inhalation 2 times aday Contact prescribing physician if questions or concerns Unchanged montelukast (montelukast 10 mg Tab) Contact prescribing physician if questions or concerns Unchanged simvastatin (simvastatin 20 mg Tab) Contact prescribing physician if questions or concerns Unchanged spironolactone (Aldactone) 25 Milligram By Mouth Every day Contact prescribing physician if questions or concerns Unchanged timolol ophthalmic (timolol hemihydrate ophthalmic 0.25% solution) Both eyes Every day Contact prescribing physician if questions or concerns Unchanged valsartan (valsartan 80 mg Tab) 1 Tablets By Mouth Every day Contact prescribing physician if questions or concerns Unchanged warfarin (warfarin 2.5 mg Tab) Contact prescribing physician if questions or concerns Allergies sulfamethoxazole Problems Ongoing - Any problem that you are currently receiving treatment for. Anticoagulated Asymptomatic microscopic hematuria History of kidney stones Kidney stone Mass of right adrenal gland Microscopic hematuria Nocturia Personal history of prostate cancer Urethral stricture Historical - Any problem that you are no longer receiving treatment for. Elevated PSA Epididymitis Glaucoma H/O: GIT bleed Hyperlipidemia Hypertension Prostate cancer Patient Survey You may receive a survey via text or e-mail asking about your office visit. Please share your experience with us by completing your survey. We appreciate your feedback and thank you for choosing us for your care. Education Materials Prostate Cancer Screening Prostate cancer screening is [...] recommendations. In general, screening is recommended if: ??? You are age 50 to 70 and have an average risk for prostate cancer. You should talk with your healthcare provider about your need for screening and how often screening should be done. Because most prostate cancers are slow growing and will not cause (more content not included)...[facility] Reminderson [id number]zw From: Iris Lu To: [facility] - Recalls Reinier; Sent: 02/03/2025 09:31:35 EDT Show up: 11/23/2025 09:31:00 EST Subject: renal US Due Date/Time: 12/15/2025 09:31:00 EST Reminder/Recall Patient needs Renal US @ [facility] prior to January 2026 apptNormMemorial Health SystemUrology Office/Clinic Noteon [id number] Office/Clinic Note Urology Office/Clinic Note Chief Complaint 1 year follow up PSA HPI Staff 1 year f/u with CT and PSA Noted in Pt chart states that he refused to have a CT due to not wanting to be poked anymore and there are no current PSA results. DX: personal hx of prostate cancer (Prostatectomy 2015 and EBRT 2016) Current PSA 01/28/2025: 0.14 Denies dysuria. denies hematuria. Denies abdominal pain. History of Present Illness Tests reviewed: reviewed UA, PSA I have reviewed the previous health [...] See HPI. Physical Exam Vitals & Measurements HR: 56(Peripheral) RR: 16 BP: 140/82 HT: 66 in HT: 167 cm WT: 74.1 kg WT: 163.362 lb BMI: 26.57 General Appearance: alert, no distress, well nourished, well developed male. Assessment/Plan Pt here with his today. 1. Personal history of prostate cancer (Z85.46: Personal history of malignant neoplasm of prostate) PSA 02/24/22 - 0.05 01/27/23 - <0.13 01/23/24 - <0.13 01/28/25 - 0.14 S/p Prostatectomy 10/2015. EBRT 01/2017. PSA has increased from prior. Discussed this is not significant enough to raise concern. Will cont to monitor. -F/u in 1 yr w/ PSA 2. Mass of right adrenal gland (E27.8: Other specified disorders of adrenal gland) CT AP w con 09/10/15 [facility] - 1.5 cm R adrenal mass, intermediate density. Subcentimeter R renal cortical hypodensities. CTU 07/15/21 - stable right adrenal nodules, 1.6cm and 1.3 cm. Pt previously refused ZIA prior to 02/03/23 appt. ZIA 01/23/24 [facility] - Right adrenal gland not seen on study. Declined CT scan for appt today d/t not wanting to have an IV placed. Shares he had a negative experience previously, as he had to get poked numerous times. However reviewed records from ~10 yrs ago,which indicates adrenal mass has remained stable. Discussed importance of monitoring to ensure stability but possibility of d/c if still stable next year. Pt understands and agrees with plan. -ZIA in 1 yr 3. Asymptomatic microscopic hematuria (R31.21: Asymptomatic microscopic hematuria) S/p Cysto 09/04/18. ZIA 01/23/24 [facility] - No bladder wall thickening, mass, or calculi. Chronic. UA today shows moderate blood (prior UA showed small). Denies gross hematuria. -Cont routine UAs and sx monitoring. Pt knows to notify the office if he were to experience gross hematuria or clots. 4. History of kidney stones (Z87.442: Personal history of urinary calculi) ZIA 01/23/24 [facility] - No stones id'd. Follow-up With When Contact Information REINIER VAUGHAN, Kyle Valadez, URL [facility] [address], [place] [address]- [phone] Additional Instructions: 1 yr w/ PSA and ZIA Patient Education Prostate Cancer Screening IChristina, personally scribed for Dr. Forte on 02/03/2025 09:25:11. . Documentation recorded by the scribe, Christina Pompa, accurately reflects the services(s) I performed and decisions made by me. Authenticated by Dr. Forte on 02/03/2025 09:26:44. Problem List/Past Medical History Ongoing Anticoagulated Asymptomatic [...] beam radiotherapy, Nasal polyps......, Tonsillectomy. Medications Aldactone, 25 mg, Oral, Daily Asmanex HFA 50 mcg/inh inhalation aerosol, 50 mcg, Inhalation, BID flecainide 50 mg Tab hydrochlorothiazide 12.5 mg Cap, Oral, Daily latanoprost Opth 0.005% Chika montelukast 10 mg Tab simvastatin 20 mg Tab timolol hemihydrate ophthalmic 0.25% solution, Eye-Both, Daily valsartan 80 mg Tab, 80 mg= 1 tab(s), Oral, Daily warfarin 2.5 mg Tab Allergies sulfamethoxazole Social History Alcohol - No Risk, 10/22/2015 Never., 02/03/2025 Substance Abuse Never., 02/03/2025 Tobacco - Denies T (more content not included)...[facility] HospitalComment on above:Result Comment: Electronically Signed By: Kyle FORTE MD\.br\Date and Time Signed: 02/03/25 09:26 EDT\.br\Electronically Co- Signed By: Christina Pompa\.br\Date and Time Co-Signed: 02/03/25 09:25 EDTX-ray reportOrdered By: Arthur Quinones on 94-01-2848Dkoqd [facility] [place] [address] [place] [address] XRay Report Signed Patient: Joao Boggs MR#: [id number] : 1950 Acct:[id number] Age/Sex: 74 / M ADM Date: 5 [facility] Type: [facility] Attending Dr: Azul London APRN Copies to: [...] Quinones Jr., D.O.01/08/2025 11:25 AM Dictation Location: RADIO-PC-22 Transcribed By: ALEJANDRA 01/08/25 1125 Dictated By: Arthur Quinones Jr, DO 01/08/25 1124 Signed By: 01/08/25 1125 [facility] 2V*on 21-16-0276EM chest 2V*[facility] [place] [address] [place] [address] XRay Report Signed Patient: Joao Boggs MR#: [id number] : 1950 Acct:[id number] Age/Sex: 74 / M ADM Date: 01/08/25 Loc: XDUCLY Room: Type: 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 Copies to: Azul London APRN Ordering Provider: [...] Quinones Jr., D.O.01/08/2025 11:25 AM Dictation Location: RADIO--22 Transcribed By: ALEJANDRA 01/08/25 1125 Dictated By: Arthur Quinones Jr, DO 01/08/25 112 Signed By: 01/08/[address] [place] [address] Physician GroupECG 12 [address] 18-36-3069Oyrmp bradycardia, right bundle branch block, persistent inferolateral T wave abnormality, voltage criteria for left ventricular hypertrophyUnUniversity Hospitals Lake [facility] Medical Center Work Phone: [facility] Work Phone: Office Visit (Cardiology)on 10-84-0910Kynsjn-up visit Diagnoses/Problems Assessed Essential hypertension (401.9) (I10) [...] making process incorporating patients unique circumstances, the followingtreatment plan will be initiated: 1. Prescription drug [...] DAILY. Coumadin TABSTAKE 1 TABLET DAILY DIRECTED. [facility] monitors coumadin dilTIAZem HCl - 60 [...] and affect . Signatures Johnna Renae MSN, CLINICAL DATA PROGRAMMER-BRINE TANK OPERATOR, PMHNP-BC [facility] [employer] - 9+ Please excuse any errors in grammar or trans (more content not included)... NormalUH TouchworksTobacco Screening.on 02-32-3400Xuki risk assessmenta) No falls within the last yearMP-[facility] [employer]-9+ 250 DO Work Phone: Tobacco use status CPHSb) NoMP-[facility] [employer] 250 DO Work Phone: Office Visit (Cardiology)on 95-13-2796Rnedph-up visit Diagnoses/Problems Assessed Essential hypertension (401.9) (I10) [...] making process incorporating patients unique circumstances, the followingtreatment plan will be initiated: 1. Prescription drug management of cardiovascular medication for efficacy, adherence to treatment, side effect assessment and polypharmacy. Current treatment clinically warranted and to continue withfollowing modifications: - Increase spironolactone 25g daily - Please take Valsartan at noon 2. Check BP in afternoon and call me next week with results. 3. Return for follow-up; in the interim, contact the office if new symptoms arise. 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 This morning's medication included clonidine, spironolactone, hydrochlorothiazide and valsartan. Blood pressure in the office is consistent with home machine. Patient is asymptomatic with elevated blood pressure. No caffeine, alcohol, energy drinks, mmgy-krj-zzjqnmi medications. At this time, patient does not [...] DAILY. Coumadin TABSTAKE 1 TABLET DAILY DIRECTED. [facility] monitors coumadin dilTIAZem HCl - 90 [...] Recorded: 08Nov2022 02:34PM Heart Rate48, L Radial Oekatpsx327, LUE, Sitting Xzbjxhyxx649, LUE, Sitting Height5 ft 7 in Tqxhoe631 lb BMI Zsyejwnzys53.06 kg/m2 BSA Calculated1.84 Tobacco Useb) No PHQ-2 #1. Over the last 2 weeks have you felt down, depressed or hopeless? (If yes, answer PHQ-9 below)No PHQ-2 #2. Over the last 2 weeks have you felt little interest or pleasu (more content not included)...NormalUH TouchworksTobacco Screening.on 56-41-8831Ihuxx depression screening assessmentRhode [facility] Hospital Genius Pack DO Work Phone: Fall risk assessmenta) No falls within the last year [facility] Genius Pack DO Work Phone: Tobacco use status CPHSb) [facility] Attainia DO Work Phone: Office Visit (Cardiology)on 92-29-8065Gyqndc-up visit Diagnoses/Problems Assessed Essential hypertension (401.9) (I10) Overweight with body mass index (BMI) of 25 to 25.9 in adult (278.02,V85.21) (E66.3,Z68.25) Orders Essential hypertension Changed: From Spironolactone 25 MG Oral Tablet TAKE 1 TABLET DAILY To Spironolactone 25 MG Oral Tablet TAKE 0.5 TABLET Daily Overweight with body mass index (BMI) of 25 to 25.9 in adult Healthy Weight Tips; Status:Complete; Done: [id number] Paroxysmal atrial fibrillation Changed: From dilTIAZem HCl [...] making process incorporating patients unique circumstances, the followingtreatment plan will be initiated: 1. Prescription drug management of cardiovascular medication for efficacy, adherence to treatment, side effect assessment and polypharmacy. Current treatment clinically warranted and to continue withfollowing modifications: - Reduce diltiazem 90 mg once daily - Reduce spironolactone 1/2 tablet daily 2. Return for follow-up; in the interim, contact the office if new symptoms arise. 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 He completed lab work at [facility] and will need to obtain. Has been [...] dyspnea on exertion. They have obtained a [employer] mobile device with no documented atrial fibrillation. [...] can verify accuracy. Will obtain labs from [facility] History of Present Illness The patient [...] DAILY. Coumadin TABSTAKE 1 TABLET DAILY DIRECTED. [facility] monitors coumadin dilTIAZem HCl - 90 MG Oral TabletTAKE 1.5 TABLET Daily Flecainide Acetate 50 MG Oral TabletTAKE 1 TABLET TWICE DAILY. hydroCHLOROthiazide 12.5 MG Oral TabletTAKE 1 TABLET DAILY. Latanoprost SOLNas directed MiraLax 17 GM Oral Packet Protonix 20 MG Oral Tablet Delayed ReleaseTAKE 1 TABLET DAILY. Simvastatin 20 MG Oral TabletTAKE 1 TABLET AT BEDTIME. Sin (more content not included)...NormalUH Touchcrownpoint healthcare facilityTosharon hospital Screening.on 02-49-0701Vhrb risk assessmenta) No falls within the last yearWelia Health 250 DO Work Phone: Tobacco use status CPHSb) NoM-[facility] [place] 250 DO Work Phone: DAT - TSHon 71-46-0345NXL3.003 uIU/mLNormal0.358-3.740 [facility] HospitalComment on above:Performed By: #### DATTSH #### [facility] [address] [place] [address] Dr. Farida Ricks [facility] HospitalComment on above: Result Comment: <0.34 UIU/ml HYPERTHYROID 0.34-5.60 UIU/ml EUTHYROID >5.60 UIU/ml HYPOTHYROIDPerformed By: #### DATTSH #### [facility] [address] [place] [address] Dr. Farida BraunPROF CHEM 8 (BAS METB)on 77-18-8621Xwnoz gap [Moles/Vol]7.5 mmol/LNormalGreene Memorial HospitalComment on above:Performed By: #### BMP #### [facility] [address] [place] [address] Dr. Farida BraunCalcium [Mass/Vol]9.3 mg/dLNormal8.5-10.1[facility] Comment on above:Performed By: #### BMP #### [facility] [address] [place] [address] Dr. Farida BraunChloride [Moles/Vol]101 mmol/IHwuhnk60-073YtkGreene Memorial Hospital Comment on above:Performed By: #### BMP #### [facility] [address] [place] [address] Dr. Farida BraunCO2 [Moles/Vol]35.1 mmol/LCritically high21.0-32.0The [facility] HospitalComment on above:Performed By: #### BMP #### [facility] [address] [place] [address] Dr. Farida BraunCreatinine [Mass/Vol]1.13 mg/dLNormal0.70-1.30The [facility] HospitalComment on above:Performed By: #### BMP #### [facility] [address] [address] [address] Iqbal ChangEGFR-AF ANDORRAN>60Normal>=60The [facility] HospitalComment on above:Performed By: #### BMP #### [facility] [address] [address] [address] Iqbal ChangEGFR-NON AF ANDORRAN>60Normal>=60The [facility] HospitalComment on above:Performed By: #### BMP #### [facility] [address] [address] [address] Farida BraunGlucose [Mass/Vol]111 mg/dLCritically erkr26-857Woq [facility] HospitalComment on above:Performed By: #### BMP #### [facility] [address] [address] [address] Farida BraunPotassium [Moles/Vol]4.6 mmol/LNormal3.5-5.1The [facility] Comment on above:Performed By: #### BMP #### [facility] [address] [address] [address] Farida BraunSodium [Moles/Vol]139 mmol/XHcekih078-727Qrr [facility] Comment on above:Performed By: #### BMP #### [facility] [address] [address] [address] Farida BraunUrea nitrogen [Mass/Vol]24.0 mg/dLCritically high7.0-18.0The [facility] HospitalComment on above:Performed By: #### BMP #### [facility] [address] [address] [address] Farida Garcia nitrogen/Creatinine [Mass ratio]21.2 mg/mgNormalThe [facility] HospitalComment on above:Performed By: #### BMP #### [facility] [address] [address] [address] Farida Valera Visit (Cardiology)on 67-25-6608Ijkckw-up visit Diagnoses/Problems Assessed Essential hypertension (401.9) (I10) [...] making process incorporating patients unique circumstances, the followingtreatment plan will be initiated: 1. Prescription drug management of cardiovascular medication for efficacy, adherence to treatment, side effect assessment and polypharmacy. Current treatment clinically warranted and to continue withfollowing modifications: - Add spironolactone 25mg daily 2. If top number of blood pressure is > 180 then take an extra clonidine 3. Chem6 in one week 4. Return for follow-up; in the interim, contact the office if new symptoms arise. 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 Patient had called [...] of caffeine daily, no alcohol intake. No wfpg-aik-wlzzcge medications. No prior sleep apnea testing. EKG in office today is maintaining normal sinus rhythm and he reportedly feels better with faith of normal sinus rhythm. Has a little [...] DAILY. Coumadin TABSTAKE 1 TABLET DAILY DIRECTED. [facility] monitors coumadin dilTIAZem HCl - 90 [...] Signs Recorded: 13Sep2022 12:37PM (more content not included)...Normal[facility] Tobacco Screening.on 68-95-7474Wnfi risk assessmenta) No falls within the last year-[facility] 250 DO Work Phone: Tobacco use status CPHSb) NoMP-[facility] 9+ 250 DO Work Phone: Tobacco Screening.YesMP-[facility]9+ 250 DO Work Phone: CBC AUTO DIFFon 33-53-7780LPGV #0.1 103/ulNormal 0.0-0.1The [facility] HospitalComment on above:Performed By: #### CBC #### [facility] [address] [place] [address] Dr. Farida BraunBasophils/100 WBC (Bld)0.7 %Normal0.2-2.0The [facility] Comment on above:Performed By: #### CBC #### [facility] [address] [address] [address] Farida George #0.0 103/ulNormal0.0-0.7The [facility] HospitalComment on above: Performed By: #### CBC #### [facility] [address] [place] [address] Dr. Farida Gaytanosinophils/100 WBC (Bld)0.1 %Critically low0.9-7.0The [facility] HospitalComment on above:Performed By: #### CBC #### [facility] [address] [place] [address] Dr. Farida Gaytanrythrocyte distribution width (RBC) [Ratio]14.5 %Wuwspe80.0-15.0 The [facility] HospitalComment on above:Performed By: #### CBC #### [facility] [address] [place] [address] Dr. Farida BraunHematocrit (Bld) [Volume fraction]42.5 %Tpniap13.0-54.0The [facility] HospitalComment on above:Performed By: #### CBC #### [facility] [address] [place] [address] Dr. Farida BraunHemoglobin (Bld) [Mass/Vol]13.9 g/dLCritically low14.0-18.0The [facility] Hospitalment on above:Performed By: #### CBC #### [facility] [address] [place] [address] Dr. Farida Torres #0.01 10e3/ulNormal0.00-0.03The [facility] HospitalComment on above:Performed By: #### CBC #### [facility] [address] [place] [address] Dr. Farida Torres %0.1 %Normal0.0-0.5The [facility] HospitalComment on above: Performed By: #### CBC #### [facility] [address] [place] [address] Dr. Farida Alcantara #1.3 103/ulNormal1.2-3.8The [facility] HospitalComment on above:Performed By: #### CBC #### [facility] [address] [place] [address] Dr. Farida Amayahocytes/100 WBC (Bld)18.0 %Critically low20.5-60.0The [facility] HospitalComup health system on above:Performed By: #### CBC #### [facility] [address] [place] [address] Dr. Farida VillarrealUAL DIFF REQNONormalThe [facility] HospitalComment on above: Performed By: #### CBC #### [facility] [address] [place] [address] Dr. Farida Bañuelos (RBC) [Entitic mass]29.0 jeVcjcyg59.9-34.0The [facility] HospitalComment on above:Performed By: #### CBC #### [facility] [address] [place] [address] Dr. Farida Bañuelos (RBC) [Mass/Vol]32.7 g/cSPzgqup97.9-35.2The [facility] HospitalComment on above:Performed By: #### CBC #### [facility] [address] [address] [address] Farida BañuelosV (RBC) [Entitic vol]88.5 qGRedrsz21.0-94.0The [facility] HospitalComment on above:Performed By: #### CBC #### [facility] [address] [address] [address] Farida Miller #0.9 103/ulCritically high0.3-0.8The [facility] Comment on above:Performed By: #### CBC #### [facility] [address] [address] [address] Farida Leocytes/100 WBC (Bld)12.1 %Critically high1.7-12.0The [facility] HospitalComment on above:Performed By: #### CBC #### [facility] [address] [place] [address] Dr. Farida Chambers #5.0 103/ulNormal1.4-6.5The [facility] HospitalComment on above:Performed By: #### CBC #### [facility] [address] [place] [address] Dr. Farida Quiñonesutrophils/100 WBC (Bld)69.0 %Vvmitq21.0-75.0The [facility] HospitalComment on above:Performed By: #### CBC #### [facility] [address] [place] [address] Dr. Farida Dulet mean volume (Bld) [Entitic vol]11.7 fLNormal9.5-13.5The [facility] HospitalComment on above:Performed By: #### CBC #### [facility] [address] [place] [address] Dr. Farida BraunPLT206 103/wuZatfcf066-456Rvt [facility] HospitalComment on above: Performed By: #### CBC #### [facility] [address] [place] [address] Dr. Farida BraunRBC4.80 106/ulNormal4.70-6.10The [facility] HospitalComment on above:Performed By: #### CBC #### [facility] [address] [address] [address] Farida BraunWBC7.2 103/ulNormal4.0-11.0The [facility] HospitalComment on above: Performed By: #### CBC #### [facility] [address] [address] [address] Farida BraunPROF CHEM 8 (BAS METB)on 98-53-6058Rnqib gap [Moles/Vol]5.2 mmol/LNormalThe [facility] HospitalComment on above:Performed By: #### BMP #### [facility] [address] [address] [address] Farida BraunCalcium [Mass/Vol]9.6 mg/dLNormal8.5-10.1The [facility] Comment on above:Performed By: #### BMP #### [facility] [address] [place] [address] Dr. Farida BraunChloride [Moles/Vol]101 mmol/KNtxomg52-625Ibj [facility] Comment on above:Performed By: #### BMP #### [facility] [address] [address] [address] Farida BraunCO2 [Moles/Vol]34.6 mmol/LCritically high21.0-32.0[facility] HospitalComment on above:Performed By: #### BMP #### [facility] [address] [address] [address] Farida BraunCreatinine [Mass/Vol]0.98 mg/dLNormal0.70-1.30The [facility] HospitalComment on above:Performed By: #### BMP #### [facility] [address] [address] [address] Farida GaytanGFR-AF ANDORRAN>60Normal>=60The [facility] HospitalComment on above:Performed By: #### BMP #### [facility] [address] [address] [address] Farida GaytanGFR-NON AF ANDORRAN>60Normal>=60The [facility] HospitalComment on above:Performed By: #### BMP #### [facility] [address] [address] [address] Farida BranuGlucose [Mass/Vol]90 mg/aTEtuxra47-291Zry [facility] Comment on above:Performed By: #### BMP #### [facility] [address] [place], [place] [address] Dr. Farida BraunPotassium [Moles/Vol]3.8 mmol/LNormal3.5-5.1[facility] Comment on above:Performed By: #### BMP #### [facility] [address] [address] [address] Farida BraunSodium [Moles/Vol]137 mmol/PQlsdul706-454Dfn [facility] Comment on above:Performed By: #### BMP #### [facility] [address] [address] [address] Farida BraunUrea nitrogen [Mass/Vol]17.0 mg/dLNormal7.0-18.0The [facility] HospitalComment on above:Performed By: #### BMP #### [facility] [address] [address] [address] Farida BraunUrea nitrogen/Creatinine [Mass ratio]17.3 mg/mgNormalThe [facility] HospitalComment on above:Performed By: #### BMP #### [facility] [address] [address] [address] Farida Renteria Screening (Age 18+)on 89-72-7486Obvz risk assessmenta) [facility] Work Phone: Fall risk assessmenta) No falls within the last year [facility] 250 DO Work Phone: VASC LAB Abdominal Aorta/Iliac/IVC Ultraon 09-08-2022 VASC LAB Abdominal Aorta/Iliac/[facility] [address] [place] [address], [address] [address] Vascular Lab Report Abdominal Aorta Iliac Ultrasound/IVC Ultrasound Patient Name: JOAO Cote Physician: [id number] Tyrone Walters MD, [facility] Study Date: 09/08/2022 Referring Physician: TA LANE MRN/PID: [id number] PCP: Christi Dent Accession/Order#: [id number] CC Report to: Date of : 1950 Technologist: Vilma Cottrell RD, T Gender: M Technologist 2: Admission Status: Outpatient Location Performed: [facility] Diagnosis/ICD: Q97-Yuxryycek primary hypertension; Z13.6-Encounter for screening for cardiovascular disorders (AAA) Indication: Former Smoker, Overweight, Paroxysmal Atrial Fibrillation-s/p Cardioversion 09/06/2022 Procedure/CPT: 36252 Duplex Aorta/IVC/Iliac/Bypass Graft-77725 CONCLUSIONS: Aorta/Common Iliac Arteries/IVC: No evidence of abdominal aortic aneurysm. Imaging AND Doppler Findings: AORTA AP Lateral PSV Proximal 2.15 cm 2.33 cm 158.0 cm/s Mid 2.13 cm 2.07 cm 47.0 cm/s Distal 2.27 cm 1.86 cm 52.0 cm/s RIGHT AP Lateral PSV INES Proximal 1.02 cm 1.20 cm 73.00 cm/s LEFT AP Lateral PSV INES Proximal 1.24 cm 1.10 cm 108.00 cm/s 61889 Tyrone Walters MD, [facility] Abdominal A[facility]/Iliac/IVC Ultrasoundon 13-36-0125YQFK LAB Abdominal Aorta/Iliac/IVC UltrasoundPlease click on the link to view the study imagesNormal-[facility] 250 DO Work Phone: [facility] LAB Abdominal Aorta/Iliac/IVC Ultrasound-[facility] 250 DO Work Phone: Laboratory - CoagulationOrdered By: Tyrone Walters on 62-35-2831YI Coag (PPP) [Time]27.1 s9.0-12.9[facility] - Coagulationon 44-66-1701SMX Coag (Bld) [Relative time]2.4 {INR}MP- [facility] 250 DO Work Phone: No Panel Informationon .4\S\2.4NormalMP- [facility] 250 DO Work Phone: Comment on above:INR Therapeutic Range A) Pre- and Peroperative OAT started two weeks before surgery. NOT HIP SURGERY: 1.5 - 2.5 HIP SURGERY: 2 - 3 B) Primary and secondary prevention of venous THROMBOSIS: 2 - 3 C) Active venous thrombosis, pulmonary embolism and prevention of recurrent venous thrombosis: 2 - 3 D) Prevention of arterial thromboembolism including patients with mechanical heart valves: 3 - 4.5PERFORMED BY:[address] [address] [address] [place], [place] [phone] MEDICAL DIRECTORRODOLFO SCHWARTZ M.D.27.1\S\27.1above high threshold9.0-12.9MP-[facility] 250 DO Work Phone: [phone]\S\16.1above high threshold6.0-15.0MP-[facility] 250 DO Work Phone: Comment on above:PERFORMED BY:[address] [address] [address] [place], [place] [phone] MEDICAL DIRECTORRODOLFO SCHWARTZ M.D.29.8\S\29.2Hfaaax77.0-30.0MP-[facility] 250 DO Work Phone: [phone]\S\44Thohky59-059YW-Jkkcg [facility] 250 DO Work Phone: [phone]\S\3.1Eqzstt7.5-5.1MP-[facility] 250 DO Work Phone: [phone]\S\552Uoyozr982-992WH-Bwduv [facility] 250 DO Work Phone: Platelet poor plasma international normalized ratio (INR) by coagulation assay (relatOrdered By: Tyrone Walters on 81-30-2290UXT Coag (PPP) [Relative time]2.4 {INR}[facility] HospitalComment on above:INR Therapeutic Range A) Pre- and Peroperative OAT started two weeks before surgery. NOT HIP SURGERY: 1.5 - 2.5 HIP SURGERY: 2 - 3B) Primary and secondary prevention of venous THROMBOSIS: 2 - 3C) Active venous thrombosis, pulmonary embolismand prevention of recurrent venous thrombosis: 2 - 3D) Preve ntion of arterial thromboembolismincluding patients with mechanical heart valves: 3 - 4.5Serum or plasma anion gap determinationOrdered By: Tyrone Walters on 86-56-7888Tffrz gap [Moles/Vol]16.1 mmol/L6.0-15.0[facility]rbana Hospitalerum or plasma chloride measurement (moles/volume)Ordered By: Tyrone Fierroim on 47-64-0345Tvqxhagf [Moles/Vol]97 mmol/W35-266RowmheduuMercy Health Urbana Hospitalerum or plasma potassium measurement (moles/volume)Ordered By: Tyrone Walters on 64-11-7611Wbotqvrtf [Moles/Vol]3.9 mmol/L3.5-5.1FMercy Hospitalerum or plasma sodium measurement (moles/volume)Ordered By: Tyrone Fierroim on 81-46-1208Zgdprb [Moles/Vol]139 mmol/E383-759QxhctzptxMercy Health Urbana Hospitalerum or plasma total carbon dioxide measurement (moles/volume)Ordered By: Tyrone Fierroim on 34-31-7878NL2 [Moles/Vol]29.8 mmol/L 22.0-30.0[facility] HospitalCOVID-19 SOFIAOrdered By: Tyrone Walters on 45-91-6882CLYE-CoV+SARS-CoV-2 (COVID-19) Ag IA.rapid Ql (Resp) NegativeNegativeMccullough-Hyde Memorial HospitalComment on above:This is a duplicate Man[place] SARS Antigen (COLT) result to be used for statistical tracking purpose only.Laboratory - Microbiology and Antimicrobial susceptibilityon 34-95-1356ZBJS-CoV-2 (COVID-19) RNA ROBB+probe Ql (Unsp spec)[facility] 250 DO Work Phone: No Panel Informationon 27-58-3256JxrbeevuZhbpwf NegativeMP-[facility] 250 DO Work Phone: Comment on above:This is a duplicate Man[place] SARS Antigen (COLT) result to be used for statistical tracking purpose only.PERFORMED BY:[facility] [place], [place] [phone] MEDICAL DIRECTORRODOLFO SCHWARTZ M.D.No Panel InformationOrdered By: Tyrone Walters on 36-56-4708LQOP Antigen (LFIA)[facility] HospitalOffice Visit (Cardiology)on 14-13-6681Tnofis-up visit Diagnoses/Problems Assessed Paroxysmal atrial fibrillation (427.31) [...] catheterization performed at outside hospital by another engagement liaison revealed more minimal coronary disease in 2016 [...] DAILY. Coumadin TABSTAKE 1 TABLET DAILY DIRECTED. [facility] monitors coumadin dilTIAZem HCl - 90 [...] Signs Recorded: 11Aug2022 10:00AM Heart Rate87, Apical Dseiersb516, LUE, Sitting Irwhyhudr44, LUE, Sitting Height5 ft 6 in Lcliry900 lb 6 oz BMI Yhpfrkeith11.05 kg/m2 BSA Calculated1.83 Tobacco Useb) No PHQ-2 #1. Over the last 2 weeks have you felt down, depressed or hopeless? (If yes, answer PHQ-9 below)No PHQ-2 #2. Over the last 2 weeks have you felt little interest or pleasure in doing things? (If yes,answer PHQ-9 below)No Falls Screening (Age 18+)a) No [...] and S2, n (more content not included)... NormalUH TouchworksTobacco Screening.on 00-26-7645Djuyh depression screening assessmentNo[facility] [employer] 250 DO Work Phone: Fall risk assessmenta) No falls within the last year [facility] [employer] 250 DO Work Phone: Tobacco use status CPHSb) NoMO[facility] 9+ 250 DO Work Phone: Vital Signs Date TimeVital SignValuePerforming UijyoksrjGaszkhjh18-79-9703 08:43-0400Body .[address] [place], [place] 5045110-17-2025 08:43-0400Body mass index (BMI) [Ratio]26.63 kg/m2Ely [address] [place] [address] 08-08-2025 08:43-0400Body nbzvon69.[address] [place] [address] 08-08-2025 08:43-0400Diastolic blood jlocmxuj14 mm[Hg]Ana María [address] [place], [place] 50[address]110-17-2025 08:43-0400Systolic blood kldnsleu253 mm[Hg][address]10-09-2025 09:20-0400Body zwypkq176.6 cmTa Florencedon DO Work Phone: [phone] [place], [place] 6887410-09-2025 09:20-0400 Body mass index (BMI) [Ratio]26.63 kg/v6Zsqwbayrafael Florencedon DO Work Phone: [phone] [place], [place] 6887410-09-2025 09:20-[address] DO Work Phone: [phone]10-09-2025 09:20-0400 Diastolic blood qpfgaxqu77 mm[Hg]Ta Florencedon DO Work Phone: [phone] [place], [place] 6887410-09-2025 09:20-0400 Heart rate49 /minTa Lane DO Work Phone: [phone] [place], [place] 6887410-09-2025 09:20-0400 Systolic blood pmkgcjiq590 mm[Hg]Ta Lane DO Work Phone: [phone]10-07-2025 08:53-0400 Body liobpb046.64 cmChristi Dent MD Work Phone: [facility]10-07-2025 08:53-0400 Body mass index (BMI) [Ratio]26.4 kg/y3HdihjuChristi Dent MD Work Phone: [facility]10-07-2025 08:53-0400 Body moknkz92.38 kgChristi Dent MD Work Phone: [facility]10-07-2025 08:53-0400 Diastolic blood besuamwu49 mm[Hg]Christi Dent MD Work Phone: [facility]10-07-2025 08:53-0400 Heart rate45 /Boo Dent MD Work Phone: [phone]10-07-2025 08:53-0400 Respiratory rate12 /Boo Dent MD Work Phone: [phone] [place], [place] 1960510-07-2025 08:53-0400 SaO2% (BldA) [Mass fraction]97 %Christi Dent MD Work Phone: [phone] [place], [place] 1960510-07-2025 08:53-0400 Systolic blood hiluheuf164 mm[Hg]Christi Dent MD Work Phone: [phone] [place], [place] 1960503-19-2025 12:47-0400 SaO2% (BldA) [Mass fraction]95 %Christi Dent MD Work Phone: [phone] [place], [place] 1960503-19-2025 10:32-0400 Body .64 cmChristi Dent MD Work Phone: [phone] [place], [place] 1960503-19-2025 10:32-0400 Body mass index (BMI) [Ratio]27.1 kg/f3VxbofpChristi Dent MD Work Phone: [phone] [place], [place] 1960503-19-2025 10:32-0400 Body bgtzqcrawsk33 [degF]Christi Dent MD Work Phone: [phone] [place], [place] 1960503-19-2025 10:32-0400 Body wmohpl10.2 kgChristi Dent MD Work Phone: [phone] [place], [place] 1960503-19-2025 10:32-0400 Diastolic blood yufalbab82 mm[Hg]Christi Dent MD Work Phone: [phone] [place], [place] 1960503-19-2025 10:32-0400 Heart rate73 /Boo Dent MD Work Phone: [phone] [place], [place] 1960503-19-2025 10:32-0400 Respiratory rate18 /Boo Dent MD Work Phone: [phone] [place], [place] 1960503-19-2025 10:32-0400 SaO2% (BldA) [Mass fraction]91 %Christi Dent MD Work Phone: [facility]03-19-2025 10:32-0400 Systolic blood xylwqqhr781 mm[Hg]Christi Dent MD Work Phone: [facility]02-27-2025 10:55-0500 Body fehobf399.18 cmMccullough-Hyde Memorial Hospital02-27-2025 10:55-0500Body mass index (BMI) [Ratio]25.9 kg/t7NzpvoimrlMccullough-Hyde Memorial Hospital02-27-2025 10:55-0500Body cttoob75.29 kgMccullough-Hyde Memorial Hospital02-27-2025 10:55-0500Diastolic blood enokcybz14 mm[Hg][facility] 12-19-2024 10:55-0500Heart rate68 /minMccullough-Hyde Memorial Hospital 12-19-2024 10:55-0500Systolic blood uufregzl496 mm[Hg][facility]10-09-2024 09:32-0400Body yxzywc643.[address] DO Work Phone: [facility]10-09-2024 09:32-0400 Body mass index (BMI) [Ratio]26.37 kg/o3VxlbcnhTa Florencedon DO Work Phone: [facility]10-09-2024 09:32-0400 Body tebaxq61.12 kgTa Florencedon DO Work Phone: [facility]10-09-2024 09:32-0400 Diastolic blood vtcustyf33 mm[Hg]Ta Lane DO Work Phone: [facility]10-09-2024 09:32-0400 Heart rate46 /Cathy Ricardo DO Work Phone: [facility]10-09-2024 09:32-0400 Systolic blood vacyhddm791 mm[Hg]Ta Lane DO Work Phone: [facility]04-15-2024 09:12-0400 Blood Pressure LocationPaparamjit FORTE [facility]04-15-2024 09:12-0400Body dabjltsjkqw24.6 [degF]Kyle FORTE [facility]04-15-2024 09:12-0400Diastolic blood mm[Hg]Kyle FORTE [facility]04-15-2024 09:12-0400Heart rate55 /minBrendonSentreHEARTmaylin FORTE [facility]04-15-2024 09:12-0400Respiratory rate16 /minBrendonSentreHEARTmaylin FORTE [facility]04-15-2024 09:12-0400Systolic blood drqtcodg752 mm[Hg]Kyle FORTE [facility]10-13-2023 09:30-0400Body avizcj979.56 cmChristi Dent Other [employer] Other 10-13-2023 09:30-0400Body mass index (BMI) [Ratio] 26.91 kg/b8KzdqhcChristi Dent Other [facility] Other 10-13-2023 09:30-0400Body umggya75.12 kgChristi Dent Other [facility]AM[facility] Other 10-13-2023 09:30-0400Diastolic blood mm[Hg] Christi Dent Other [employer] Other 10-13-2023 09:30-0400Systolic blood ocsjqbea477 mm[Hg] Christi Dent Other [facility] [employer] Other 03-15-2023 09:15-0400Diastolic blood oynpldkv04 mm[Hg] Christi Dent Work Phone: mp723-2719BM-Lozci [facility] DO Work Phone: 1(451) 269-882403-15-2023 09:15-0400Systolic blood cotggxsl001 mm[Hg] Christi Dent Work Phone: mp603-6711JA-Vwsuc [facility] DO Work Phone: 1(199) 602-780103-15-2023 09:10-0400Heart rate39 /minChristi Dent Work Phone: mp202-8266PX-Zzujl [facility] DO Work Phone: 1(973) 836-416103-15-2023 09:06-0400Body fleigy324.18 cmChristi Dent Work Phone: mp779-0760JO-Zuwge [facility] DO Work Phone: 1(955) 486-746203-15-2023 09:06-0400Body mass index (BMI) [Ratio] 25.22 kg/t9JebqznChristi Dent Work Phone: mp119-8888UN-Cmqzl [facility] DO Work Phone: 1(787) 990-500903-15-2023 09:06-0400Body surface area Derived from formula1.84 v0ZfppneChristi Dent Work Phone: mp912-4581CZ-Kylhs [facility] DO Work Phone: 1(544) 965-152803-15-2023 09:06-0400Body uaqnth85.03 kgChristi Dent Work Phone: mp074-4048ZV-Ntjpw [facility] DO Work Phone: 1(360) 208-422001-17-2023 14:34-0500Body crugqy525.18 cmChristi Dent Work Phone: mp330-8536DJ-Vndjk [facility] DO Work Phone: 1(422) 716-591901-17-2023 14:34-0500Body mass index (BMI) [Ratio] 25.06 kg/n5HcjgyjChristi Dent Work Phone: mp240-0346OX-Fddbv [facility] DO Work Phone: 1(198) 277-104801-17-2023 14:34-0500Body surface area Derived from formula1.84 o8NqcltnChristi Dent Work Phone: mp693-7083ZS-Prpry [facility] DO Work Phone: 1(218) 321-522101-17-2023 14:34-0500Body ssfsru62.58 kgChristi Dent Work Phone: mp305-0633FJ-Mbxll [facility] DO Work Phone: 1(936) 244-208501-17-2023 14:34-0500Diastolic blood xsyuuorn302 mm[Hg]Christi Dent Work Phone: mp280-5982NV-Seosu [facility] DO Work Phone: 1(356) 105-453101-17-2023 14:34-0500Heart rate48 /minChristi Dent Work Phone: mp124-0402NG-Jwehl [facility] DO Work Phone: 1(623) 668-917301-17-2023 14:34-0500Systolic blood lissvfow862 mm[Hg] Christi Dent Work Phone: mp190-8879KE-Hkpqi [facility] DO Work Phone: 1(893) 228-335312-21-2022 08:08-0500Body yhloie232.18 cmChristi Dent Work Phone: mp781-5380BS-Eglfa [facility] DO Work Phone: 1(637) 660-425612-21-2022 08:08-0500Body mass index (BMI) [Ratio] 25.06 kg/k2JdxvvcChristi Dent Work Phone: mp795-3850WU-Ejweq [facility] DO Work Phone: 1(182) 975-912312-21-2022 08:08-0500Body surface area Derived from formula1.84 e9UnjdciChristi Dent Work Phone: 1(473) 727-2747800-4379KV-Shndr [facility] DO Work Phone: 1(780) 223-400612-21-2022 08:08-0500Body grucog58.58 kgChristi Dent Work Phone: mp710-3373LQ-Wxqoo [facility] DO Work Phone: 1(556)[phone] 08:08-0500Diastolic blood lxvrcuue31 mm[Hg] Christi Dent Work Phone: 1(851) 133-6722655-3762QB-Ltazl [facility] DO Work Phone: 1(393) 667-234312-21-2022 08:08-0500Heart rate40 /minChristi Dent Work Phone: 1(800) [phone]-Jttlr [facility] DO Work Phone: 1(883) 854-914112-21-2022 08:08-0500Systolic blood bkyehjia23 mm[Hg] Christi Dent Work Phone: 1(147) 200-5405809-1526HL-Nlamm [facility] DO Work Phone: 1(613)[phone] 12:37-0500Body .64 cmChristi Dent Work Phone: 1(777) [phone]-Gleuu [facility] DO Work Phone: 1(645) 491-789811-22-2022 12:37-0500Body mass index (BMI) [Ratio] 26.47 kg/k8FgwbltChristi Dent Work Phone: 1(872) 191-2465589-0679XS-Iouxi [facility] DO Work Phone: 1(266) 976-771911-22-2022 12:37-0500Body surface area Derived from formula1.84 y3SblnbhChristi Dent Work Phone: 1(791) 385-6877278-9602NP-Tqpvk [facility] DO Work Phone: 1(644) 386-276911-22-2022 12:37-0500Body .39 kgChristi Dent Work Phone: 1(132) 296-4908273-1936SK-Dgzjn [facility] DO Work Phone: 1(301) 471-345311-22-2022 12:37-0500Diastolic blood wlhhogcm198 mm[Hg]Christi Dent Work Phone: mp967-7337QS-Wjzql [facility] DO Work Phone: 1(137) 582-204511-22-2022 12:37-0500Heart rate63 /minChristi Dent Work Phone: mp110-0817OD-Csecj [facility] DO Work Phone: 1(341)[phone]-5539 12:37-0500Systolic blood mm[Hg] Christi Dent Work Phone: mp109-6006ND-Xzlgq [facility] DO Work Phone: 1(743)[phone]-6797 13:12-0500Body qiawsh546.64 cmChristi Dent Work Phone: mp440-4789NK-Talue [facility] DO Work Phone: 1(875)[phone] 13:12-0500Body mass index (BMI) [Ratio] 25.82 kg/k3PkzmlcChristi Dent Work Phone: mp110-2510YE-Snmwj [facility] DO Work Phone: 1(480)[phone]-4361 13:12-0500Body surface area Derived from formula1.82 a1TlonezChristi Dent Work Phone: mp901-8349SM-Hdeuq [facility] DO Work Phone: 1(004)618-65128-167457-37618775-20-6045 13:12-0500Body jgnerw97.58 kgChristi Dent Work Phone: mp978-1277XY-Blmlp [facility] DO Work Phone: 1(974)993-66548-458204-22859475-47-9451 13:12-0500Diastolic blood wwmtlvyk437 mm[Hg]Christi Dent Work Phone: mp403-2652KM-Ekunf [facility] DO Work Phone: 1(290) 491-404811-17-2022 13:12-0500Heart rate53 /minChrsiti Dent Work Phone: mp808-7459KI-Vlocj [facility] DO Work Phone: 1(859) 916-579911-17-2022 13:12-0500Systolic blood yakefgxd416 mm[Hg] Christi Dent Work Phone: mp884-1719VK-Mofrv [facility] DO Work Phone: 1(434) 580-861011-17-2022 08:14-0500Body oochgs808.64 cmChristi Dent Work Phone: mp741-3716CF-Cahmr [facility] DO Work Phone: 1(888) 601-759811-17-2022 08:14-0500Body mass index (BMI) [Ratio] 25.82 kg/h5KzjuoxChristi Dent Work Phone: mp321-6027OB-Hoghc [facility] DO Work Phone: 1(560)[phone] 08:14-0500Body surface area Derived from formula1.82 u5VgfgmsChristi Dent Work Phone: mp299-0544SV-Inubt [facility] DO Work Phone: 1(601) 518-950711-17-2022 08:14-0500Body sgrfuk31.58 kgChristi Dent Work Phone: mp986-7694HL-Mdrvp [facility] DO Work Phone: 1(919) 619-220011-17-2022 08:14-0500Diastolic blood iftktdig253 mm[Hg]Christi Dent Work Phone: 1(192) [phone]-Rwpbq [facility] DO Work Phone: 1(581) 372-628111-17-2022 08:14-0500Heart rate53 /Boo Dent Work Phone: mp472-4306YS-Sexhj [facility] DO Work Phone: 1(687) 837-728311-17-2022 08:14-0500Systolic blood iamtowus204 mm[Hg] Christi Dent Work Phone: mp383-2605OO-Xpegb [facility] DO Work Phone: 1(126) 137-242011-17-2022 08:13-0500Body qbaywe448.64 cmChristi Dent Work Phone: mp616-1555WA-Jvohm [facility] DO Work Phone: 1(389)[phone] 08:13-0500Body mass index (BMI) [Ratio] 25.82 kg/d0PxmjshChristi Dent Work Phone: mp180-3270SH-Lyajw [facility] DO Work Phone: 1([phone] 08:13-0500Body surface area Derived from formula1.82 n0LknxnkChristi Dent Work Phone: mp230-6533LZ-Tuczi [facility] DO Work Phone: 1(291)[phone] 08:13-0500Body llrihn71.58 kgChristi Dent Work Phone: 1(224) [phone]-Pdwta [facility] DO Work Phone: 1(040)[phone] 08:13-0500Diastolic blood mkwuybvk595 mm[Hg]Christi Dent Work Phone: mp764-2479XO-Nxvqq [facility] DO Work Phone: 1(487)[phone] 08:13-0500Heart rate53 /minChristi Dent Work Phone: 1(433) 516-5066593-1386CF-Fttbm [facility] DO Work Phone: 1(890)[phone] 08:13-0500Systolic blood xwoyutjs336 mm[Hg] Christi Dent Work Phone: 1(908) [phone]-Oqzis [facility] DO Work Phone: 1(335) 612-201511-15-2022 16:40-0500Inhaled oxygen rzeyhpcbfyqpc590 % MD Christi Dent Work Phone: [facility]11-15-2022 16:40-0500 Inhaled oxygen flow rate2 L/minMD Christi Dent Work Phone: [facility]11-15-2022 16:40-0500 SaO2% (BldA) [Mass fraction]99 %MD Christi Dent Work Phone: [facility]11-15-2022 11:52-0500 Body upabwa075.64 cmMD Christi Dent Work Phone: [facility]11-15-2022 11:52-0500 Body kgMD Christi Dent Work Phone: [facility]10-20-2022 10:00-0400 Body hsfesi068.64 cmChristi Dent Work Phone: 1(454) [phone]-Asfhg [facility] DO Work Phone: 1(744) 533-580310-20-2022 10:00-0400Body mass index (BMI) [Ratio] 26.05 kg/m0AyxmzmChristi Dent Work Phone: mp592-6849TE-Mrphf [facility] DO Work Phone: 1(434) [phone] 10:00-0400Body surface area Derived from formula1.83 e3MmlqcjChristi Dent Work Phone: mp734-7660RH-Hkdra [facility] DO Work Phone: 1(878) 351-608910-20-2022 10:00-0400Body etbxqp55.2 kgChristi Dent Work Phone: 1(230) [phone]-Aajzf [facility] DO Work Phone: 1(393) 345-131610-20-2022 10:00-0400Diastolic blood juoamyde92 mm[Hg] Christi Dent Work Phone: mp059-0388JX-Glcae [facility] DO Work Phone: 1(223) [phone] 10:00-0400Heart rate87 /minChristi Dent Work Phone: mp591-8401SR-Irxkm [facility] DO Work Phone: 1(395) [phone] 10:00-0400Systolic blood hgosdnlb375 mm[Hg] Christi Dent Work Phone: 1(181) [phone]-Fjcin [facility] DO Work Phone: 1(586) 614-876204-08-2022 08:04-0400Blood Pressure LocationPatricmaylin FORTE [facility] 04-08-2022 08:04-0400Diastolic blood sficzorg109 mm[Hg] Kyle FORTE [facility] 04-08-2022 08:04-0400Heart rate73 /minKyle FORTE [facility] 04-08-2022 08:04-0400Respiratory rate16 /minKyle FORTE [facility] 04-08-2022 08:04-0400Systolic blood kfqiclcb097 mm[Hg] Kyle FORTE [facility] Encounters Encounter DateEncounter TypeCare ProviderFacilityStart: 08-27-2025 End: 75-64-2660zyawplqvjtUSLDKH BRAUNFacility:[facility] HospitalMagalitart: 08-27-2025 End: 09-59-1424Fgqsity encounter procedureMichael R NILL [phone]-[facility]goljW[facility] [place] Start: 08-08-2025 End: 33-33-0392Avwbfmkjqh hospital visit by Jayy Grayson Echo/Vasc Room [address] [place], [place] [address]Comment on above:Bradycardia; LVH (left ventricular hypertrophy); Paroxysmal atrial fibrillation (Multi); Essential hypertensionStart: 08-08-2025 End: 64-78-9322jhcbrvkeceWRJASKIPaulding County Hospital CenterStart: 07-31-2025 End: 37-45-4571Aixjtp outpatient visit [address] [facility] hospitalH[facility] Marilu [place] DO Work Phone: uh [facility]rium HealthComment on above:Bradycardia; LVH (left ventricular hypertrophy); Paroxysmal atrial fibrillation (Multi); High risk medication use; Essential hypertension; Mixed hyperlipidemia; Anemia, unspecified type; BMI 26.0-26.9,adult; Former smokerStart: 07-31-2025 End: 83-68-5860jlfbywulrsENSNCDDPiedmont Columbus Regional - Midtown AmbulatoryStart: 85-18-7495iyvzffkiqxLnzkcqt WATERSFacility:GS BellevueStart: 07-29-2025 End: 34-37-4723xlegvdcwmvExdonp E Braun MD Work Phone: [facility] Work Phone: Start: 07-29-2025 End: 17-37-5071Oqzfnrk encounter procedureChristi Dent MD-[facility] Work Phone: Start: 02-03-2025 End: 32-68-0635kcdoyrvnnzQhilotw R WATERSFacility:EU BellevueStart: 01-08-2025 End: 02-03-6347epvwjzqvirZgqbvm E Braun MD Work Phone: [facility] Work Phone: Start: 01-08-2025 End: 32-18-4928Ptjautt encounter procedureChristi Dent MD Work Phone: [facility] Work Phone: Start: 12-19-2024 End: 61-48-1680rnfgpxivnrFaurtfyhsProMedica Memorial Hospital Work Phone: Start: 12-19-2024 End: 85-58-8037Ksocxen encounter procedureChad [facility] Work Phone: Start: 07-31-2024 End: 89-14-5127Zyfabd outpatient visit [address] DO Work Phone: uh [facility] on above:Paroxysmal atrial fibrillation (Multi); Bradycardia; Abnormal EKG; Essential hypertension; Mixed hyperlipidemia; High risk medication use; BMI 26.0-26.9,adult; Former smokerStart: 02-05-2024 End: 96-43-4310Igywzhw encounter procedurePaparamjit FORTE [facility] start: 10-27-2023 End: 30-13-9222qwfloiaczgPdewdj Braun Other noAMT Other Start: 68-12-8860Qtfuxqzds encounterMarcisunny [facility] Medical ClinicStart: 10-11-2023 End: 69-54-7534hitenwyblqZuwszs Braun Other noAMT Other Start: 40-24-9629Pudoqrnnu encounterMarcisunny [facility] Medical ClinicStart: 08-14-2023 End: 16-69-2488dujmcphpxwCdttnb Braun Other noAMT Other Start: 24-16-9063Ddxvtjkxb encounterMarcia Joshua [facility] ClinicStart: 08-04-2023 End: 80-04-3847vkxnvzqsxsKytwhn Braun Other noAMT Other Start: 65-08-7246Mfrgag outpatient visit 15 minutes Christi [facility] ClinicStart: 07-04-2023 End: 47-88-0325awhiuopfneGkwnis Braun Other noAMT Other Start: 82-41-1665Sidsnxnko encounterMarcia Joshua [facility] ClinicStart: 02-20-2023 End: 45-22-2601wuawazxzptUDZUKZ H FAWWADFacility:E9Rizxz: 02-03-2023 End: 73-92-4799Mvgyzqr encounter Jody FORTE [facility] Danette start: 01-27-2023 End: 79-42-1417imsyzkfibdEB KYLE FORTE .Facility:N9Xppif: 01-23-2023 End: 29-04-8540xyyrxfqyekHBHFAN H FAWWADFacility:M2Nmaom: 96-59-5901Jzmony outpatient visit 15 minutesChristi Dent Work Phone: mp050-0269JT-Jmijv [facility] DO Work Phone: Start: 15-23-7390Fefirth encounter procedureLisacisunny Dent Work Phone: [phone]-Sbgvx [facility] DO Work Phone: Start: 28-10-9685cnkguuhuvsZt. Johnna Renae Facility:[id number]: 12-21-2022 End: 55-87-3718aqrqikfwvcFSWZDA H FAWWADFacility:J3Ugvom: 73-94-0670Ooxkhfk encounter procedureLisacisunny Dent Work Phone: [phone]-Qkkex [facility] DO Work Phone: Start: 11-23-2022 End: 74-10-3824auiavrnlxgNOVJTY H FAWWADFacility:F0Ntdfu: 29-81-3860Wriefr outpatient visit 10 minutesChristi Dent Work Phone: mp691-7530TB-Okqsf [facility] DO Work Phone: Start: 50-54-2694Gbaoyhi encounter procedureMarcisunny Dent Work Phone: [phone]-Gzfdy [facility] DO Work Phone: Start: 18-75-8170ipyesurnlbXi. Johnna Gordonsoledad Renae Facility:[id number]: 10-24-2022 End: 64-60-2111gyrubdbxqlTAEDJA Joseluis FAWWADFacility:D3Occeg: 24-80-9205Fcxdlu outpatient visit 10 minutesChristi Storm Dent Work Phone: [phone]-Gwmut [facility] DO Work Phone: Start: 49-95-8435naoxxbgwpwWu. Johnna Gordonsoledad Renae Facility:[id number]: 10-04-2022 End: 92-36-3284fywmaqhwdaVQ NONE LISTED REQUESTFacility:X9Hifzl: 09-22-2022 End: 77-92-3666ulvxgroeqfNJRDFS FAWWADFacility:Z8Crypp: 09-20-2022 End: 86-42-2650ubqskmhchyKZ KYLE FORTE .Facility:B6Xpcwc: 92-60-2391YUA, Provider: Johnna Gomes, Status: Pen, Time: 12:30 PMMaroshniterrence Dent Work Phone: [phone]-Jlcpb [facility] DO Work Phone: Start: 74-10-5306Kebivc outpatient visit 15 minutes Christi Dotty Dent Work Phone: 1([phone]-Svtws [facility] DO Work Phone: Start: 14-85-9352hnpwuwspraBl. Christi Dent Facility:[id number]: 66-58-3705Grqey UpdateChristi Dent Work Phone: mp695-8376XP-Sjraw [facility] DO Work Phone: Start: 09-09-2022 End: 50-50-4855jvmajmivsaWELARX RODRIGUEZ .Facility:K2Swjdd: 64-98-8165Gorxcb outpatient visit 5 minutesChristi Storm Dent Work Phone: [phone]-Ukzgl [facility] DO Work Phone: Start: 74-07-6022KGPOP, Provider: IOANA LEWISI ULTRASOUND 01,[id number], Status: Pen, Time: 7:45 AMChristi Dent Work Phone: [phone]-Qejxq [facility] DO Work Phone: Start: 23-72-8863iydjbunpwzNj. Ta [address] Facility:[id number]: 72-65-1220Uogge UpdateChristi Dent Work Phone: mp685-9217EB-Foioa [facility] DO Work Phone: Start: 82-32-7026hpzizzutcnNd. Christi Dent Facility:[id number]: 09-06-2022 End: 28-58-5839Rywsgighp to same day surgery centerMD Christi Dent Work Phone: [facility]-Procedure Outpatient Start: 09-06-2022 End: 91-79-4060kppfpkmpzxJL Christi Dent Work Phone: [facility] Work Phone: Start: 33-32-7482Spzax UpdateChristi Dent Work Phone: [phone]-[facility]vvv[facility] [facility] DO Work Phone: Start: 09-02-2022 End: 79-28-3229wfwlydklyyQK Christi Dent Work Phone: [facility] Work Phone: Start: 09-02-2022 End: 00-36-9194Wleazdv encounter procedureMD Christi Dent Work Phone: [facility]-Xoi-Bgsrnghk Testing Start: 66-36-6474Breogbeid encounterChristi Dent Work Phone: mp855-2327HH-Hspic [facility] DO Work Phone: Start: 08-23-2022 End: 11-88-6794obvpnbhoraWKZLYW H FAWWADFacility:Y0Nufyw: 86-83-8141Mumllz outpatient visit 25 minutesChristi Dent Work Phone: [phone]-Ophkt [facility] DO Work Phone: Start: 68-73-1079nxpzsldsatWgDr. Christi Dent Facility:[id number]: 07-24-2022 End: 38-14-6223ljjisruzixWSOKCA H FAWWADFacility:N4Nlmzs: 06-23-2022 End: 69-69-0317ipzrrakscmBSHITB H FAWWADFacility:R4Qpbmd: 05-23-2022 End: 54-96-4693cicrxotgriHGFLTV H FAWWADFacility:E3Eqkhk: 04-22-2022 End: 73-44-8639rdcmxxctteGBQBKQ H FAWWADFacility:P6Tesgn: 01-28-2022 End: 82-44-8462Rujypqd encounter procedurePaparamjit FORTE [facility] start: 07-13-2017 End: 32-78-7070NuhfmiykymLSDXYBT PHYSICIANFacility:[facility] Procedures DateProcedureProcedure DetailPerforming ClinicianStart: 12-42-8683Txh routine ecg w/least 12 lds w/i&rWpatrice Lane DO Work Phone: Start: 24-58-6155Dslfo chest X-rayChristi Dent MD Work Phone: Start: 00-07-5166Rsl routine ecg w/least 12 lds w/i&r Ta Lane DO Work Phone: Start: 01-44-9364ONG screeningSHAIKH SANDIDComment on above:Performed By: #### PSAD #### [facility] [address] [place] [address] Dr. Farida BraunStart: 85-49-3842RpnlauwxxkSywikoi WATERS Start: 64-64-0537XxndluqkfimuupbnbjkmpuxfpyCxumfjb NILL Start: 99-57-5277MliobxfphmyXrjfqfg NILL Start: 70-37-8501HwhyabulrcgvrsznsvccpaqogiIeaawop NILL Start: 68-07-8079Jxlhwb of wound of abdominal wall Kyle FORTE Start: 84-05-0012Qwjkpws prostatectomyPaparamjit FORTE Start: 66-88-7359Wguxnyljnky biopsy of prostate using ultrasound guidanceKyle FORTE Bilateral cataracts (disorder)Kyle FORTE Cardiac catheterizationChristi Dent Work Phone: Cataract surgeryMarines Dotty Dent Work Phone: ColonoscopyLisaines Dotty Dent Work Phone: Cystourethroscopy with dilation of urethral stricture Kyle FORTE Comment on above:02/04/2016, 04/20/2016, 01/25/2017 EsophagogastroduodenoscopyLisacolinsunny Dotty Dent Work Phone: Nasal polyp (disorder)Kyle FORTE Procedure on prostateChristi Dent Work Phone: SARS Antigen (LFIA)MD Christi Dent Work Phone: Teleradiotherapy procedureKyle FORTE Comment on above:01/2017TonsillectomyKyle FORTE Plan of Treatment DateCare ActivityDetailAuthorStart: 08-03-2026 End: 75-65-8914Rumbvvh encounter vkpvabmrq12/12/2026 9:00 AM EDT Office Visit [facility] [address] [address] Johnna Renae, CLINICAL DATA PROGRAMMER-BRINE TANK OPERATOR [address] [facility] [address] [place] [address] [facility]: 63-64-7927smgaspgngnLazdibzvyd Facility:RADHA [facility]: 07-31-2025 End: 04-84-6903PL Heart TransthoracicTransthoracic Echo Complete Echocardiography Routine Bradycardia LVH (left ventricular hypertrophy) Paroxysmal atrial fibrillation (Multi) Essential hypertension Expected: 07/31/2025 (Approximate), Expires: 07/31/2027[facility] Service Area Work Phone: Comment on above:Expected: 07/31/2025 (Approximate), Expires: 07/31/2027Start: 07-31-2025 End: 36-41-5128Nrbesxs encounter fantjeiam27/09/2025 9:30 AM EDT Office Visit [facility] [address] [facility] [address] [place] [id number] [facility] [address] [place] [address] [facility]: 95-85-6668VTWXD-19 Vaccine ( season)COVID-19 Vaccine ( season)[facility]: 33-21-6597GCGTV-19 Vaccine ( season)COVID-19 Vaccine ( season)[facility]: 07-31-2024 End: 03-50-8237Yqxwwal aminotransferase [Enzymatic activity/volume] in Serum or Plasma by With P-5'-PAlanine Aminotransferase Lab Routine Mixed hyperlipidemia Expected: 07/31/2024 (Approximate), Expires: 07/31/2025[facility] Work Phone: Comment on above:Expected: 07/31/2024 (Approximate), Expires: 07/31/2025Start: 07-31-2024 End: 76-69-7692Gjzmbbmdp aminotransferase [Enzymatic activity/volume] in Serum or Plasma by With P-5'-PAspartate Aminotransferase Lab Routine Mixed hyperlipidemia Expected: 07/31/2024 (Approximate), Expires: 07/31/2025[facility] Work Phone: Comment on above:Expected: 07/31/2024 (Approximate), Expires: 07/31/2025Start: 07-31-2024 End: 72-16-8853Afsxj metabolic 2000 panel - Serum or PlasmaBasic Metabolic Panel Lab Routine Essential hypertension Expected: 07/31/2024 (Approximate), Expires: 07/31/2025[facility] Work Phone: Comment on above:Expected: 07/31/2024 (Approximate), Expires: 07/31/2025Start: 07-31-2024 End: 40-45-2931Xgiif 1996 panel - Serum or PlasmaLipid Panel Lab Routine Mixed hyperlipidemia Expected: 07/31/2024 (Approximate), Expires: 07/31/2025[facility] Work Phone: Comment on above:Expected: 07/31/2024 (Approximate), Expires: 07/31/2025Start: 07-31-2024 End: 10-56-0320TW Heart WO and W contrast IVMR cardiac morphology and function w and wo IV contrast Imaging Routine Bradycardia Abnormal EKG Expected: 07/31/2024 (Approximate), Expires: 07/31/2025[facility] Service Area Work Phone: Comment on above:Expected: 07/31/2024 (Approximate), Expires: 07/31/2025Start: 14-64-5870ZFFMM-19 Vaccine ( season)COVID- 19 Vaccine ( season)[facility]: 79-57-2262Xvlxbwetu vaccinationInfluenza Vaccine (#1)[facility]: 79-25-3726FKG High Risk: (Elderly (60+) or Population) (1 - 1-dose 75+ series)RSV High Risk: (Elderly (60+) or Population) (1 - 1-dose 75+ series)[facility]: [id number], Provider: Ta Lane, Status: Pen, Time: 9:50 AMFUV, Provider: Ta Lane, Status: Pen, Time: 9:50 AMMP-[facility] 250 DO Work Phone: Start: 04-22-2023Medicare Annual Wellness Visit Medicare Annual Wellness Visit (AWV)[facility]: [id number], Provider: Johnna Gomes, Status: Pen, Time: 9:00 AMFUV, Provider: Johnna Gomes, Status: Pen, Time: 9:00 AMMP-[facility] [place] 250 DO Work Phone: Start: [id number], Provider: Johnna Gomes, Status: Pen, Time: 2:30 PMFUV, Provider: Johnna Gomes, Status: Pen, Time: 2:30 PMMP-[facility] 250 DO Work Phone: Start: [id number], Provider: Johnna Gomes, Status: Pen, Time: 8:00 AMFUV, Provider: Johnna Gomes, Status: Pen, Time: 8:00 AMMP-[facility] 250 DO Work Phone: Start: [id number], Provider: [facility] ULTRASOUND 01,[id number], Status: Pen, Time: 7:45 AMAORTA, Provider: [facility] ULTRASOUND 01,[id number], Status: Pen, Time: 7:45 AMMP-[facility] [place] 250 DO Work Phone: Start: [id number] Start: 05-05-3725YNYKJCVTP, Provider: Tyrone Walters, Status: Pen, Time: 2:00 PM SURGNONUH, Provider: Tyrone Walters, Status: Pen, Time: 2:00 PM-[facility] 600 DO Work Phone: Start: [id number] patients and/or patients aged 60+ years (1 - 1-dose 60+ series)RSV patients and/or patients aged 60+ years (1 - 1-dose 60+ series)[facility]: 58-77-4472Tsjjju Vaccines (1 of 2)Zoster Vaccines (1 of 2)[facility]: 14-73-4897EYtF/Tdap/Td Vaccines (1 - Tdap)DTaP/Tdap/Td Vaccines (1 - Tdap)[facility]: 93-62-3486Brnzxrkm mellitus screeningDiabetes ScreeningProtestant Deaconess Hospital: 74-94-4287Slklttwkz C screeningHepatitis C ScreeningProtestant Deaconess Hospital: 17-32-5100Mvhtn panelLipid PanelProtestant Deaconess Hospital: 1949Medicare Annual Wellness VisitMedicare Annual Wellness Visit (AWV)[facility]: [phone] for malignant neoplasm of colonSelect Medical OhioHealth Rehabilitation HospitalPatient referral [facility] Work Phone: End: 29-15-4971BL Heart Tran[facility]horacicCR[facility] Service Area Work Phone: Comment on above:Once for 1 Occurrences starting 08/08/2025 until 08/08/2025 Immunizations Immunization DateImmunizationNotesCare YxukoftdUblnpvyx24-99-5730ulezxiywb, high dose seasonal, preservative-freeChristi Dent MD Work Phone: [facility]10-11-2024influenza, high dose seasonal, preservative-freeMccullough-[facility]10-13-2023 influenza, high dose seasonal, preservative-freeChristi Dent Other [facility]10-13-2023influenza virus vaccine, unspecified formulationTa Lane DO Work Phone: [facility]11-01-2022Pfizer COVID-19 Vac Bivalent 30 MCG/0.3ML Intramuscular SuspensionChristi Dent Work Phone: [phone]-VimojLake Region Hospital 250 DO Work Phone: [phone], injectable, quadrivalent, preservative freeMarcia E Dent Work Phone: [phone]-TfgstLake Region Hospital 250 DO Work Phone: [phone], seasonal, injectableMarcia E Dent Work Phone: [phone]-[place]aoinMar[place] [address] DO Work Phone: Comment on above:Series:05-33-6690Flhhoehzd 30 MCG/0.3ML Intramuscular SuspensionMarcia E Dent Work Phone: [phone]-PcdlmMarissa Ville [address] DO Work Phone: [phone]-XlG-1 mRNA (nayecvdjovu-ymqt-cmqggxj) vaccineMichael NILL 065-0337Ohkxmp-QcdsyMetro[facility] [place] 31-72-1346Xidbsj-BioNTech COVID-19 Vacc 30 MCG/0.3ML Intramuscular Suspension Christi E Dent Work Phone: [phone]-JekygMetrohealth Par[facility] [place] 63-85-1379ywzlekkaj, injectable, quadrivalent, preservative freeMarcia E Dent Work Phone: mpMarissa [place] [address] DO Work Phone: [phone]-DccPIgoc COVID-19 Vacc 30 MCG/0.3ML Intramuscular SuspensionMarcia E Dent Work Phone: [phone]-XslezLake Region Hospital 250 DO Work Phone: Comment on above:Result Comment: 2025-08-18: TPV70 57-23-3687FTUT-CoV-2 (COVID-19) mRNA-1273 vaccinePatrick FORTE [facility] 02-663433-48-2964Eojtel-YvkHTdit COVID-19 Vacc 30 MCG/0.3ML Intramuscular SuspensionMarcia E Dent Work Phone: [phone]-RnwfkWvumedicine [facility] Hospital [facility] [place] Comment on above:Result Comment: 2025-08-18: VBP1541-55-9914oryzauxff, high dose seasonal, preservative-freeMarcia E Dent Work Phone: [phone]-JtskgTracy Medical Center 250 DO Work Phone: [phone] virus vaccine, unspecified formulationPaBaystate Franklin Medical Center [facility] 10266262-82-8367tbsfgsfxg virus vaccine, unspecified formulationMarcia E Dent Work Phone: [phone]-CfremMarissa Ville [address] DO Work Phone: [phone], seasonal, injectableWilliam Ricardo DO Work Phone: [facility] Work Phone: [phone]pqny polysaccharide vaccine, 23 valentWilliam Ricardo DO Work Phone: [facility] Work Phone: [phone], high dose seasonal, preservative-freeMarcia E Dent Work Phone: [phone]-VbijwLake Region Hospital 250 DO Work Phone: [phone]hebu polysaccharide vaccine, 23 valentMarcia E Dent Work Phone: [phone]-ThlvmLake Region Hospital 250 DO Work Phone: [phone]jug polysaccharide vaccine, 23 valentMarcia E Dent Work Phone: OT-LoremWelia Health 250 DO Work Phone: [phone] immune globulinRosysunny Dent Work Phone: [phone]-TpmotLake Region Hospital 250 DO Work Phone: [phone]leywwfd conjugate vaccine, 13 valent Christi Dent Work Phone: mp-[place] [address] DO Work Phone: Payers DatePayer CategoryPayerPolicy [id number] 2014Medicare [id number] [id number]-[id number] 2.16840.1.628940.3.57[id number] 2.16840.1.641444.3.579.2.4[id number] 2.16840.1.746762.3.57[id number] 2.16.840.1.796684.3.57[id number] 2.16840.1.421121.3.579.[id number] 2.16.840.1.844084.3.57[id number] 2.16.840.1.717944.3.57[id number] 2.16.840.1.438712.3.579.[id number] 2.16.840.1.268187.3.579.2.33936-20-4113Jkyqxex0060693 2.16.840.1.007555.3.579.2.06221-24-6821Ztsqxfn5079904 2.16840.1.680275.3.579.2.74423-60-7840Gcuqukv2988665 2.16840.1.725371.3.579.2.83948-85-2739Rprwamm4159971 2.840.1.367643.3.579.2.77506-08-9732Zifxirr6481380 2.840.1.148395.3.579.2.96978-46-1369Srzdqgo3123105 2.840.1.103284.3.579.2.95816-87-3664Swaxfio4086005 2.840.1.967238.3.579.2.18367-18-5691Ugqxdvm2634649 2.16840.1.580013.3.579.2.25515-56-5698Utmygzw4688075 2.840.1.019676.3.579.2.22674-80-4273Jlobuux8353861 2.16840.1.037199.3.579.2.83216-91-4223Zphirle7786889 2.16840.1.300302.3.579.2.42758-25-2387Dcrddbr0709168 2.16840.1.565791.3.579.2.52981-73-7462Pjccffr1061821 2.840.1.126414.3.579.2.32847-41-7206Gadboxl4769401 2.16.840.1.088443.3.579.2.1[id number] 2.16.840.1.877350.3.579.2.563307-25-2703Ymaalru50412517 2.16.840.1.694991.3.579.2.107753-31-9724Kntfhvm39720629 2.16.840.1.441764.3.579.2.73246-85-2911Ldvfenc68390244 2.16.840.1.700199.3.579.2.68021-40-4396Kdcbrkn94550254 2.16.840.1.017460.3.579.2.139QjdtcbqMipgbqz8057078 2.16.840.1.680040.3.579.2.593 [id number] 2.16.840.1.708874.3.579.2.531 Social History DateTypeDetailFacilityStart: 01-28-2022 End: 20-91-1696Inzvqyq smoking statusEx-smoker (finding)[facility] start: 07-25-2023 End: 82-69-4189Syq Assigned At [facility] start: 07-25-2023 End: 39-94-9294Oh illicit drug useNo illicit drug use-[facility] [place] 250 DO Work Phone: Start: 50-28-3887Loa Assigned At [facility], BeachwoodHistory of tobacco useCurrent smokerUnUniversity Hospitals Lake [facility] Center Work Phone: History of tobacco useCigarette SmokerUnUniversity Hospitals Lake West Medical Center Work Phone: Start: 81-09-5008Jyqktax use and exposureSmokeless tobacco non-userUnUniversity Hospitals Lake West Medical Center Work Phone: Start: 07-31-2024 End: 52-14-1276Wgdbmxgor beverage intakeCurrent drinker of alcohol (finding) [facility] Work Phone: Start: 14-24-2382Fox assigned at birthNot on file [facility] Work Phone: Start: 07-21-2024 End: 37-87-8525Saxaqbtu to SARS-CoV-2 (event)Not sureUnUniversity Hospitals Lake West Medical CenterStart: 10-22-2015 End: 70-08-6851WnhSzjt (finding)[facility] Hospitaltart: 40-14-7606ZdfQokxTtoouvvdnf Hospitals of ClevelandSexual OrientationWvumedicine [facility] Hospital [facility] [place] Functional Status FyfmKqajcvyhppFugcxcMdlohnmw07-11-9898Hypjpmmrdk aznyky651/83UnUniversity Hospitals Lake West Medical Center10-17-2025UnUniversity Hospitals [facility] Center Work Phone: [phone]sg evovti861/86UnUniversity Hospitals Lake West Medical Center Work Phone: [phone] signs49 07/31/2025 9:20 AM Aggie Rodriguez, [facility] Work Phone: [phone]rskuuckSelect Medical [facility]Health Rehabilitation Hospital Work Phone: [phone]akp StatusN/AExec[facility]04-14-2023Functional StatusN/AExec[facility] Clinical Notes 01-28-2022 to 08-27-2025 Note Date & JoajDnteWdbypxtx82-41-1635 NoteGeneral Surgery Office/Clinic Note Chief Complaint consultation for anemia HPI Staff 75 year old male presents on consultation from Dr. Dent for anemia. Labs completed 07/15/25 with H/H 12.9 and 39.4. Denies abdominal or rectal pain. No rectal bleeding or change in bowel habits. Denies nausea, vomiting or weight loss. No dizziness, lightheadedness, SOB or chest pain. EGD and colonoscopy completed 07/06/17 with gastritis and tubular adenoma. EGD completed the following day to visualize distal jejunum for possible source of bleeding. History of Present Illness 75 yo male with h/o htn, atrial fibrillation, on warfarin, asthma, prostate cancer, nephrolithiasis, referred for anemia; patient had routine blood work that revealed h/h 12.9/39.4; patient denies change in bms or gross blood in stools, no abd complaints; no GERD or dysphagia, no wt loss; h/o GI bleed in 2017 with rectal bleeding/clots; negative EGD, old blood in colon, thought to be from transverse colon based on bleeding scan; no further episodes; last colonoscopy 06/2017, done for that GI bleed; abd operations significant for radical prostatectomy; on warfarin, no asa or NSAID use; no tobacco use; no fmhx of GI malignancy or IBD. Review of Systems PHQ Score Initial Depression Screen Score: 0 SCORE ROS - Provider Constitutional: no fever, no sweats, no weight loss. Eyes: yes glasses, no blurred vision, no visual loss. ENMT: no dentures, no hoarseness, no swallowing difficulties, no hearing loss, no ear infection(s),no nose bleeds. Cardiovascular: normal blood pressure, no chest pain, regular heartbeat, no heart murmur. Respiratory: no shortness of breath, no cough, no asthma, no wheezing. Gastrointestinal: no nausea, no vomiting, no diarrhea, no constipation, no blood in stool, no change in bowel habits, no abdominal pain, no hepatitis. Genitourinary: no kidney stones, no urine infection, no dysuria. Musculoskeletal: no pain, no weakness. Skin: no changing moles, no rash, no skin lumps. Neurologic: no seizures, no epilepsy, no headache. Psychiatric: no emotional or psychiatric problem. Heme/Lymph: no bleeding problems, no anemia, no blood clots, no transfusions. Allergy/Immunologic: no swollen lymph nodes/glands, no IV drug abuse. Other: Additional ROS info: Except as noted in the above Review of Systems and in the History of Present Illness, all other systems have been reviewed and are negative or noncontributory. Physical Exam Vitals & Measurements HR: 72(Peripheral) RR: 16 BP: 134/96 HT: 66 in HT: 167.6 cm WT: 76.9 kg WT: 169.535 lb BMI: 27.38 HEENT: normal conjunctiva, sclera clear, no scleral icterus, EOM intact, PERRLA, oral mucosa moist without lesions. Neck: trachea midline, no mass, symmetric, no thyromegaly or nodules, no adenopathy Respiratory: lungs CTA, respirations non labored. Cardiovascular: regular rate and rhythm, no murmur, no pedal edema or varicosities. Gastrointestinal: soft, non distended, well-healed lower midline incision no tenderness, no masses,no palpable hernias, diastasis recti no, no hepatosplenomegaly; normal bs Musculoskeletal: normal gait, digits and nails without infection, nodes, cyanosis, clubbing. Skin: no rashes, no lesions, no ulcers, no subcutaneous nodules, induration. Psychiatric/Neuro: oriented to time, place, person, judgement normal, affect appropriate for age, insight intact, no focal deficits. Tests: labs reviewed, review of old records completed , Discussed surgical options, risks, and possible complications with patient. Assessment/Plan 1. Anemia (D64.9: Anemia, unspecified) mild; patient not interested in endoscopy at this time; patient wishes to have labs repeated in several months; I would recommend checking iron studies at that time to see if this is iron deficiency;if it remains low or certainly if it's lower, would recommend EGD and colonoscopy for further evaluation; did offer patient colonoscopy now, just based on screening, since he will be due in 2026, buthe wants to wait; he is to call with problems/questions. Follow-up No qualifying data available Problem List/Past Medical History Ongoing Anemia Anticoagulated Asthma Asymptomatic microscopic hematuria Atrial fibrillation BMI 27.0-27.9,adult History of kidney stones Hypertension Left ventricular hypertrophy Mass of right adrenal gland Nocturia Overweight Personal history of prostate cancer Urethral stricture Historical Elevated PSA Epididymitis Glaucoma H/O: GIT bleed Hyperlipidemia Prostate cancer Procedure/Surgical History Cystoscopy (09/04/2018), EGD - esophagogastroduodenoscopy (07/07/2017), Colonoscopy (07/06/2017), EGD - esophagogastroduodenoscopy (07/06/2017), Radical prostatectomy (11/04/2015), Transrectal biopsyof prostate using ultrasound guidance (08/25/2015), Cataracts, Cystourethroscopy with dilation of urethral stricture, EB - External beam radiotherapy, Nasal polyps......, Tonsillectomy (more content not included)...[facility]:Result Comment: Electronically Signed By: JOSUÉ VAUGHAN, Hardik Serna\Date and Time Signed: 08/27/25 14:44 [id number] History of Present illness Narrative* Ta Lane, DO - 07/31/2025 9:30 AM EDT Chief Complaint Patient presents with Follow-up 1 year LVH (left ventricular hypertrophy) Subjective Joao Boggs is a 75 y.o. male 75-year-old gentleman returns for annual cardiovascular follow-up and is doing well he denies any recurrent cardiovascular events, tachyarrhythmias, hospitalizations. He states he is about to undergocolonoscopy for suspected GI bleeding; his states that his last hemoglobin was 12 g/dL. He hadprevious GI bleed in 2017, and was handled with Protonix. He has a history of minimal coronary artery disease, paroxysmal atrial fibrillation with cardioversion and initiation of flecainide dating back to 2021. He has a chronically abnormal ECG with sinus bradycardia and profound T wave inversions likely secondary to LVH; last echo was from 2016 that did not reveal substantial hypertrophy however [facility]follow[facility] in the past for LVH . He has no syncope or heart failure, shortness of breath, no family history of sudden or precocious hypertrophic cardiomyopathies. We did review his echo from 2016 and his cardioversion from 2021 as well as his heart cath from outside physician earlier Recommendations: Hold Coumadin 3 days prior to colonoscopy, if any recurrent nidus for GI bleeding including polyp, mass, diverticulosis or diverticulitis, we may need to consider transitioning to a Watchman device for which we have counseled him on today, and performed informed decision making. Otherwise we will follow-up in 1 year Review of Systems All other systems reviewed and are negative. Vitals: 07/31/25 0920 BP: 138/86 BP Location: Right arm Patient Position: Sitting Pulse: (!) 49 Weight: 74.8 kg (165 lb) Height: 1.676 m (5' 6 ) EKG [...] normal. Allergies Sulfamethoxazole Current Medications Current Outpatient Medications Medication Instructions flecainide (TAMBOCOR) 50 mg, oral, 2 times daily hydroCHLOROthiazide (HYDRODiuril) 12.5 mg tablet 1 tablet, Daily latanoprost, PF, 0.005 % drops Administer into affected eye(s). As directed mometasone (Asmanex Twisthaler) 220 mcg/ actuation (120) aerosol powdr breath activated 1 puff, Every evening montelukast (Singulair) 10 mg tablet 1 tablet, Nightly polyethylene glycol (MIRALAX) 17 g simvastatin (Zocor) 20 mg tablet 1 tablet, Nightly spironolactone (ALDACTONE) 25 mg, oral, Daily timolol (Timoptic) 0.5 % ophthalmic solution Administer into affected eye(s). As directed valsartan (DIOVAN) 80 mg, oral, Daily warfarin (COUMADIN) 6 mg Assessment/Plan 1. Bradycardia Follow Up In Cardiology 2. LVH (left ventricular hypertrophy) 3. Paroxysmal atrial fibrillation (Multi) 4. High risk medication use 5. Essential hypertension 6. Mixed hyperlipidemia 7. BMI 26.0-26.9,adult 8. Former smoker Scribe Attestation By signing my name below, Aggie Doty LPN , Scribe attest that this documentation has been prepared under the direction and in the presence of Raymundo Lane DO. Provider Attestation - Scribe documentation All medical record entries made by the Scribe were at my direction and personally dictated by me. Ashleigh reviewed the chart and agree that the record accurately reflects my personal performance of the history, physical exam, discussion and plan. documented in this encounterSelect Medical [facility] Rehabilitation Hospital Work Phone: [phone]) 704-358210-09-2025 Instructions* Patient Instructions* Aggie Montiel LPN - 07/31/2025 9:30 AM EDT Please bring all medicines, vitamins, and herbal supplements with you when you come to the office. Prescriptions will not be filled unless you are compliant with your follow up appointments or have a follow up appointment scheduled as per instruction of your physician. Refills should be requested at the time of your visit. BMI was above normal measurement. Current weight: 74.8 kg (165 lb) Weight change since last visit (-) denotes wt loss 1.6 lbs Weight loss needed to achieve BMI 25: 10.4 Lbs Weight loss needed to achieve BMI 30: -20.5 Lbs Provided instructions on dietary changes. Warfarin would need to be stopped for three days prior to colonoscopy. Patient will need to notify the coumadin clinic. * Attachments The following attachments cannot be sent through Care Everywhere. * Heart Healthy Diet (Swedish) documented in this encounterSelect Medical OhioHealth Rehabilitation Hospital Work Phone: [phone]) 129-273504-14-2025 NotePatient Education Oncology Prostate Cancer Screening Prostate cancer [...] recommendations. In general, screening is recommended if: ??? You are age 50 to 70 and [...] have a 10- to 15-year life expectancy. ??? You are younger than age 50, and [...] In general, screening is not recommended if: ??? You are younger than age 40. ??? You are between the ages of 40 and 49 and you have no risk factors. ??? You are 70 years of age or [...] high PSA levels may be caused by: ??? Prostate cancer. ??? An enlarged prostate that is not caused by cancer (benign prostatic hyperplasia, or BPH). This condition is very common in older men. ??? A prostate gland infection (prostatitis) or urinary tract infection. ??? Certain medicines such as male hormones (like [...] you may need more tests, such as: ??? A physical exam to check the size of your prostate gland, if not done as part of screening. ??? Blood and imaging tests. ??? A procedure to remove tissue samples from your prostate gland for testing (biopsy). This is theonly way to know for certain if you have prostate cancer. What are the benefits of prostate cancer screening? Screening can help to identify cancer at an early stage, before symptoms start and when the cancer can be treated more easily. ??? There is a small chance that screening [...] Questions to ask your health care provider ??? When should I start prostate cancer screening? What is my risk for prostate cancer? How often do I need screening? What type of screening tests do I need? How do I get my test results? What do my results mean? Do I need treatment? Where to find more information ??? The [place] [employer]: www.cancer.org ??? [place] [employer]: www.auanet.org Contact a health care provider if: ??? You have difficulty urinating. ??? You have pain when you urinate or ejaculate. ??? You have blood in your urine or semen. ??? You have pain in your back or in the area of your prostate. Summary ??? Prostate cancer is a common type of cancer in men. The prostate gland (more content not included)...[facility]02-[facility] Evaluation note* Diagnosis Onset Date Resolution Status Admit Date GERD (gastroesophageal reflux disease) acuteFebruary 2024 10:53amParoxysmal A-fibacuteFebruary 2024 10:53am [facility] Work Phone: [phone]) 166-590002-27-2025 Evaluation note* Diagnosis Onset Date Resolution Status Admit Date GERD (gastroesophageal reflux disease) acuteFebruary 2024 10:53amParoxysmal A-fibacuteFebruary 2024 10:53am Asthma exacerbationacuteMarch 2024 10:26am [facility] Work Phone: [phone] 273-482510-09-2024 History of Present illness Narrative* Ta Lane, DO - 07/31/2024 9:30 AM EDT Subjective Joao [...] Attestation By signing my name below, I, Aggiesunny Neri LPN , Scribe attest that this documentation has been prepared [...] exam, discussion and plan. documented in this encounterSelect Medical OhioHealth Rehabilitation Hospital Work Phone: 1(694) 109-588410-09-2024 Instructions* Patient Instructions* Aggie Montiel LPN - [...] sent through Care Everywhere. * DASH Diet (Swedish) documented in this encounterSelect Medical OhioHealth Rehabilitation Hospital Work Phone: [phone]) 385-820704-15-2024 Hospital Discharge instructions Patient Education 02/05/2024 10:08:29 [...] treatment? Where to find more information The [place] [employer]: www.cancer.org [place] [employer]: www.auanet.org Contact a health care [...] provider. Document Revised: 04/04/2022 Document Reviewed: 04/04/2022 [employer] Patient Education 2022 [employer]. Follow Up Care 02/03/2023 08:51:43 With:REINIER VAUGHAN, Kyle Valadez, URL Address: [facility] [address], [place] [address]- [phone] When: Unknown Comments:1 yr w/ PSA and CT scan [facility] 12-20-2023 Evaluation note* Encounter Date Diagnosis Assessment Notes Treatment Notes Treatment Clinical Notes Sep, Irritant contact cass matitis due to drug in contact with skin (ICD- 10 - L24.4) [facility] Other 10-13-2023 Evaluation note* Encounter Date Diagnosis Assessment Notes Treatment Notes Treatment Clinical Notes Jul, Foot callus (ICD-10 - L84) Pt allergic to sulfa able to prescribe urea cream. Continue daily moisture cream. Continue careful filing skin. Overall improved since recent antibiotics Jul,Irritant contact dermatitis due to drug in contact with skin (ICD-10 - L24.4)Discussed this may be helpful for itching he is experiencing. We will call patient in 2 weeks for an update on his condition. [facility] Other 09-12-2023 Evaluation note* Encounter Date Diagnosis Assessment Notes Treatment Notes Treatment Clinical Notes Jun, Pain in left ankle and joints of left foot (ICD-10 - M25.572) [facility] Other 04-14-2023 Hospital Discharge instructions Patient Education [...] who: Are older than age 65. Are -Cameroonian. Are obese. Have a family history of [...] cells. Follow these instructions at home: Take udjj-wjo-aznfaqp and prescription medicines only as told by [...] 10/09/2006 Document Revised: 09/21/2018 Document Reviewed: 06/19/2017 [employer] Patient Education 2020 [employer]. Follow Up Care 01/28/2022 08:42:30 With:REINIER VAUGHAN, Kyle Valadez, URL Address: [facility] [address] , [place] [address]- [phone] When:Within 1 Year(s) Comments:1 year fu with PSA [facility] 11-15-2022 Procedure [facility]04-08-2022 Hospital Discharge instructions Patient Education 01/28/2022 08:32:38 [...] Follow these instructions at home: Medicines Take kbgq-bxp-mdqxtgm and prescription medicines only as told by [...] 10/09/2006 Document Revised: 02/25/2020 Document Reviewed: 02/25/2020 [employer] Patient Education 2020 [employer]. Follow Up Care 07/30/2021 08:35:42 With:Kyle FORTE MD, URL Address: [address] [place] [phone] When:01/28/2023 Comments:w/PSA.Will get Renal US in 6m. Our office will call pt with the results. [facility] evaluation + Plan note Future Appointments Appointment Date:02/03/2023 08:00:00 AM Scheduled Provider:Kyle FORTE MD Location:[facility] Appointment Type:URO Office Visit Diagnostic Tests Pending * PSA Total 01/28/22 [facility] Urology [facility] evaluation + Plan note Future Appointments Appointment Date:02/05/2024 09:15:00 AM Scheduled Provider:Kyle FORTE MD Location:[facility] Appointment Type:URO Office Visit Diagnostic Tests Pending * PSA Total 02/03/23 [facility] evaluation + Plan note Future Appointments Appointment Date:02/03/2025 09:15:00 AM Scheduled Provider:Kyle FORTE MD Location:[facility] Appointment Type:URO Office Visit Diagnostic Tests Pending * PSA Total 02/05/24 [facility] evaluation noteNo assessment information available [facility] Work Phone: Evaluation noteNo InformationNortCrozer-Chester Medical Center [employer] Other Evaluation note* Diagnosis Paroxysmal atrial fibrillation (Multi) Atrial fibrillation Bradycardia Other specified cardiac dysrhythmias Abnormal EKG Nonspecific abnormal electrocardiogram (ECG) (EKG) Essential hypertension Unspecified essential hypertension Mixed hyperlipidemia High risk medication use BMI 26.0-26.9,adult Former smoker Personal history of tobacco use, presenting hazards to health documented in this encounter [facility] Work Phone: Evaluation note* Diagnosis Bradycardia Other specified cardiac dysrhythmias LVH (left ventricular hypertrophy) Cardiomegaly Paroxysmal atrial fibrillation (Multi) Atrial fibrillation High risk medication use Essential hypertension Unspecified essential hypertension Mixed hyperlipidemia Anemia, unspecified type BMI 26.0-26.9,adult Former smoker Personal history of tobacco use, presenting hazards to health documented in this encounter [facility] Work Phone: Evaluation note* Diagnosis Bradycardia Other specified cardiac dysrhythmias LVH (left ventricular hypertrophy) Cardiomegaly Paroxysmal atrial fibrillation (Multi) Atrial fibrillation Essential hypertension Unspecified essential hypertension documented in this encounter [facility] Work Phone: History general Narrative - Reported* Type Description Date Medical History HTN Medical HistoryHyperlipdemiaMedical HistoryHx of GI bleedMedical HistoryGlaucoma Medical HistoryconstipationMedical HistoryAsthmaMedical HistoryHx of prostate cancerMedical HistoryHypercalcemiaMedical HistoryAfibSurgical History prostatectomySurgical HistorytonsillectomySurgical HistoryEGDSurgical History ColonoscopySurgical HistoryNasal polypsHospitalization HistoryGI Bleed Hospitalization HistorySee above [facility] [employer] Other History of Present illness Narrative* The [...] medication regimen. He denies medication side effects. [facility] 250 DO Work Phone: History of Present [...] medication regimen. He denies medication side effects. [facility] [employer] 250 DO Work Phone: History of Present [...] medication regimen. He denies medication side effects. [facility] [employer] 250 DO Work Phone: History of Present [...] medication regimen. He denies medication side effects. [facility] Work Phone: history of Present illness [...] not limit his activities. * Disease Monitoring: [facility] 250 DO Work Phone: History of Present [...] not limit his activities. * Disease Monitoring: [facility] 250 DO Work Phone: Hospital course Narrative No data available for this section [facility] Discharge instructions No data available for this section [facility] General Surgery [facility] Progress note No data available for this section [facility] reason for referral (narrative)No reason for referral information availableClermont [facility] Work Phone: Reason for visit Narrative* CV Imaging (Routine) - AuthorizedSpecialtyDiagnoses / ProceduresReferred By ContactReferred To ContactCardiology Diagnoses Bradycardia LVH (left ventricular hypertrophy) Paroxysmal atrial fibrillation (Multi) Essential hypertension Procedures Transthoracic Echo Complete AR ECHO TTHRC R-T 2D W/WOM-MODE COMPL SPEC&COLR D Ta Lane S, DO [address] [facility] [address], [address] [address] Phone: tel: fax: Referral IDStatusReasonStart DateExpiration DateVisits RequestedVisits [id number] Perform Procedure [facility] Work Phone: Summary Purpose Family History No Family History [...] Recorded Date/T paris brother Malignant neoplasm Unknown fatherDeceasedUnknownmotherDeceasedUnknownsisterMalignant neoplasmUnknown Advance Directives No Advanced Directives Records Found [...] catheterization performed at outside hospital by another engagement liaison revealed more minimal coronary disease in 2016 [...] catheterization performed at outside hospital by another engagement liaison revealed more minimal coronary disease in 2016 [...] catheterization performed at outside hospital by another engagement liaison revealed more minimal coronary disease in 2016 [...] with uneventful September 06, 2022 cardioversion with faith of normal sinus rhythm. * Patient had [...] of caffeine daily, no alcohol intake. No kgcn-tvz-ahopklh medications. No prior sleep apnea testing. * EKG in office today is maintaining normal sinus rhythm and he reportedly feels better with faith of normal sinus rhythm. Has a little [...] medical regimen. He completed lab work at [facility] and will need to obtain. Has been [...] on exertion. * They have obtained a [employer] mobile device with no documented atrial fibrillation. [...] verify accuracy. * Will obtain labs from [facility] * Blood pressure management: 'continues to [...] pressure. * No caffeine, alcohol, energy drinks, qqsp-uos-etjszxe medications. * At this time, patient does [...] * 1 month f/u: 'doing fine' * OJAO BOGGS is being seen for a 6-8 [...] 10: 26am R05.9 - Cough, unspecified January 08, 025 11:00am Reason for Visit Admit Date GERD (gastroesophageal reflux disease) F ebruary 2024 10:53am Paroxysmal A-fib December 19, 2024 10:53am Reason for Visit Admit Date GERD (gastroesophageal reflux disease) F ebruary 2024 10:53am Paroxysmal A-fib December 19, 2024 10:53am Asthma exacerbation January 08, 2025 10: 26am Chief Complaint Admit Date wellness/flu shot July 29, 2025 10 :53am Reason for Referral SpecialtyDiagnoses / ProceduresReferred By ContactReferred To ContactRadiology Diagnoses Bradycardia Abnormal EKG Procedures MR cardiac morphology and function w and wo IV contrast Ta [address], [address], [place] [id number] Referral IDStatusRe[facility] DateExpiration DateVisits RequestedVisits [id number] Perform Procedure [id number] / ProceduresReferred By ContactReferred To Contact Diagnoses Bradycardia Procedures ECG [address], [address] [place] [address] [address], [address] [address] Referral IDStatKnox [facility] DateExpiration DateVisits RequestedVisits [id number]/[id number] / Procedures Referred By ContactReferred To ContactCardiology Diagnoses Bradycardia Procedures Follow Up In Cardiology Ta Lane, [address], [address], [address], [address] [address] Referral IDStatusReasonStart DateExpiration DateVisits RequestedVisits [id number]/9/202410/9/[id number] Additional Source Comments (unrecognized sect ion and content) No Status Records FoundNo Status Records FoundNo Status Records FoundNo Status Records FoundNo Status Records FoundNo Status Records FoundNo Status Records FoundNo Status Records FoundNo Status Records Found INFORMATION SOURCE (unrecogn ized section and content) DATE CREATED AUTHOR 04/18/2018 [facility] DATE CREATED AUTHOR AUTHOR'S ORGANIZ ATION 09/10/2022 [facility] DATE CREATED AUTHOR AUTHOR'S ORGANIZ ATION 01/05/2023 [facility] DATE CREATED AUTHOR AUTHOR'S ORGANIZ ATION 01/08/2023 [facility] DATE CREATED AUTHOR AUTHOR'S ORGANIZ ATION 03/31/2023 [facility] DATE CREATED AUTHOR AUTHOR'S ORGANIZ ATION 2025 [facility] DATE CREATED AUTHOR AUTHOR'S ORGANIZ ATION 08/02/2025 [facility] DATE CREATED AUTHOR AUTHOR'S ORGANIZ ATION 08/11/2025 [facility] DATE CREATED AUTHOR AUTHOR'S ORGANIZ ATION 08/29/2025 [facility] Care Teams (unrecognized sec tion and content) Team Status: Inactive Member Role Status Dates Tyrone Walters MD Attending Provider Active Chaparrita Cueto Care ProviderActive Team Status: Active Member Role Status Dates Christi Dent MD Primary Care Provider Active Team Status: Inactive Member Role Status Dates Tyrone Walters MD Attending Provider, Referring Prov ider Active Chaparrita Cueto Care ProviderActiveTeam MemberRelationshipSpecialty Start DateEnd Date Christi Dent MD [address] [place] [address] [address] [place] [address] [facility] - General04/30/19 Team Status: Inactive Member Role Status Dates Christi Dent MD Primary Care Provide r, Attending Provider Active Start: December 19, 2024 End: December 19, 2024 Team Status: Inactive Member Role Status Dates Christi Dent MD Primary Care Provider Active Start: January 08, 2025 End: January 08, 2025Aaliyah Mantilla ProviderActiveStart: January 08, 2025 End: January 08, 2025 Team Status: Active Member Role Status Dates Christi Dent MD Primary Care Provider Active Start: January 08, 2025 Aaliyah Mantilla ProviderActiveStart: January 08, 2025 Team Status: Inactive Member Role Status Dates Christi Dent MD Primary Care Provider Active Start: July 29, 2025 End: July 29, 2025Radha Cueto ProviderActiveStart: July 29, 2025 End: July 29, 2025Team MemberRelationshipSpecialtyStart DateEnd Date Christi Dent MD [address] [place] [address] PCP - General04/30/19Team MemberRelationshipSpecialtyStart DateEnd Date Christi Dent MD [address] [place], [place] [address] PCP - General04/30/19 Goals (unrecognized section and content) Goals may be documented in a n alternate section REASON FOR VISIT (unrecogniz ed section and content) ReasonCommentsFollow-up1 year LVH (left ventricular hypertrophy)Specialty Diagnoses / ProceduresReferred By ContactReferred To ContactCardiology Diagnoses Bradycardia Procedures Follow Up In Cardiology Ta Lane, DO [address] [place] [address] [address], [address] [address] Phone: tel: fax: Ta Lane, DO [address] [facility], [facility] [address] [place] [address] Phone: tel: fax: Referral IDStatusReasonStart DateExpiration DateVisits RequestedVisits [id number]/9/202410/[id number] [id number] infectionrefillfollowupFEET ISSUES - SKIN PROBLEMS FOR RECORDS [...] BE BASED ON THE PRIMARY CLINICAL RECORDS. [facility] [employer] [facility]. provides no warranty or guarantee of the accuracy or completeness of information in this document.
[2025-09-04 08:36] LABS: Hematocrit 39.6 % (42.0-54.0); Hemoglobin 12.8 g/dL (14.0-18.0); Mean Corpuscular HGB Conc 32.3 g/dL (29.9-35.2); Mean Corpuscular Hemoglobin 29.9 pg (25.9-34.0); Mean Corpuscular Volume 92.5 fL (80.0-94.0); Platelet Count 230 10^3/uL (150-450); Red Blood Count 4.28 10^6/uL (4.70-6.10); White Blood Count 18.1 10^3/uL (4.0-11.0)
[2025-09-04 09:28] LABS: Band Neutrophils Absolute 0.2 10^3/uL (0.0-0.3); Basophils Abs Manual 0.00 10^3/uL (0.00-0.10); Basophils Percent Manual 0.0 % (0.2-2.0); Eosinophils Absolute Manual 0.18 10^3/uL (0.00-0.70); Eosinophils Percent Manual 1.0 % (0.9-7.0); Lymphocytes Absolute Manual 1.99 10^3/uL (1.20-3.80); Lymphocytes Percent Manual 11.0 % (20.5-60.0); Monocytes Absolute Manual 4.16 10^3/uL (0.30-0.80); Monocytes Percent Manual 23.0 % (1.7-12.0); Segmented Neut Absolute Manual 11.58 10^3/uL (1.4-6.5); Segmented Neutrophils % Manual 64.0 (43.0-75.0)
[2025-09-04 10:02] LABS: Ferritin 137.0 ng/mL (26.0-388.0)
== END 2025-09-04 08:01 | disposition home or self-care (01) ==
LOC: LAB 08:00
PROVIDERS: PCP Family Medicine; Visit Provider Family Medicine
DX: D64.9 Anemia, unspecified (principal)
CPT/HCPCS: 36415; 82728; 85007; 85027

== ENCOUNTER 2025-09-22 16:07 | Outpatient (RCR) | payer MEDICARE, SELFPAY | END 2025-10-22 12:59 | disposition home or self-care (01) | LOC: MM 16:07 | PROVIDERS: PCP Family Medicine; Visit Provider Family Medicine | DX: Z51.81 Encounter for therapeutic drug level monitoring (principal); Z79.01 Long term (current) use of anticoagulants; I48.0 Paroxysmal atrial fibrillation | CPT/HCPCS: 85610; G0463 ==